=== PATIENT | male | born 1975 | race Caucasian/White ===

== ENCOUNTER 2016-10-19 07:57 | Inpatient (IN) | payer OTHER ==
[2016-10-18 17:44] VITALS: BMI 37.0
[2016-10-19] VITALS (26 sets, daily range): BP systolic 117–187; BP diastolic 56–96; PULSE 62–80; RESP 15–22; Ht 175.3 cm; Wt 113.6 kg
[~2016-10-19] VITALS: Ht 175.3 cm; Wt 113.6 kg
[~2016-10-19 07:57] MED LIST: ATOR80TA75 PO; BENA10TA48 PO; METO50TA16 PO; SUCCINYLCHOLINE CHLORIDE 100 MG/5 ML SYG IV ONE; WARF4TAB PO
[2016-10-19] MEDS ORDERED: AMPICILLIN/SULB 3 GM/NS (PMX) 100 ML IVPB ONE (09:30)
[2016-10-19] MEDS ORDERED: SOD CHLORIDE 0.9% 1,000 ML IV ONE (09:30)
[2016-10-19] MEDS ORDERED: metroNIDAZOLE 500 MG/NS (PMX) 100 ML IVPB ONE (09:30)
[2016-10-19] MEDS ORDERED: BUPIVACAINE 0.25% (MPF) 30 ML INJ ONE (09:41)
[2016-10-19] MEDS ORDERED: POLYMYXIN/BACITRACIN 1L IRRIG ONE (09:41)
[2016-10-19] MEDS ORDERED: MIDAZOLAM 1 MG/ML 2 ML INJ ONE (09:58)
[2016-10-19] MEDS ORDERED: FENTAnyl 50 MCG/ML VIAL ONE ×2 (09:58)
[2016-10-19] MEDS ORDERED: ROCURONIUM 50 MG INJ ONE (09:58)
[2016-10-19] MEDS ORDERED: PROPOFOL 20 ML ONE ×2 (09:58→10:48)
[2016-10-19] MEDS ORDERED: PHENYLephrine (100 MCG/ML) 5ML SYG ONE ×2 (10:12→10:22)
[2016-10-19] MEDS ORDERED: ONDANSETRON 4 MG INJ ONE (10:48)
[2016-10-19] MEDS ORDERED: METOCLOPRAMIDE 10 MG INJ ONE (10:48)
[2016-10-19] MEDS ORDERED: FAMOTIDINE 20 MG INJ ONE (10:48)
[2016-10-19] MEDS ORDERED: DEXAMETHASONE 4 MG/ML 1 ML INJ ONE (10:48)
[2016-10-19] MEDS ORDERED: KETOROLAC 30 MG INJ ONE (10:48)
[2016-10-19] MEDS ORDERED: NEOSTIGMINE 3 MG/3 ML SYRINGE ONE (10:51)
[2016-10-19] MEDS ORDERED: GLYCOPYRROLATE 1 MG INJ ONE (10:51)
[2016-10-19] MEDS ORDERED: ACETAMINOPHEN 1000MG/100ML IV 100 ML ONE (11:19)
[2016-10-19] MEDS ORDERED: HYDROmorphONE (0.2 MG/ML) 10ML SYG IV PRN ×2 (11:30)
[2016-10-19] MEDS ORDERED: ONDANSETRON 4 MG INJ IV PRN (11:30)
[2016-10-19] MEDS ORDERED: morphine 2 MG INJ IV PRN (11:30)
[2016-10-19] MEDS ORDERED: hydrALAzine 20 MG INJ IV PRN (11:30)
[2016-10-19] MEDS ORDERED: DIPHENHYDRAMINE 50 MG INJ IV PRN (11:30)
[2016-10-19] MEDS ORDERED: morphine (1 MG/ML) 10ML SYRINGE IV PRN ×3 (11:30)
[2016-10-19] MEDS ORDERED: EPHEDrine SULFATE 50 MG/5 ML SYG IV PRN (11:30)
[2016-10-19] MEDS ORDERED: LABETALOL HCL 20MG INJ IV PRN (11:30)
[2016-10-19] MEDS ORDERED: ALBUMIN HUMAN 5% 250 ML IV PRN (11:30)
[2016-10-19] MEDS ORDERED: MEPERIDINE 25 MG INJ IV PRN (11:30)
[2016-10-19] MEDS: HYDROmorphONE (0.2 MG/ML) 10ML SYG IV PRN ×3 (11:47→12:02)
[2016-10-19] MEDS: CEFAZOLIN 2 GM/50 ML (PMX) 50 ML IVPB SCH ×2 (12:00→20:05)
--- NOTE | 2016-10-19 13:50 | OPR ---
DATE OF OPERATION: 10/19/2016 INDICATION: This is a 41-year-old male with an incarcerated incisional hernia. He requests surgica l repair. Risks, alternatives, benefits, and personnel were discussed with patient. The patient ex presses understanding and consents to the operation. PREOPERATIVE DIAGNOSIS: Incarcerated incisional hernia. POSTOPERATIVE DIAGNOSIS: Incarcerated incisional hernia. OPERATIONS PERFORMED: 1. Laparoscopic converted to open incarcerated incisional hernia repair with 15 x [address] mesh. 2. Laparoscopic lysis of adhesions, approximately 1 hour. SURGEON: MD Lillie HOUSE WRECKER: Cristian Erwin MD SPECIMENS: None. COMPLICATIONS: None. ANESTHESIA: General. DESCRIPTION OF PROCEDURE: The patient was taken to the OR and prepped and draped in the usual steri le fashion. Surgical time out was performed. IV antibiotics were given. Right upper quadrant 5 mm transverse incision is made with a 15 blade. Using a 5 mm optical trocar, optical entry was perfor med. Pneumoperitoneum was established. Right flank 12 mm optical trocar, right lower quadrant 5 mm optical trocar were placed under direct visualization. Port positions were selected due to the dev iation of the hernia to the left side of the abdomen. Upon initial inspection, there were some adhe sions to the anterior abdominal wall, approximately 1 hour to an [id number]-a-half was used for laparo scopic lysis of adhesions. Upon identification of the hernia, it appeared incarcerated and large. This was not amenable to laparoscopic surgical management. A midline incision was made with a 10 bl linda. The decision was made for a conversion to open surgery. The incarcerated hernia was reduced. The fascial edges were identified with approximately 4 to 5 cm of underlay in all directions. Unde rlay mesh was secured in place with interrupted #1 Prolene. The midline incision was then closed wi th interrupted #1 Prolene and running #1 looped PDS from superior to inferior, inferior to superior , and tied in the midline. Surgical site was irrigated. There was good hemostasis. Skin was close d using skin river. Ports were closed using skin river. Local anesthesia was injected at all s ites. Dry dressings were applied. Dictated By: PANTERA FRANKS MD SB/NTS Conf#: [id number] DID#: [id number]
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
[2016-10-19 15:26] LABS: BASOPHILS % 0.2 % (0.0-2.0); EOSINOPHILS % 0.2 % (0.0-7.0); HEMATOCRIT 36.1 % (42.0-52.0); HEMOGLOBIN 12.1 g/dl (14.0-18.0); LYMPHOCYTES # 0.9 10^3/ul (0.8-2.9); LYMPHOCYTES % 8.3 % (15.0-51.0); MEAN CORPUSCULAR HEMOGLOBIN 28.7 pg (29.0-33.0); MEAN CORPUSCULAR HGB CONC 33.6 g/dl (32.0-37.0); MEAN CORPUSCULAR VOLUME 85.6 fl (82.0-101.0); MEAN PLATELET VOLUME 11.1 fl (7.4-10.4); MONOCYTE # 0.2 10^3/ul (0.3-0.9); MONOCYTES % 1.9 % (0.0-11.0); NEUTROPHIL # 9.7 10^3/ul (1.6-7.5); NEUTROPHILS % 89.4 % (39.0-77.0); PLATELET COUNT 184 10^3/UL (140-440); RED BLOOD COUNT 4.22 10^6/ul (4.70-6.10); UNCORRECTED WBC 10.9 10^3/ul (4.8-10.8); WHITE BLOOD COUNT 10.9 10^3/ul (4.8-10.8)
[2016-10-19 15:31] LABS: ALBUMIN 3.7 g/dl (3.3-4.9)
[2016-10-19 15:32] LABS: CONDITION 1; LH ANALYZER COMMENTS 1; POTASSIUM 4.6 mmol/L (3.5-5.1)
[2016-10-19 15:34] LABS: ALBUMIN/GLOBULIN RATIO 1.19; BILIRUBIN,INDIRECT 0.3 mg/dl (0-1.1); BILIRUBIN,TOTAL 0.3 mg/dl (0.2-1.3); CREATININE 1.04 mg/dl (0.61-1.24); TOTAL PROTEIN 6.8 g/dl (6.1-8.1)
[2016-10-19 15:35] LABS: CALCIUM 8.4 mg/dl (8.4-10.2)
[2016-10-19] MEDS: SOD CHLORIDE 0.9% 1,000 ML IV SCH ×2 (15:41→22:13)
[2016-10-19] MEDS: HYDROmorphONE 1 MG/ML SYG IV PRN ×2 (17:14→22:59)
[2016-10-19] MEDS: BENAZEPRIL 10 MG TAB PO SCH (22:09)
[2016-10-20 00:05] VITALS: BP 128/74; PULSE 70; RESP 17
[2016-10-20] MEDS: HYDROCODONE/APAP (5/325) TAB PO PRN ×3 (01:57→18:35)
[2016-10-20] MEDS: CEFAZOLIN 2 GM/50 ML (PMX) 50 ML IVPB SCH (03:46)
[2016-10-20 04:02] VITALS: BP 127/70; PULSE 70; RESP 18
[2016-10-20 05:25] LABS: ALBUMIN 3.3 g/dl (3.3-4.9)
[2016-10-20 05:26] LABS: POTASSIUM 4.8 mmol/L (3.5-5.1)
[2016-10-20 05:28] LABS: ALBUMIN/GLOBULIN RATIO 1.22; BILIRUBIN,INDIRECT 0.5 mg/dl (0-1.1); BILIRUBIN,TOTAL 0.5 mg/dl (0.2-1.3); CREATININE 1.08 mg/dl (0.61-1.24)
[2016-10-20 05:29] LABS: CALCIUM 8.5 mg/dl (8.4-10.2)
[2016-10-20 05:32] LABS: BASOPHILS % 0.3 % (0.0-2.0); HEMATOCRIT 33.4 % (42.0-52.0); HEMOGLOBIN 11.2 g/dl (14.0-18.0); LYMPHOCYTES # 1.1 10^3/ul (0.8-2.9); LYMPHOCYTES % 9.2 % (15.0-51.0); MEAN CORPUSCULAR HGB CONC 33.5 g/dl (32.0-37.0); MEAN CORPUSCULAR VOLUME 86.5 fl (82.0-101.0); MONOCYTE # 0.8 10^3/ul (0.3-0.9); MONOCYTES % 6.9 % (0.0-11.0); NEUTROPHIL # 9.7 10^3/ul (1.6-7.5); NEUTROPHILS % 83.6 % (39.0-77.0); PLATELET COUNT 181 10^3/UL (140-440); RED BLOOD COUNT 3.86 10^6/ul (4.70-6.10); RED CELL DISTRIBUTION WIDTH 14.6 % (11.5-14.5); UNCORRECTED WBC 11.6 10^3/ul (4.8-10.8); WHITE BLOOD COUNT 11.6 10^3/ul (4.8-10.8)
[2016-10-20 07:11] LABS: CONDITION 1; LH ANALYZER COMMENTS 1
[2016-10-20 07:12] LABS: MEAN PLATELET VOLUME 13.9 fl (7.4-10.4)
[2016-10-20 07:25] VITALS: BP 112/60; RESP 19
[2016-10-20] MEDS: SOD CHLORIDE 0.9% 1,000 ML IV SCH (08:54)
[2016-10-20] MEDS: METOPROLOL (XL) 50 MG TAB PO SCH (08:55)
[2016-10-20] MEDS: BENAZEPRIL 10 MG TAB PO SCH ×2 (08:55→20:47)
[2016-10-20 10:30] LABS: INR 1.14; PROTIME 14.6 Sec (12.2-14.2); PT RATIO 1.1
[2016-10-20] MEDS: HYDROmorphONE 1 MG/ML SYG IV PRN ×2 (14:59→20:53)
--- NOTE | 2016-10-20 16:40 | PN ---
DATE: 10/20/2016 Postoperative day #1: SUBJECTIVE: Patient does not have any specific complaints. The pain is under control with pain med ication. Patient has been out of bed. PHYSICAL EXAMINATION: GENERAL: Patient is sitting in the chair. VITAL SIGNS: 98.5/75/19, blood pressure 112/60, saturation 95% on 2 liters nasal cannula. LABORATORY DATA: WBC today is 11,600. Differential 83%. Hemoglobin and hematocrit stable compared to the pre-operation. The lower part of the dressing is slightly saturated with blood, so the dres sing completely was changed. There was clotted blood or lower part of the incision. The clot was r emoved. There was no evidence of acute bleeding, but the blood was there where he had clotted. So, the dressing was changed and new sterile dry dressing was applied. ASSESSMENT: Status post ventral incisional hernia repair with mesh on a patient who is 41 years ol d with status post dissecting aneurysm of the aorta and open heart surgery and patient has been on C oumadin, which has been stopped already. Patient is going to be started on Lovenox 115 mg q.12h., starting at 9:00 p.m. tonight and also 5 mg of Coumadin starting at 5:00 p.m. today as a breech. PLAN: The patient is resting in the hospital a few days until the bridging anticoagulation is compl eted and or other condition becomes more stable. Dictated By: MICHELLE THOMPSON MD PS/NTS Conf#: [id number] DID#: [id number]
--- NOTE | 2016-10-20 16:44 | PN ---
Date/Time of Note Date/Time of Note DATE: 10/20/16 TIME: 16:42 Assessment/Plan VTE Prophylaxis VTE Prophylaxis Intervention: LMWH, SCD's, other (Coumadin) Lines/Catheters IV Catheter Type (from Nrs): Peripheral IV Urinary Cath still in place: No Assessment/Plan Assessment/Plan 41 yo Male with 1. Incisional hernia status post laparoscopic incisional hernia repair. We will continue Zofran p.r.n. for nausea and morphine p.r.n. for pain. Continue cefazolin and incentive spirometer. Advance diet per surgery. 2. Prosthetic aortic valve replacement. Continue patient on Coumadin and Lovenox. Check Coags Daily. 3. Hypertension. Controlled. Continue to monitor blood pressure, hydralazine p.r.n. for systolic blood pressure above 170. 4. Hyperlipidemia. Continue Lipitor. 5. History of aortic dissection status post repair. No acute issues. Subjective 24 Hr Interval Summary Free Text/Dictation No new complaints Constitutional: No requiring O2 Exam/Review of Systems Vital Signs Vitals Vital Signs Date Time Temp Pulse Resp B/P Pulse Ox O2 Delivery O2 Flow Rate FiO2 10/20/16 07:25 98.5 75 19 112/60 95 10/20/16 04:02 Nasal Cannula 10/20/16 02:19 2.0 Intake and Output 10/19/16 10/19/16 10/20/16 15:00 23:00 07:00 Intake Total 700 ml 1050 ml 1180 ml Output Total 50 ml 1600 ml Balance 650 ml 1050 ml -420 ml Exam Constitutional: alert, oriented, No distress Head: atraumatic, normocephalic Eyes: EOMI Neck: No jvd Respiratory: clear to auscultation Cardiovascular: edema, regular rate and rhythm Gastrointestinal: soft, No rebound or guarding Neurological: No lethargic Skin: No diaphoresis Results Result Diagram: 10/20/16 0424 10/20/16425 Results 24 hrs Laboratory Tests Test 10/20/16 04:24 10/20/16 04:26 10/20/16 09:40 Basophils # 0.0 Basophils % 0.3 Blood Morphology Comment Eosinophils # 0.0 Eosinophils % 0.0 Hematocrit 33.4 L Hemoglobin 11.2 L Lymphocytes # 1.1 Lymphocytes % 9.2 L Mean Corpuscular Hemoglobin 29.0 Mean Corpuscular Hemoglobin Concent 33.5 Mean Corpuscular Volume 86.5 Mean Platelet Volume 13.9 #H Monocytes # 0.8 Monocytes % 6.9 Neutrophils # 9.7 H Neutrophils % 83.6 H Nucleated Red Blood Cells # 0.0 Nucleated Red Blood Cells % 0.0 Platelet Count 181 Red Blood Count 3.86 L Red Cell Distribution Width 14.6 H White Blood Count 11.6 H Alanine Aminotransferase (ALT/SGPT) 26 Albumin 3.3 Albumin/Globulin Ratio 1.22 Alkaline Phosphatase 37 L Anion Gap 14 Aspartate Amino Transf (AST/SGOT) 23 Blood Urea Nitrogen 24 H Calcium Level 8.5 Carbon Dioxide Level 25 Chloride Level 105 Creatinine 1.08 Direct Bilirubin 0.00 Globulin 2.70 Glucose Level 110 Indirect Bilirubin 0.5 Potassium Level 4.8 Sodium Level 139 Total Bilirubin 0.5 Total Protein 6.0 L INR International Normalized Ratio 1.14 Prothrombin Time 14.6 H Prothrombin Time Ratio 1.1 Medications Medications Current Medications Hydromorphone HCl (Dilaudid) 0.5 mg Q6H PRN IV PAIN LEVEL 6-10 Last administered on 10/20/16 14:59; Admin Dose 0.5 MG; Start 10/19/16 at 11:30 Morphine Sulfate (morphine) 2 mg Q2H PRN IV PAIN LEVEL 6-10; Start 10/19/16 at 11:30 Acetaminophen/ Hydrocodone Bitart ([place] (5/325)) 1 tab Q6H PRN PO PAIN LEVEL 6 -10 Last administered on 10/20/16 10:05; Admin Dose 1 TAB; Start 10/19/16 at 11 :30 Enoxaparin Sodium (Lovenox) 115 mg Q12 SC ; Start 10/20/16 at 21:00 Warfarin Sodium (Coumadin) 5 mg ONCE@17 ONCE PO ; Start 10/20/16 at 17:00; Stop 10/20/16 at 17:01 Atorvastatin Calcium (Lipitor) 80 mg HS PO ; Start 10/20/16 at 21:00 Benazepril HCl (Lotensin) 10 mg BID PO Last administered on 10/20/16 08:55; Admin Dose 10 MG; Start 10/19/16 at 22:30 Metoprolol Succinate (Toprol Xl) 50 mg DAILY PO Last administered on 10/20/16 08:55; Admin Dose 50 MG; Start 10/20/16 at 09:00 HANS VIRAMONTES MD Oct 20, 2016 16:44
[2016-10-20] MEDS ORDERED: WARFARIN 5 MG TAB PO ONE (17:00)
[2016-10-20 19:49] VITALS: BP 171/90; RESP 20
[2016-10-20] MEDS: ATORVASTATIN 80 MG TAB PO SCH (20:46)
[2016-10-20] MEDS ORDERED: ENOXAPARIN 100 MG/ML SYG SC SCH (21:00)
[2016-10-20 22:02] VITALS: BP 129/79; PULSE 76
[2016-10-21] MEDS: HYDROmorphONE 1 MG/ML SYG IV PRN ×3 (03:55→18:49)
[2016-10-21 05:17] LABS: BASOPHIL # 0.1 10^3/ul (0.0-0.1); BASOPHILS % 0.7 % (0.0-2.0); EOSINOPHILS % 0.5 % (0.0-7.0); HEMOGLOBIN 11.5 g/dl (14.0-18.0); LYMPHOCYTES # 1.9 10^3/ul (0.8-2.9); LYMPHOCYTES % 17.7 % (15.0-51.0); MEAN CORPUSCULAR HEMOGLOBIN 29.3 pg (29.0-33.0); MEAN CORPUSCULAR HGB CONC 33.8 g/dl (32.0-37.0); MEAN CORPUSCULAR VOLUME 86.5 fl (82.0-101.0); MEAN PLATELET VOLUME 12.1 fl (7.4-10.4); MONOCYTE # 0.8 10^3/ul (0.3-0.9); MONOCYTES % 7.6 % (0.0-11.0); NEUTROPHIL # 7.9 10^3/ul (1.6-7.5); NEUTROPHILS % 73.5 % (39.0-77.0); PLATELET COUNT 176 10^3/UL (140-440); RED BLOOD COUNT 3.93 10^6/ul (4.70-6.10); RED CELL DISTRIBUTION WIDTH 14.9 % (11.5-14.5); UNCORRECTED WBC 10.8 10^3/ul (4.8-10.8); WHITE BLOOD COUNT 10.8 10^3/ul (4.8-10.8)
[2016-10-21 05:27] LABS: CONDITION 1; LH ANALYZER COMMENTS 1
[2016-10-21 07:54] VITALS: BP 148/79; RESP 20
[2016-10-21] MEDS: BENAZEPRIL 10 MG TAB PO SCH ×3 (09:05→22:28)
[2016-10-21] MEDS: METOPROLOL (XL) 50 MG TAB PO SCH (09:06)
[2016-10-21 11:03] LABS: INR 1.12; PROTIME 14.4 Sec (12.2-14.2); PT RATIO 1.1
--- NOTE | 2016-10-21 13:20 | PN ---
Date/Time of Note Date/Time of Note DATE: 10/21/16 TIME: 13:18 Assessment/Plan VTE Prophylaxis VTE Prophylaxis Intervention: SCD's Lines/Catheters IV Catheter Type (from Nrsg): Peripheral IV Urinary Cath still in place: No Assessment/Plan Assessment/Plan 1. Incisional hernia status post laparoscopic incisional hernia repair. - per surgery - Zofran p.r.n. for nausea and morphine p.r.n. for pain. - cefazolin and incentive spirometer. - Advance diet per surgery. 2. Prosthetic aortic valve replacement. - Continue patient on Coumadin and Lovenox. Check Coags Daily. 3. Hypertension. Controlled. -Continue to monitor blood pressure, hydralazine p.r.n. for systolic blood pressure above 170. 4. Hyperlipidemia. Continue Lipitor. 5. History of aortic dissection status post repair. No acute issues. Further recommendations based on clinical course. Plan of care discussed with staff/patient/Dr. Baker covering for Dr Murphy. Total time spent - [address] Baker Subjective 24 Hr Interval Summary Eyes: no complaints ENT: no complaints Respiratory: no complaints Cardiovascular: no complaints Gastrointestinal: pain Genitourinary: no complaints Musculoskeletal: no complaints Skin: no complaints, other Neurologic: no complaints Endocrine: no complaints, polydypsia Lymphatic: no complaints Psychological: no complaints Immunologic: no complaints Exam/Review of Systems Vital Signs Vitals Vital Signs Date Time Temp Pulse Resp B/P Pulse Ox O2 Delivery O2 Flow Rate FiO2 10/21/16 07:54 98.0 78 20 148/79 92 10/20/16 04:02 Nasal Cannula 10/20/16 02:19 2.0 Intake and Output 10/20/16 10/20/16 10/21/16 15:00 23:00 07:00 Intake Total 350 ml 2100 ml 1400 ml Output Total 1600 ml Balance 350 ml 2100 ml -200 ml Exam Constitutional: alert, oriented Psych: nl mood/affect Head: atraumatic Eyes: EOMI, nl sclera ENMT: nl external ears & nose Neck: non-tender Respiratory: clear to auscultation Cardiovascular: nl pulses Gastrointestinal: other (sp hernai repair, dressing is wet- bloody drainage, staff notified Dr Erwin. ), soft Musculoskeletal: nl extremities to inspection Extremities: normal pulses Neurological: nl mental status, nl speech Skin: other Results Result Diagram: 10/21/16 0430 10/20/16 0426 Results 24 hrs Laboratory Tests Test 10/21/16 04:30 10/21/16 10:20 Basophils # 0.1 Basophils % 0.7 Blood Morphology Comment Eosinophils # 0.0 Eosinophils % 0.5 Hematocrit 34.0 L Hemoglobin 11.5 L Lymphocytes # 1.9 Lymphocytes % 17.7 Mean Corpuscular Hemoglobin 29.3 Mean Corpuscular Hemoglobin Concent 33.8 Mean Corpuscular Volume 86.5 Mean Platelet Volume 12.1 H Monocytes # 0.8 Monocytes % 7.6 Neutrophils # 7.9 H Neutrophils % 73.5 Nucleated Red Blood Cells # 0.0 Nucleated Red Blood Cells % 0.0 Platelet Count 176 Red Blood Count 3.93 L Red Cell Distribution Width 14.9 H White Blood Count 10.8 INR International Normalized Ratio 1.12 Prothrombin Time 14.4 H Prothrombin Time Ratio 1.1 Medications Medications Current Medications Hydromorphone HCl (Dilaudid) 0.5 mg Q6H PRN IV PAIN LEVEL 6-10 Last administered on 10/21/16 12:43; Admin Dose 0.5 MG; Start 10/19/16 at 11:30 Morphine Sulfate (morphine) 2 mg Q2H PRN IV PAIN LEVEL 6-10; Start 10/19/16 at 11:30 Acetaminophen/ Hydrocodone Bitart ([place] (5/325)) 1 tab Q6H PRN PO PAIN LEVEL 6 -10 Last administered on 10/20/16 18:35; Admin Dose 1 TAB; Start 10/19/16 at 11 :30 Atorvastatin Calcium (Lipitor) 80 mg HS PO Last administered on 10/20/16 20:46 ; Admin Dose 80 MG; Start 10/20/16 at 21:00 Benazepril HCl (Lotensin) 10 mg BID PO Last administered on 10/21/16 09:05; Admin Dose 10 MG; Start 10/19/16 at 22:30 Metoprolol Succinate (Toprol Xl) 50 mg DAILY PO Last administered on 10/21/16 09:06; Admin Dose 50 MG; Start 10/20/16 at 09:00 NIKO ANSARI Oct 21, 2016 13:19
[2016-10-21] MEDS ORDERED: MAGNESIUM HYDROXIDE 30ML CUP PO PRN (15:00)
[2016-10-21] MEDS ORDERED: MAGNESIUM HYDROXIDE 30ML CUP PO ONE (15:00)
[2016-10-21] MEDS: LORATADINE 10 MG TAB PO SCH (15:23)
[2016-10-21 15:30] VITALS: BP 162/84; PULSE 84; RESP 22
[2016-10-21 15:45] VITALS: BP 145/83; PULSE 86; RESP 22
[2016-10-21] MEDS ORDERED: BISACODYL 10 MG SUPP PR PRN (16:00)
[2016-10-21] MEDS ORDERED: NA PHOSPHATE/BIPHOS 133 ML ENEMA PR PRN (16:00)
[2016-10-21] MEDS ORDERED: BISACODYL 10 MG SUPP PR ONE (16:00)
[2016-10-21] MEDS: 1/2 NS + KCL 20 MEQ 1,000 ML IV SCH (16:10)
[2016-10-21 17:09] VITALS: BP 141/88; RESP 18
--- NOTE | 2016-10-21 17:33 | RADRPT ---
PROCEDURE: XR Abdomen 1 vw. CLINICAL INDICATION: Abdominal pain /post hernia repair TECHNIQUE: AP view of the abdomen . COMPARISON: None. FINDINGS: Right lower quadrant surgical clips. No organomegaly is identified. There is a moderate ileus bowel pattern.. There is no evidence of b owel obstruction. No free air is identified. There is abdominal wall soft tissue edema in the right lower quadrant. No calculi are identified. The axial skeleton is unremarkable. IMPRESSION: Moderate ileus bowel gas pattern Right lower quadrant abdominal wall soft tissue edema (query cellulitis) RPTAT: HGDB .Kang Hsu MD, Date Time Electronically viewed and signed by .Kang Hsu MD, on 10/21/2016 17:33 .B/
--- NOTE | 2016-10-21 18:30 | PN ---
DATE: 10/21/2016 SUBJECTIVE: The patient complains of a little bit increasing abdominal pain. GI, negative nausea, vomiting. Negative bowel movement. Plus/minus passing flatus. Also, the nurse reported that the dressing appears to be saturated with blood. OBJECTIVE: GENERAL: The patient is alert, awake, oriented x3, semisitting position. VITAL SIGNS: Temperature 98, heart rate 78 and regular, respirations 20, blood pressure 148/79, saturation 92% on 2 liters oxygen. DATA: WBC is 10,800; hemoglobin is 11.5, hematocrit 34, not much of difference since yesterday. INR is 1.12. ABDOMEN: Slightly distended, and, of course, is protruded with fat. Dressing appears saturated. This was changed. I think is about 50 to 60 mL of blood has oozed out from the incision line and has clotted already. Dressing was changed. No active bleeding from incision line at this time. ASSESSMENT: Appears to be stable. There is a little bit of oozing from the incision line. I am not sure if this is the effect of starting Lovenox earlier or some small bleeders from the edge of the skin. In any case, we changed the dressing and we will watch and observe. PLAN: 1. Continue current care. 2. Stop Coumadin. 3. Hold Lovenox. 4. Repeat CBC, PT, and PTT tomorrow morning. 5. Keep the patient n.p.o. after midnight in the case Dr. Moreira wants to inspect the wound in the operating room to make sure that there is no small capillary open. 6. I will discuss the matter with Dr. Moreira later on. Dictated By: MICHELLE THOMPSON MD PS/NTS Conf#: [id number] DID#: [id number] CC: ELIZABETH STANLEY MD;*EndCC* MTDD
[2016-10-21 20:00] VITALS: BP 127/92; PULSE 80; RESP 17
[2016-10-21] MEDS: ATORVASTATIN 80 MG TAB PO SCH ×2 (21:00→22:26)
[2016-10-21] MEDS: HYDROCODONE/APAP (5/325) TAB PO PRN (23:42)
[2016-10-22] MEDS: 1/2 NS + KCL 20 MEQ 1,000 ML IV SCH ×3 (01:27→22:17)
[2016-10-22 01:28] VITALS: BP 133/87; PULSE 95; RESP 17
[2016-10-22] MEDS: HYDROmorphONE 1 MG/ML SYG IV PRN ×3 (05:02→22:23)
[2016-10-22 06:36] LABS: POTASSIUM 4.3 mmol/L (3.5-5.1)
[2016-10-22 06:40] LABS: CALCIUM 8.7 mg/dl (8.4-10.2)
[2016-10-22 06:41] LABS: BASOPHIL # 0.1 10^3/ul (0.0-0.1); BASOPHILS % 0.5 % (0.0-2.0); EOSINOPHILS % 0.4 % (0.0-7.0); HEMATOCRIT 35.2 % (42.0-52.0); LYMPHOCYTES # 1.5 10^3/ul (0.8-2.9); LYMPHOCYTES % 13.2 % (15.0-51.0); MEAN CORPUSCULAR HEMOGLOBIN 29.4 pg (29.0-33.0); MEAN CORPUSCULAR HGB CONC 34.1 g/dl (32.0-37.0); MEAN CORPUSCULAR VOLUME 86.1 fl (82.0-101.0); MEAN PLATELET VOLUME 14.3 fl (7.4-10.4); MONOCYTE # 0.7 10^3/ul (0.3-0.9); MONOCYTES % 6.4 % (0.0-11.0); NEUTROPHIL # 9.2 10^3/ul (1.6-7.5); NEUTROPHILS % 79.5 % (39.0-77.0); PLATELET COUNT 190 10^3/UL (140-440); RED BLOOD COUNT 4.09 10^6/ul (4.70-6.10); RED CELL DISTRIBUTION WIDTH 15.1 % (11.5-14.5); UNCORRECTED WBC 11.5 10^3/ul (4.8-10.8); WHITE BLOOD COUNT 11.5 10^3/ul (4.8-10.8)
[2016-10-22 06:48] LABS: CONDITION 1; LH ANALYZER COMMENTS 1; SUSPECT 1
[2016-10-22 06:57] LABS: INR 1.17; PT RATIO 1.2
[2016-10-22 08:34] VITALS: BP 155/93; RESP 20
[2016-10-22] MEDS: LORATADINE 10 MG TAB PO SCH (08:52)
--- NOTE | 2016-10-22 08:52 | PN ---
Date/Time of Note Date/Time of Note DATE: 10/22/16 TIME: 08:51 Assessment/Plan VTE Prophylaxis VTE Prophylaxis Intervention: ambulation, heparin, SCD's Lines/Catheters IV [facility] (from [facility]): Peripheral IV Urinary Cath still in place: No Assessment/Plan Chief Complaint/Hosp Course incisional hernia with multiple medical problems and aortic valve requiring anticoagulation Problems: Assessment/Plan will resume lovenox bridging to coumadin Subjective 24 Hr Interval Summary Free Text/Dictation wound hematoma but stable hgb Exam/Review of Systems Vital Signs Vitals Vital Signs Date Time Temp Pulse Resp B/P Pulse Ox O2 Delivery O2 Flow Rate FiO2 10/22/16 08:34 97.8 81 20 155/93 93 10/22/16 01:28 Nasal Cannula 2.0 Intake and Output 10/21/16 10/21/16 10/22/16 15:00 23:00 07:00 Intake Total 890 ml 1360 ml Output Total 450 ml 200 ml Balance 440 ml 1160 ml Exam wound hematoma Results Result Diagram: 10/22/16 0434 10/22/16 0434 Results 24 hrs Laboratory Tests Test 10/21/16 10:20 10/22/16 04:34 10/22/16 04:35 INR International Normalized Ratio 1.12 1.17 Prothrombin Time 14.4 H 15.0 H Prothrombin Time Ratio 1.1 1.2 Anion Gap 17 H Basophils # 0.1 Basophils % 0.5 Blood Morphology Comment Blood Urea Nitrogen 25 H Calcium Level 8.7 Carbon Dioxide Level 29 Chloride Level 96 L Creatinine 1.00 Eosinophils # 0.0 Eosinophils % 0.4 Glucose Level 108 Hematocrit 35.2 L Hemoglobin 12.0 L Lymphocytes # 1.5 Lymphocytes % 13.2 L Mean Corpuscular Hemoglobin 29.4 Mean Corpuscular Hemoglobin Concent 34.1 Mean Corpuscular Volume 86.1 Mean Platelet Volume 14.3 H Monocytes # 0.7 Monocytes % 6.4 Neutrophils # 9.2 H Neutrophils % 79.5 H Nucleated Red Blood Cells # 0.0 Nucleated Red Blood Cells % 0.0 Platelet Count 190 Potassium Level 4.3 Red Blood Count 4.09 L Red Cell Distribution Width 15.1 H Sodium Level 138 White Blood Count 11.5 H Activated Partial Thromboplast Time 30.9 Medications Medications Current Medications Hydromorphone HCl (Dilaudid) 0.5 mg Q6H PRN IV PAIN LEVEL 6-10 Last administered on 10/22/16 05:02; Admin Dose 0.5 MG; Start 10/19/16 at 11:30 Morphine Sulfate (morphine) 2 mg Q2H PRN IV PAIN LEVEL 6-10; Start 10/19/16 at 11:30 Acetaminophen/ Hydrocodone Bitart ([place] (5/325)) 1 tab Q6H PRN PO PAIN LEVEL 6 -10 Last administered on 10/21/16 23:42; Admin Dose 1 TAB; Start 10/19/16 at 11 :30 Atorvastatin Calcium (Lipitor) 80 mg HS PO Last administered on 10/21/16 22:26 ; Admin Dose 80 MG; Start 10/20/16 at 21:00 Benazepril HCl (Lotensin) 10 mg BID PO Last administered on 10/21/16 22:28; Admin Dose 10 MG; Start 10/19/16 at 22:30 Metoprolol Succinate (Toprol Xl) 50 mg DAILY PO Last administered on 10/21/16 09:06; Admin Dose 50 MG; Start 10/20/16 at 09:00 Magnesium Hydroxide (Milk Of Mag) 30 ml DAILY PRN PO CONSTIPATION; Start at 15:00 Loratadine (Claritin) 10 mg DAILY PO Last administered on 10/21/16 15:23; Admin Dose 10 MG; Start 10/21/16 at 15:00 Bisacodyl (Dulcolax Supp) 10 mg DAILY PRN [place] CONSTIPATION; Start 10/21/16 at 16 :00 Sodium Biphosphate/ Sodium Phosphate 133 ml 133 ml DAILY PRN [place] CONSTIPATION; Start 10/21/16 at 16:00 Potassium Chloride/Sodium Chloride (1/2 NS + KCl 20 Meq) 1,000 ml @ 100 mls/hr Q10H IV Last administered on 10/22/16 01:27; Admin Dose 100 MLS/HR; Start at 16:00 Izzy FRNAKS Oct 22, 2016 08:52
[2016-10-22] MEDS: BENAZEPRIL 10 MG TAB PO SCH ×3 (08:53→22:16)
[2016-10-22] MEDS: METOPROLOL (XL) 50 MG TAB PO SCH (08:53)
[2016-10-22] MEDS: HYDROCODONE/APAP (5/325) TAB PO PRN ×2 (08:55→15:38)
--- NOTE | 2016-10-22 18:31 | PN ---
Date/Time of Note Date/Time of Note DATE: 10/22/16 TIME: 18:26 Assessment/Plan VTE Prophylaxis VTE Prophylaxis Intervention: SCD's Lines/Catheters IV C[facility] Type [facility]from [facility] Peripheral IV Urinary Cath still in place: No Assessment/Plan Chief Complaint/Hosp Course ASSESSMENT AND PLAN: 1. Incisional hernia status post laparoscopic incisional hernia repair. Advance diet per surgery. 2. Prosthetic aortic valve replacement. Continue patient on Coumadin and Lovenox. 3. Hypertension. Continue to monitor blood pressure, hydralazine p.r.n. for systolic blood pressure above 170. 4. Hyperlipidemia. Continue Lipitor. 5. History of aortic dissection status post repair. No acute issues. Further recommendations based on clinical course. Plan of care discussed with Dr. Murphy. Problems: Subjective 24 Hr Interval Summary Free Text/Dictation Patient started on a regular diet, denies nausea vomiting, bowel sounds are hypoactive, patient stated he had bowel movement today. Exam/Review of Systems Vital Signs Vitals Vital Signs Date Time Temp Pulse Resp B/P Pulse Ox O2 Delivery O2 Flow Rate FiO2 10/22/16 13:08 97.9 10/22/16 08:34 81 20 155/93 93 10/22/16 08:00 Nasal Cannula 2.0 Intake and Output 10/21/16 10/21/16 10/22/16 15:00 23:00 07:00 Intake Total 890 ml 1360 ml Output Total 450 ml 200 ml Balance 440 ml 1160 ml Exam GENERAL: Well-developed, obese gentleman who currently is awake, alert. HEENT: Head is atraumatic, normocephalic. Pupils equal, round, reactive to light and accommodation. Oral mucosa is pink and moist. NECK: Supple, no cervical lymphadenopathy, no thyromegaly. CHEST: Lungs clear bilaterally. There are no rhonchi, wheezes, or rales noted. CARDIOVASCULAR: Normal S1, S2. The patient has mechanical aortic valve click. No murmurs or gallops noted. ABDOMEN: Status post surgery. Ecchymotic area around the incision. EXTREMITIES: No edema, clubbing, cyanosis. SKIN: There is no rash or petechiae noted. The patient has a midline surgical healed scar. NEUROLOGIC: The patient is awake, alert, and oriented x3. Results Result Diagram: 10/22/16 0434 10/22/16 0434 Results 24 hrs Laboratory Tests Test 10/22/16 04:34 10/22/16 04:35 Anion Gap 17 H Basophils # 0.1 Basophils % 0.5 Blood Morphology Comment Blood Urea Nitrogen 25 H Calcium Level 8.7 Carbon Dioxide Level 29 Chloride Level 96 L Creatinine 1.00 Eosinophils # 0.0 Eosinophils % 0.4 Glucose Level 108 Hematocrit 35.2 L Hemoglobin 12.0 L Lymphocytes # 1.5 Lymphocytes % 13.2 L Mean Corpuscular Hemoglobin 29.4 Mean Corpuscular Hemoglobin Concent 34.1 Mean Corpuscular Volume 86.1 Mean Platelet Volume 14.3 H Monocytes # 0.7 Monocytes % 6.4 Neutrophils # 9.2 H Neutrophils % 79.5 H Nucleated Red Blood Cells # 0.0 Nucleated Red Blood Cells % 0.0 Platelet Count 190 Potassium Level 4.3 Red Blood Count 4.09 L Red Cell Distribution Width 15.1 H Sodium Level 138 White Blood Count 11.5 H Activated Partial Thromboplast Time 30.9 INR International Normalized Ratio 1.17 Prothrombin Time 15.0 H Prothrombin Time Ratio 1.2 Medications Medications Current Medications Hydromorphone HCl (Dilaudid) 0.5 mg Q6H PRN IV PAIN LEVEL 6-10 Last administered on 10/22/16 11:12; Admin Dose 0.5 MG; Start 10/19/16 at 11:30 Morphine Sulfate (morphine) 2 mg Q2H PRN IV PAIN LEVEL 6-10; Start 10/19/16 at 11:30 Acetaminophen/ Hydrocodone Bitart ([place] (5/325)) 1 tab Q6H PRN PO PAIN LEVEL 6 -10 Last administered on 10/22/16 15:38; Admin Dose 1 TAB; Start 10/19/16 at 11 :30 Atorvastatin Calcium (Lipitor) 80 mg HS PO Last administered on 10/21/16 22:26 ; Admin Dose 80 MG; Start 10/20/16 at 21:00 Benazepril HCl (Lotensin) 10 mg BID PO Last administered on 10/22/16 08:53; Admin Dose 10 MG; Start 10/19/16 at 22:30 Metoprolol Succinate (Toprol Xl) 50 mg DAILY PO Last administered on 10/22/16 08:53; Admin Dose 50 MG; Start 10/20/16 at 09:00 Magnesium Hydroxide (Milk Of Mag) 30 ml DAILY PRN PO CONSTIPATION; Start at 15:00 Loratadine (Claritin) 10 mg DAILY PO Last administered on 10/22/16 08:52; Admin Dose 10 MG; Start 10/21/16 at 15:00 Bisacodyl (Dulcolax Supp) 10 mg DAILY PRN [place] CONSTIPATION; Start 10/21/16 at 16 :00 Sodium Biphosphate/ Sodium Phosphate 133 ml 133 ml DAILY PRN [place] CONSTIPATION; Start 10/21/16 at 16:00 Potassium Chloride/Sodium Chloride (1/2 NS + KCl 20 Meq) 1,000 ml @ 100 mls/hr Q10H IV Last administered on 10/22/16 11:18; Admin Dose 100 MLS/HR; Start at 16:00 KIM DEJESUS Oct 22, 2016 18:31
[2016-10-22 19:38] VITALS: BP 135/74; RESP 18
[2016-10-22] MEDS: ENOXAPARIN 100 MG/ML SYG SC SCH ×2 (21:00→22:22)
[2016-10-22] MEDS: ATORVASTATIN 80 MG TAB PO SCH ×2 (21:00→22:16)
[2016-10-23] MEDS: HYDROCODONE/APAP (5/325) TAB PO PRN ×3 (04:15→20:49)
[2016-10-23 06:42] LABS: INR 1.14; PROTIME 14.6 Sec (12.2-14.2); PT RATIO 1.1
[2016-10-23 07:55] VITALS: BP 126/73; RESP 17
[2016-10-23] MEDS: LORATADINE 10 MG TAB PO SCH (08:45)
[2016-10-23] MEDS: 1/2 NS + KCL 20 MEQ 1,000 ML IV SCH (08:45)
[2016-10-23] MEDS: BENAZEPRIL 10 MG TAB PO SCH ×2 (08:46→20:50)
[2016-10-23] MEDS: METOPROLOL (XL) 50 MG TAB PO SCH (08:46)
[2016-10-23] MEDS: ENOXAPARIN 100 MG/ML SYG SC SCH ×2 (08:51→20:51)
--- NOTE | 2016-10-23 14:29 | PN ---
Date/Time of Note Date/Time of Note DATE: 10/23/16 TIME: 14:28 Assessment/Plan VTE Prophylaxis VTE Prophylaxis Intervention: LMWH Lines/Catheters IV Catheter Type (from [place]): Peripheral IV Urinary Cath still in place: No Assessment/Plan Chief Complaint/Hosp Course ASSESSMENT AND PLAN: 1. Incisional hernia status post laparoscopic incisional hernia repair. Advance diet per surgery. 2. Prosthetic aortic valve replacement. Continue patient on Coumadin and Lovenox. 3. Hypertension. Continue to monitor blood pressure, hydralazine p.r.n. for systolic blood pressure above 170. 4. Hyperlipidemia. Continue Lipitor. 5. History of aortic dissection status post repair. No acute issues. Further recommendations based on clinical course. Plan of care discussed with Dr. Murphy. Problems: Subjective 24 Hr Interval Summary Free Text/Dictation Patient tolerates diet well, complains of mild incisional pain, which is controlled with medication, patient restarted on Lovenox and Coumadin. Exam/Review of Systems Vital Signs Vitals Vital Signs Date Time Temp Pulse Resp B/P Pulse Ox O2 Delivery O2 Flow Rate FiO2 10/23/16 08:55 Nasal Cannula 2.0 10/23/16 07:55 98.6 75 17 126/73 95 Intake and Output 10/22/16 10/22/16 10/23/16 15:00 23:00 07:00 Intake Total 600 ml 1360 ml 1640 ml Output Total 500 ml 400 ml Balance 600 ml 860 ml 1240 ml Exam GENERAL: Well-developed, obese gentleman who currently is awake, alert. HEENT: Head is atraumatic, normocephalic. Pupils equal, round, reactive to light and accommodation. Oral mucosa is pink and moist. NECK: Supple, no cervical lymphadenopathy, no thyromegaly. CHEST: Lungs clear bilaterally. There are no rhonchi, wheezes, or rales noted. CARDIOVASCULAR: Normal S1, S2. The patient has mechanical aortic valve click. No murmurs or gallops noted. ABDOMEN: Status post surgery. Ecchymotic area around the incision. EXTREMITIES: No edema, clubbing, cyanosis. SKIN: There is no rash or petechiae noted. The patient has a midline surgical healed scar. NEUROLOGIC: The patient is awake, alert, and oriented x3. Results Result Diagram: 10/22/16 0434 10/22/16 043 Results 24 hrs Laboratory Tests Test 10/23/16 04:25 Activated Partial Thromboplast Time 33.1 INR International Normalized Ratio 1.14 Prothrombin Time 14.6 H Prothrombin Time Ratio 1.1 Medications Medications Current Medications Hydromorphone HCl (Dilaudid) 0.5 mg Q6H PRN IV PAIN LEVEL 6-10 Last administered on 10/22/16 22:23; Admin Dose 0.5 MG; Start 10/19/16 at 11:30 Morphine Sulfate (morphine) 2 mg Q2H PRN IV PAIN LEVEL 6-10; Start 10/19/16 at 11:30 Acetaminophen/ Hydrocodone Bitart ([place] (5/325)) 1 tab Q6H PRN PO PAIN LEVEL 6 -10 Last administered on 10/23/16 09:49; Admin Dose 1 TAB; Start 10/19/16 at 11 :30 Atorvastatin Calcium (Lipitor) 80 mg HS PO Last administered on 10/22/16 22:16 ; Admin Dose 80 MG; Start 10/20/16 at 21:00 Benazepril HCl (Lotensin) 10 mg BID PO Last administered on 10/23/16 08:46; Admin Dose 10 MG; Start 10/19/16 at 22:30 Metoprolol Succinate (Toprol Xl) 50 mg DAILY PO Last administered on 10/23/16 08:46; Admin Dose 50 MG; Start 10/20/16 at 09:00 Magnesium Hydroxide (Milk Of Mag) 30 ml DAILY PRN PO CONSTIPATION; Start at 15:00 Loratadine (Claritin) 10 mg DAILY PO Last administered on 10/23/16 08:45; Admin Dose 10 MG; Start 10/21/16 at 15:00 Bisacodyl (Dulcolax Supp) 10 mg DAILY PRN [place] CONSTIPATION; Start 10/21/16 at 16 :00 Sodium Biphosphate/ Sodium Phosphate 133 ml 133 ml DAILY PRN [place] CONSTIPATION; Start 10/21/16 at 16:00 Potassium Chloride/Sodium Chloride (1/2 NS + KCl 20 Meq) 1,000 ml @ 100 mls/hr Q10H IV Last administered on 10/23/16 08:45; Admin Dose 100 MLS/HR; Start at 16:00 Warfarin Sodium (Coumadin) 5 mg DAILY@17 NGT ; Start 10/23/16 at 17:00 Enoxaparin Sodium (Lovenox) 115 mg Q12 SC Last administered on 10/23/16t 08:51 ; Admin Dose 115 MG; Start 10/22/16 at 21:00 KIM DEJESUS Oct 23, 2016 14:29
[2016-10-23] MEDS ORDERED: WARFARIN 5 MG TAB NGT SCH (17:00)
--- NOTE | 2016-10-23 17:31 | PN ---
Date/Time of Note Date/Time of Note DATE: 10/23/16 TIME: 17:31 Assessment/Plan VTE Prophylaxis VTE Prophylaxis Intervention: ambulation, heparin, SCD's Lines/Catheters IV Catheter Type (from Nrsg): Peripheral IV Urinary Cath still in place: No Assessment/Plan Chief Complaint/Hosp Course incisional hernia with multiple medical problems and aortic valve requiring anticoagulation Problems: Assessment/Plan no further bleeding continue lovenox bridging per medical team. ok to dc per medical team Subjective 24 Hr Interval Summary Free Text/Dictation no issues, on coumadin Exam/Review of Systems Vital Signs Vitals Vital Signs Date Time Temp Pulse Resp B/P Pulse Ox O2 Delivery O2 Flow Rate FiO2 10/23/16 08:55 Nasal Cannula 2.0 10/23/16 07:55 98.6 75 17 126/73 95 Intake and Output 10/22/16 10/22/16 10/23/16 15:00 23:00 07:00 Intake Total 600 ml 1360 ml 1640 ml Output Total 500 ml 400 ml Balance 600 ml 860 ml 1240 ml Results Result Diagram: 10/22/16 0434 10/22/16 0434 Results 24 hrs Laboratory Tests Test 10/23/16 04:25 Activated Partial Thromboplast Time 33.1 INR International Normalized Ratio 1.14 Prothrombin Time 14.6 H Prothrombin Time Ratio 1.1 Medications Medications Current Medications Hydromorphone HCl (Dilaudid) 0.5 mg Q6H PRN IV PAIN LEVEL 6-10 Last administered on 10/22/16 22:23; Admin Dose 0.5 MG; Start 10/19/16 at 11:30 Morphine Sulfate (morphine) 2 mg Q2H PRN IV PAIN LEVEL 6-10; Start 10/19/16 at 11:30 Acetaminophen/ Hydrocodone Bitart ([place] (5/325)) 1 tab Q6H PRN PO PAIN LEVEL 6 -10 Last administered on 10/23/16 09:49; Admin Dose 1 TAB; Start 10/19/16 at 11 :30 Atorvastatin Calcium (Lipitor) 80 mg HS PO Last administered on 10/22/16 22:16 ; Admin Dose 80 MG; Start 10/20/16 at 21:00 Benazepril HCl (Lotensin) 10 mg BID PO Last administered on 10/23/16 08:46; Admin Dose 10 MG; Start 10/19/16 at 22:30 Metoprolol Succinate (Toprol Xl) 50 mg DAILY PO Last administered on 10/23/16 08:46; Admin Dose 50 MG; Start 10/20/16 at 09:00 Magnesium Hydroxide (Milk Of Mag) 30 ml DAILY PRN PO CONSTIPATION; Start at 15:00 Loratadine (Claritin) 10 mg DAILY PO Last administered on 10/23/16 08:45; Admin Dose 10 MG; Start 10/21/16 at 15:00 Bisacodyl (Dulcolax Supp) 10 mg DAILY PRN [place] CONSTIPATION; Start 10/21/16 at 16 :00 Sodium Biphosphate/ Sodium Phosphate 133 ml 133 ml DAILY PRN [place] CONSTIPATION; Start 10/21/16 at 16:00 Potassium Chloride/Sodium Chloride (1/2 NS + KCl 20 Meq) 1,000 ml @ 100 mls/hr Q10H IV Last administered on 10/23/16 08:45; Admin Dose 100 MLS/HR; Start at 16:00 Warfarin Sodium (Coumadin) 5 mg DAILY@17 NGT ; Start 10/23/16 at 17:00 Enoxaparin Sodium (Lovenox) 115 mg Q12 SC Last administered on 10/23/16 08:51 ; Admin Dose 115 MG; Start 10/22/16 at 21:00 Izzy FRANKS Oct 23, 2016 17:31
[2016-10-23] MEDS: ATORVASTATIN 80 MG TAB PO SCH (20:49)
[2016-10-24 05:23] LABS: PARTIAL THROMBOPLASTIN TIME 39.6 Sec (25.0-35.0)
[2016-10-24 05:27] LABS: BASOPHIL # 0.2 10^3/ul (0.0-0.1); BASOPHILS % 2.5 % (0.0-2.0); EOSINOPHILS # 0.4 10^3/ul (0.0-0.5); EOSINOPHILS % 4.2 % (0.0-7.0); HEMATOCRIT 31.5 % (42.0-52.0); HEMOGLOBIN 10.6 g/dl (14.0-18.0); LYMPHOCYTES # 2.4 10^3/ul (0.8-2.9); LYMPHOCYTES % 26.5 % (15.0-51.0); MEAN CORPUSCULAR HEMOGLOBIN 29.3 pg (29.0-33.0); MEAN CORPUSCULAR HGB CONC 33.6 g/dl (32.0-37.0); MEAN CORPUSCULAR VOLUME 87.1 fl (82.0-101.0); MEAN PLATELET VOLUME 12.3 fl (7.4-10.4); MONOCYTE # 0.7 10^3/ul (0.3-0.9); MONOCYTES % 7.2 % (0.0-11.0); NEUTROPHIL # 5.5 10^3/ul (1.6-7.5); NEUTROPHILS % 59.6 % (39.0-77.0); PLATELET COUNT 180 10^3/UL (140-440); RED BLOOD COUNT 3.62 10^6/ul (4.70-6.10); RED CELL DISTRIBUTION WIDTH 14.6 % (11.5-14.5); UNCORRECTED WBC 9.2 10^3/ul (4.8-10.8); WHITE BLOOD COUNT 9.2 10^3/ul (4.8-10.8)
[2016-10-24 05:55] LABS: POTASSIUM 4.6 mmol/L (3.5-5.1)
[2016-10-24 05:56] LABS: CONDITION 1; LH ANALYZER COMMENTS 1
[2016-10-24 05:58] LABS: CREATININE 1.01 mg/dl (0.61-1.24)
[2016-10-24 05:59] LABS: CALCIUM 8.1 mg/dl (8.4-10.2)
[2016-10-24 07:36] VITALS: BP 129/78; RESP 18
[2016-10-24] MEDS: LORATADINE 10 MG TAB PO SCH (08:53)
[2016-10-24] MEDS: BENAZEPRIL 10 MG TAB PO SCH ×2 (08:54→21:07)
[2016-10-24] MEDS: METOPROLOL (XL) 50 MG TAB PO SCH (08:54)
[2016-10-24] MEDS: ENOXAPARIN 100 MG/ML SYG SC SCH ×2 (08:55→21:09)
[2016-10-24 11:49] LABS: INR 1.05; PROTIME 13.7 Sec (12.2-14.2); PT RATIO 1.1
--- NOTE | 2016-10-24 15:21 | PN ---
Date/Time of Note Date/Time of Note DATE: 10/24/16 TIME: 15:15 Assessment/Plan VTE Prophylaxis VTE Prophylaxis Intervention: SCD's Lines/Catheters IV C[facility] Type (from [facility]): Saline Lock Urinary Cath still in place: No Assessment/Plan Chief Complaint/Hosp Course ASSESSMENT AND PLAN: 1. Incisional hernia status post laparoscopic incisional hernia repair. Advance diet per surgery. 2. 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 Continue patient on Coumadin and Lovenox. Lovenox and Coumadin was stopped over last weekend for possible post op bleeding, was resumed per surgical recommendations. 3. Hypertension. Continue to monitor blood pressure, hydralazine p.r.n. for systolic blood pressure above 170. 4. Hyperlipidemia. Continue Lipitor. 5. History of aortic dissection status post repair. No acute issues. 6. 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 Further recommendations based on clinical course. Plan of care discussed with Dr. Murphy. Problems: Subjective 24 Hr Interval Summary Free Text/Dictation Patient tolerates diet well, no N/B, BM*2, pt states that he used to take 8 mg of Coumadin at home, will increase dose to 8mg daily. Exam/Review of Systems Vital Signs Vitals Vital Signs Date Time Temp Pulse Resp B/P Pulse Ox O2 Delivery O2 Flow Rate FiO2 10/24/16 07:36 98.2 88 18 129/78 99 10/23/16 20:10 Nasal Cannula 2.0 Intake and Output 10/23/16 10/23/16 10/24/16 15:00 23:00 07:00 Intake Total 1980 ml 600 ml Output Total 1100 ml 1200 ml Balance 880 ml -600 ml Results Result Diagram: 10/24/16 0435 10/24/16 0415 Results 24 hrs Laboratory Tests Test 10/24/16 04:15 10/24/16 04:35 Anion Gap 14 Blood Urea Nitrogen 21 H Calcium Level 8.1 L Carbon Dioxide Level 28 Chloride Level 101 Creatinine 1.01 Glucose Level 82 Potassium Level 4.6 Sodium Level 138 Activated Partial Thromboplast Time 39.6 H Basophils # 0.2 H Basophils % 2.5 H Blood Morphology Comment Eosinophils # 0.4 Eosinophils % 4.2 Hematocrit 31.5 L Hemoglobin 10.6 L INR International Normalized Ratio 1.05 Lymphocytes # 2.4 Lymphocytes % 26.5 Mean Corpuscular Hemoglobin 29.3 Mean Corpuscular Hemoglobin Concent 33.6 Mean Corpuscular Volume 87.1 Mean Platelet Volume 12.3 H Monocytes # 0.7 Monocytes % 7.2 Neutrophils # 5.5 Neutrophils % 59.6 Nucleated Red Blood Cells # 0.0 Nucleated Red Blood Cells % 0.0 Platelet Count 180 Prothrombin Time 13.7 Prothrombin Time Ratio 1.1 Red Blood Count 3.62 L Red Cell Distribution Width 14.6 H White Blood Count 9.2 Medications Medications Current Medications Acetaminophen/ Hydrocodone Bitart ([place] (5/325)) 1 tab Q6H PRN PO PAIN LEVEL 6 -10 Last administered on 10/23/16 20:49; Admin Dose 1 TAB; Start 10/19/16 at 11 :30 Atorvastatin Calcium (Lipitor) 80 mg HS PO Last administered on 10/23/16 20:49 ; Admin Dose 80 MG; Start 10/20/16 at 21:00 Benazepril HCl (Lotensin) 10 mg BID PO Last administered on 10/24/16 08:54; Admin Dose 10 MG; Start 10/19/16 at 22:30 Metoprolol Succinate (Toprol Xl) 50 mg DAILY PO Last administered on 10/24/16 08:54; Admin Dose 50 MG; Start 10/20/16 at 09:00 Magnesium Hydroxide (Milk Of Mag) 30 ml DAILY PRN PO CONSTIPATION; Start at 15:00 Loratadine (Claritin) 10 mg DAILY PO Last administered on 10/24/16 08:53; Admin Dose 10 MG; Start 10/21/16 at 15:00 Bisacodyl (Dulcolax Supp) 10 mg DAILY PRN [place] CONSTIPATION; Start 10/21/16 at 16 :00 Sodium Biphosphate/ Sodium Phosphate (Fleet Enema) 133 ml DAILY PRN [place] CONSTIPATION; Start 10/21/16 at 16:00 Warfarin Sodium (Coumadin) 5 mg DAILY@17 NGT Last administered on 10/23/16 17: 42; Admin Dose 5 MG; Start 10/23/16 at 17:00 Enoxaparin Sodium (Lovenox) 115 mg Q12 SC Last administered on 10/24/16 08:55 ; Admin Dose 115 MG; Start 10/22/16 at 21:00 KIM DEJESUS Oct 24, 2016 15:21
[2016-10-24] MEDS ORDERED: WARFARIN 5 MG TAB NGT SCH (17:00)
[2016-10-24] MEDS: WARFARIN 2 MG TAB NGT SCH (18:18)
[2016-10-24 19:27] VITALS: BP 176/92; RESP 22
[2016-10-24] MEDS: HYDROCODONE/APAP (5/325) TAB PO PRN (21:07)
[2016-10-24] MEDS: ATORVASTATIN 80 MG TAB PO SCH (21:08)
[2016-10-24 22:13] VITALS: BP 165/80; PULSE 80; RESP 18
[2016-10-25 00:36] VITALS: BP 150/77; PULSE 66; RESP 16
[2016-10-25 05:23] LABS: BASOPHIL # 0.1 10^3/ul (0.0-0.1); BASOPHILS % 1.1 % (0.0-2.0); EOSINOPHILS # 0.3 10^3/ul (0.0-0.5); EOSINOPHILS % 3.7 % (0.0-7.0); HEMATOCRIT 29.8 % (42.0-52.0); HEMOGLOBIN 9.9 g/dl (14.0-18.0); LYMPHOCYTES # 2.4 10^3/ul (0.8-2.9); LYMPHOCYTES % 33.6 % (15.0-51.0); MEAN CORPUSCULAR HGB CONC 33.3 g/dl (32.0-37.0); MEAN PLATELET VOLUME 11.8 fl (7.4-10.4); MONOCYTE # 0.6 10^3/ul (0.3-0.9); MONOCYTES % 7.8 % (0.0-11.0); NEUTROPHIL # 3.9 10^3/ul (1.6-7.5); NEUTROPHILS % 53.8 % (39.0-77.0); PLATELET COUNT 185 10^3/UL (140-440); RED BLOOD COUNT 3.42 10^6/ul (4.70-6.10); RED CELL DISTRIBUTION WIDTH 14.7 % (11.5-14.5); UNCORRECTED WBC 7.3 10^3/ul (4.8-10.8); WHITE BLOOD COUNT 7.3 10^3/ul (4.8-10.8)
[2016-10-25 05:37] LABS: CONDITION 1; LH ANALYZER COMMENTS 1
[2016-10-25 05:44] LABS: INR 1.1; PROTIME 14.2 Sec (12.2-14.2); PT RATIO 1.1
[2016-10-25 05:46] LABS: POTASSIUM 3.9 mmol/L (3.5-5.1)
[2016-10-25 05:49] LABS: CREATININE 0.97 mg/dl (0.61-1.24)
[2016-10-25 05:50] LABS: CALCIUM 8.2 mg/dl (8.4-10.2)
[2016-10-25] MEDS: HYDROCODONE/APAP (5/325) TAB PO PRN ×2 (07:02→20:43)
[2016-10-25 08:47] VITALS: BP 161/95; RESP 20
[2016-10-25] MEDS: METOPROLOL (XL) 50 MG TAB PO SCH (09:04)
[2016-10-25] MEDS: BENAZEPRIL 10 MG TAB PO SCH ×2 (09:04→20:36)
[2016-10-25] MEDS: LORATADINE 10 MG TAB PO SCH (09:04)
[2016-10-25] MEDS: ENOXAPARIN 100 MG/ML SYG SC SCH ×2 (09:10→20:38)
--- NOTE | 2016-10-25 17:05 | PN ---
Date/Time of Note Date/Time of Note DATE: 10/25/16 TIME: 16:59 Assessment/Plan VTE Prophylaxis VTE Prophylaxis Intervention: LMWH Lines/Catheters IV [facility] Type ([facility] Saline Lock Urinary Cath still in place: No Assessment/Plan Assessment/Plan 1. Incisional hernia status post laparoscopic incisional hernia repair. - per surgery - Advance diet per surgery. 2. 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 Continue patient on Coumadin and Lovenox. - Lovenox and Coumadin was stopped over last weekend for possible post op bleeding, was resumed per surgical recommendations. 3. Hypertension. Continue to monitor blood pressure, hydralazine p.r.n. for systolic blood pressure above 170. 4. Hyperlipidemia. Continue Lipitor. 5. History of aortic dissection status post repair. No acute issues. 6. 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 Further recommendations based on clinical course. Plan of care discussed with Dr. Murphy. Subjective 24 Hr Interval Summary Free Text/Dictation NAD. Eyes: no complaints ENT: no complaints Respiratory: no complaints Cardiovascular: no complaints Gastrointestinal: no complaints Genitourinary: no complaints Musculoskeletal: no complaints Skin: other Neurologic: no complaints Endocrine: no complaints Lymphatic: no complaints Psychological: no complaints Exam/Review of Systems Vital Signs Vitals Vital Signs Date Time Temp Pulse Resp B/P Pulse Ox O2 Delivery O2 Flow Rate FiO2 10/25/16 08:47 98.2 78 20 161/95 97 10/25/16 00:36 Room Air 10/23/16 20:10 2.0 Intake and Output 10/24/16 10/24/16 10/25/16 15:00 23:00 07:00 Intake Total 1660 ml 1400 ml Output Total 1500 ml 1100 ml Balance 160 ml 300 ml Exam Constitutional: alert, well developed Psych: nl mood/affect Eyes: EOMI, PERRL, nl sclera ENMT: nl external ears & nose Neck: non-tender Respiratory: clear to auscultation Cardiovascular: nl pulses Gastrointestinal: non-tender, other (spp hernia surgery), soft, surgical scars Musculoskeletal: nl extremities to inspection Extremities: normal pulses Skin: other Lymph: nontender Results Result Diagram: 10/25/160 10/25/16 0440 Results 24 hrs Laboratory Tests Test 10/25/16 04:40 Activated Partial Thromboplast Time 46.6 H Anion Gap 13 Basophils # 0.1 Basophils % 1.1 Blood Morphology Comment Blood Urea Nitrogen 15 Calcium Level 8.2 L Carbon Dioxide Level 27 Chloride Level 102 Creatinine 0.97 Eosinophils # 0.3 Eosinophils % 3.7 Glucose Level 79 Hematocrit 29.8 L Hemoglobin 9.9 L INR International Normalized Ratio 1.10 Lymphocytes # 2.4 Lymphocytes % 33.6 Mean Corpuscular Hemoglobin 29.0 Mean Corpuscular Hemoglobin Concent 33.3 Mean Corpuscular Volume 87.0 Mean Platelet Volume 11.8 H Monocytes # 0.6 Monocytes % 7.8 Neutrophils # 3.9 Neutrophils % 53.8 Nucleated Red Blood Cells # 0.0 Nucleated Red Blood Cells % 0.0 Platelet Count 185 Potassium Level 3.9 Prothrombin Time 14.2 Prothrombin Time Ratio 1.1 Red Blood Count 3.42 L Red Cell Distribution Width 14.7 H Sodium Level 138 White Blood Count 7.3 # Medications Medications Current Medications Acetaminophen/ Hydrocodone Bitart ([place] (5/325)) 1 tab Q6H PRN PO PAIN LEVEL 6 -10 Last administered on 10/25/16 07:02; Admin Dose 1 TAB; Start 10/19/16 at 11 :30 Atorvastatin Calcium (Lipitor) 80 mg HS PO Last administered on 10/24/16 21:08 ; Admin Dose 80 MG; Start 10/20/16 at 21:00 Benazepril HCl (Lotensin) 10 mg BID PO Last administered on 10/25/16 09:04; Admin Dose 10 MG; Start 10/19/16 at 22:30 Metoprolol Succinate (Toprol Xl) 50 mg DAILY PO Last administered on 10/25/16 09:04; Admin Dose 50 MG; Start 10/20/16 at 09:00 Magnesium Hydroxide (Milk Of Mag) 30 ml DAILY PRN PO CONSTIPATION; Start at 15:00 Loratadine (Claritin) 10 mg DAILY PO Last administered on 10/25/16 09:04; Admin Dose 10 MG; Start 10/21/16 at 15:00 Bisacodyl (Dulcolax Supp) 10 mg DAILY PRN [place] CONSTIPATION; Start 10/21/16 at 16 :00 Sodium Biphosphate/ Sodium Phosphate (Fleet Enema) 133 ml DAILY PRN [place] CONSTIPATION; Start 10/21/16 at 16:00 Enoxaparin Sodium (Lovenox) 115 mg Q12 SC Last administered on 10/25/16 09:10 ; Admin Dose 115 MG; Start 10/22/16 at 21:00 Warfarin Sodium (Coumadin) 8 mg DAILY@17 NGT Last administered on 10/24/16 18: 18; Admin Dose 8 MG; Start 10/24/16 at 18:00 NIKO ANSARI Oct 25, 2016 17:05
--- NOTE | 2016-10-25 17:05 | PDOCDIS ---
Discharge Instructions CONDITION Patient Condition: Stable HOME CARE INSTRUCTIONS: Diet Instructions: RegularSpecial Diet: NPO EXCEPT MEDS ACTIVITY: Activity Restrictions: Slowly Increase Activity Rest between Activity Avoid heavy lifting Do not operate Machinery Do not operate Power Tool Avoid Heavy Housework Bathing Restrictions: Sponge Bath NIKO ANSARI Oct 25, 2016 17:05
[2016-10-25] MEDS: WARFARIN 2 MG TAB NGT SCH (17:34)
[2016-10-25 19:00] VITALS: BP 140/70; RESP 19
[2016-10-25] MEDS: ATORVASTATIN 80 MG TAB PO SCH (20:38)
[2016-10-26 05:41] LABS: POTASSIUM 4.4 mmol/L (3.5-5.1)
[2016-10-26 05:43] LABS: INR 1.15; PROTIME 14.7 Sec (12.2-14.2); PT RATIO 1.1
[2016-10-26 05:44] LABS: CALCIUM 8.5 mg/dl (8.4-10.2); CREATININE 0.97 mg/dl (0.61-1.24); PARTIAL THROMBOPLASTIN TIME 43.1 Sec (25.0-35.0)
[2016-10-26 05:50] LABS: BASOPHIL # 0.1 10^3/ul (0.0-0.1); BASOPHILS % 1.6 % (0.0-2.0); EOSINOPHILS # 0.3 10^3/ul (0.0-0.5); EOSINOPHILS % 3.5 % (0.0-7.0); HEMOGLOBIN 10.4 g/dl (14.0-18.0); LYMPHOCYTES # 2.7 10^3/ul (0.8-2.9); LYMPHOCYTES % 33.5 % (15.0-51.0); MEAN CORPUSCULAR HGB CONC 33.4 g/dl (32.0-37.0); MEAN CORPUSCULAR VOLUME 86.7 fl (82.0-101.0); MEAN PLATELET VOLUME 11.4 fl (7.4-10.4); MONOCYTE # 0.7 10^3/ul (0.3-0.9); MONOCYTES % 8.7 % (0.0-11.0); NEUTROPHIL # 4.3 10^3/ul (1.6-7.5); NEUTROPHILS % 52.7 % (39.0-77.0); PLATELET COUNT 195 10^3/UL (140-440); RED BLOOD COUNT 3.58 10^6/ul (4.70-6.10); RED CELL DISTRIBUTION WIDTH 14.5 % (11.5-14.5); UNCORRECTED WBC 8.1 10^3/ul (4.8-10.8); WHITE BLOOD COUNT 8.1 10^3/ul (4.8-10.8)
[2016-10-26 06:45] LABS: CONDITION 1
[2016-10-26 08:02] VITALS: BP 148/87; RESP 18
[2016-10-26] MEDS: LORATADINE 10 MG TAB PO SCH (09:09)
[2016-10-26] MEDS: METOPROLOL (XL) 50 MG TAB PO SCH (09:09)
[2016-10-26] MEDS: BENAZEPRIL 10 MG TAB PO SCH ×2 (09:09→20:09)
[2016-10-26] MEDS: ENOXAPARIN 100 MG/ML SYG SC SCH ×2 (09:29→20:10)
--- NOTE | 2016-10-26 15:08 | PN ---
Date/Time of Note Date/Time of Note DATE: 10/26/16 TIME: 15:07 Assessment/Plan VTE Prophylaxis VTE Prophylaxis Intervention: other Lines/Catheters IV Catheter Type (from [facility]): Saline Lock Urinary Cath still in place: No Assessment/Plan Chief Complaint/Hosp Course 1. Incisional hernia status post laparoscopic incisional hernia repair. Advance diet per surgery. 2. 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 Continue patient on Coumadin and Lovenox. Lovenox and Coumadin was stopped over last weekend for possible post op bleeding, was resumed per surgical recommendations. 3. Hypertension. Continue to monitor blood pressure, hydralazine p.r.n. for systolic blood pressure above 170. 4. Hyperlipidemia. Continue Lipitor. 5. History of aortic dissection status post repair. No acute issues. 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 Problems: Subjective 24 Hr Interval Summary Free Text/Dictation Patient has some pain but doing ok Exam/Review of Systems Vital Signs Vitals Vital Signs Date Time Temp Pulse Resp B/P Pulse Ox O2 Delivery O2 Flow Rate FiO2 10/26/16 08:02 97.9 78 18 148/87 94 10/25/16 00:36 Room Air 10/23/16 20:10 2.0 Intake and Output 10/25/16 10/25/16 10/26/16 15:00 23:00 07:00 Intake Total 1800 ml 900 ml Output Total 1250 ml 1000 ml Balance 550 ml -100 ml Exam Head: atraumatic, normocephalic Neck: supple Cardiovascular: regular rate and rhythm Gastrointestinal: non-tender, soft Extremities: normal pulses Results Result Diagram: 10/26/16 0450 10/26/16 0450 Results 24 hrs Laboratory Tests Test 10/26/16 04:50 Activated Partial Thromboplast Time 43.1 H Anion Gap 13 Basophils # 0.1 Basophils % 1.6 Blood Morphology Comment Blood Urea Nitrogen 15 Calcium Level 8.5 Carbon Dioxide Level 29 Chloride Level 100 Creatinine 0.97 Eosinophils # 0.3 Eosinophils % 3.5 Glucose Level 86 Hematocrit 31.0 L Hemoglobin 10.4 L INR International Normalized Ratio 1.15 Lymphocytes # 2.7 Lymphocytes % 33.5 Mean Corpuscular Hemoglobin 29.0 Mean Corpuscular Hemoglobin Concent 33.4 Mean Corpuscular Volume 86.7 Mean Platelet Volume 11.4 H Monocytes # 0.7 Monocytes % 8.7 Neutrophils # 4.3 Neutrophils % 52.7 Nucleated Red Blood Cells # 0.0 Nucleated Red Blood Cells % 0.0 Platelet Count 195 Potassium Level 4.4 Prothrombin Time 14.7 H Prothrombin Time Ratio 1.1 Red Blood Count 3.58 L Red Cell Distribution Width 14.5 Sodium Level 138 White Blood Count 8.1 Medications Medications Current Medications Acetaminophen/ Hydrocodone Bitart ([place] (5/325)) 1 tab Q6H PRN PO PAIN LEVEL 6 -10 Last administered on 10/25/16 20:43; Admin Dose 1 TAB; Start 10/19/16 at 11 :30 Atorvastatin Calcium (Lipitor) 80 mg HS PO Last administered on 10/25/16 20:38 ; Admin Dose 80 MG; Start 10/20/16 at 21:00 Benazepril HCl (Lotensin) 10 mg BID PO Last administered on 10/26/16 09:09; Admin Dose 10 MG; Start 10/19/16 at 22:30 Metoprolol Succinate (Toprol Xl) 50 mg DAILY PO Last administered on 10/26/16 09:09; Admin Dose 50 MG; Start 10/20/16 at 09:00 Magnesium Hydroxide (Milk Of Mag) 30 ml DAILY PRN PO CONSTIPATION; Start at 15:00 Loratadine (Claritin) 10 mg DAILY PO Last administered on 10/26/16 09:09; Admin Dose 10 MG; Start 10/21/16 at 15:00 Bisacodyl (Dulcolax Supp) 10 mg DAILY PRN [place] CONSTIPATION; Start 10/21/16 at 16 :00 Sodium Biphosphate/ Sodium Phosphate (Fleet Enema) 133 ml DAILY PRN [place] CONSTIPATION; Start 10/21/16 at 16:00 Enoxaparin Sodium (Lovenox) 115 mg Q12 SC Last administered on 10/26/16 09:29 ; Admin Dose 115 MG; Start 10/22/16 at 21:00 Warfarin Sodium (Coumadin) 8 mg DAILY@17 NGT Last administered on 10/25/16 17: 34; Admin Dose 8 MG; Start 10/24/16 at 18:00 JOSE DE JESUS LAZARO Oct 26, 2016 15:08
[2016-10-26] MEDS: HYDROCODONE/APAP (5/325) TAB PO PRN (16:03)
--- NOTE | 2016-10-26 16:17 | PN ---
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 Exam/Review of Systems Vital Signs Vitals Vital Signs Date Time Temp Pulse Resp B/P Pulse Ox O2 Delivery O2 Flow Rate FiO2 10/26/16 08:02 97.9 78 18 148/87 94 10/25/16 00:36 Room Air 10/23/16 20:10 2.0 Intake and Output 10/25/16 10/25/16 10/26/16 15:00 23:00 07:00 Intake Total 1800 ml 900 ml Output Total 1250 ml 1000 ml Balance 550 ml -100 ml Exam no issues Results Result Diagram: 10/26/16 0450 10/26/16 0450 Results 24 hrs Laboratory Tests Test 10/26/16 04:50 Activated Partial Thromboplast Time 43.1 H Anion Gap 13 Basophils # 0.1 Basophils % 1.6 Blood Morphology Comment Blood Urea Nitrogen 15 Calcium Level 8.5 Carbon Dioxide Level 29 Chloride Level 100 Creatinine 0.97 Eosinophils # 0.3 Eosinophils % 3.5 Glucose Level 86 Hematocrit 31.0 L Hemoglobin 10.4 L INR International Normalized Ratio 1.15 Lymphocytes # 2.7 Lymphocytes % 33.5 Mean Corpuscular Hemoglobin 29.0 Mean Corpuscular Hemoglobin Concent 33.4 Mean Corpuscular Volume 86.7 Mean Platelet Volume 11.4 H Monocytes # 0.7 Monocytes % 8.7 Neutrophils # 4.3 Neutrophils % 52.7 Nucleated Red Blood Cells # 0.0 Nucleated Red Blood Cells % 0.0 Platelet Count 195 Potassium Level 4.4 Prothrombin Time 14.7 H Prothrombin Time Ratio 1.1 Red Blood Count 3.58 L Red Cell Distribution Width 14.5 Sodium Level 138 White Blood Count 8.1 Medications Medications Current Medications Acetaminophen/ Hydrocodone Bitart ([place] (5/325)) 1 tab Q6H PRN PO PAIN LEVEL 6 -10 Last administered on 10/26/16t 16:03; Admin Dose 1 TAB; Start 10/19/16 at 11 :30 Atorvastatin Calcium (Lipitor) 80 mg HS PO Last administered on 10/25/16 20:38 ; Admin Dose 80 MG; Start 10/20/16 at 21:00 Benazepril HCl (Lotensin) 10 mg BID PO Last administered on 10/26/16 09:09; Admin Dose 10 MG; Start 10/19/16 at 22:30 Metoprolol Succinate (Toprol Xl) 50 mg DAILY PO Last administered on 10/26/16 09:09; Admin Dose 50 MG; Start 10/20/16 at 09:00 Magnesium Hydroxide (Milk Of Mag) 30 ml DAILY PRN [place] CONSTIPATION; Start at 15:00 Loratadine (Claritin) 10 mg DAILY PO Last administered on 10/26/16 09:09; Admin Dose 10 MG; Start 10/21/16 at 15:00 Bisacodyl (Dulcolax Supp) 10 mg DAILY PRN [place] CONSTIPATION; Start 10/21/16 at 16 :00 Sodium Biphosphate/ Sodium Phosphate (Fleet Enema) 133 ml DAILY PRN [place] CONSTIPATION; Start 10/21/16 at 16:00 Enoxaparin Sodium (Lovenox) 115 mg Q12 SC Last administered on 10/26/16 09:29 ; Admin Dose 115 MG; Start 10/22/16 at 21:00 Warfarin Sodium (Coumadin) 8 mg DAILY@17 NGT Last administered on 10/25/16 17: 34; Admin Dose 8 MG; Start 10/24/16 at 18:00 Izzy FRANKS Oct 26, 2016 16:17
[2016-10-26] MEDS: WARFARIN 2 MG TAB NGT SCH (17:15)
[2016-10-26 19:00] VITALS: BP 148/70; RESP 19
[2016-10-26] MEDS: ATORVASTATIN 80 MG TAB PO SCH (20:08)
[2016-10-26] MEDS ORDERED: HYDROCODONE/APAP (5/325) TAB PO ONE (20:30)
[2016-10-27] MEDS: HYDROCODONE/APAP (5/325) TAB PO PRN ×3 (04:52→21:31)
[2016-10-27 06:32] LABS: INR 1.2; PROTIME 15.3 Sec (12.2-14.2); PT RATIO 1.2
[2016-10-27 07:09] VITALS: BP 148/80; RESP 20
[2016-10-27] MEDS: BENAZEPRIL 10 MG TAB PO SCH ×2 (08:39→21:31)
[2016-10-27] MEDS: METOPROLOL (XL) 50 MG TAB PO SCH (08:39)
[2016-10-27] MEDS: LORATADINE 10 MG TAB PO SCH (08:39)
[2016-10-27] MEDS: ENOXAPARIN 100 MG/ML SYG SC SCH ×2 (08:48→21:37)
--- NOTE | 2016-10-27 11:22 | PN ---
Date/Time of Note Date/Time of Note DATE: 10/27/16 TIME: 11:21 Assessment/Plan VTE Prophylaxis VTE Prophylaxis Intervention: other Lines/Catheters IV [facility] Type [facility]from [facility] Saline Lock Urinary Cath still in place: No Assessment/Plan Chief Complaint/Hosp Course 1. Incisional hernia status post laparoscopic incisional hernia repair. Advance diet per surgery. 2. 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 Continue patient on Coumadin and Lovenox. Lovenox and Coumadin was stopped over last weekend for possible post op bleeding, was resumed per surgical recommendations. 3. Hypertension. Continue to monitor blood pressure, hydralazine p.r.n. for systolic blood pressure above 170. 4. Hyperlipidemia. Continue Lipitor. 5. History of aortic dissection status post repair. No acute issues. 6. 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 Problems: Subjective 24 Hr Interval Summary Free Text/Dictation Patient has no complaints Exam/Review of Systems Vital Signs Vitals Vital Signs Date Time Temp Pulse Resp B/P Pulse Ox O2 Delivery O2 Flow Rate FiO2 10/27/16 07:09 97.6 72 20 148/80 98 10/25/16 00:36 Room Air 10/23/16 20:10 2.0 Intake and Output 10/26/16 10/26/16 10/27/16 15:00 23:00 07:00 Intake Total 1100 ml 300 ml Output Total 1200 ml 1100 ml Balance -100 ml -800 ml Exam Constitutional: well developed Head: atraumatic, normocephalic Neck: supple Respiratory: clear to auscultation Cardiovascular: regular rate and rhythm Extremities: normal pulses Results Result Diagram: 10/26/16 0450 10/26/16 0450 Results 24 hrs Laboratory Tests Test 10/27/16 04:25 Activated Partial Thromboplast Time 44.6 H INR International Normalized Ratio 1.20 Prothrombin Time 15.3 H Prothrombin Time Ratio 1.2 Medications Medications Current Medications Atorvastatin Calcium (Lipitor) 80 mg HS PO Last administered on 10/26/16 20:08 ; Admin Dose 80 MG; Start 10/20/16 at 21:00 Benazepril HCl (Lotensin) 10 mg BID PO Last administered on 10/27/16 08:39; Admin Dose 10 MG; Start 10/19/16 at 22:30 Metoprolol Succinate (Toprol Xl) 50 mg DAILY PO Last administered on 10/27/16 08:39; Admin Dose 50 MG; Start 10/20/16 at 09:00 Magnesium Hydroxide (Milk Of Mag) 30 ml DAILY PRN PO CONSTIPATION; Start at 15:00 Loratadine (Claritin) 10 mg DAILY PO Last administered on 10/27/16 08:39; Admin Dose 10 MG; Start 10/21/16 at 15:00 Bisacodyl (Dulcolax Supp) 10 mg DAILY PRN [place] CONSTIPATION; Start 10/21/16 at 16 :00 Sodium Biphosphate/ Sodium Phosphate (Fleet Enema) 133 ml DAILY PRN [place] CONSTIPATION; Start 10/21/16 at 16:00 Enoxaparin Sodium (Lovenox) 115 mg Q12 SC Last administered on 10/27/16 08:48 ; Admin Dose 115 MG; Start 10/22/16 at 21:00 Warfarin Sodium (Coumadin) 8 mg DAILY@17 NGT Last administered on 10/26/16 17: 15; Admin Dose 8 MG; Start 10/24/16 at 18:00 Acetaminophen/ Hydrocodone Bitart ([place] (5/325)) 2 tab Q6H PRN PO PAIN LEVEL 6 -10 Last administered on 10/27/16 04:52; Admin Dose 2 TAB; Start 10/26/16 at 23 :30 JOSE DE JESUS LAZARO Oct 27, 2016 11:22
[2016-10-27] MEDS: WARFARIN 2 MG TAB NGT SCH (18:12)
--- NOTE | 2016-10-27 18:16 | PN ---
DATE: SUBJECTIVE: No special complaint. OBJECTIVE VITAL SIGNS: 97.6, 72, 20, 148/80, 98% on room air. ABDOMEN: Soft. No fresh bleeding anymore. Bowel sounds are present. He has had some bowel moveme nts. He is tolerating diet. LABORATORIES: WBC 8,100; hemoglobin 10.4; hematocrit is 31. ASSESSMENT: Patient is on Lovenox 115 mg subq b.i.d., and also Coumadin 8 mg, but still the PT is n ot that high. Actually, INR is 1.2. PLAN: The patient is awaiting placement because he does not have any place to go. Otherwise, can b e discharged if the anticoagulation is achieved. That is per PCP to make a decision when the patien t can be discharged, how to control the effective dose of the Coumadin and Lovenox and the goal of P T and INR. Dictated By: MICHELLE THOMPSON MD PS/MIKAELA Conf#: [id number] DID#: [id number]
[2016-10-27 20:27] VITALS: BP 125/64; RESP 18
[2016-10-27] MEDS: ATORVASTATIN 80 MG TAB PO SCH (21:31)
[2016-10-28 05:52] LABS: INR 1.44; PROTIME 17.6 Sec (12.2-14.2); PT RATIO 1.4
[2016-10-28 08:13] VITALS: BP 106/53; RESP 20
[2016-10-28] MEDS: BENAZEPRIL 10 MG TAB PO SCH ×2 (09:00→21:00)
[2016-10-28] MEDS: METOPROLOL (XL) 50 MG TAB PO SCH (09:00)
[2016-10-28] MEDS: LORATADINE 10 MG TAB PO SCH (09:06)
[2016-10-28] MEDS: ENOXAPARIN 100 MG/ML SYG SC SCH ×2 (09:15→22:45)
--- NOTE | 2016-10-28 12:10 | PN ---
Date/Time of Note Date/Time of Note DATE: 10/28/16 TIME: 12:09 Assessment/Plan VTE Prophylaxis VTE Prophylaxis Intervention: other Lines/Catheters IV [facility] Saline Lock Urinary Cath still in place: No Assessment/Plan Chief Complaint/Hosp Course 1. Incisional hernia status post laparoscopic incisional hernia repair. Advance diet per surgery. 2. 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 Continue patient on Coumadin and Lovenox. Lovenox and Coumadin was stopped over last weekend for possible post op bleeding, was resumed per surgical recommendations. 3. Hypertension. Continue to monitor blood pressure, hydralazine p.r.n. for systolic blood pressure above 170. 4. Hyperlipidemia. Continue Lipitor. 5. History of aortic dissection status post repair. No acute issues. 6. 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 Problems: Subjective 24 Hr Interval Summary Free Text/Dictation Patient still have abdominal pain and notes some blood drainage from wound Exam/Review of Systems Vital Signs Vitals Vital Signs Date Time Temp Pulse Resp B/P Pulse Ox O2 Delivery O2 Flow Rate FiO2 10/28/16 08:13 98.8 88 20 106/53 98 10/25/16 00:36 Room Air Intake and Output 10/27/16 10/27/16 10/28/16 15:00 23:00 07:00 Intake Total 1220 ml 1100 ml Output Total 2120 ml 200 ml Balance -900 ml 900 ml Exam Constitutional: well developed Head: atraumatic, normocephalic Neck: supple Respiratory: clear to auscultation Cardiovascular: regular rate and rhythm Gastrointestinal: non-tender, soft Extremities: normal pulses Results Result Diagram: 10/26/16 0450 10/26/16 0450 Results 24 hrs Laboratory Tests Test 10/28/16 04:43 Activated Partial Thromboplast Time 62.8 H INR International Normalized Ratio 1.44 Prothrombin Time 17.6 H Prothrombin Time Ratio 1.4 Medications Medications Current Medications Atorvastatin Calcium (Lipitor) 80 mg HS PO Last administered on 10/27/16 21:31 ; Admin Dose 80 MG; Start 10/20/16 at 21:00 Benazepril HCl (Lotensin) 10 mg BID PO Last administered on 10/27/16 21:31; Admin Dose 10 MG; Start 10/19/16 at 22:30 Metoprolol Succinate (Toprol Xl) 50 mg DAILY PO Last administered on 10/27/16 08:39; Admin Dose 50 MG; Start 10/20/16 at 09:00 Magnesium Hydroxide (Milk Of Mag) 30 ml DAILY PRN PO CONSTIPATION Last administered on 10/28/16 10:45; Admin Dose 30 ML; Start 10/21/16 at 15:00 Loratadine (Claritin) 10 mg DAILY PO Last administered on 10/28/16 09:06; Admin Dose 10 MG; Start 10/21/16 at 15:00 Bisacodyl (Dulcolax Supp) 10 mg DAILY PRN [place] CONSTIPATION; Start 10/21/16 at 16 :00 Sodium Biphosphate/ Sodium Phosphate (Fleet Enema) 133 ml DAILY PRN [place] CONSTIPATION; Start 10/21/16 at 16:00 Enoxaparin Sodium (Lovenox) 115 mg Q12 SC Last administered on 10/28/16 09:15 ; Admin Dose 115 MG; Start 10/22/16 at 21:00 Warfarin Sodium (Coumadin) 8 mg DAILY@17 NGT Last administered on 10/27/16 18: 12; Admin Dose 8 MG; Start 10/24/16 at 18:00 Acetaminophen/ Hydrocodone Bitart ([place] (5/325)) 2 tab Q6H PRN PO PAIN LEVEL 6 -10 Last administered on 10/27/16 21:31; Admin Dose 2 TAB; Start 10/26/16 at 23 :30 JOSE DE JESUS LAZARO Oct 28, 2016 12:10
[2016-10-28] MEDS: WARFARIN 2 MG TAB NGT SCH (16:56)
--- NOTE | 2016-10-28 19:38 | PN ---
DATE: SUBJECTIVE: No complaint, awaiting placement. OBJECTIVE: VITAL SIGNS: 98.8, 88, 20, 106/53, 98%. ABDOMEN: Soft. A few drops of bleeding from the incision line, not actively. Bowel sounds present . Has had bowel movement. Has been walking around, took a shower. The coagulation profile shows that PT today is 17.6, INR is 1.44. The patient on Lovenox and Coumad in. ASSESSMENT: Stable post ventral hernia repair, open. PLAN: The patient is awaiting placement because he does not have any place to go and hopefully by t omorrow the social workers can find a ____ place for him, and also awaiting finalization of the dosa ge of the Coumadin and adequate level of anticoagulation. Dictated By: MICHELLE THOMPSON MD PS/MIKAELA Conf#: [id number] DID#: [id number]
[2016-10-28 20:23] VITALS: BP 118/58; RESP 18
[2016-10-28 22:35] VITALS: BP 110/57; PULSE 96
[2016-10-28] MEDS: HYDROCODONE/APAP (5/325) TAB PO PRN (22:39)
[2016-10-28] MEDS: ATORVASTATIN 80 MG TAB PO SCH (22:40)
[2016-10-29] MEDS: morphine 2 MG INJ IV PRN ×6 (01:54→22:58)
[2016-10-29 05:34] LABS: INR 1.7; PROTIME 20.1 Sec (12.2-14.2); PT RATIO 1.6
[2016-10-29 08:18] VITALS: BP 115/57; RESP 18
--- NOTE | 2016-10-29 08:52 | PN ---
Date/Time of Note Date/Time of Note DATE: 10/29/16 TIME: 08:51 Assessment/Plan VTE Prophylaxis VTE Prophylaxis Intervention: heparin, SCD's Lines/Catheters IV C[facility]ter Type [facility]from [facility]): Saline Lock Urinary Cath still in place: No Assessment/Plan Chief Complaint/Hosp Course incisional hernia with multiple medical problems and aortic valve requiring anticoagulation Problems: Assessment/Plan some constipation, miralax given awaiting anticoagulation before discharge Subjective 24 Hr Interval Summary Free Text/Dictation no major issues, some constipation, awaiting full anticoagulation Exam/Review of Systems Vital Signs Vitals Vital Signs Date Time Temp Pulse Resp B/P Pulse Ox O2 Delivery O2 Flow Rate FiO2 10/29/16 08:18 98.4 87 18 115/57 96 Intake and Output 10/28/16 10/28/16 10/29/16 15:00 23:00 07:00 Intake Total 1000 ml 900 ml Output Total 1800 ml 1100 ml Balance -800 ml -200 ml Exam incisional ecchymosis Results Result Diagram: 10/26/16 0450 10/26/16 0450 Results 24 hrs Laboratory Tests Test 10/29/16 04:33 INR International Normalized Ratio 1.70 Prothrombin Time 20.1 H Prothrombin Time Ratio 1.6 Medications Medications Current Medications Atorvastatin Calcium (Lipitor) 80 mg HS PO Last administered on 10/28/16 22:40 ; Admin Dose 80 MG; Start 10/20/16 at 21:00 Benazepril HCl (Lotensin) 10 mg BID PO Last administered on 10/27/16 21:31; Admin Dose 10 MG; Start 10/19/16 at 22:30 Metoprolol Succinate (Toprol Xl) 50 mg DAILY PO Last administered on 10/27/16 08:39; Admin Dose 50 MG; Start 10/20/16 at 09:00 Magnesium Hydroxide (Milk Of Mag) 30 ml DAILY PRN PO CONSTIPATION Last administered on 10/28/16 10:45; Admin Dose 30 ML; Start 10/21/16 at 15:00 Loratadine (Claritin) 10 mg DAILY PO Last administered on 10/28/16 09:06; Admin Dose 10 MG; Start 10/21/16 at 15:00 Bisacodyl (Dulcolax Supp) 10 mg DAILY PRN [place] CONSTIPATION; Start 10/21/16 at 16 :00 Sodium Biphosphate/ Sodium Phosphate (Fleet Enema) 133 ml DAILY PRN [place] CONSTIPATION; Start 10/21/16 at 16:00 Enoxaparin Sodium (Lovenox) 115 mg Q12 SC Last administered on 10/28/16 22:45 ; Admin Dose 115 MG; Start 10/22/16 at 21:00 Warfarin Sodium (Coumadin) 8 mg DAILY@17 NGT Last administered on 10/28/16 16: 56; Admin Dose 8 MG; Start 10/24/16 at 18:00 Acetaminophen/ Hydrocodone Bitart ([place] (5/325)) 2 tab Q6H PRN PO PAIN LEVEL 6 -10 Last administered on 10/28/16 22:39; Admin Dose 1 TAB; Start 10/26/16 at 23 :30 Morphine Sulfate (morphine) 2 mg Q4H PRN IV PAIN Last administered on 06:19; Admin Dose 2 MG; Start 10/29/16 at 02:00 Izzy FRANKS Oct 29, 2016 08:52
[2016-10-29] MEDS ORDERED: POLYETHYLENE GLYCOL 17 GM PACKET PO ONE (09:00)
[2016-10-29] MEDS: METOPROLOL (XL) 50 MG TAB PO SCH (09:00)
[2016-10-29] MEDS: BENAZEPRIL 10 MG TAB PO SCH ×2 (09:00→21:39)
[2016-10-29] MEDS: LORATADINE 10 MG TAB PO SCH (09:09)
[2016-10-29] MEDS: ENOXAPARIN 100 MG/ML SYG SC SCH ×2 (09:16→21:43)
[2016-10-29] MEDS: WARFARIN 2 MG TAB NGT SCH (17:02)
--- NOTE | 2016-10-29 17:36 | PN ---
Date/Time of Note Date/Time of Note DATE: 10/29/16 TIME: 17:33 Assessment/Plan VTE Prophylaxis VTE Prophylaxis Intervention: LMWH Lines/Catheters IV Catheter Type (from [facility]): Saline Lock Urinary Cath still in place: No Assessment/Plan Chief Complaint/Hosp Course ASSESSMENT AND PLAN: 1. Incisional hernia status post laparoscopic incisional hernia repair. Advance diet per surgery. 2. 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 Continue patient on Coumadin and Lovenox. Lovenox and Coumadin was stopped over last weekend for possible post op bleeding, was resumed per surgical recommendations. INR is 1.7 today. Anticipate discharge was current dose of Coumadin if INR above today's value. 3. Hypertension. Continue to monitor blood pressure, hydralazine p.r.n. for systolic blood pressure above 170. 4. Hyperlipidemia. Continue Lipitor. 5. History of aortic dissection status post repair. No acute issues. Further recommendations based on clinical course. Plan of care discussed with Dr. Murphy. Problems: Subjective 24 Hr Interval Summary Free Text/Dictation Patient complaints of episodes of pain was getting out of bed, tolerates diet well, bowel movement today, INR is 1.7 Exam/Review of Systems Vital Signs Vitals Vital Signs Date Time Temp Pulse Resp B/P Pulse Ox O2 Delivery O2 Flow Rate FiO2 10/29/16 08:18 98.4 87 18 115/57 96 Intake and Output 10/28/16 10/28/16 10/29/16 15:00 23:00 07:00 Intake Total 1000 ml 900 ml Output Total 1800 ml 1100 ml Balance -800 ml -200 ml Exam GENERAL: Well-developed, obese gentleman who currently is awake, alert. HEENT: Head is atraumatic, normocephalic. Pupils equal, round, reactive to light and accommodation. Oral mucosa is pink and moist. NECK: Supple, no cervical lymphadenopathy, no thyromegaly. CHEST: Lungs clear bilaterally. There are no rhonchi, wheezes, or rales noted. CARDIOVASCULAR: Normal S1, S2. The patient has mechanical aortic valve click. No murmurs or gallops noted. ABDOMEN: Status post surgery. Ecchymotic area around the incision. EXTREMITIES: No edema, clubbing, cyanosis. SKIN: There is no rash or petechiae noted. The patient has a midline surgical healed scar. NEUROLOGIC: The patient is awake, alert, and oriented x3. Results Result Diagram: 10/26/16 0450 10/26/16 0450 Results 24 hrs Laboratory Tests Test 10/29/16 04:33 INR International Normalized Ratio 1.70 Prothrombin Time 20.1 H Prothrombin Time Ratio 1.6 Medications Medications Current Medications Atorvastatin Calcium (Lipitor) 80 mg HS PO Last administered on 10/28/16 22:40 ; Admin Dose 80 MG; Start 10/20/16 at 21:00 Benazepril HCl (Lotensin) 10 mg BID PO Last administered on 10/27/16 21:31; Admin Dose 10 MG; Start 10/19/16 at 22:30 Metoprolol Succinate (Toprol Xl) 50 mg DAILY PO Last administered on 10/27/16 08:39; Admin Dose 50 MG; Start 10/20/16 at 09:00 Magnesium Hydroxide (Milk Of Mag) 30 ml DAILY PRN PO CONSTIPATION Last administered on 10/28/16 10:45; Admin Dose 30 ML; Start 10/21/16 at 15:00 Loratadine (Claritin) 10 mg DAILY PO Last administered on 10/29/16 09:09; Admin Dose 10 MG; Start 10/21/16 at 15:00 Bisacodyl (Dulcolax Supp) 10 mg DAILY PRN [place] CONSTIPATION; Start 10/21/16 at 16 :00 Sodium Biphosphate/ Sodium Phosphate (Fleet Enema) 133 ml DAILY PRN [place] CONSTIPATION; Start 10/21/16 at 16:00 Enoxaparin Sodium (Lovenox) 115 mg Q12 SC Last administered on 10/29/16 09:16 ; Admin Dose 115 MG; Start 10/22/16 at 21:00 Warfarin Sodium (Coumadin) 8 mg DAILY@17 NGT Last administered on 10/29/16 17: 02; Admin Dose 8 MG; Start 10/24/16 at 18:00 Acetaminophen/ Hydrocodone Bitart ([place] (5/325)) 2 tab Q6H PRN PO PAIN LEVEL 6 -10 Last administered on 10/28/16 22:39; Admin Dose 1 TAB; Start 10/26/16 at 23 :30 Morphine Sulfate (morphine) 2 mg Q4H PRN IV PAIN Last administered on 17:03; Admin Dose 2 MG; Start 10/29/16 at 02:00 KIM DEJESUS Oct 29, 2016 17:35
[2016-10-29] MEDS ORDERED: POLYETHYLENE GLYCOL 17 GM PACKET PO PRN (19:30)
[2016-10-29 19:38] VITALS: BP 111/53; RESP 20
[2016-10-29] MEDS: ATORVASTATIN 80 MG TAB PO SCH (21:39)
[2016-10-29] MEDS: HYDROCODONE/APAP (5/325) TAB PO PRN (21:51)
[2016-10-30] VITALS (25 sets, daily range): BP systolic 86–124; BP diastolic 32–75; PULSE 74–101; RESP 14–30
[2016-10-30] MEDS: morphine 2 MG INJ IV PRN (02:59)
[2016-10-30] MEDS: HYDROCODONE/APAP (5/325) TAB PO PRN (04:45)
[2016-10-30 05:51] LABS: INR 2.18; PROTIME 24.5 Sec (12.2-14.2); PT RATIO 1.9
[2016-10-30 05:52] LABS: POTASSIUM 5.4 mmol/L (3.5-5.1)
[2016-10-30 05:54] LABS: CREATININE 1.38 mg/dl (0.61-1.24)
[2016-10-30 05:55] LABS: CALCIUM 7.9 mg/dl (8.4-10.2)
[2016-10-30] MEDS: LORATADINE 10 MG TAB PO SCH (08:40)
[2016-10-30] MEDS: BENAZEPRIL 10 MG TAB PO SCH (08:42)
[2016-10-30] MEDS: METOPROLOL (XL) 50 MG TAB PO SCH (08:42)
[2016-10-30] MEDS: ENOXAPARIN 100 MG/ML SYG SC SCH (08:49)
[2016-10-30 10:23] LABS: HEMATOCRIT 13.9 % (42.0-52.0); MEAN CORPUSCULAR HEMOGLOBIN 28.7 pg (29.0-33.0); MEAN CORPUSCULAR HGB CONC 33.7 g/dl (32.0-37.0); MEAN CORPUSCULAR VOLUME 85.1 fl (82.0-101.0); MEAN PLATELET VOLUME 10.9 fl (7.4-10.4); PLATELET COUNT 215 10^3/UL (140-440); RED BLOOD COUNT 1.64 10^6/ul (4.70-6.10); RED CELL DISTRIBUTION WIDTH 14.5 % (11.5-14.5); UNCORRECTED WBC 26.6 10^3/ul (4.8-10.8); WHITE BLOOD COUNT 26.6 10^3/ul (4.8-10.8)
[2016-10-30 10:37] LABS: CONDITION 1; LH ANALYZER COMMENTS 1; SUSPECT 1
[2016-10-30 10:39] LABS: HEMOGLOBIN 4.7 g/dl (14.0-18.0)
--- NOTE | 2016-10-30 10:39 | RADRPT ---
PROCEDURE: XR Chest. CLINICAL INDICATION: Dyspnea TECHNIQUE: Single frontal chest x-ray. COMPARISON: None. FINDINGS: There are low lung volumes with compressive changes and bibasilar atelectasis. The cardiomediastina l silhouette is enlarged. The patient is status post median sternotomy. The osseous structures are unremarkable. IMPRESSION: 1. Cardiomegaly. 2. Low lung volumes with compressive changes and bibasilar atelectasis. Superimposed mild pulmonar y congestion is difficult to exclude. RPTAT: BB .Carina Luke MD, MD Date Time Electronically viewed and signed by .Carina Luke MD, on 10/30/2016 10:38 .O/
[2016-10-30 10:49] LABS: CREATININE 1.38 mg/dl (0.61-1.24)
[2016-10-30 10:50] LABS: CALCIUM 7.7 mg/dl (8.4-10.2)
[2016-10-30 10:56] LABS: POTASSIUM 6.2 mmol/L (3.5-5.1)
[2016-10-30] MEDS ORDERED: NALOXONE (0.4 MG/ML) INJ IV ONE (11:00)
[2016-10-30] MEDS ORDERED: NALOXONE (0.4 MG/ML) INJ ONE (11:01)
[2016-10-30 12:13] LABS: EOSINOPHILS # 0.3 10^3/ul (0.0-0.5); LYMPHOCYTES # 1.1 10^3/ul (0.8-2.9); MONOCYTE # 1.9 10^3/ul (0.3-0.9); NEUTROPHIL # 22.9 10^3/ul (1.6-7.5)
[2016-10-30 12:42] LABS: CREATINE KINASE 61 IU/L (23-200)
[2016-10-30] MEDS: SOD CHLORIDE 0.9% 1,000 ML IV SCH ×3 (12:58→23:40)
[2016-10-30] MEDS ORDERED: PIPER-TAZO 3.375 GM IV (PMX) 100 ML IVPB SCH (13:00)
[2016-10-30] MEDS: PANTOPRAZOLE 40 MG INJ IV SCH ×2 (13:03→17:25)
[2016-10-30 13:07] LABS: CK-MB 2.83 ng/ml (0.0-2.4)
[2016-10-30 13:11] LABS: TROPONIN-I < 0.012 ng/ml (0.00-0.12)
--- NOTE | 2016-10-30 14:20 | PN ---
Date/Time of Note Date/Time of Note DATE: 10/30/16 TIME: 13:56 Assessment/Plan VTE Prophylaxis VTE Prophylaxis Intervention: SCD's Lines/Catheters IV [facility]ter [facility]from [facility] Saline Lock Urinary Cath still in place: No Assessment/Plan Chief Complaint/Hosp Course ASSESSMENT AND PLAN: - Hypovolemic versus cardiogenic shock - Acute anemia, hold Lovenox and Coumadin, stat blood transfusion, CT scan of abdomen, obtain stool for OB. - Acute respiratory distress, oxygen supplementation and bronchodilators, monitor in ICU. - Chest pain, obtain cardiac enzymes every 8 hours 3, 2D echo, Dr. Greenberg, cardiology. - Acute kidney injury. Dr. Baker is asked to see patient in nephrology consultation. - Hyperkalemia secondary to acute kidney injury. - Prosthetic aortic valve replacement, patient was on Coumadin and bridge Lovenox which is held for now. - Incisional hernia status post laparoscopic incisional hernia repair by Dr. Moreira on 10/19. - History of aortic dissection status post repair. - Hypertension. - Hyperlipidemia - Obesity Dr. Murphy talked to the patient's sister regarding patient's condition, contacted patient mother who is going to come to the hospital today. Further recommendations based on clinical course. Plan of care discussed with Dr. Murphy. Problems: Subjective 24 Hr Interval Summary Free Text/Dictation Patient develop shortness of breath and chest pain overnight, was transferred to ICU placed on BiPAP, currently is on supplemental oxygen, lethargic but easily arousable, awake alert and stated that he "feels tired", patient appeared very pale, CBC with hemoglobin of 4.7. Exam/Review of Systems Vital Signs Vitals Vital Signs Date Time Temp Pulse Resp B/P Pulse Ox O2 Delivery O2 Flow Rate FiO2 10/30/16 12:00 88 10/30/16 11:00 Nasal Cannula 3.0 10/30/16 09:30 22 124/58 99 10/30/16 08:14 98.0 Intake and Output 10/29/16 10/29/16 10/30/16 15:00 23:00 07:00 Intake Total 1080 ml 940 ml Output Total 800 ml 1100 ml Balance 280 ml -160 ml Exam GENERAL: Well-developed, obese gentleman who currently is awake, alert, very pale. HEENT: Head is atraumatic, normocephalic. Pupils equal, round, reactive to light and accommodation. Oral mucosa is pink and moist. NECK: Supple, no cervical lymphadenopathy, no thyromegaly. CHEST: Lungs clear bilaterally. There are no rhonchi, wheezes, or rales noted. CARDIOVASCULAR: Normal S1, S2. The patient has mechanical aortic valve click. No murmurs or gallops noted. ABDOMEN: Distended soft , bowel sounds hypoactive, status post surgery. Ecchymotic area around the incision. EXTREMITIES: No edema, clubbing, cyanosis. SKIN: There is no rash or petechiae noted. The patient has a midline surgical healed scar. NEUROLOGIC: The patient is awake, alert, and oriented x3. Results Result Diagram: 10/30/16 1047 10/30/16 0956 Results 24 hrs Laboratory Tests Test 10/30/16 04:40 10/30/16 09:41 10/30/16 09:56 10/30/16 10:47 Anion Gap 13 15 Blood Urea Nitrogen 30 H 31 H Calcium Level 7.9 L 7.7 L Carbon Dioxide Level 24 22 Chloride Level 89 L 89 L Creatinine 1.38 H 1.38 H Glucose Level 114 116 INR International Normalized Ratio 2.18 Potassium Level 5.4 H 6.2 *H Prothrombin Time 24.5 #H Prothrombin Time Ratio 1.9 Sodium Level 121 L 120 L Bedside Glucose 134 Creatine Kinase 61 Creatine Kinase Index 4.6 Creatinine Kinase MB (Mass) 2.83 H Magnesium Level 2.0 Troponin I < 0.012 Band Neutrophils % 2.0 Blood Morphology Comment Eosinophils # 0.3 Eosinophils % 1.0 Hematocrit 13.9 #L Hemoglobin 4.7 #*L Lymphocytes # 1.1 Lymphocytes % 4.0 L Mean Corpuscular Hemoglobin 28.7 L Mean Corpuscular Hemoglobin Concent 33.7 Mean Corpuscular Volume 85.1 Mean Platelet Volume 10.9 H Monocytes # 1.9 H Monocytes % 7.0 Neutrophils # 22.9 H Neutrophils % 86.0 H Platelet Count 215 Red Blood Count 1.64 #L Red Cell Distribution Width 14.5 White Blood Count 26.6 #H Medications Medications Current Medications Atorvastatin Calcium (Lipitor) 80 mg HS PO Last administered on 10/29/16t 21:39 ; Admin Dose 80 MG; Start 10/20/16 at 21:00 Benazepril HCl (Lotensin) 10 mg BID PO Last administered on 10/29/16 21:39; Admin Dose 10 MG; Start 10/19/16 at 22:30 Metoprolol Succinate (Toprol Xl) 50 mg DAILY PO Last administered on 10/30/16 08:42; Admin Dose 50 MG; Start 10/20/16 at 09:00 Magnesium Hydroxide (Milk Of Mag) 30 ml DAILY PRN PO CONSTIPATION Last administered on 10/28/16 10:45; Admin Dose 30 ML; Start 10/21/16 at 15:00 Loratadine (Claritin) 10 mg DAILY PO Last administered on 10/30/16 08:40; Admin Dose 10 MG; Start 10/21/16 at 15:00 Bisacodyl (Dulcolax Supp) 10 mg DAILY PRN [place] CONSTIPATION; Start 10/21/16 at 16 :00 Sodium Biphosphate/ Sodium Phosphate (Fleet Enema) 133 ml DAILY PRN [place] CONSTIPATION; Start 10/21/16 at 16:00 Enoxaparin Sodium (Lovenox) 115 mg Q12 SC Last administered on 10/30/16 08:49 ; Admin Dose 115 MG; Start 10/22/16 at 21:00; Status Future Hold Warfarin Sodium (Coumadin) 8 mg DAILY@17 NGT Last administered on 10/29/16 17: 02; Admin Dose 8 MG; Start 10/24/16 at 18:00; Status Future Hold Acetaminophen/ Hydrocodone Bitart ([place]use (5/325)) 2 tab Q6H PRN PO PAIN LEVEL 6 -10 Last administered on 10/30/16 04:45; Admin Dose 1 TAB; Start 10/26/16 at 23 :30 Morphine Sulfate (morphine) 2 mg Q4H PRN IV PAIN Last administered on 02:59; Admin Dose 2 MG; Start 10/29/16 at 02:00 Polyethylene Glycol (Miralax) 17 gm DAILY PRN PO CONSTIPATION Last administered on 10/29/16 19:41; Admin Dose 17 GM; Start 10/29/16 at 19:30 Pantoprazole 40 mg 40 mg BID@06,18 IV Last administered on 10/30/16 13:03; Admin Dose 40 MG; Start 10/30/16 at 13:00 Sodium Chloride 1,000 ml @ 100 mls/hr Q10H IV Last administered on 10/30/16 12:58; Admin Dose 100 MLS/HR; Start 10/30/16 at 13:00 Piperacillin Sod/ Tazobactam Sod (Zosyn 3.375gm/ 100 ml (Pmx)) 100 ml @ 200 mls /hr Q6 IVPB Last administered on 10/30/16 13:02; Admin Dose 200 MLS/HR; Start 10/30/16 at 13:00 KIM DEJESUS Oct 30, 2016 14:07
[2016-10-30 14:23] LABS: CREATININE 1.56 mg/dl (0.61-1.24)
[2016-10-30 14:24] LABS: CALCIUM 7.8 mg/dl (8.4-10.2)
[2016-10-30] MEDS ORDERED: CA CHLORIDE 10% 10 ML SYRINGE IV ONE (14:30)
[2016-10-30] MEDS ORDERED: INSULIN ASPART [NOVOLOG] 3 ML PEN SC ONE (14:30)
[2016-10-30] MEDS ORDERED: DEXTROSE 50% 50 ML SYRINGE IV ONE (14:30)
[2016-10-30] MEDS ORDERED: INSULIN REGULAR, HUMAN 100 UNIT/1 ML 3ML VIAL IV SCH (15:00)
[2016-10-30] MEDS ORDERED: SOD CHLORIDE 0.9% 1,000 ML IV ONE (15:30)
[2016-10-30] MEDS ORDERED: FUROSEMIDE 40 MG INJ IV STA (15:57)
[2016-10-30 16:00] LABS: ADD UMIC NO; URINE BILIRUBIN (Dip) NEGATIVE (NEGATIVE); URINE BLOOD (Dip) NEGATIVE (NEGATIVE); URINE COLOR YELLOW (YELLOW); URINE GLUCOSE (Dip) NEGATIVE (NEGATIVE); URINE KETONES (Dip) NEGATIVE (NEGATIVE); URINE LEUKOCYTE ESTERASE (Dip) NEGATIVE (NEGATIVE); URINE NITRITE (Dip) NEGATIVE (NEGATIVE); URINE TOTAL PROTEIN (Dip) NEGATIVE (NEGATIVE); URINE UROBILINOGEN (Dip) 0.2 E.U./dL (0.1-1.0)
--- NOTE | 2016-10-30 16:21 | CONS ---
DATE OF ADMISSION: 10/21/2016 DATE OF CONSULTATION: TYPE OF CONSULTATION: Gastroenterology. Dear Dr. Murphy: Thank you for asking me to see Mr. Valdez in GI consultation. HISTORY OF PRESENT ILLNESS: Frankie is a 41-year-old gentleman who at this time is in the int ensive care unit and he developed shortness of breath on the medical floor, hence he was transferred to the intensive care unit. His hemoglobin was 4.7. He has been on Lovenox and Coumadin. His INR is 2.1. He has a history of vomiting blood and passing blood from the rectum. He just vomited today , but no blood in the vomitus. He had brown tools, no blood in the stool. He has history of aortic valve replacement, because of that he is on Coumadin and Lovenox prior to t he admission, he underwent laparoscopic incarcerated hernia surgery on October 19. Please refer to the chart for more information. Again, upon talking to the patient he has no histor y of gastrointestinal problems in the past. PHYSICAL EXAMINATION: GENERAL: The patient is a 41-year-old male who at this time is alert, obese and is extreme ly pale. VITAL SIGNS: Pulse is 90, blood pressure is 128/88. CARDIOVASCULAR: Normal heart sounds. RESPIRATORY: Normal breath sounds. He does have history of aortic valve replacement. ABDOMEN: Showed evidence of a hematoma at the site of the incision, there is abdominal distention. LABORATORY WORKUP: Essentially as mentioned above, hemoglobin 4.7. INR 2.1. Repeat hemoglobin is 4.7. CLINICAL IMPRESSION: Patient presenting with a sudden drop in hemoglobin, it was 10 grams yesterday. It appears that probably he has got bleeding in the intraabdominal area. He probably has a hematoma at the site of the anastomosis or at the site of the incision in the abdo men. I doubt if we are dealing with active upper GI bleeding or lower GI bleeding at this moment. PLAN: Recommend transfuse the patient to stabilize the patient. Recommend Protonix drip. Recommen d transfusing adequately and then CAT scan of the abdomen must be done as soon as possible. I discussed this with Dr. Murphy. Dictated By: TRENA ALEMAN/MIKAELA Conf#: [id number] DID#: [id number]
[2016-10-30 16:50] LABS: AADO2 Arterial 129.6 mmHg (7.0-24.0); Allen Test ACCEPTAB; Arterial Base Excess -2.1 mmol/L (-3.0-3); Arterial COHb 0.4 % (0.0-3.0); Arterial Fraction of Oxyhgb 92.2 % (93.0-99.0); Arterial HCO3 21.8 mmol/L (22.0-26.0); Arterial MetHb 0.5 % (0.0-1.5); Arterial Total Hemglobin 6.1 g/dl (12.0-18.0); MODE NASAL CANNULA
--- NOTE | 2016-10-30 17:14 | PN ---
Date/Time of Note Date/Time of Note DATE: 10/30/16 TIME: 17:11 Assessment/Plan VTE Prophylaxis VTE Prophylaxis Intervention: heparin, SCD's Lines/Catheters IV Catheter Type (from Nrsg): Central Line Central line still needed: Yes Urinary Cath still in place: Yes Reason Cath still needed: other (indicate) (bleeding) Assessment/Plan Chief Complaint/Hosp Course incisional hernia with multiple medical problems and aortic valve requiring anticoagulation Problems: Assessment/Plan acute deterioration with decrease hgb. NGT placed with coffee grind emesis with bleeding. Due to the multiple medical problems and with anticoagulation for aortic heart valve, will get CT scan of chest abd and pelvis to evaluate for other areas of bleeding. continue ICU care agree with GI consult for endoscopy Subjective 24 Hr Interval Summary Free Text/Dictation patient with coffee grind emesis and in ngt with acute deterioration and transfer to ICU with low hgb. Suspected GI bleeding. Exam/Review of Systems Vital Signs Vitals Vital Signs Date Time Temp Pulse Resp B/P Pulse Ox O2 Delivery O2 Flow Rate FiO2 10/30/16 16:00 94 10/30/16 15:00 Nasal Cannula 4.0 10/30/16 09:30 22 124/58 99 10/30/16 08:14 98.0 Intake and Output 10/29/16 10/29/16 10/30/16 15:00 23:00 07:00 Intake Total 1080 ml 940 ml Output Total 800 ml 1100 ml Balance 280 ml -160 ml Exam abdomen soft Results Result Diagram: 10/30/16 1047 10/30/16 1330 Results 24 hrs Laboratory Tests Test 10/30/16 04:40 10/30/16 09:41 10/30/16 09:56 10/30/16 10:47 Anion Gap 13 15 Blood Urea Nitrogen 30 H 31 H Calcium Level 7.9 L 7.7 L Carbon Dioxide Level 24 22 Chloride Level 89 L 89 L Creatinine 1.38 H 1.38 H Glucose Level 114 116 INR International Normalized Ratio 2.18 Potassium Level 5.4 H 6.2 *H Prothrombin Time 24.5 #H Prothrombin Time Ratio 1.9 Sodium Level 121 L 120 L Bedside Glucose 134 Creatine Kinase 61 Creatine Kinase Index 4.6 Creatinine Kinase MB (Mass) 2.83 H Magnesium Level 2.0 Troponin I < 0.012 Band Neutrophils % 2.0 Blood Morphology Comment Eosinophils # 0.3 Eosinophils % 1.0 Hematocrit 13.9 #L Hemoglobin 4.7 #*L Lymphocytes # 1.1 Lymphocytes % 4.0 L Mean Corpuscular Hemoglobin 28.7 L Mean Corpuscular Hemoglobin Concent 33.7 Mean Corpuscular Volume 85.1 Mean Platelet Volume 10.9 H Monocytes # 1.9 H Monocytes % 7.0 Neutrophils # 22.9 H Neutrophils % 86.0 H Platelet Count 215 Red Blood Count 1.64 #L Red Cell Distribution Width 14.5 White Blood Count 26.6 #H Test 10/30/16 13:30 10/30/16 15:20 10/30/16 15:40 Anion Gap 16 Blood Urea Nitrogen 34 H Calcium Level 7.8 L Carbon Dioxide Level 23 Chloride Level 88 L Creatinine 1.56 H Glucose Level 108 Potassium Level 6.0 H Sodium Level 121 L Urine Bilirubin NEGATIVE Urine Clarity CLEAR Urine Color YELLOW Urine Glucose NEGATIVE Urine Hemoglobin NEGATIVE Urine Ketones NEGATIVE Urine Leukocyte Esterase NEGATIVE Urine Nitrite NEGATIVE Urine Osmolality 419 Urine Random Creatinine 286.90 Urine Random Sodium < 13 L Urine Specific Wilson >=1.030 H Urine Total Protein NEGATIVE Urine Urobilinogen 0.2 E.U./dL Urine pH 5.0 Arterial Blood HCO3 21.8 L Arterial Blood Base Excess -2.1 Arterial Blood Oxygen Saturation 93.0 L Philippe Test ACCEPTAB Arterial Blood Gas Puncture Site Right Radial Arterial Blood Carboxyhemoglobin 0.4 Arterial Blood Date Drawn 10/30/2016 4:35:33 PM Arterial Blood Methemoglobin 0.5 Arterial Blood pCO2 (Temp correct) 32.4 L Arterial Blood pH (Temp corrected) 7.445 Arterial Blood pO2 (Temp corrected) 67.9 L Blood Gas A-a O2 Differential 129.6 H Blood Gas Actual Respiration Rate 22 Blood Gas Critical Value Read Back Eduardo MARAVILLA RN Blood Gas Modality NASAL CANNULA Blood Gas Notified Time 10/30/2016 4:50:20 PM Blood Gas Notified Whom Juaquin SUAREZ Blood Gas Specimen Source Blood arterial Blood Gas Temperature 37.0 FiO2 33.0 Oxyhemoglobin Percent 92.2 L Total Hemoglobin 6.1 L Medications Medications Current Medications Atorvastatin Calcium (Lipitor) 80 mg HS PO Last administered on 10/29/16 21:39 ; Admin Dose 80 MG; Start 10/20/16 at 21:00 Magnesium Hydroxide (Milk Of Mag) 30 ml DAILY PRN PO CONSTIPATION Last administered on 10/28/16 10:45; Admin Dose 30 ML; Start 10/21/16 at 15:00 Loratadine (Claritin) 10 mg DAILY PO Last administered on 10/30/16 08:40; Admin Dose 10 MG; Start 10/21/16 at 15:00 Bisacodyl (Dulcolax Supp) 10 mg DAILY PRN [place] CONSTIPATION; Start 10/21/16 at 16 :00 Sodium Biphosphate/ Sodium Phosphate (Fleet Enema) 133 ml DAILY PRN [place] CONSTIPATION; Start 10/21/16 at 16:00 Enoxaparin Sodium (Lovenox) 115 mg Q12 SC Last administered on 10/30/16 08:49 ; Admin Dose 115 MG; Start 10/22/16 at 21:00; Status Future Hold Warfarin Sodium (Coumadin) 8 mg DAILY@17 NGT Last administered on 10/29/16 17: 02; Admin Dose 8 MG; Start 10/24/16 at 18:00; Status Future Hold Acetaminophen/ Hydrocodone Bitart ([place] (5/325)) 2 tab Q6H PRN PO PAIN LEVEL 6 -10 Last administered on 10/30/16 04:45; Admin Dose 1 TAB; Start 10/26/16 at 23 :30 Morphine Sulfate (morphine) 2 mg Q4H PRN IV PAIN Last administered on 02:59; Admin Dose 2 MG; Start 10/29/16 at 02:00 Polyethylene Glycol (Miralax) 17 gm DAILY PRN PO CONSTIPATION Last administered on 10/29/16 19:41; Admin Dose 17 GM; Start 10/29/16 at 19:30 Pantoprazole 40 mg 40 mg BID@06,18 IV Last administered on 10/30/16 13:03; Admin Dose 40 MG; Start 10/30/16 at 13:00 Sodium Chloride (NS) 1,000 ml @ 100 mls/hr Q10H IV Last administered on 12:58; Admin Dose 100 MLS/HR; Start 10/30/16 at 13:00 Insulin Human Regular 5 unit 5 unit ONCE IV Last administered on 10/30/16 15: 03; Admin Dose 5 UNIT; Start 10/30/16 at 15:00; Stop 10/30/16 at 18:00 Sodium Bicarbonate 50 meq/Dextrose 1,050 ml @ 50 mls/hr Q21H IV ; Start at 16:00 Piperacillin Sod/ Tazobactam Sod (Zosyn 3.375gm/ 100 ml (Pmx)) 100 ml @ 200 mls /hr Q12 IVPB ; Start 10/30/16 at 21:00 Izzy FRANKS Oct 30, 2016 17:14
[2016-10-30] MEDS: SODIUM BICARBONATE (IV ADD) 50 MEQ in DEXTROSE 5% 1,000 ML IV SCH (17:25)
[2016-10-30 17:26] LABS: EOSINOPHILS # 0.1 10^3/ul (0.0-0.5); EOSINOPHILS % 0.2 % (0.0-7.0); HEMATOCRIT 16.8 % (42.0-52.0); LYMPHOCYTES # 8.4 10^3/ul (0.8-2.9); MEAN CORPUSCULAR VOLUME 85.5 fl (82.0-101.0); MONOCYTE # 1.6 10^3/ul (0.3-0.9); MONOCYTES % 6.5 % (0.0-11.0); NEUTROPHIL # 14.6 10^3/ul (1.6-7.5); NEUTROPHILS % 59.3 % (39.0-77.0); PLATELET COUNT 196 10^3/UL (140-440); RED BLOOD COUNT 1.96 10^6/ul (4.70-6.10); RED CELL DISTRIBUTION WIDTH 15.6 % (11.5-14.5); UNCORRECTED WBC 24.7 10^3/ul (4.8-10.8); WHITE BLOOD COUNT 24.7 10^3/ul (4.8-10.8)
[2016-10-30 17:43] LABS: INR 2.72; PROTIME 29.2 Sec (12.2-14.2); PT RATIO 2.3
[2016-10-30 17:44] LABS: CONDITION 1; HEMOGLOBIN 5.7 g/dl (14.0-18.0); LH ANALYZER COMMENTS 1; THROMBIN TIME 15.4 SEC (13.8-19.1)
--- NOTE | 2016-10-30 18:04 | RADRPT ---
PROCEDURE: XR Chest. CLINICAL INDICATION: Shortness of breath. Status post triple-lumen catheter placement. TECHNIQUE: Single frontal view. COMPARISON: 10/30/2016. 1024 hours. FINDINGS: There is a left internal jugular vein triple-lumen catheter with the tip in the upper superior vena cava. There is a nasogastric tube with the tip in the stomach. Low lung volumes and bibasilar atel ectasis are unchanged. The lungs are otherwise clear. The heart is enlarged. There are sternal wires. There is no pleural effusion. There is no pneumothorax. IMPRESSION: 1. Left IJ catheter tip in the upper superior vena cava. 2. No pneumothorax. 3. No other change from the prior study done earlier the same day. RPTAT: QQ .Evangelist Barrientos MD, Date Time Electronically viewed and signed by .Evangelist Barrientos MD, MD on 10/30/2016 18:04 .R/
[2016-10-30 18:11] LABS: D-DIMER > 10000.00 ng/ml (<460)
[2016-10-30 18:12] LABS: PARTIAL THROMBOPLASTIN TIME 76.3 Sec (25.0-35.0)
[2016-10-30 18:22] LABS: HEMATOCRIT 17.7 % (42.0-52.0); MEAN CORPUSCULAR HEMOGLOBIN 29.3 pg (29.0-33.0); MEAN CORPUSCULAR HGB CONC 34.2 g/dl (32.0-37.0); MEAN CORPUSCULAR VOLUME 85.5 fl (82.0-101.0); MEAN PLATELET VOLUME 10.3 fl (7.4-10.4); PLATELET COUNT 188 10^3/UL (140-440); RED BLOOD COUNT 2.07 10^6/ul (4.70-6.10); RED CELL DISTRIBUTION WIDTH 15.2 % (11.5-14.5); UNCORRECTED WBC 23.5 10^3/ul (4.8-10.8); WHITE BLOOD COUNT 23.5 10^3/ul (4.8-10.8)
[2016-10-30 18:37] LABS: ALBUMIN 2.9 g/dl (3.3-4.9)
[2016-10-30 18:38] LABS: POTASSIUM 5.5 mmol/L (3.5-5.1)
[2016-10-30 18:40] LABS: BILIRUBIN,INDIRECT 1.3 mg/dl (0-1.1); BILIRUBIN,TOTAL 1.3 mg/dl (0.2-1.3); CREATININE 1.47 mg/dl (0.61-1.24)
[2016-10-30] MEDS: ALBUTEROL 0.5% (NEB) 2.5 MG/0.5 ML AMP HHN SCH ×2 (18:40→21:51)
[2016-10-30 18:42] LABS: SUSPECT 1
[2016-10-30 18:43] LABS: CONDITION 1; LH ANALYZER COMMENTS 1
--- NOTE | 2016-10-30 18:43 | OPR ---
DATE OF OPERATION: PREOPERATIVE DIAGNOSIS: Gastrointestinal bleeding. POSTOPERATIVE DIAGNOSIS: Gastrointestinal bleeding. OPERATION PERFORMED: 1. Left internal jugular vein central line placement. 2. Ultrasound guidance into the central vein. SURGEON: Brit Nelson MD ANESTHESIA: Local. DESCRIPTION OF PROCEDURE: Access was gained in the left internal jugular vein using ultrasound guid ance. Guidewire was advanced through without any difficulty. Subcutaneous tissues dilated. Centra l line advanced over guidewire, secured to skin using silk sutures. All ports of the catheter were aspirated and injected using saline solution. The patient tolerated procedure well. Dictated By: BRIT NELSON MD FM/NTS Conf#: [id number] DID#: [id number] CC: ELIZABETH STANLEY MD;*EndCC*
[2016-10-30 18:44] LABS: HEMOGLOBIN 6.1 g/dl (14.0-18.0)
[2016-10-30 18:47] LABS: CK-MB 5.3 ng/ml (0.0-2.4)
[2016-10-30 18:50] LABS: TROPONIN-I 0.013 ng/ml (0.00-0.12)
--- NOTE | 2016-10-30 18:57 | CONS ---
DATE OF ADMISSION: 10/21/2016 DATE OF CONSULTATION: 10/30/2016 REASON FOR CONSULTATION: Abnormal electrocardiogram, assess for acute coronary syndrome. Chest ilan n, assess for acute coronary syndrome. REQUESTING PHYSICIAN: Dr. Elizabeth Stanley. HISTORY OF PRESENT ILLNESS: Mr. Valdez is a 41-year-old male with a history of aortic dissection, s tatus post ascending aortic dissection repair and mechanical AVR, hypertension, dyslipidemia, who un derwent laparoscopic ventral hernia repair by Dr. Moreira on 10/19/2016. The patient was admitted to [facility] postoperatively. The patient today was noted to have the onset of hypotension with findings of severe anemia with hemoglobin from 10.4 to 4.7 in 4 days. Negative troponin. Additionally, the patient has been noted to have development of severe hyponatremia with sodium of 121 and acute edwardo l failure. Creatinine 1.56. The patient at this time has been transferred to the ICU where he is r eceiving blood and has significant abdominal pain and distention. PAST MEDICAL HISTORY: As above in HPI. MEDICATIONS CURRENTLY IN HOSPITAL: 1. Albuterol. 2. Bicarbonate fluid. 3. Lasix IV x1. 4. IV fluid hydration. 5. Protonix 40 mg IV daily. 6. Zosyn. 7. MiraLax p.r.n. 8. Morphine p.r.n. 9. [place]hertz p.r.n. 10. Lipitor 80 mg at bedtime. 11. Toprol-XL 50 mg daily. 12. Benazepril 10 mg p.o. b.i.d. ALLERGIES: HEPARIN. SOCIAL HISTORY: No tobacco, ETOH or illicit drug use. FAMILY HISTORY: Negative for sudden cardiac or early CAD. REVIEW OF SYSTEMS: As above in HPI. CONSTITUTIONAL: No fevers, chills. PULMONARY: No current signs of vascular compromise. GASTROINTESTINAL: No vomiting. GENITOURINARY: No hematuria. MUSCULOSKELETAL: Degenerative joint disease. PSYCHIATRIC: The patient denies depression. NEUROLOGIC: No documented history of CVA. ENDOCRINE: Diabetes mellitus. PHYSICAL EXAMINATION: VITAL SIGNS: Temperature 98, blood pressure most recently 124/58, pulse 94, saturating 99% on 2 lit ers, respiratory rate of 22. GENERAL: The patient is sleeping, but arousable. NECK: JVP of 8 CHEST: Decreased breath sounds at bases bilaterally. HEART: Regular rate and rhythm. Normal S1, S2, 1/6 systolic murmur, nondisplaced PMI. ABDOMEN: Distended areas of ecchymosis. [place] around the umbilical area with gauze, with some b lood. EXTREMITIES: No edema, 1+ pulses bilaterally, posterior tibial. LABORATORY DATA: As above in HPI, with most recent from today, sodium 121, potassium 6.0, creatinin e 1.56, BUN 34. White blood cell count 26.6, hemoglobin 4.7, platelet count of 215. INR of 2.18. IMAGING STUDIES: As above in HPI, with a chest x-ray from today revealing low lung volumes, c hanges, bilateral atelectasis, superimposed mild pulmonary congestion. ELECTROCARDIOGRAM: As above in HPI, with most recent from today revealing sinus rhythm, rate of 93, with a first degree AV block, prolonged, and left ventricular hypertrophy, voltage criteria, nonspe cific ST-T abnormalities diffusely. IMPRESSION: 1. Abnormal electrocardiogram, assess for acute coronary syndrome. 2. Chest pain, assess for acute coronary syndrome in the setting of severe anemia. 3. History of aortic valve replacement. 4. Coagulopathy secondary to Coumadin. 5. Severe anemia. 6. Incarcerated hernia, status post repair. 7. Abdominal distention. 8. Hyponatremia. 9. Hyperkalemia. 10. Renal failure. 11. Leukocytosis. RECOMMENDATIONS: 1. At this time, would maintain the patient on telemetry monitoring to follow rhythm and rate close ly in ICU. 2. Would continue to trend the patient's cardiac enzymes to complete a rule out and ensure the lb ent's chest pain is not due to any acute coronary syndrome provoked in the setting of severe anemia. 3. Agree with stat imaging of the patient's abdomen, assess for ongoing bleeding. 4. Follow the patient's blood pressure and continue blood pressure medications as tolerated only, w ith Toprol and benazepril. 5. Continue the patient's current statin therapy, check a fasting panel and adjust it accordingly. 6. Hold the patient's Lovenox and Coumadin at this time, and follow for ongoing bleeding. Follow t he patient's INR closely, with possible need for reversal. 7. We will check a 2D echo to further assess ejection fraction, wall motion, and rule any major ledy ve abnormalities that may be associated with the patient's current clinical state. Thank you for allowing me to take part in the care of this patient. I will continue to follow along very closely with you. Further recommendations will be made as the patient progresses through his inpatient hospital clinical course. Dictated By: ADAM SEARS/NTS Conf#: [id number] DID#: [id number] CC: ELIZABETH STANLEY MD;*EndCC*
--- NOTE | 2016-10-30 19:01 | CONS ---
DATE OF ADMISSION: 10/21/2016 DATE OF CONSULTATION: REASON FOR CONSULTATION: Surgical. HISTORY OF PRESENT ILLNESS: This is a 40-year-old male who was admitted because of incarcerated her elsie. Subsequently went through surgery, was found to have loss of hemoglobin and currently in the i ntensive care unit. Will be needing blood transfusions and multiple IV access for possible hydratio n, antibiotics administration, and bicarbonate administration. PAST MEDICAL HISTORY: Hypertension, history of aortic dissection. PAST SURGICAL HISTORY: Coronary artery bypass grafting and aortic dissection repair. ALLERGIES: NONE. MEDICATIONS: List reviewed. PHYSICAL EXAMINATION: GENERAL: The patient is sedated. VITAL SIGNS: Blood pressure is 124/58, pulse is 94, respirations 22, saturations are 99% on 2 liter s of oxygen. CARDIOVASCULAR: Normal S1, S2. LUNGS: Clear. ABDOMEN: Soft, distended, obese. EXTREMITIES: Warm. LABORATORY VALUES: Hemoglobin 4.7, white count 26, platelet count 215. INR 2.18, creatinine of 1.5 6, with a bicarbonate of 23 and a potassium of 6. IMPRESSION: Anemia. RECOMMENDATIONS: We will proceed with the placement of a central line. Discussed with the nursing staff. All questions answered. Dictated By: BRIT RAMIREZ/MIKAELA Conf#: [id number] DID#: [id number]
[2016-10-30 19:26] LABS: LYMPHOCYTES # 1.9 10^3/ul (0.8-2.9); MONOCYTE # 2.1 10^3/ul (0.3-0.9); NEUTROPHIL # 19.5 10^3/ul (1.6-7.5)
[2016-10-30 19:35] LABS: PLATELET COUNT 188 10^3/UL (140-440)
[2016-10-30 19:41] LABS: FIBRIN SPLIT PRODUCT >10 and <40 ug/ml (<10)
--- NOTE | 2016-10-30 20:28 | RADRPT ---
Echocardiogram Report Patient Name: PABLO ADAMS Gender: Male Date: 1975 Study Date: 30-Oct-2016 Community Service Technician: Ryder Arrieta RDCS Location: [address] [place] [address]. Physician: ELIZABETH STANLEY Quality: Technically Difficult Study Procedures: Transthoracic echocardiogram with complete 2D, M-Mode, and doppler examination. Indications: Chest Pain. 2D/M Mode Doppler Measurement Value Normal Ranges Measurement Value Normal Ranges LVIDd 2D 6.0 3.5 - 5.6 cm AV Mean Matt 1.5 m/sec LVIDs 2D 3.2 2.1 - 4.1 cm AV Mean PG 10.0 mmHg FS 2D 46.9 % AV Peak Matt 2.3 m/sec LVPWd 2D 1.0 0.6 - 1.1 cm AV Peak PG 20.0 mmHg IVSd 2D 0.9 0.6 - 1.1 cm AV VTI 36.2 cm IVS/LVPW 2D 0.9 LVOT Mean Matt 0.9 m/sec EDV 2D 215.0 cm3 LVOT Mean PG 4.0 mmHg ESV 2D 32.2 cm3 LVOT Peak Matt 1.4 m/sec LA Dimen 2D 5.8 2.3 - 4.0 cm LVOT Peak PG 8.0 mmHg LVOT VTI 27.5 cm MV E Peak Matt 0.7 m/sec MV A Peak Matt 0.9 m/sec MV E/A 0.7 MV Decel Time 218 msec MV E/A 0.7 TR Peak Matt 2.1 m/sec TR Peak PG 18.0 mmHg RVSP 21.0 mmHg Findings Left Ventricle: Normal left ventricular systolic function. Normal left ventricular cavity size. Normal left ventricular wall thickness. Ejection fraction is visually estimated at 55 %. Tissue Doppler/Mitral Doppler indices are consistent with impaired relaxation (Stage I diastolic dysfunction). Right Ventricle: Not well visualized. Left Atrium: There is severe enlargement of left atrium. Right Atrium: Not well visualized. Mitral Valve: Mitral valve leaflets appear mildly thickened. Mild mitral annular calcification. Trace mitral regurgitation. Aortic Valve: Aortic Valve Mechanical Prosthesis. Aortic valve Max velocity 2.25 m/sec. Max PG 20.00 mmHg. Mean PG 10.00 mmHg. No aortic regurgitation. Tricuspid Valve: Tricuspid valve not well visualized. Estimated peak PA systolic pressure 21 mmHg. There is trace tricuspid regurgitation. Pulmonic Valve: Pulmonic valve not well visualized. Pericardium: Normal pericardium with no significant pericardial effusion. Aorta: Normal aortic root. IVC: Normal size and normal respiratory collapse consistent with normal right atrial pressure. Conclusions 1.Normal left ventricular systolic function. Normal left ventricular cavity size. Normal left ventricular wall thickness. Ejection fraction is visually estimated at 55 %. Tissue Doppler/Mitral Doppler indices are consistent with impaired relaxation (Stage I diastolic dysfunction). 2.There is severe enlargement of left atrium. 3.Trace mitral regurgitation. 4.Aortic Valve Mechanical Prosthesis. Aortic valve Max velocity 2.25 m/sec. Max PG 20.00 mmHg. Mean PG 10.00 mmHg. No aortic regurgitation. 5.Tricuspid valve not well visualized. Estimated peak PA systolic pressure 21 mmHg. 6.There is trace tricuspid regurgitation. Electronically Signed By: Shorty Greenberg 30-Oct-2016 20:27:53 -0800 Patient Name: PABLO ADAMS Study Date: 30-Oct-2016 [id number]
[2016-10-30] MEDS ORDERED: NORepinephrine 8MG/250 ML (PMX 250 ML IV PRN (21:00)
[2016-10-30] MEDS: LEVOFLOXACIN 250MG/D5W (PMX) 50 ML IVPB SCH (21:35)
[2016-10-30] MEDS: PIPER-TAZO 3.375 GM IV (PMX) 100 ML IVPB SCH (21:35)
[2016-10-30] MEDS: metroNIDAZOLE 500 MG/NS (PMX) 100 ML IVPB SCH (21:36)
--- NOTE | 2016-10-30 21:54 | CONS ---
DATE OF ADMISSION: 10/21/2016 DATE OF CONSULTATION: HISTORY OF PRESENT ILLNESS: This is a 41-year-old male who is a poor historian at this time because he is critically ill. This unfortunate gentleman was admitted to the hospital via emergency room with chief complaint of abdominal pain. Please refer to the hospital notes for further details. He had apparently a previous history of aortic dissection post -repair and re-implantation of both coronary arteries with a post-mechanical AVR. He had a known history of hypertension, hyperlipidemia and has been on Coumadin, Lotensin, Coreg and Toprol. Patient was found to have a ventral hernia which has been since repaired. Postoperatively, the patient's condition has deteriorated. He is anuric and has hypotension, BUN, and creatinine, nephrology consultation is therefore kindly requested. Hospital record further reveals that the patient has been found to have a hemoglobin of 4 and has been therefore transferred to the ICU. The BUN and creatinine is elevated at 31 and 1.36, potassium 6.2, sodium is 120. Nephrology consultation therefore kindly requested. The patient has been anuric and a Anderson catheter was placed and 200 mL of urine was recorded. The enzymes are elevated with an ALT of 364, alkaline phosphatase is pending. Bilirubin is elevated at 1.3. DIC panel reveals a 10, 000 D-dimer and sodium has improved from 120 to 122, potassium has dropped 6.2 to 5.5, chloride 9, CO2 is 24. The patient is also getting bicarbonate drip. A urine sodium was less 13, osmolarity is 419. Urinalysis specific gravity at 1030. The chest x-ray is negative. Patient has a CT scan of the abdomen pending. The one done about 9 days ago at the time of admission showed ileus with right lower quadrant abdominal wall soft tissue edema, question of cellulitis was made. The patient has also been seen by Cardiology and GI and triple lumen catheter has been placed. The treatment has included Zosyn and IV fluids as mentioned. The patient has also received calcium chloride, hydrocodone for pain and warfarin has been put on hold. REVIEW OF SYSTEMS: Rest of the system is not elicited at this time. PHYSICAL EXAMINATION: GENERAL: The patient is a moderately obese man who is lethargic and very poorly communicative. VITAL SIGNS: Blood pressure is 124/80, heart rate is 94, temperature is 98, respiration is labored at 24. HEAD, EARS, NOSE AND THROAT: Unremarkable. Eyes: Pale conjunctivae. Sclerae are anicteric. Nose: Normal mucosa. Throat: Lips are dry and pharynx could not be evaluated. NECK: Supple. No JVD, lymph or thyroid present. CHEST: Symmetrical. HEART: There is a 4/6 holosystolic murmur. LUNGS: Rhonchi occasionally noted. ABDOMEN: Obese, surgical scar is healed. No hepatosplenomegaly can be appreciated. GENITALIA: Anderson catheter draining urine. EXTREMITIES: No cyanosis, clubbing, edema. SKIN: Pale. IMPRESSION: 1. History of aortic dissection with aortic valve replacement. 2. Acute anemia, etiology unclear. 3. Acute kidney injury, presently oliguric. 4. Status post repair of the abdominal wall hernia, incarcerated. 5. Hyponatremia, see discussion below. 6. Elevated Bilirubin, ? ch liver congestion due to underlying heart dis This unfortunate gentleman has had severe complications following the abdominal wall surgery and the exact nature of the robert of his presentation is unclear at this time. In regard to the renal issues, the patient is markedly anemic resulting in hypovolemic acute kidney injury and thus he is oliguric with rising BUN and creatinine. The presence of urine volume, which has increased with fluid challenge, is encouraging, however, and I will continue to monitor the intake and output, and chemistry closely. The etiology of blood loss is very elusive, may be due to a combination of factors such as DIC and internal bleeding. The nature and details of which I will leave in your hands as well that of the surgeons. Whether the replaced the aortic valve is causing hemolysis is a theoretical possibility, and for this reason, I requested plasma hemoglobin. Whether there are other causes of acute kidney injury such as hemolysis and hemoglobin deposition in the tubules causing the acute kidney injury is also theoretical but in face of ensuing urinary output, this will be less likely. I will continue the sodium bicarbonate infusion and monitor the patient's clinical course closely and hope that his clinical state will improve and we can work towards eliciting the robert of his underlying problems. The patient's electrolytes are markedly abnormal with severe hyponatremia and hyperkalemia. The former is probably due to dilution and with IV fluids and the latter is probably due to the vigorous cell destruction resulting in potassium overload. Fortunately, the potassium is beginning to trend down with fluids and other therapy that has been administered. I am certain that the serum sodium will also improve and the serum sodium will also follow and hopefully the picture should turn around. I would like to thank you for this interesting consultation again. Dictated By: WILL PALOMARES/MIKAELA Conf#: [id number] DID#: [id number] MTDD
[2016-10-30 22:05] LABS: TOTAL PROTEIN 5.8 g/dl (6.1-8.1)
[2016-10-30 23:13] LABS: THYROID STIMULATING HORMONE 1.77 MIU/L (0.465-4.680)
[2016-10-31] VITALS (41 sets, daily range): BP systolic 97–127; BP diastolic 26–93; PULSE 68–102; RESP 13–33
[2016-10-31] MEDS: ALBUTEROL 0.5% (NEB) 2.5 MG/0.5 ML AMP HHN SCH ×6 (01:01→20:12)
[2016-10-31 01:13] LABS: TROPONIN-I 0.023 ng/ml (0.00-0.12)
[2016-10-31 01:14] LABS: CK-MB 5.37 ng/ml (0.0-2.4)
--- NOTE | 2016-10-31 01:16 | RADRPT ---
AMENDMENT: 10/31/2016 5:05:21 PM Evangelist Barrientos MD In addition to the CT scan of the chest, and the patient had CT scan of the abdomen and pelvis witho ut contrast as indicated in the following addendum. PROCEDURE: CT Abdomen and Pelvis without contrast. CLINICAL INDICATION: Abdominal and pelvic pain. TECHNIQUE: CT scan of the abdomen and pelvis without contrast was performed. Coronal and sagittal reformatted images were obtained from the axial source images. Images were reviewed on a [employer] PACS workstation. Total exam DLP is 1922.17 mGy-cm. CTDIvol is 24.88 mGy. One or more of the following dose reduction techniques were used: Automated exposure control, adjustment of the mA and/ or kV according to patient size, use of iterative reconstruction technique. COMPARISON: Abdomen x-ray dated 10/21/2016. FINDINGS: The liver is normal in size and attenuation. There is no focal hepatic lesion. The gallbladder and bile ducts are normal. There is a nasogastric tube with the tip in the stomach. The spleen is normal in size. There is no focal splenic lesion. Both adrenals are normal with no enlargement or mass. The pancreas is unremarkable with no mass or evidence of pancreatitis. The right kidney is normal with no hydronephrosis, mass, or calculus. The right kidney is normal in size. The left kidney is markedly atrophic. There is no left renal mass, hydronephrosis, or calcu tyler. The abdominal aorta is not dilated. There is no retroperitoneal lymphadenopathy or mass. There is no pelvic lymphadenopathy or mass. There is a Anderson catheter in the urinary bladder. There has been recent surgery with multiple vertical midline skin river. A small amount of fluid, thickening, and gas is present in the anterior abdominal wall at the site of the prior surgery. Natarajan rgical river are also present in the right lower quadrant abdominal wall. There is a large fluid collection posterior to the inferior right hepatic lobe measuring 11.0 x 7.2 x 11.0 cm in AP, transverse, and cranial caudal dimensions. A multiloculated heterogeneous mass is present in the right lower quadrant measuring 11.0 x 10.4 x 11.8 cm in AP, transverse, and cranial c audal dimensions indicating a probable hematoma. There is free fluid in the pelvis anteriorly and and the left paracolic gutter. There is gaseous dis tension of the proximal small bowel with air-fluid levels which may indicate ileus or obstruction. There are bilateral pars defects at L4 with associated grade 2 anterolisthesis at L4-5. The osseous structures are otherwise unremarkable with no fracture or lytic lesion. IMPRESSION: 1. Nasogastric tube tip in the stomach. 2. Markedly atrophic left kidney. 3. Anderson catheter in the bladder. 4. Recent surgery. 5. Large fluid collection posterior to the inferior right hepatic lobe which may be due to hematoma , abscess, or seroma. 6. Probable hematoma in the right lower quadrant. 7. Free fluid in the pelvis anteriorly and in the left paracolic gutter. 8. Small bowel obstruction or ileus. 9. Bilateral pars defects at L4 with associated grade 2 anterolisthesis at L4-5. RPTAT: QQ PROCEDURE: CT Chest without contrast. CLINICAL INDICATION: Bleeding. TECHNIQUE: CT scan of the chest without contrast was performed on a multidetector high-resolution CT scanner. Coronal and sagittal reformatted images were obtained from the axial source images. The total exam CTDI equals 24.88 mGy and the total exam DLP equals 1922.17 mGy-cm. COMPARISON: Plain film chest dated today, earlier in the day. FINDINGS: Bilateral posterior dependent and lung base fibrotic banding versus atelectasis. Otherwise, no evid ent pulmonary nodule or mass. There is no evident pleural effusion or pneumothorax. Ectatic proxim al aortic arch measuring up to 46 mm. Ectatic descending thoracic aorta measuring up to 44 mm. Like ly surgical changes at the proximal ascending aorta. The mediastinum is unremarkable without evidence for mass or lymphadenopathy. The vascular structur es of the mediastinum are normal in course and caliber. The heart size is normal without evidence fo r pericardial thickening or effusion. The axillary regions, subpectoral regions, and supraclavicular regions are all unremarkable. The natarajan rrounding chest wall is unremarkable. Imaging obtained through the upper abdomen reveals intraperit aguilar fluid The surrounding osseous structures are remarkable for degenerative spondylosis of the s pine. No osteolytic or osteoblastic lesion is detected. IMPRESSION: 1. Atelectasis and fibrotic changes in the bilateral lungs. 2. Ectatic thoracic aorta. 3. Intraperitoneal fluid. RPTAT: UU .Evangelist Barrientos MD, MD Date Time Electronically viewed and signed by .Evangelist Barrientos MD, on 10/31/2016 17:05 .R/
[2016-10-31] MEDS: morphine 2 MG INJ IV PRN ×4 (03:15→20:02)
[2016-10-31 04:56] LABS: BASOPHIL # 0.1 10^3/ul (0.0-0.1); BASOPHILS % 0.3 % (0.0-2.0); EOSINOPHILS # 0.2 10^3/ul (0.0-0.5); EOSINOPHILS % 0.7 % (0.0-7.0); HEMATOCRIT 21.1 % (42.0-52.0); HEMOGLOBIN 7.2 g/dl (14.0-18.0); LYMPHOCYTES # 1.3 10^3/ul (0.8-2.9); LYMPHOCYTES % 5.6 % (15.0-51.0); MEAN CORPUSCULAR HEMOGLOBIN 29.5 pg (29.0-33.0); MEAN CORPUSCULAR VOLUME 86.7 fl (82.0-101.0); MEAN PLATELET VOLUME 10.2 fl (7.4-10.4); MONOCYTE # 1.4 10^3/ul (0.3-0.9); MONOCYTES % 6.2 % (0.0-11.0); NEUTROPHILS % 87.2 % (39.0-77.0); PLATELET COUNT 186 10^3/UL (140-440); RED BLOOD COUNT 2.43 10^6/ul (4.70-6.10); RED CELL DISTRIBUTION WIDTH 15.5 % (11.5-14.5); UNCORRECTED WBC 22.9 10^3/ul (4.8-10.8); WHITE BLOOD COUNT 22.9 10^3/ul (4.8-10.8)
[2016-10-31 05:01] LABS: CONDITION 1; LH ANALYZER COMMENTS 1; SUSPECT 1
[2016-10-31] MEDS ORDERED: ONDANSETRON 4 MG INJ ONE (05:01)
[2016-10-31 05:03] LABS: INR 2.75; PROTIME 29.5 Sec (12.2-14.2); PT RATIO 2.3
[2016-10-31] MEDS: metroNIDAZOLE 500 MG/NS (PMX) 100 ML IVPB SCH ×3 (05:03→22:12)
[2016-10-31] MEDS: PANTOPRAZOLE 40 MG INJ IV SCH (05:04)
[2016-10-31 05:08] LABS: CALCIUM 7.6 mg/dl (8.4-10.2)
[2016-10-31 05:17] LABS: TROPONIN-I 0.022 ng/ml (0.00-0.12)
[2016-10-31 05:21] LABS: CK-MB 4.83 ng/ml (0.0-2.4)
[2016-10-31 06:17] LABS: ALBUMIN 2.5 g/dl (3.3-4.9); POTASSIUM 5.2 mmol/L (3.5-5.1)
[2016-10-31 06:20] LABS: CREATININE 1.71 mg/dl (0.61-1.24)
[2016-10-31] MEDS: LORATADINE 10 MG TAB PO SCH (08:34)
[2016-10-31] MEDS: SOD CHLORIDE 0.9% 1,000 ML IV SCH ×2 (08:34→19:00)
[2016-10-31] MEDS: PIPER-TAZO 3.375 GM IV (PMX) 100 ML IVPB SCH ×2 (08:34→21:08)
[2016-10-31] MEDS ORDERED: LIDOCAINE 2% (SDV) 5 ML INJ ONE (10:07)
[2016-10-31] MEDS ORDERED: EPHEDrine SULFATE 50 MG/5 ML SYG ONE (10:07)
[2016-10-31] MEDS ORDERED: PROPOFOL 40 ML ONE (10:07)
[2016-10-31] MEDS ORDERED: ONDANSETRON 4 MG INJ IV PRN (12:00)
[2016-10-31] MEDS: PANTOPRAZOLE IV 80 MG in SOD CHLORIDE 0.9% 100 ML IV SCH ×2 (12:00→13:21)
--- NOTE | 2016-10-31 12:12 | GILP ---
DATE OF PROCEDURE: PROCEDURE: Esophagogastroduodenoscopy. PREOPERATIVE DIAGNOSIS: Patient presenting with history of vomiting coffee-ground material, 1000 mL , hemoglobin 4.7, rule out bleeding ulcer disease, esophagitis, arteriovenous malformation, etc. POSTOPERATIVE DIAGNOSES: 1. Severe erosive esophagitis. Brushings were done to rule out cytomegalovirus, Lottie and herpes . 2. Minimal duodenitis and minimal gastritis. SURGEON: Trena Harry MD DESCRIPTION OF PROCEDURE: After the informed written consent was obtained, the patient was asked to lie on the left lateral side. Intravenous anesthesia was given by anesthesiologist, Dr. Holm. W hen the patient became somnolent, the Olympus video upper endoscope was introduced into the orophary nx, then into the esophagus. Entire esophagus covered with yellowish, whitish grayish mucosal surfa ce with broken spaces in a few areas indicating severe erosive esophagitis, rule out Lottie of the esophagus, CMV or herpes. Scope at this time was advanced into the stomach. Minimal edema and mini mal erythema noted in the fundus. Duodenum showed minimal erythema in the bulb of the duodenum. Th e second and third part of the duodenum appeared normal. At this time after taking the brushings of the esophagus, procedure was terminated. PLAN: Recommend proton pump inhibitor therapy. Dictated By: TRENA ALEMAN/MIKAELA Conf#: [id number] DID#: [id number] CC: PANTERA FRANKS MD; ELIZABETH STANLEY MD;*EndCC*
--- NOTE | 2016-10-31 12:50 | CONS ---
Date/Time of Note Date/Time of Note DATE: 10/31/16 TIME: 12:41 Assessment/Plan Assessment/Plan Additional Assessment/Plan 1. Abnormal electrocardiogram, assess for acute coronary syndrome - NO CP now - tolerated anemia well - will follow 2. Chest pain, assess for acute coronary syndrome in the setting of severe anemia - s/p EGD - severe, GI follows 3. History of aortic valve replacement - stable by exam. 4. Coagulopathy secondary to Coumadin, resume when stable - still with active. 5. Severe anemia - blood Tx as needed. 6. Incarcerated hernia, status post repair - surgical team follows. 7. Abdominal distention. 8. Hyponatremia. 9. Hyperkalemia. 10. Renal failure - ARF - avoid nephrotoxic meds. . 11. Leukocytosis. Consultation Date/Type/Reason Admit Date/Time Oct 21, 2016 at 17:20 Initial Consult Date 24 HR Interval Summary Free Text/Dictation NO acute change, bl;ood pressure stable - COUMADIN on hold, will monitor closely. ROS: No fever, no chills, no nausea, no vomiting, no diarrhea/constipation No recent weight changes No chest pain, no PND, no orthopnea No dizziness, blurred vision No thirst, no heat or cold intolerance Exam/Review of Systems Vital Signs Vitals Vital Signs Date Time Temp Pulse Resp B/P Pulse Ox O2 Delivery O2 Flow Rate FiO2 10/31/16 12:00 80 10/31/16 12:00 17 97/26 100 Nasal Cannula 10/31/16 09:00 98.3 10/31/16 08:02 5.0 35 Intake and Output 10/30/16 10/30/16 10/31/16 15:00 23:00 07:00 Intake Total 750 ml 2466.875 ml 1283.750 ml Output Total 500 ml 2015 ml 715 ml Balance 250 ml 451.875 ml 568.750 ml Exam General: WN/WD/NAD, AOx 2-3 HEENT: Unicetric/atraumatic/EOMI (follow commands) NECK: JVD elevated, no thyromegaly Lymph: no lymphadenopathy HEART: regular with no S3, II/ systolic murmur at apex LUNGS: Coarse sounds ABD: soft, NT, ND, POST OP : Intact Neuro: non focal SKIN: chronic changes EXT: trace edema Results Result Diagram: 10/31/1639910/31/16 0400 Results 24 hrs Laboratory Tests Test 10/30/16 13:30 10/30/16 15:20 10/30/16 15:40 10/30/16 17:00 Anion Gap 16 Blood Urea Nitrogen 34 H Calcium Level 7.8 L Carbon Dioxide Level 23 Chloride Level 88 L Creatinine 1.56 H Glucose Level 108 Potassium Level 6.0 H Sodium Level 121 L Urine Bilirubin NEGATIVE Urine Clarity CLEAR Urine Color YELLOW Urine Glucose NEGATIVE Urine Hemoglobin NEGATIVE Urine Ketones NEGATIVE Urine Leukocyte Esterase NEGATIVE Urine Nitrite NEGATIVE Urine Osmolality 419 Urine Random Creatinine 286.90 Urine Random Sodium < 13 L Urine Specific [place] >=1.030 H Urine Total Protein NEGATIVE Urine Urobilinogen 0.2 E.U./dL Urine pH 5.0 Arterial Blood HCO3 21.8 L Arterial Blood Base Excess -2.1 Arterial Blood Oxygen Saturation 93.0 L Philippe Test ACCEPTAB Arterial Blood Gas Puncture Site Right Radial Arterial Blood Carboxyhemoglobin 0.4 Arterial Blood Date Drawn 10/30/2016 4:35:33 PM Arterial Blood Methemoglobin 0.5 Arterial Blood pCO2 (Temp correct) 32.4 L Arterial Blood pH (Temp corrected) 7.445 Arterial Blood pO2 (Temp corrected) 67.9 L Blood Gas A-a O2 Differential 129.6 H Blood Gas Actual Respiration Rate 22 Blood Gas Critical Value Read Back Eduardo MARAVILLA RN Blood Gas Modality NASAL CANNULA Blood Gas Notified Time 10/30/2016 4:50:20 PM Blood Gas Notified Whom Juaquin SUAREZ Blood Gas Specimen Source Blood arterial Blood Gas Temperature 37.0 FiO2 33.0 Oxyhemoglobin Percent 92.2 L Total Hemoglobin 6.1 L Activated Partial Thromboplast Time 76.3 *H Basophils # 0.0 Basophils % 0.0 Blood Morphology Comment D-Dimer > 62667.00 H Eosinophils # 0.1 Eosinophils % 0.2 Fibrinogen 527.0 H Hematocrit 16.8 #L Hemoglobin 5.7 #*L INR International Normalized Ratio 2.72 Lymphocytes # 8.4 H Lymphocytes % 34.0 Mean Corpuscular Hemoglobin 29.0 Mean Corpuscular Hemoglobin Concent 34.0 Mean Corpuscular Volume 85.5 Mean Platelet Volume 11.0 H Monocytes # 1.6 H Monocytes % 6.5 Neutrophils # 14.6 H Neutrophils % 59.3 Nucleated Red Blood Cells # 0.0 Nucleated Red Blood Cells % 0.0 Plasma Fibrin Degradation Products >10 and <40 H Platelet Count 188 Prothrombin Time 29.2 H Prothrombin Time Ratio 2.3 Random Cortisol 36.3 Red Blood Count 1.96 L Red Cell Distribution Width 15.6 H Thrombin Time 15.4 Thyroid Stimulating Hormone (TSH) 1.770 White Blood Count 24.7 H Test 10/30/16 18:10 10/30/16 20:00 10/31/16 00:25 10/31/16 04:00 Alanine Aminotransferase (ALT/SGPT) 364 H 783 H Albumin 2.9 L 2.5 L Albumin/Globulin Ratio 1.00 1.00 Alkaline Phosphatase 49 55 Anion Gap 15 15 Aspartate Amino Transf (AST/SGOT) 414 H 1068 H Basophils # 0.1 Basophils % 0.3 Blood Morphology Comment Blood Urea Nitrogen 36 H 39 H Calcium Level 8.0 L 7.6 L Carbon Dioxide Level 24 22 Chloride Level 89 L 91 L Creatine Kinase 110 169 180 Creatine Kinase Index 4.8 3.2 2.7 Creatinine 1.47 H 1.71 H Creatinine Kinase MB (Mass) 5.30 H 5.37 H 4.83 H Direct Bilirubin 0.00 0.00 Eosinophils # 0.2 Eosinophils % 0.7 Globulin 2.90 2.50 Glucose Level 104 97 Hematocrit 17.7 L 21.1 L Hemoglobin 6.1 *L 7.2 L Indirect Bilirubin 1.3 H 1.0 Lymphocytes # 1.9 1.3 Lymphocytes % 8.0 L 5.6 L Mean Corpuscular Hemoglobin 29.3 29.5 Mean Corpuscular Hemoglobin Concent 34.2 34.0 Mean Corpuscular Volume 85.5 86.7 Mean Platelet Volume 10.3 10.2 Monocytes # 2.1 H 1.4 H Monocytes % 9.0 6.2 Neutrophils # 19.5 H 20.0 H Neutrophils % 83.0 H 87.2 H Nucleated Red Blood Cells # 0.0 Nucleated Red Blood Cells % 0.0 Platelet Count 188 186 Potassium Level 5.5 H 5.2 H Red Blood Count 2.07 L 2.43 L Red Cell Distribution Width 15.2 H 15.5 H Sodium Level 122 L 123 L Total Bilirubin 1.3 1.0 Total Protein 5.8 L 5.0 L Troponin I 0.013 0.023 0.022 White Blood Count 23.5 H 22.9 H Lactic Acid Level 1.0 0.8 INR International Normalized Ratio 2.75 Prothrombin Time 29.5 H Prothrombin Time Ratio 2.3 Medications Medications Current Medications Magnesium Hydroxide (Milk Of Mag) 30 ml DAILY PRN PO CONSTIPATION Last administered on 10/28/16 10:45; Admin Dose 30 ML; Start 10/21/16 at 15:00 Loratadine (Claritin) 10 mg DAILY PO Last administered on 10/30/16 08:40; Admin Dose 10 MG; Start 10/21/16 at 15:00 Bisacodyl (Dulcolax Supp) 10 mg DAILY PRN ND CONSTIPATION; Start 10/21/16 at 16 :00 Sodium Biphosphate/ Sodium Phosphate (Fleet Enema) 133 ml DAILY PRN ND CONSTIPATION; Start 10/21/16 at 16:00 Enoxaparin Sodium (Lovenox) 115 mg Q12 SC Last administered on 10/30/16 08:49 ; Admin Dose 115 MG; Start 10/22/16 at 21:00; Status Future Hold Warfarin Sodium (Coumadin) 8 mg DAILY@17 NGT Last administered on 10/29/16 17: 02; Admin Dose 8 MG; Start 10/24/16 at 18:00; Status Future Hold Acetaminophen/ Hydrocodone Bitart ([place] (5/325)) 2 tab Q6H PRN PO PAIN LEVEL 6 -10 Last administered on 10/30/16 04:45; Admin Dose 1 TAB; Start 10/26/16 at 23 :30 Morphine Sulfate (morphine) 2 mg Q4H PRN IV PAIN Last administered on 10:52; Admin Dose 2 MG; Start 10/29/16 at 02:00 Polyethylene Glycol (Miralax) 17 gm DAILY PRN PO CONSTIPATION Last administered on 10/29/16 19:41; Admin Dose 17 GM; Start 10/29/16 at 19:30 Pantoprazole 40 mg 40 mg BID@06,18 IV Last administered on 10/31/16 05:04; Admin Dose 40 MG; Start 10/30/16 at 13:00; Status Future Hold Sodium Chloride 1,000 ml @ 100 mls/hr Q10H IV Last administered on 10/31/16 08:34; Admin Dose 100 MLS/HR; Start 10/30/16 at 13:00 Sodium Bicarbonate 50 meq/Dextrose 1,050 ml @ 50 mls/hr Q21H IV Last administered on 10/30/16 17:25; Admin Dose 50 MLS/HR; Start 10/30/16 at 16:00 Piperacillin Sod/ Tazobactam Sod 100 ml @ 200 mls/hr Q12 IVPB Last administered on 10/31/16 08:34; Admin Dose 200 MLS/HR; Start 10/30/16 at 21:00 Levofloxacin/ Dextrose 50 ml @ 50 mls/hr Q24H IVPB Last administered on 21:35; Admin Dose 50 MLS/HR; Start 10/30/16 at 20:00 Metronidazole 100 ml @ 100 mls/hr Q8 IVPB Last administered on 10/31/16 05:03 ; Admin Dose 100 MLS/HR; Start 10/30/16 at 22:00 Norepinephrine 250 ml @ 1.875 mls/ hr TITRATE PRN IV BLOOD PRESSURE SUPPORT Last administered on 10/31/16 06:38; Admin Dose 5.625 MLS/HR; Start 10/30/16 at 21:00 Pantoprazole/ Sodium Chloride (Protonix Iv/NS) 100 ml @ 10 mls/hr Q10H IV ; Start 10/31/16 at 12:00 Ondansetron HCl (Zofran Inj) 4 mg Q6H PRN IV NAUSEA AND/OR VOMITING Last administered on 10/31/16 11:54; Admin Dose 4 MG; Start 10/31/16 at 12:00 Simethicone (Mylicon) 80 mg Q4 PRN PO GAS PAIN Last administered on 10/31/16 11:54; Admin Dose 80 MG; Start 10/31/16 at 12:00 MOO CACERES MD Oct 31, 2016 12:50
--- NOTE | 2016-10-31 12:56 | PN ---
Date/Time of Note Date/Time of Note DATE: 10/31/16 TIME: 12:54 Assessment/Plan VTE Prophylaxis VTE Prophylaxis Intervention: SCD's Lines/Catheters IV Catheter Type (from Nrsg): Central Line Central line still needed: Yes Urinary Cath still in place: Yes Reason Cath still needed: other (indicate) (ICU care) Assessment/Plan Chief Complaint/Hosp Course incisional hernia with multiple medical problems and aortic valve requiring anticoagulation Problems: Assessment/Plan GI bleeding with EGD showing no active bleeding, hgb stable, will start clears Subjective 24 Hr Interval Summary Free Text/Dictation stable overnight, increase in hgb with blood, EGD shows gastritis and esophagitis Exam/Review of Systems Vital Signs Vitals Vital Signs Date Time Temp Pulse Resp B/P Pulse Ox O2 Delivery O2 Flow Rate FiO2 10/31/16 12:00 80 10/31/16 12:00 17 97/26 100 Nasal Cannula 10/31/16 09:00 98.3 10/31/16 08:02 5.0 35 Intake and Output 10/30/16 10/30/16 10/31/16 15:00 23:00 07:00 Intake Total 750 ml 2466.875 ml 1283.750 ml Output Total 500 ml 2015 ml 715 ml Balance 250 ml 451.875 ml 568.750 ml Exam mod abdominal tenderness Results Result Diagram: 10/31/16 0400 10/31/16 0400 Results 24 hrs Laboratory Tests Test 10/30/16 13:30 10/30/16 15:20 10/30/16 15:40 10/30/16 17:00 Anion Gap 16 Blood Urea Nitrogen 34 H Calcium Level 7.8 L Carbon Dioxide Level 23 Chloride Level 88 L Creatinine 1.56 H Glucose Level 108 Potassium Level 6.0 H Sodium Level 121 L Urine Bilirubin NEGATIVE Urine Clarity CLEAR Urine Color YELLOW Urine Glucose NEGATIVE Urine Hemoglobin NEGATIVE Urine Ketones NEGATIVE Urine Leukocyte Esterase NEGATIVE Urine Nitrite NEGATIVE Urine Osmolality 419 Urine Random Creatinine 286.90 Urine Random Sodium < 13 L Urine Specific [place] >=1.030 H Urine Total Protein NEGATIVE Urine Urobilinogen 0.2 E.U./dL Urine pH 5.0 Arterial Blood HCO3 21.8 L Arterial Blood Base Excess -2.1 Arterial Blood Oxygen Saturation 93.0 L Philippe Test ACCEPTAB Arterial Blood Gas Puncture Site Right Radial Arterial Blood Carboxyhemoglobin 0.4 Arterial Blood Date Drawn 10/30/2016 4:35:33 PM Arterial Blood Methemoglobin 0.5 Arterial Blood pCO2 (Temp correct) 32.4 L Arterial Blood pH (Temp corrected) 7.445 Arterial Blood pO2 (Temp corrected) 67.9 L Blood Gas A-a O2 Differential 129.6 H Blood Gas Actual Respiration Rate 22 Blood Gas Critical Value Read Back Eduardo MARAVILLA RN Blood Gas Modality NASAL CANNULA Blood Gas Notified Time 10/30/2016 4:50:20 PM Blood Gas Notified Whom Juaquin SUAREZ Blood Gas Specimen Source Blood arterial Blood Gas Temperature 37.0 FiO2 33.0 Oxyhemoglobin Percent 92.2 L Total Hemoglobin 6.1 L Activated Partial Thromboplast Time 76.3 *H Basophils # 0.0 Basophils % 0.0 Blood Morphology Comment D-Dimer > 04674.00 H Eosinophils # 0.1 Eosinophils % 0.2 Fibrinogen 527.0 H Hematocrit 16.8 #L Hemoglobin 5.7 #*L INR International Normalized Ratio 2.72 Lymphocytes # 8.4 H Lymphocytes % 34.0 Mean Corpuscular Hemoglobin 29.0 Mean Corpuscular Hemoglobin Concent 34.0 Mean Corpuscular Volume 85.5 Mean Platelet Volume 11.0 H Monocytes # 1.6 H Monocytes % 6.5 Neutrophils # 14.6 H Neutrophils % 59.3 Nucleated Red Blood Cells # 0.0 Nucleated Red Blood Cells % 0.0 Plasma Fibrin Degradation Products >10 and <40 H Platelet Count 188 Prothrombin Time 29.2 H Prothrombin Time Ratio 2.3 Random Cortisol 36.3 Red Blood Count 1.96 L Red Cell Distribution Width 15.6 H Thrombin Time 15.4 Thyroid Stimulating Hormone (TSH) 1.770 White Blood Count 24.7 H Test 10/30/16 18:10 10/30/16 20:00 10/31/16 00:25 10/31/16 04:00 Alanine Aminotransferase (ALT/SGPT) 364 H 783 H Albumin 2.9 L 2.5 L Albumin/Globulin Ratio 1.00 1.00 Alkaline Phosphatase 49 55 Anion Gap 15 15 Aspartate Amino Transf (AST/SGOT) 414 H 1068 H Basophils # 0.1 Basophils % 0.3 Blood Morphology Comment Blood Urea Nitrogen 36 H 39 H Calcium Level 8.0 L 7.6 L Carbon Dioxide Level 24 22 Chloride Level 89 L 91 L Creatine Kinase 110 169 180 Creatine Kinase Index 4.8 3.2 2.7 Creatinine 1.47 H 1.71 H Creatinine Kinase MB (Mass) 5.30 H 5.37 H 4.83 H Direct Bilirubin 0.00 0.00 Eosinophils # 0.2 Eosinophils % 0.7 Globulin 2.90 2.50 Glucose Level 104 97 Hematocrit 17.7 L 21.1 L Hemoglobin 6.1 *L 7.2 L Indirect Bilirubin 1.3 H 1.0 Lymphocytes # 1.9 1.3 Lymphocytes % 8.0 L 5.6 L Mean Corpuscular Hemoglobin 29.3 29.5 Mean Corpuscular Hemoglobin Concent 34.2 34.0 Mean Corpuscular Volume 85.5 86.7 Mean Platelet Volume 10.3 10.2 Monocytes # 2.1 H 1.4 H Monocytes % 9.0 6.2 Neutrophils # 19.5 H 20.0 H Neutrophils % 83.0 H 87.2 H Nucleated Red Blood Cells # 0.0 Nucleated Red Blood Cells % 0.0 Platelet Count 188 186 Potassium Level 5.5 H 5.2 H Red Blood Count 2.07 L 2.43 L Red Cell Distribution Width 15.2 H 15.5 H Sodium Level 122 L 123 L Total Bilirubin 1.3 1.0 Total Protein 5.8 L 5.0 L Troponin I 0.013 0.023 0.022 White Blood Count 23.5 H 22.9 H Lactic Acid Level 1.0 0.8 INR International Normalized Ratio 2.75 Prothrombin Time 29.5 H Prothrombin Time Ratio 2.3 Medications Medications Current Medications Magnesium Hydroxide (Milk Of Mag) 30 ml DAILY PRN PO CONSTIPATION Last administered on 10/28/16 10:45; Admin Dose 30 ML; Start 10/21/16 at 15:00 Loratadine (Claritin) 10 mg DAILY PO Last administered on 10/30/16 08:40; Admin Dose 10 MG; Start 10/21/16 at 15:00 Bisacodyl (Dulcolax Supp) 10 mg DAILY PRN [place] CONSTIPATION; Start 10/21/16 at 16 :00 Sodium Biphosphate/ Sodium Phosphate (Fleet Enema) 133 ml DAILY PRN [place] CONSTIPATION; Start 10/21/16 at 16:00 Enoxaparin Sodium (Lovenox) 115 mg Q12 SC Last administered on 10/30/16 08:49 ; Admin Dose 115 MG; Start 10/22/16 at 21:00; Status Future Hold Warfarin Sodium (Coumadin) 8 mg DAILY@17 NGT Last administered on 10/29/16 17: 02; Admin Dose 8 MG; Start 10/24/16 at 18:00; Status Future Hold Acetaminophen/ Hydrocodone Bitart ([place] (5/325)) 2 tab Q6H PRN PO PAIN LEVEL 6 -10 Last administered on 10/30/16 04:45; Admin Dose 1 TAB; Start 10/26/16 at 23 :30 Morphine Sulfate (morphine) 2 mg Q4H PRN IV PAIN Last administered on 10:52; Admin Dose 2 MG; Start 10/29/16 at 02:00 Polyethylene Glycol (Miralax) 17 gm DAILY PRN PO CONSTIPATION Last administered on 10/29/16 19:41; Admin Dose 17 GM; Start 10/29/16 at 19:30 Pantoprazole 40 mg 40 mg BID@06,18 IV Last administered on 10/31/16 05:04; Admin Dose 40 MG; Start 10/30/16 at 13:00; Status Future Hold Sodium Chloride 1,000 ml @ 100 mls/hr Q10H IV Last administered on 10/31/16 08:34; Admin Dose 100 MLS/HR; Start 10/30/16 at 13:00 Sodium Bicarbonate 50 meq/Dextrose 1,050 ml @ 50 mls/hr Q21H IV Last administered on 10/30/16 17:25; Admin Dose 50 MLS/HR; Start 10/30/16 at 16:00 Piperacillin Sod/ Tazobactam Sod 100 ml @ 200 mls/hr Q12 IVPB Last administered on 10/31/16 08:34; Admin Dose 200 MLS/HR; Start 10/30/16 at 21:00 Levofloxacin/ Dextrose 50 ml @ 50 mls/hr Q24H IVPB Last administered on 21:35; Admin Dose 50 MLS/HR; Start 10/30/16 at 20:00 Metronidazole 100 ml @ 100 mls/hr Q8 IVPB Last administered on 10/31/16 05:03 ; Admin Dose 100 MLS/HR; Start 10/30/16 at 22:00 Norepinephrine 250 ml @ 1.875 mls/ hr TITRATE PRN IV BLOOD PRESSURE SUPPORT Last administered on 10/31/16 06:38; Admin Dose 5.625 MLS/HR; Start 10/30/16 at 21:00 Pantoprazole/ Sodium Chloride (Protonix Iv/NS) 100 ml @ 10 mls/hr Q10H IV ; Start 10/31/16 at 12:00 Ondansetron HCl (Zofran Inj) 4 mg Q6H PRN IV NAUSEA AND/OR VOMITING Last administered on 10/31/16 11:54; Admin Dose 4 MG; Start 10/31/16 at 12:00 Simethicone (Mylicon) 80 mg Q4 PRN PO GAS PAIN Last administered on 10/31/16 11:54; Admin Dose 80 MG; Start 10/31/16 at 12:00 Izzy FRANKS Oct 31, 2016 12:55
[2016-10-31] MEDS: SODIUM BICARBONATE (IV ADD) 50 MEQ in DEXTROSE 5% 1,000 ML IV SCH ×2 (13:00→13:21)
--- NOTE | 2016-10-31 14:49 | RADRPT ---
Vent Rate: 93 bpm RR Interval: 0 msec CO Interval: 210 msec QRS Duration: 110 msec QT Interval: 370 msec QTC Interval: 460 msec P-R-T [place]: 85 - 7 - 144 degrees Sinus rhythm with 1st degree AV block Left ventricular hypertrophy with repolarization abnormality Nonspecific ST abnormality Abnormal ECG Electronically Signed By: Gallito Mayo [id number]
--- NOTE | 2016-10-31 14:49 | RADRPT ---
Vent Rate: 77 bpm RR Interval: 0 msec DE Interval: 180 msec QRS Duration: 106 msec QT Interval: 438 msec QTC Interval: 495 msec P-R-T [place]: 38 - 2 - 148 degrees Normal sinus rhythm ST amp; T wave abnormality, consider lateral ischemia Prolonged QT Abnormal ECG Electronically Signed By: Gallito Mayo [id number]
--- NOTE | 2016-10-31 14:52 | PN ---
Date/Time of Note Date/Time of Note DATE: 10/31/16 TIME: 14:46 Assessment/Plan VTE Prophylaxis VTE Prophylaxis Intervention: SCD's Lines/Catheters IV [facility]from [facility] Central Line Central line still needed: Yes Urinary Cath still in place: Yes Reason Cath still needed: urinary retention Assessment/Plan Chief Complaint/Hosp Course ASSESSMENT AND PLAN: - Hypovolemic versus cardiogenic shock - Acute anemia, hold Lovenox and Coumadin, stat blood transfusion, CT scan of abdomen noted, s/p EGD. - Acute respiratory distress, oxygen supplementation and bronchodilators, monitor in ICU. - Chest pain, obtain cardiac enzymes every 8 hours 3, 2D echo, Dr. Greenberg, cardiology. - Acute kidney injury. Dr. Baker is asked to see patient in nephrology consultation. - Hyperkalemia secondary to acute kidney injury. - Prosthetic aortic valve replacement, patient was on Coumadin and bridge Lovenox which is held for now. - Incisional hernia status post laparoscopic incisional hernia repair by Dr. Moreira on 10/19. - History of aortic dissection status post repair. - Hypertension. - Hyperlipidemia - Obesity Further recommendations based on clinical course. Plan of care discussed with Dr. Murphy. Problems: Subjective 24 Hr Interval Summary Free Text/Dictation Patient complains of abdominal distention, started on clear liquid diet, denies chest pain denies shortness of breath, generalized weakness, still looks pale. Exam/Review of Systems Vital Signs Vitals Vital Signs Date Time Temp Pulse Resp B/P Pulse Ox O2 Delivery O2 Flow Rate FiO2 10/31/16 14:00 77 15 105/55 95 Nasal Cannula 10/31/16 13:17 5.0 10/31/16 13:00 97.4 10/31/16 08:02 35 Intake and Output 10/30/16 10/30/16 10/31/16 15:00 23:00 07:00 Intake Total 750 ml 2466.875 ml 1283.750 ml Output Total 500 ml 2015 ml 715 ml Balance 250 ml 451.875 ml 568.750 ml Exam GENERAL: Well-developed, obese gentleman who currently is awake, alert, very pale. HEENT: Head is atraumatic, normocephalic. Pupils equal, round, reactive to light and accommodation. Oral mucosa is pink and moist. NECK: Supple, no cervical lymphadenopathy, no thyromegaly. CHEST: Lungs clear bilaterally. There are no rhonchi, wheezes, or rales noted. CARDIOVASCULAR: Normal S1, S2. The patient has mechanical aortic valve click. No murmurs or gallops noted. ABDOMEN: Distended soft , bowel sounds hypoactive, status post surgery. Ecchymotic area around the incision. EXTREMITIES: No edema, clubbing, cyanosis. SKIN: There is no rash or petechiae noted. The patient has a midline surgical healed scar. NEUROLOGIC: The patient is awake, alert, and oriented x3. Results Result Diagram: 10/31/16 0400 10/31/16 0400 Results 24 hrs Laboratory Tests Test 10/30/16 15:20 10/30/16 15:40 10/30/16 17:00 10/30/16 18:10 Urine Bilirubin NEGATIVE Urine Clarity CLEAR Urine Color YELLOW Urine Glucose NEGATIVE Urine Hemoglobin NEGATIVE Urine Ketones NEGATIVE Urine Leukocyte Esterase NEGATIVE Urine Nitrite NEGATIVE Urine Osmolality 419 Urine Random Creatinine 286.90 Urine Random Sodium < 13 L Urine Specific [place] >=1.030 H Urine Total Protein NEGATIVE Urine Urobilinogen 0.2 E.U./dL Urine pH 5.0 Arterial Blood HCO3 21.8 L Arterial Blood Base Excess -2.1 Arterial Blood Oxygen Saturation 93.0 L Philippe Test ACCEPTAB Arterial Blood Gas Puncture Site Right Radial Arterial Blood Carboxyhemoglobin 0.4 Arterial Blood Date Drawn 10/30/2016 4:35:33 PM Arterial Blood Methemoglobin 0.5 Arterial Blood pCO2 (Temp correct) 32.4 L Arterial Blood pH (Temp corrected) 7.445 Arterial Blood pO2 (Temp corrected) 67.9 L Blood Gas A-a O2 Differential 129.6 H Blood Gas Actual Respiration Rate 22 Blood Gas Critical Value Read Back Eduardo MARAVILLA RN Blood Gas Modality NASAL CANNULA Blood Gas Notified Time 10/30/2016 4:50:20 PM Blood Gas Notified Jean Pierre SUAREZ Blood Gas Specimen Source Blood arterial Blood Gas Temperature 37.0 FiO2 33.0 Oxyhemoglobin Percent 92.2 L Total Hemoglobin 6.1 L Activated Partial Thromboplast Time 76.3 *H Basophils # 0.0 Basophils % 0.0 Blood Morphology Comment D-Dimer > 17982.00 H Eosinophils # 0.1 Eosinophils % 0.2 Fibrinogen 527.0 H Hematocrit 16.8 #L 17.7 L Hemoglobin 5.7 #*L 6.1 *L INR International Normalized Ratio 2.72 Lymphocytes # 8.4 H 1.9 Lymphocytes % 34.0 8.0 L Mean Corpuscular Hemoglobin 29.0 29.3 Mean Corpuscular Hemoglobin Concent 34.0 34.2 Mean Corpuscular Volume 85.5 85.5 Mean Platelet Volume 11.0 H 10.3 Monocytes # 1.6 H 2.1 H Monocytes % 6.5 9.0 Neutrophils # 14.6 H 19.5 H Neutrophils % 59.3 83.0 H Nucleated Red Blood Cells # 0.0 Nucleated Red Blood Cells % 0.0 Plasma Fibrin Degradation Products >10 and <40 H Platelet Count 188 188 Prothrombin Time 29.2 H Prothrombin Time Ratio 2.3 Random Cortisol 36.3 Red Blood Count 1.96 L 2.07 L Red Cell Distribution Width 15.6 H 15.2 H Thrombin Time 15.4 Thyroid Stimulating Hormone (TSH) 1.770 White Blood Count 24.7 H 23.5 H Alanine Aminotransferase (ALT/SGPT) 364 H Albumin 2.9 L Albumin/Globulin Ratio 1.00 Alkaline Phosphatase 49 Anion Gap 15 Aspartate Amino Transf (AST/SGOT) 414 H Blood Urea Nitrogen 36 H Calcium Level 8.0 L Carbon Dioxide Level 24 Chloride Level 89 L Creatine Kinase 110 Creatine Kinase Index 4.8 Creatinine 1.47 H Creatinine Kinase MB (Mass) 5.30 H Direct Bilirubin 0.00 Globulin 2.90 Glucose Level 104 Indirect Bilirubin 1.3 H Potassium Level 5.5 H Sodium Level 122 L Total Bilirubin 1.3 Total Protein 5.8 L Troponin I 0.013 Test 10/30/16 20:00 10/31/16 00:25 10/31/16 04:00 Lactic Acid Level 1.0 0.8 Creatine Kinase 169 180 Creatine Kinase Index 3.2 2.7 Creatinine Kinase MB (Mass) 5.37 H 4.83 H Troponin I 0.023 0.022 Alanine Aminotransferase (ALT/SGPT) 783 H Albumin 2.5 L Albumin/Globulin Ratio 1.00 Alkaline Phosphatase 55 Anion Gap 15 Aspartate Amino Transf (AST/SGOT) 1068 H Basophils # 0.1 Basophils % 0.3 Blood Morphology Comment Blood Urea Nitrogen 39 H Calcium Level 7.6 L Carbon Dioxide Level 22 Chloride Level 91 L Creatinine 1.71 H Direct Bilirubin 0.00 Eosinophils # 0.2 Eosinophils % 0.7 Globulin 2.50 Glucose Level 97 Hematocrit 21.1 L Hemoglobin 7.2 L INR International Normalized Ratio 2.75 Indirect Bilirubin 1.0 Lymphocytes # 1.3 Lymphocytes % 5.6 L Mean Corpuscular Hemoglobin 29.5 Mean Corpuscular Hemoglobin Concent 34.0 Mean Corpuscular Volume 86.7 Mean Platelet Volume 10.2 Monocytes # 1.4 H Monocytes % 6.2 Neutrophils # 20.0 H Neutrophils % 87.2 H Nucleated Red Blood Cells # 0.0 Nucleated Red Blood Cells % 0.0 Platelet Count 186 Potassium Level 5.2 H Prothrombin Time 29.5 H Prothrombin Time Ratio 2.3 Red Blood Count 2.43 L Red Cell Distribution Width 15.5 H Sodium Level 123 L Total Bilirubin 1.0 Total Protein 5.0 L White Blood Count 22.9 H Medications Medications Current Medications Magnesium Hydroxide (Milk Of Mag) 30 ml DAILY PRN PO CONSTIPATION Last administered on 10/28/16 10:45; Admin Dose 30 ML; Start 10/21/16 at 15:00 Loratadine (Claritin) 10 mg DAILY PO Last administered on 10/30/16 08:40; Admin Dose 10 MG; Start 10/21/16 at 15:00 Bisacodyl (Dulcolax Supp) 10 mg DAILY PRN [place] CONSTIPATION; Start 10/21/16 at 16 :00 Sodium Biphosphate/ Sodium Phosphate (Fleet Enema) 133 ml DAILY PRN [place] CONSTIPATION; Start 10/21/16 at 16:00 Enoxaparin Sodium (Lovenox) 115 mg Q12 SC Last administered on 10/30/16 08:49 ; Admin Dose 115 MG; Start 10/22/16 at 21:00; Status Future Hold Warfarin Sodium (Coumadin) 8 mg DAILY@17 NGT Last administered on 10/29/16 17: 02; Admin Dose 8 MG; Start 10/24/16 at 18:00; Status Future Hold Acetaminophen/ Hydrocodone Bitart ([place] (5/325)) 2 tab Q6H PRN PO PAIN LEVEL 6 -10 Last administered on 10/30/16 04:45; Admin Dose 1 TAB; Start 10/26/16 at 23 :30 Morphine Sulfate (morphine) 2 mg Q4H PRN IV PAIN Last administered on 10:52; Admin Dose 2 MG; Start 10/29/16 at 02:00 Polyethylene Glycol (Miralax) 17 gm DAILY PRN PO CONSTIPATION Last administered on 10/29/16 19:41; Admin Dose 17 GM; Start 10/29/16 at 19:30 Pantoprazole 40 mg 40 mg BID@06,18 IV Last administered on 10/31/16 05:04; Admin Dose 40 MG; Start 10/30/16 at 13:00; Status Future Hold Sodium Chloride 1,000 ml @ 100 mls/hr Q10H IV Last administered on 10/31/16 08:34; Admin Dose 100 MLS/HR; Start 10/30/16 at 13:00 Sodium Bicarbonate 50 meq/Dextrose 1,050 ml @ 50 mls/hr Q21H IV Last administered on 10/31/16 13:21; Admin Dose 50 MLS/HR; Start 10/30/16 at 16:00 Piperacillin Sod/ Tazobactam Sod 100 ml @ 200 mls/hr Q12 IVPB Last administered on 10/31/16 08:34; Admin Dose 200 MLS/HR; Start 10/30/16 at 21:00 Levofloxacin/ Dextrose 50 ml @ 50 mls/hr Q24H IVPB Last administered on 21:35; Admin Dose 50 MLS/HR; Start 10/30/16 at 20:00 Metronidazole 100 ml @ 100 mls/hr Q8 IVPB Last administered on 10/31/16 13:36 ; Admin Dose 100 MLS/HR; Start 10/30/16 at 22:00 Norepinephrine 250 ml @ 1.875 mls/ hr TITRATE PRN IV BLOOD PRESSURE SUPPORT Last administered on 10/31/16 06:38; Admin Dose 5.625 MLS/HR; Start 10/30/16 at 21:00 Pantoprazole/ Sodium Chloride (Protonix Iv/NS) 100 ml @ 10 mls/hr Q10H IV Last administered on 10/31/16 13:21; Admin Dose 10 MLS/HR; Start 10/31/16 at 12 :00 Ondansetron HCl (Zofran Inj) 4 mg Q6H PRN IV NAUSEA AND/OR VOMITING Last administered on 10/31/16 11:54; Admin Dose 4 MG; Start 10/31/16 at 12:00 Simethicone (Mylicon) 80 mg Q4 PRN PO GAS PAIN Last administered on 10/31/16t 11:54; Admin Dose 80 MG; Start 10/31/16 at 12:00 KIM DEJESUS Oct 31, 2016 14:52
--- NOTE | 2016-10-31 17:03 | CONS ---
Date/Time of Note Date/Time of Note DATE: 10/31/16 TIME: 17:00 Assessment/Plan Assessment/Plan Additional Assessment/Plan 1. History of aortic dissection with aortic valve replacement. 2. Acute anemia, with Hemodynamic Shock, Resolved 3. Acute kidney injury Non Oliguric 2nd to above. 4. Status post repair of the abdominal wall hernia, incarcerated. 5. Hyponatremia 6. Hyperkalemia Repeat BMP pending, F/u Labs Cont supportive care. Pt with improved UO Renal function stable Electrolyte abnormality improving Will cont to follow closely. Consultation Date/Type/Reason Admit Date/Time Oct 21, 2016 at 17:20 Initial Consult Date Type of Consultation: Nephrology Reason for Consultation NITHIN 24 HR Interval Summary Free Text/Dictation Improved UO, S/p PRBC, Off PRessors Subjective hx not possible: pt critical status Constitutional: requiring O2 Exam/Review of Systems Vital Signs Vitals Vital Signs Date Time Temp Pulse Resp B/P Pulse Ox O2 Delivery O2 Flow Rate FiO2 10/31/16 16:26 76 24 100 Nasal Cannula 3.0 10/31/16 16:00 109/63 10/31/16 13:00 97.4 10/31/16 08:02 35 Intake and Output 10/30/16 10/30/16 10/31/16 15:00 23:00 07:00 Intake Total 750 ml 2466.875 ml 1283.750 ml Output Total 500 ml 2015 ml 715 ml Balance 250 ml 451.875 ml 568.750 ml Exam Constitutional: No distress ENMT: mucosa pink and moist Neck: No jvd Respiratory: clear to auscultation, No diminished breath sounds, No labored breathing Cardiovascular: edema, regular rate and rhythm Gastrointestinal: distended, soft, tender, No rebound or guarding Genitourinary - Male: other (Anderson) Neurological: 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 II-XII intact, nl mental status, No lethargic Skin: No diaphoresis Results Result Diagram: 10/31/16 0400 10/31/16 0400 Results 24 hrs Laboratory Tests Test 10/30/16 18:10 10/30/16 20:00 10/31/16 00:25 10/31/16 04:00 Alanine Aminotransferase (ALT/SGPT) 364 H 783 H Albumin 2.9 L 2.5 L Albumin/Globulin Ratio 1.00 1.00 Alkaline Phosphatase 49 55 Anion Gap 15 15 Aspartate Amino Transf (AST/SGOT) 414 H 1068 H Basophils # 0.1 Basophils % 0.3 Blood Morphology Comment Blood Urea Nitrogen 36 H 39 H Calcium Level 8.0 L 7.6 L Carbon Dioxide Level 24 22 Chloride Level 89 L 91 L Creatine Kinase 110 169 180 Creatine Kinase Index 4.8 3.2 2.7 Creatinine 1.47 H 1.71 H Creatinine Kinase MB (Mass) 5.30 H 5.37 H 4.83 H Direct Bilirubin 0.00 0.00 Eosinophils # 0.2 Eosinophils % 0.7 Globulin 2.90 2.50 Glucose Level 104 97 Hematocrit 17.7 L 21.1 L Hemoglobin 6.1 *L 7.2 L Indirect Bilirubin 1.3 H 1.0 Lymphocytes # 1.9 1.3 Lymphocytes % 8.0 L 5.6 L Mean Corpuscular Hemoglobin 29.3 29.5 Mean Corpuscular Hemoglobin Concent 34.2 34.0 Mean Corpuscular Volume 85.5 86.7 Mean Platelet Volume 10.3 10.2 Monocytes # 2.1 H 1.4 H Monocytes % 9.0 6.2 Neutrophils # 19.5 H 20.0 H Neutrophils % 83.0 H 87.2 H Nucleated Red Blood Cells # 0.0 Nucleated Red Blood Cells % 0.0 Platelet Count 188 186 Potassium Level 5.5 H 5.2 H Red Blood Count 2.07 L 2.43 L Red Cell Distribution Width 15.2 H 15.5 H Sodium Level 122 L 123 L Total Bilirubin 1.3 1.0 Total Protein 5.8 L 5.0 L Troponin I 0.013 0.023 0.022 White Blood Count 23.5 H 22.9 H Lactic Acid Level 1.0 0.8 INR International Normalized Ratio 2.75 Prothrombin Time 29.5 H Prothrombin Time Ratio 2.3 Medications Medications Current Medications Magnesium Hydroxide (Milk Of Mag) 30 ml DAILY PRN PO CONSTIPATION Last administered on 10/28/16 10:45; Admin Dose 30 ML; Start 10/21/16 at 15:00 Loratadine (Claritin) 10 mg DAILY PO Last administered on 10/30/16 08:40; Admin Dose 10 MG; Start 10/21/16 at 15:00 Bisacodyl (Dulcolax Supp) 10 mg DAILY PRN [place] CONSTIPATION; Start 10/21/16 at 16 :00 Sodium Biphosphate/ Sodium Phosphate (Fleet Enema) 133 ml DAILY PRN [place] CONSTIPATION; Start 10/21/16 at 16:00 Enoxaparin Sodium (Lovenox) 115 mg Q12 SC Last administered on 10/30/16 08:49 ; Admin Dose 115 MG; Start 10/22/16 at 21:00; Status Future Hold Warfarin Sodium (Coumadin) 8 mg DAILY@17 NGT Last administered on 10/29/16 17: 02; Admin Dose 8 MG; Start 10/24/16 at 18:00; Status Future Hold Acetaminophen/ Hydrocodone Bitart ([place] (5/325)) 2 tab Q6H PRN PO PAIN LEVEL 6 -10 Last administered on 10/30/16 04:45; Admin Dose 1 TAB; Start 10/26/16 at 23 :30 Morphine Sulfate (morphine) 2 mg Q4H PRN IV PAIN Last administered on 15:37; Admin Dose 2 MG; Start 10/29/16 at 02:00 Polyethylene Glycol (Miralax) 17 gm DAILY PRN PO CONSTIPATION Last administered on 10/29/16 19:41; Admin Dose 17 GM; Start 10/29/16 at 19:30 Pantoprazole 40 mg 40 mg BID@06,18 IV Last administered on 10/31/16 05:04; Admin Dose 40 MG; Start 10/30/16 at 13:00; Status Future Hold Sodium Chloride 1,000 ml @ 100 mls/hr Q10H IV Last administered on 10/31/16 08:34; Admin Dose 100 MLS/HR; Start 10/30/16 at 13:00 Sodium Bicarbonate 50 meq/Dextrose 1,050 ml @ 50 mls/hr Q21H IV Last administered on 10/31/16 13:21; Admin Dose 50 MLS/HR; Start 10/30/16 at 16:00 Piperacillin Sod/ Tazobactam Sod 100 ml @ 200 mls/hr Q12 IVPB Last administered on 10/31/16 08:34; Admin Dose 200 MLS/HR; Start 10/30/16 at 21:00 Levofloxacin/ Dextrose 50 ml @ 50 mls/hr Q24H IVPB Last administered on 21:35; Admin Dose 50 MLS/HR; Start 10/30/16 at 20:00 Metronidazole 100 ml @ 100 mls/hr Q8 IVPB Last administered on 10/31/16 13:36 ; Admin Dose 100 MLS/HR; Start 10/30/16 at 22:00 Norepinephrine 250 ml @ 1.875 mls/ hr TITRATE PRN IV BLOOD PRESSURE SUPPORT Last administered on 10/31/16 06:38; Admin Dose 5.625 MLS/HR; Start 10/30/16 at 21:00 Pantoprazole/ Sodium Chloride (Protonix Iv/NS) 100 ml @ 10 mls/hr Q10H IV Last administered on 10/31/16 13:21; Admin Dose 10 MLS/HR; Start 10/31/16 at 12 :00 Ondansetron HCl (Zofran Inj) 4 mg Q6H PRN IV NAUSEA AND/OR VOMITING Last administered on 10/31/16 11:54; Admin Dose 4 MG; Start 10/31/16 at 12:00 Simethicone (Mylicon) 80 mg Q4 PRN PO GAS PAIN Last administered on 10/31/16 11:54; Admin Dose 80 MG; Start 10/31/16 at 12:00 Procedures Procedures PROCEDURE: XR Chest. CLINICAL INDICATION: Shortness of breath. Status post triple-lumen catheter placement. TECHNIQUE: Single frontal view. COMPARISON: 10/30/2016. 1024 hours. FINDINGS: There is a left internal jugular vein triple-lumen catheter with the tip in the upper superior vena cava. There is a nasogastric tube with the tip in the stomach. Low lung volumes and bibasilar atelectasis are unchanged. The lungs are otherwise clear. The heart is enlarged. There are sternal wires. There is no pleural effusion. There is no pneumothorax. IMPRESSION: 1. Left IJ catheter tip in the upper superior vena cava. 2. No pneumothorax. 3. No other change from the prior study done earlier the same day. RPTAT: QQ .Evangelist Barrientos MD, Date Time Electronically viewed and signed by .Evangelist Barrientos MD, on 10/30/2016 18:04 HANS VIRAMONTES MD Oct 31, 2016 17:03
[2016-10-31 17:17] LABS: BASOPHILS % 0.1 % (0.0-2.0); EOSINOPHILS # 0.1 10^3/ul (0.0-0.5); EOSINOPHILS % 0.7 % (0.0-7.0); HEMATOCRIT 22.9 % (42.0-52.0); LYMPHOCYTES # 0.9 10^3/ul (0.8-2.9); LYMPHOCYTES % 5.7 % (15.0-51.0); MEAN CORPUSCULAR HEMOGLOBIN 29.4 pg (29.0-33.0); MEAN CORPUSCULAR HGB CONC 33.9 g/dl (32.0-37.0); MEAN CORPUSCULAR VOLUME 86.9 fl (82.0-101.0); MEAN PLATELET VOLUME 8.5 fl (7.4-10.4); MONOCYTE # 0.9 10^3/ul (0.3-0.9); MONOCYTES % 5.6 % (0.0-11.0); NEUTROPHIL # 14.2 10^3/ul (1.6-7.5); NEUTROPHILS % 87.9 % (39.0-77.0); PLATELET COUNT 165 10^3/UL (140-440); RED BLOOD COUNT 2.63 10^6/ul (4.70-6.10); UNCORRECTED WBC 16.2 10^3/ul (4.8-10.8); WHITE BLOOD COUNT 16.2 10^3/ul (4.8-10.8)
[2016-10-31 17:20] LABS: CONDITION 1; HEMOGLOBIN 7.8 g/dl (14.0-18.0); LH ANALYZER COMMENTS 1
[2016-10-31 17:26] LABS: POTASSIUM 4.5 mmol/L (3.5-5.1)
[2016-10-31 17:29] LABS: CREATININE 1.48 mg/dl (0.61-1.24)
[2016-10-31 17:30] LABS: CALCIUM 7.1 mg/dl (8.4-10.2)
[2016-10-31] MEDS: LEVOFLOXACIN 250MG/D5W (PMX) 50 ML IVPB SCH (20:02)
[2016-11-01] VITALS (25 sets, daily range): BP systolic 103–128; BP diastolic 53–75; PULSE 84–102; RESP 17–28
[2016-11-01] MEDS: morphine 2 MG INJ IV PRN ×6 (00:05→22:05)
[2016-11-01] MEDS: SOD CHLORIDE 0.9% 1,000 ML IV SCH ×2 (00:08→12:52)
[2016-11-01] MEDS: ALBUTEROL 0.5% (NEB) 2.5 MG/0.5 ML AMP HHN SCH ×6 (00:56→20:18)
[2016-11-01] MEDS: PANTOPRAZOLE IV 80 MG in SOD CHLORIDE 0.9% 100 ML IV SCH ×4 (01:36→22:10)
[2016-11-01 05:07] LABS: BASOPHIL # 0.1 10^3/ul (0.0-0.1); BASOPHILS % 0.5 % (0.0-2.0); EOSINOPHILS # 0.1 10^3/ul (0.0-0.5); EOSINOPHILS % 0.9 % (0.0-7.0); HEMATOCRIT 24.4 % (42.0-52.0); HEMOGLOBIN 8.3 g/dl (14.0-18.0); LYMPHOCYTES # 0.9 10^3/ul (0.8-2.9); MEAN CORPUSCULAR HEMOGLOBIN 30.2 pg (29.0-33.0); MEAN CORPUSCULAR HGB CONC 34.1 g/dl (32.0-37.0); MEAN CORPUSCULAR VOLUME 88.6 fl (82.0-101.0); MEAN PLATELET VOLUME 10.2 fl (7.4-10.4); MONOCYTE # 0.9 10^3/ul (0.3-0.9); MONOCYTES % 6.5 % (0.0-11.0); NEUTROPHIL # 12.5 10^3/ul (1.6-7.5); NEUTROPHILS % 86.1 % (39.0-77.0); PLATELET COUNT 156 10^3/UL (140-440); RED BLOOD COUNT 2.75 10^6/ul (4.70-6.10); RED CELL DISTRIBUTION WIDTH 15.7 % (11.5-14.5); UNCORRECTED WBC 14.5 10^3/ul (4.8-10.8); WHITE BLOOD COUNT 14.5 10^3/ul (4.8-10.8)
[2016-11-01 05:28] LABS: ALBUMIN 2.6 g/dl (3.3-4.9); POTASSIUM 4.5 mmol/L (3.5-5.1)
[2016-11-01 05:31] LABS: ALBUMIN/GLOBULIN RATIO 0.86; CALCIUM 7.3 mg/dl (8.4-10.2); CREATININE 1.32 mg/dl (0.61-1.24); TOTAL PROTEIN 5.6 g/dl (6.1-8.1)
[2016-11-01 06:02] LABS: CONDITION 1; LH ANALYZER COMMENTS 1
[2016-11-01] MEDS: metroNIDAZOLE 500 MG/NS (PMX) 100 ML IVPB SCH ×2 (06:06→14:08)
--- NOTE | 2016-11-01 08:17 | CONS ---
Date/Time of Note Date/Time of Note DATE: 11/01/16 TIME: 08:13 Assessment/Plan Assessment/Plan Additional Assessment/Plan 41 yo Male with 1. History of aortic dissection with aortic valve replacement. 2. Acute anemia, with Hemodynamic Shock, Resolved 3. Acute kidney injury Non Oliguric 2nd to above. 4. Status post repair of the abdominal wall hernia, incarcerated. 5. Hyponatremia -Improving 6. Hyperkalemia - Resolved DC IV Bicarb Drip Renal function stable Electrolyte abnormality improving Hyperkalemia Resolved, Bicarb Normal Ok to DC Anderson catheter and monitor for UO Will cont to follow closely. Consultation Date/Type/Reason Admit Date/Time Oct 21, 2016 at 17:20 Type of Consultation: Nephrology Reason for Consultation NITHIN 24 HR Interval Summary Free Text/Dictation Pt would like have Anderson removed. Subjective hx not possible: pt critical status Constitutional: requiring O2 Exam/Review of Systems Vital Signs Vitals Vital Signs Date Time Temp Pulse Resp B/P Pulse Ox O2 Delivery O2 Flow Rate FiO2 11/01/16 07:00 98.4 89 22 119/67 98 Nasal Cannula 11/01/16 04:15 3.0 11/01/16 03:20 30 Intake and Output 10/31/16 10/31/16 11/01/16 15:00 23:00 07:00 Intake Total 1790 ml 1330 ml 1625 ml Output Total 380 ml 490 ml 420 ml Balance 1410 ml 840 ml 1205 ml Exam Constitutional: alert, No distress ENMT: mucosa pink and moist Respiratory: crackles/rales, diminished breath sounds, No labored breathing Cardiovascular: edema (trace), regular rate and rhythm Gastrointestinal: distended, soft, No rebound or guarding, No tender Neurological: PUBLIC RELATIONS REPRESENTATIVE II-XII intact, No lethargic Skin: No diaphoresis Results Result Diagram: 11/01/16 0400 11/01/16 0400 Results 24 hrs Laboratory Tests Test 10/31/16 17:00 11/01/16 04:00 Anion Gap 12 13 Basophils # 0.0 0.1 Basophils % 0.1 0.5 Blood Morphology Comment Blood Urea Nitrogen 35 H 30 H Calcium Level 7.1 L 7.3 L Carbon Dioxide Level 24 25 Chloride Level 94 L 94 L Creatinine 1.48 H 1.32 H Eosinophils # 0.1 0.1 Eosinophils % 0.7 0.9 Glucose Level 96 86 Hematocrit 22.9 L 24.4 L Hemoglobin 7.8 L 8.3 L Lymphocytes # 0.9 0.9 Lymphocytes % 5.7 L 6.0 L Mean Corpuscular Hemoglobin 29.4 30.2 Mean Corpuscular Hemoglobin Concent 33.9 34.1 Mean Corpuscular Volume 86.9 88.6 Mean Platelet Volume 8.5 10.2 Monocytes # 0.9 0.9 Monocytes % 5.6 6.5 Neutrophils # 14.2 H 12.5 H Neutrophils % 87.9 H 86.1 H Nucleated Red Blood Cells # 0.0 0.0 Nucleated Red Blood Cells % 0.0 0.0 Platelet Count 165 156 Potassium Level 4.5 4.5 Red Blood Count 2.63 L 2.75 L Red Cell Distribution Width 15.0 H 15.7 H Sodium Level 125 L 127 L White Blood Count 16.2 #H 14.5 H Alanine Aminotransferase (ALT/SGPT) 601 H Albumin 2.6 L Albumin/Globulin Ratio 0.86 Alkaline Phosphatase 75 Aspartate Amino Transf (AST/SGOT) 445 #H Direct Bilirubin 0.00 Globulin 3.00 Indirect Bilirubin 1.0 Total Bilirubin 1.0 Total Protein 5.6 L Medications Medications Current Medications Magnesium Hydroxide (Milk Of Mag) 30 ml DAILY PRN PO CONSTIPATION Last administered on 10/28/16 10:45; Admin Dose 30 ML; Start 10/21/16 at 15:00 Loratadine (Claritin) 10 mg DAILY PO Last administered on 10/30/16 08:40; Admin Dose 10 MG; Start 10/21/16 at 15:00 Bisacodyl (Dulcolax Supp) 10 mg DAILY PRN [place] CONSTIPATION; Start 10/21/16 at 16 :00 Sodium Biphosphate/ Sodium Phosphate (Fleet Enema) 133 ml DAILY PRN [place] CONSTIPATION; Start 10/21/16 at 16:00 Enoxaparin Sodium (Lovenox) 115 mg Q12 SC Last administered on 10/30/16 08:49 ; Admin Dose 115 MG; Start 10/22/16 at 21:00; Status Future Hold Warfarin Sodium (Coumadin) 8 mg DAILY@17 NGT Last administered on 10/29/16 17: 02; Admin Dose 8 MG; Start 10/24/16 at 18:00; Status Future Hold Acetaminophen/ Hydrocodone Bitart ([place] (5/325)) 2 tab Q6H PRN PO PAIN LEVEL 6 -10 Last administered on 10/30/16 04:45; Admin Dose 1 TAB; Start 10/26/16 at 23 :30 Morphine Sulfate (morphine) 2 mg Q4H PRN IV PAIN Last administered on 06:05; Admin Dose 2 MG; Start 10/29/16 at 02:00 Polyethylene Glycol (Miralax) 17 gm DAILY PRN PO CONSTIPATION Last administered on 10/29/16 19:41; Admin Dose 17 GM; Start 10/29/16 at 19:30 Pantoprazole 40 mg 40 mg BID@06,18 IV Last administered on 10/31/16 05:04; Admin Dose 40 MG; Start 10/30/16 at 13:00; Status Future Hold Sodium Chloride 1,000 ml @ 100 mls/hr Q10H IV Last administered on 11/01/16 00:08; Admin Dose 100 MLS/HR; Start 10/30/16 at 13:00 Sodium Bicarbonate 50 meq/Dextrose 1,050 ml @ 50 mls/hr Q21H IV Last administered on 10/31/16 13:21; Admin Dose 50 MLS/HR; Start 10/30/16 at 16:00 Piperacillin Sod/ Tazobactam Sod 100 ml @ 200 mls/hr Q12 IVPB Last administered on 10/31/16 21:08; Admin Dose 200 MLS/HR; Start 10/30/16 at 21:00 Levofloxacin/ Dextrose 50 ml @ 50 mls/hr Q24H IVPB Last administered on 20:02; Admin Dose 50 MLS/HR; Start 10/30/16 at 20:00 Metronidazole 100 ml @ 100 mls/hr Q8 IVPB Last administered on 11/01/16 06:06 ; Admin Dose 100 MLS/HR; Start 10/30/16 at 22:00 Norepinephrine 250 ml @ 1.875 mls/ hr TITRATE PRN IV BLOOD PRESSURE SUPPORT Last administered on 10/31/16 06:38; Admin Dose 5.625 MLS/HR; Start 10/30/16 at 21:00 Pantoprazole/ Sodium Chloride (Protonix Iv/NS) 100 ml @ 10 mls/hr Q10H IV Last administered on 11/01/16 01:36; Admin Dose 10 MLS/HR; Start 10/31/16 at 12 :00 Ondansetron HCl (Zofran Inj) 4 mg Q6H PRN IV NAUSEA AND/OR VOMITING Last administered on 10/31/16 11:54; Admin Dose 4 MG; Start 10/31/16 at 12:00 Simethicone (Mylicon) 80 mg Q4 PRN PO GAS PAIN Last administered on 11/01/16 04:57; Admin Dose 80 MG; Start 10/31/16 at 12:00 Procedures Procedures PROCEDURE: XR Chest. CLINICAL INDICATION: Shortness of breath. Status post triple-lumen catheter placement. TECHNIQUE: Single frontal view. COMPARISON: 10/30/2016. 1024 hours. FINDINGS: There is a left internal jugular vein triple-lumen catheter with the tip in the upper superior vena cava. There is a nasogastric tube with the tip in the stomach. Low lung volumes and bibasilar atelectasis are unchanged. The lungs are otherwise clear. The heart is enlarged. There are sternal wires. There is no pleural effusion. There is no pneumothorax. IMPRESSION: 1. Left IJ catheter tip in the upper superior vena cava. 2. No pneumothorax. 3. No other change from the prior study done earlier the same day. RPTAT: QQ .Evangelist Barrientos MD, MD Date Time Electronically viewed and signed by .Evangelist Barrientos MD, MD on 10/30/2016 18:04 HANS VIRAMONTES MD Nov 01, 2016 08:17
[2016-11-01] MEDS: LORATADINE 10 MG TAB PO SCH (08:59)
[2016-11-01] MEDS: PIPER-TAZO 3.375 GM IV (PMX) 100 ML IVPB SCH ×3 (09:00→22:09)
--- NOTE | 2016-11-01 09:23 | RADRPT ---
PROCEDURE: XR Chest. CLINICAL INDICATION: Shortness of breath TECHNIQUE: Chest AP portable. COMPARISON: 10/30/2016 FINDINGS: Sternotomy and CABG. Left internal jugular central line. The mediastinal structures are unremarkable. There is calcification of the thoracic aorta (consiste nt with atherosclerosis). There is moderate cardiomegaly. The pulmonary vascularity is normal. There are low lung volumes. There is bibasilar subsegmental atelectasis / patchy consolidations. The pl eural spaces are unremarkable. The osseous structures are unremarkable. IMPRESSION: Moderate cardiomegaly Low lung volumes. Bibasilar subsegmental atelectasis / patchy consolidations RPTAT: HGDB .Kang Hsu MD, MD Date Time Electronically viewed and signed by .Kang Hsu MD, on 11/01/2016 09:23 .B/
--- NOTE | 2016-11-01 10:00 | CONS ---
Date/Time of Note Date/Time of Note DATE: 11/01/16 TIME: 09:58 Assessment/Plan Assessment/Plan Additional Assessment/Plan 1. Abnormal electrocardiogram, assess for acute coronary syndrome - NO CP now - tolerated anemia well - will follow - pain controlled. 2. Chest pain, assess for acute coronary syndrome in the setting of severe anemia - s/p EGD - severe, GI follows 3. History of aortic valve replacement - stable by exam - no signs of decompensation now. 4. Coagulopathy secondary to Coumadin, resume when stable - still with active. 5. Severe anemia - blood Tx as needed. 6. Incarcerated hernia, status post repair - surgical team follows. 7. Abdominal distention. 8. Hyponatremia. 9. Hyperkalemia. 10. Renal failure - ARF - avoid nephrotoxic meds. . 11. Leukocytosis. Consultation Date/Type/Reason Admit Date/Time Oct 21, 2016 at 17:20 Type of Consultation: Nephrology 24 HR Interval Summary Free Text/Dictation NO acute change - overall stable - con't med rx. ROS: No fever, no chills, no nausea, no vomiting, no diarrhea/constipation No recent weight changes No chest pain, no PND, no orthopnea No dizziness, blurred vision No thirst, no heat or cold intolerance Exam/Review of Systems Vital Signs Vitals Vital Signs Date Time Temp Pulse Resp B/P Pulse Ox O2 Delivery O2 Flow Rate FiO2 11/01/16 09:08 87 2 97 Nasal Cannula 3.0 11/01/16 09:00 106/72 11/01/16 07:00 98.4 11/01/16 03:20 30 Intake and Output 10/31/16 10/31/16 11/01/16 15:00 23:00 07:00 Intake Total 1790 ml 1330 ml 1625 ml Output Total 380 ml 490 ml 420 ml Balance 1410 ml 840 ml 1205 ml Exam General: WN/WD/NAD, AOx 3 HEENT: Unicetric/atraumatic/EOMI (follow commands) NECK: JVD elevated, no thyromegaly Lymph: no lymphadenopathy HEART: regular with no S3, II/ systolic murmur at apex LUNGS: Coarse sounds ABD: soft, NT, ND, +BS : Intact Neuro: non focal SKIN: chronic changes EXT: trace edema Results Result Diagram: 11/01/16 0400 11/01/16 0400 Results 24 hrs Laboratory Tests Test 10/31/16 17:00 11/01/16 04:00 Anion Gap 12 13 Basophils # 0.0 0.1 Basophils % 0.1 0.5 Blood Morphology Comment Blood Urea Nitrogen 35 H 30 H Calcium Level 7.1 L 7.3 L Carbon Dioxide Level 24 25 Chloride Level 94 L 94 L Creatinine 1.48 H 1.32 H Eosinophils # 0.1 0.1 Eosinophils % 0.7 0.9 Glucose Level 96 86 Hematocrit 22.9 L 24.4 L Hemoglobin 7.8 L 8.3 L Lymphocytes # 0.9 0.9 Lymphocytes % 5.7 L 6.0 L Mean Corpuscular Hemoglobin 29.4 30.2 Mean Corpuscular Hemoglobin Concent 33.9 34.1 Mean Corpuscular Volume 86.9 88.6 Mean Platelet Volume 8.5 10.2 Monocytes # 0.9 0.9 Monocytes % 5.6 6.5 Neutrophils # 14.2 H 12.5 H Neutrophils % 87.9 H 86.1 H Nucleated Red Blood Cells # 0.0 0.0 Nucleated Red Blood Cells % 0.0 0.0 Platelet Count 165 156 Potassium Level 4.5 4.5 Red Blood Count 2.63 L 2.75 L Red Cell Distribution Width 15.0 H 15.7 H Sodium Level 125 L 127 L White Blood Count 16.2 #H 14.5 H Alanine Aminotransferase (ALT/SGPT) 601 H Albumin 2.6 L Albumin/Globulin Ratio 0.86 Alkaline Phosphatase 75 Aspartate Amino Transf (AST/SGOT) 445 #H Direct Bilirubin 0.00 Globulin 3.00 Indirect Bilirubin 1.0 Total Bilirubin 1.0 Total Protein 5.6 L Medications Medications Current Medications Magnesium Hydroxide (Milk Of Mag) 30 ml DAILY PRN PO CONSTIPATION Last administered on 10/28/16 10:45; Admin Dose 30 ML; Start 10/21/16 at 15:00 Loratadine (Claritin) 10 mg DAILY PO Last administered on 11/01/16 08:59; Admin Dose 10 MG; Start 10/21/16 at 15:00 Bisacodyl (Dulcolax Supp) 10 mg DAILY PRN [place] CONSTIPATION; Start 10/21/16 at 16 :00 Sodium Biphosphate/ Sodium Phosphate (Fleet Enema) 133 ml DAILY PRN [place] CONSTIPATION; Start 10/21/16 at 16:00 Enoxaparin Sodium (Lovenox) 115 mg Q12 SC Last administered on 10/30/16 08:49 ; Admin Dose 115 MG; Start 10/22/16 at 21:00; Status Future Hold Warfarin Sodium (Coumadin) 8 mg DAILY@17 NGT Last administered on 10/29/16 17: 02; Admin Dose 8 MG; Start 10/24/16 at 18:00; Status Future Hold Acetaminophen/ Hydrocodone Bitart ([place] (5/325)) 2 tab Q6H PRN PO PAIN LEVEL 6 -10 Last administered on 10/30/16 04:45; Admin Dose 1 TAB; Start 10/26/16 at 23 :30 Morphine Sulfate (morphine) 2 mg Q4H PRN IV PAIN Last administered on 06:05; Admin Dose 2 MG; Start 10/29/16 at 02:00 Polyethylene Glycol (Miralax) 17 gm DAILY PRN PO CONSTIPATION Last administered on 10/29/16 19:41; Admin Dose 17 GM; Start 10/29/16 at 19:30 Pantoprazole 40 mg 40 mg BID@06,18 IV Last administered on 10/31/16 05:04; Admin Dose 40 MG; Start 10/30/16 at 13:00; Status Future Hold Sodium Chloride 1,000 ml @ 100 mls/hr Q10H IV Last administered on 11/01/16 00:08; Admin Dose 100 MLS/HR; Start 10/30/16 at 13:00 Piperacillin Sod/ Tazobactam Sod 100 ml @ 200 mls/hr Q12 IVPB Last administered on 11/01/16 09:00; Admin Dose 200 MLS/HR; Start 10/30/16 at 21:00 Levofloxacin/ Dextrose 50 ml @ 50 mls/hr Q24H IVPB Last administered on 20:02; Admin Dose 50 MLS/HR; Start 10/30/16 at 20:00 Metronidazole 100 ml @ 100 mls/hr Q8 IVPB Last administered on 11/01/16 06:06 ; Admin Dose 100 MLS/HR; Start 10/30/16 at 22:00 Pantoprazole/ Sodium Chloride (Protonix Iv/NS) 100 ml @ 10 mls/hr Q10H IV Last administered on 11/01/16 01:36; Admin Dose 10 MLS/HR; Start 10/31/16 at 12 :00 Ondansetron HCl (Zofran Inj) 4 mg Q6H PRN IV NAUSEA AND/OR VOMITING Last administered on 10/31/16 11:54; Admin Dose 4 MG; Start 10/31/16 at 12:00 Simethicone 80 mg 80 mg Q4 PRN PO GAS PAIN Last administered on 11/01/16 08:59 ; Admin Dose 80 MG; Start 10/31/16 at 12:00 Norepinephrine/ Dextrose (Levophed/D5W) 500 ml @ 0 mls/hr TITRATE IV ; Start at 08:30 MOO CACERES MD Nov 01, 2016 10:00
--- NOTE | 2016-11-01 12:12 | PN ---
Date/Time of Note Date/Time of Note DATE: 11/01/16 TIME: 12:10 Assessment/Plan VTE Prophylaxis VTE Prophylaxis Intervention: ambulation, heparin, SCD's Lines/Catheters IV Catheter Type (from Nrsg): Central Line Central line still needed: Yes Urinary Cath still in place: Yes Reason Cath still needed: other (indicate) (icu care) Assessment/Plan Chief Complaint/Hosp Course incisional hernia with multiple medical problems and aortic valve requiring anticoagulation Problems: Assessment/Plan s/p intraabdominal bleeding and AKD with stabilization and recovering ok to transfer to [facility] from surgical standpoint Subjective 24 Hr Interval Summary Free Text/Dictation ct scan shows large hematoma in abdomen, otherwise stable with slow recovery of kidneys Exam/Review of Systems Vital Signs Vitals Vital Signs Date Time Temp Pulse Resp B/P Pulse Ox O2 Delivery O2 Flow Rate FiO2 11/01/16 11:00 88 18 118/66 96 Nasal Cannula 11/01/16 09:08 3.0 11/01/16 07:00 98.4 11/01/16 03:20 30 Intake and Output 10/31/16 10/31/16 11/01/16 15:00 23:00 07:00 Intake Total 1790 ml 1330 ml 1625 ml Output Total 380 ml 490 ml 420 ml Balance 1410 ml 840 ml 1205 ml Exam distended Results Result Diagram: 11/01/16 0400 11/01/16 0400 Results 24 hrs Laboratory Tests Test 10/31/16 17:00 11/01/16 04:00 Anion Gap 12 13 Basophils # 0.0 0.1 Basophils % 0.1 0.5 Blood Morphology Comment Blood Urea Nitrogen 35 H 30 H Calcium Level 7.1 L 7.3 L Carbon Dioxide Level 24 25 Chloride Level 94 L 94 L Creatinine 1.48 H 1.32 H Eosinophils # 0.1 0.1 Eosinophils % 0.7 0.9 Glucose Level 96 86 Hematocrit 22.9 L 24.4 L Hemoglobin 7.8 L 8.3 L Lymphocytes # 0.9 0.9 Lymphocytes % 5.7 L 6.0 L Mean Corpuscular Hemoglobin 29.4 30.2 Mean Corpuscular Hemoglobin Concent 33.9 34.1 Mean Corpuscular Volume 86.9 88.6 Mean Platelet Volume 8.5 10.2 Monocytes # 0.9 0.9 Monocytes % 5.6 6.5 Neutrophils # 14.2 H 12.5 H Neutrophils % 87.9 H 86.1 H Nucleated Red Blood Cells # 0.0 0.0 Nucleated Red Blood Cells % 0.0 0.0 Platelet Count 165 156 Potassium Level 4.5 4.5 Red Blood Count 2.63 L 2.75 L Red Cell Distribution Width 15.0 H 15.7 H Sodium Level 125 L 127 L White Blood Count 16.2 #H 14.5 H Alanine Aminotransferase (ALT/SGPT) 601 H Albumin 2.6 L Albumin/Globulin Ratio 0.86 Alkaline Phosphatase 75 Aspartate Amino Transf (AST/SGOT) 445 #H Direct Bilirubin 0.00 Globulin 3.00 Indirect Bilirubin 1.0 Total Bilirubin 1.0 Total Protein 5.6 L Medications Medications Current Medications Magnesium Hydroxide (Milk Of Mag) 30 ml DAILY PRN PO CONSTIPATION Last administered on 10/28/16 10:45; Admin Dose 30 ML; Start 10/21/16 at 15:00 Loratadine (Claritin) 10 mg DAILY PO Last administered on 11/01/16 08:59; Admin Dose 10 MG; Start 10/21/16 at 15:00 Bisacodyl (Dulcolax Supp) 10 mg DAILY PRN [place] CONSTIPATION; Start 10/21/16 at 16 :00 Sodium Biphosphate/ Sodium Phosphate (Fleet Enema) 133 ml DAILY PRN [place] CONSTIPATION; Start 10/21/16 at 16:00 Enoxaparin Sodium (Lovenox) 115 mg Q12 SC Last administered on 10/30/16 08:49 ; Admin Dose 115 MG; Start 10/22/16 at 21:00; Status Future Hold Warfarin Sodium (Coumadin) 8 mg DAILY@17 NGT Last administered on 10/29/16 17: 02; Admin Dose 8 MG; Start 10/24/16 at 18:00; Status Future Hold Acetaminophen/ Hydrocodone Bitart ([place] (5/325)) 2 tab Q6H PRN PO PAIN LEVEL 6 -10 Last administered on 10/30/16 04:45; Admin Dose 1 TAB; Start 10/26/16 at 23 :30 Morphine Sulfate (morphine) 2 mg Q4H PRN IV PAIN Last administered on 09:54; Admin Dose 2 MG; Start 10/29/16 at 02:00 Polyethylene Glycol (Miralax) 17 gm DAILY PRN PO CONSTIPATION Last administered on 10/29/16 19:41; Admin Dose 17 GM; Start 10/29/16 at 19:30 Pantoprazole 40 mg 40 mg BID@06,18 IV Last administered on 10/31/16 05:04; Admin Dose 40 MG; Start 10/30/16 at 13:00; Status Future Hold Sodium Chloride 1,000 ml @ 100 mls/hr Q10H IV Last administered on 11/01/16 00:08; Admin Dose 100 MLS/HR; Start 10/30/16 at 13:00 Piperacillin Sod/ Tazobactam Sod 100 ml @ 200 mls/hr Q12 IVPB Last administered on 11/01/16 09:00; Admin Dose 200 MLS/HR; Start 10/30/16 at 21:00 Levofloxacin/ Dextrose 50 ml @ 50 mls/hr Q24H IVPB Last administered on 20:02; Admin Dose 50 MLS/HR; Start 10/30/16 at 20:00 Metronidazole 100 ml @ 100 mls/hr Q8 IVPB Last administered on 11/01/16 06:06 ; Admin Dose 100 MLS/HR; Start 10/30/16 at 22:00 Pantoprazole/ Sodium Chloride (Protonix Iv/NS) 100 ml @ 10 mls/hr Q10H IV Last administered on 11/01/16 01:36; Admin Dose 10 MLS/HR; Start 10/31/16 at 12 :00 Ondansetron HCl (Zofran Inj) 4 mg Q6H PRN IV NAUSEA AND/OR VOMITING Last administered on 10/31/16 11:54; Admin Dose 4 MG; Start 10/31/16 at 12:00 Simethicone 80 mg 80 mg Q4 PRN PO GAS PAIN Last administered on 11/01/16 08:59 ; Admin Dose 80 MG; Start 10/31/16 at 12:00 Norepinephrine/ Dextrose (Levophed/D5W) 500 ml @ 0 mls/hr TITRATE IV ; Start at 08:30 Izzy FRANKS Nov 01, 2016 12:12
--- NOTE | 2016-11-01 20:59 | PN ---
Date/Time of Note Date/Time of Note DATE: 11/01/16 TIME: 20:55 Assessment/Plan VTE Prophylaxis VTE Prophylaxis Intervention: SCD's Lines/Catheters IV Catheter Type (from Nrs): Central Line Central line still needed: Yes Urinary Cath still in place: Yes Reason Cath still needed: urinary retention Assessment/Plan Assessment/Plan - Hypovolemic versus cardiogenic shock - Acute anemia, hold Lovenox and Coumadin, stat blood transfusion, CT scan of abdomen noted, s/p EGD. - Acute respiratory distress, oxygen supplementation and bronchodilators, monitor in ICU. - Chest pain, obtain cardiac enzymes every 8 hours 3, 2D echo, Dr. Greenberg, cardiology. - Acute kidney injury. Dr. Baker is asked to see patient in nephrology consultation. - Hyperkalemia secondary to acute kidney injury. - Prosthetic aortic valve replacement, patient was on Coumadin and bridge Lovenox which is held for now. - Incisional hernia status post laparoscopic incisional hernia repair by Dr. Moreira on 10/19. - History of aortic dissection status post repair. - Hypertension. - Hyperlipidemia - Obesity Further recommendations based on clinical course. Total critical care time spent -35 mins Plan of care discussed with Dr. Murphy. Subjective 24 Hr Interval Summary Eyes: no complaints ENT: no complaints Respiratory: no complaints Cardiovascular: no complaints Gastrointestinal: pain Genitourinary: no complaints Musculoskeletal: no complaints Skin: other Neurologic: no complaints Exam/Review of Systems Vital Signs Vitals Vital Signs Date Time Temp Pulse Resp B/P Pulse Ox O2 Delivery O2 Flow Rate FiO2 11/01/16 20:25 87 11/01/16 20:18 18 93 Nasal Cannula 3.0 11/01/16 19:00 111/58 11/01/16 18:00 98.0 11/01/16 03:20 30 Intake and Output 10/31/16 10/31/16 11/01/16 15:00 23:00 07:00 Intake Total 1790 ml 1330 ml 1625 ml Output Total 380 ml 490 ml 420 ml Balance 1410 ml 840 ml 1205 ml Exam Constitutional: alert, obese, well developed Psych: nl mood/affect Head: atraumatic Eyes: EOMI, PERRL, nl sclera ENMT: nl external ears & nose Neck: non-tender Respiratory: diminished breath sounds Cardiovascular: nl pulses Gastrointestinal: other (sp hernia repair- abd dressing noted- DDI), soft, surgical scars Musculoskeletal: nl extremities to inspection Extremities: normal pulses Neurological: nl mental status, nl speech Skin: other Lymph: nontender Results Result Diagram: 11/01/160 11/01/16 0400 Results 24 hrs Laboratory Tests Test 11/01/16 04:00 Alanine Aminotransferase (ALT/SGPT) 601 H Albumin 2.6 L Albumin/Globulin Ratio 0.86 Alkaline Phosphatase 75 Anion Gap 13 Aspartate Amino Transf (AST/SGOT) 445 #H Basophils # 0.1 Basophils % 0.5 Blood Morphology Comment Blood Urea Nitrogen 30 H Calcium Level 7.3 L Carbon Dioxide Level 25 Chloride Level 94 L Creatinine 1.32 H Direct Bilirubin 0.00 Eosinophils # 0.1 Eosinophils % 0.9 Globulin 3.00 Glucose Level 86 Hematocrit 24.4 L Hemoglobin 8.3 L Indirect Bilirubin 1.0 Lymphocytes # 0.9 Lymphocytes % 6.0 L Mean Corpuscular Hemoglobin 30.2 Mean Corpuscular Hemoglobin Concent 34.1 Mean Corpuscular Volume 88.6 Mean Platelet Volume 10.2 Monocytes # 0.9 Monocytes % 6.5 Neutrophils # 12.5 H Neutrophils % 86.1 H Nucleated Red Blood Cells # 0.0 Nucleated Red Blood Cells % 0.0 Platelet Count 156 Potassium Level 4.5 Red Blood Count 2.75 L Red Cell Distribution Width 15.7 H Sodium Level 127 L Total Bilirubin 1.0 Total Protein 5.6 L White Blood Count 14.5 H Medications Medications Current Medications Magnesium Hydroxide (Milk Of Mag) 30 ml DAILY PRN PO CONSTIPATION Last administered on 10/28/16 10:45; Admin Dose 30 ML; Start 10/21/16 at 15:00 Loratadine (Claritin) 10 mg DAILY PO Last administered on 11/01/16 08:59; Admin Dose 10 MG; Start 10/21/16 at 15:00 Bisacodyl (Dulcolax Supp) 10 mg DAILY PRN [place] CONSTIPATION; Start 10/21/16 at 16 :00 Sodium Biphosphate/ Sodium Phosphate (Fleet Enema) 133 ml DAILY PRN [place] CONSTIPATION; Start 10/21/16 at 16:00 Enoxaparin Sodium (Lovenox) 115 mg Q12 SC Last administered on 10/30/16 08:49 ; Admin Dose 115 MG; Start 10/22/16 at 21:00; Status Future Hold Warfarin Sodium (Coumadin) 8 mg DAILY@17 NGT Last administered on 10/29/16 17: 02; Admin Dose 8 MG; Start 10/24/16 at 18:00; Status Future Hold Acetaminophen/ Hydrocodone Bitart ([place] (5/325)) 2 tab Q6H PRN PO PAIN LEVEL 6 -10 Last administered on 10/30/16 04:45; Admin Dose 1 TAB; Start 10/26/16 at 23 :30 Morphine Sulfate (morphine) 2 mg Q4H PRN IV PAIN Last administered on 17:55; Admin Dose 2 MG; Start 10/29/16 at 02:00 Polyethylene Glycol (Miralax) 17 gm DAILY PRN PO CONSTIPATION Last administered on 10/29/16 19:41; Admin Dose 17 GM; Start 10/29/16 at 19:30 Pantoprazole 40 mg 40 mg BID@06,18 IV Last administered on 10/31/16 05:04; Admin Dose 40 MG; Start 10/30/16 at 13:00; Status Future Hold Sodium Chloride 1,000 ml @ 100 mls/hr Q10H IV Last administered on 11/01/16 12:52; Admin Dose 100 MLS/HR; Start 10/30/16 at 13:00 Pantoprazole/ Sodium Chloride (Protonix Iv/NS) 100 ml @ 10 mls/hr Q10H IV Last administered on 11/01/16 12:49; Admin Dose 10 MLS/HR; Start 10/31/16 at 12 :00 Ondansetron HCl (Zofran Inj) 4 mg Q6H PRN IV NAUSEA AND/OR VOMITING Last administered on 10/31/16 11:54; Admin Dose 4 MG; Start 10/31/16 at 12:00 Simethicone 80 mg 80 mg Q4 PRN PO GAS PAIN Last administered on 11/01/16 16:57 ; Admin Dose 80 MG; Start 10/31/16 at 12:00 Piperacillin Sod/ Tazobactam Sod (Zosyn 3.375gm/ 100 ml (Pmx)) 100 ml @ 200 mls /hr Q8 IVPB Last administered on 11/01/16 16:58; Admin Dose 200 MLS/HR; Start 11/01/16 at 16:30 NIKO ANSARI Nov 01, 2016 20:59
[2016-11-02] VITALS (11 sets, daily range): BP systolic 119–136; BP diastolic 54–84; PULSE 82–95; RESP 18–20
[2016-11-02] MEDS: ALBUTEROL 0.5% (NEB) 2.5 MG/0.5 ML AMP HHN SCH ×6 (00:37→22:01)
[2016-11-02] MEDS: SOD CHLORIDE 0.9% 1,000 ML IV SCH ×3 (01:01→11:55)
[2016-11-02] MEDS: morphine 2 MG INJ IV PRN ×2 (02:38→10:28)
[2016-11-02] MEDS: PANTOPRAZOLE IV 80 MG in SOD CHLORIDE 0.9% 100 ML IV SCH ×2 (04:00→14:18)
[2016-11-02] MEDS: PIPER-TAZO 3.375 GM IV (PMX) 100 ML IVPB SCH ×3 (05:45→22:13)
[2016-11-02 07:00] LABS: POTASSIUM 4.5 mmol/L (3.5-5.1)
[2016-11-02 07:01] LABS: BASOPHIL # 0.1 10^3/ul (0.0-0.1); BASOPHILS % 0.4 % (0.0-2.0); EOSINOPHILS # 0.2 10^3/ul (0.0-0.5); EOSINOPHILS % 1.4 % (0.0-7.0); HEMOGLOBIN 8.7 g/dl (14.0-18.0); LYMPHOCYTES % 8.2 % (15.0-51.0); MEAN CORPUSCULAR HEMOGLOBIN 30.7 pg (29.0-33.0); MEAN CORPUSCULAR HGB CONC 34.8 g/dl (32.0-37.0); MEAN CORPUSCULAR VOLUME 88.1 fl (82.0-101.0); MEAN PLATELET VOLUME 9.3 fl (7.4-10.4); MONOCYTE # 0.8 10^3/ul (0.3-0.9); MONOCYTES % 6.5 % (0.0-11.0); NEUTROPHIL # 10.1 10^3/ul (1.6-7.5); NEUTROPHILS % 83.5 % (39.0-77.0); PLATELET COUNT 177 10^3/UL (140-440); RED BLOOD COUNT 2.84 10^6/ul (4.70-6.10); RED CELL DISTRIBUTION WIDTH 15.8 % (11.5-14.5); UNCORRECTED WBC 12.1 10^3/ul (4.8-10.8); WHITE BLOOD COUNT 12.1 10^3/ul (4.8-10.8)
[2016-11-02 07:02] LABS: CREATININE 1.08 mg/dl (0.61-1.24)
[2016-11-02 07:04] LABS: CALCIUM 7.5 mg/dl (8.4-10.2)
[2016-11-02 07:20] LABS: CONDITION 1; LH ANALYZER COMMENTS 1
[2016-11-02] MEDS: LORATADINE 10 MG TAB PO SCH (09:00)
--- NOTE | 2016-11-02 09:19 | CONS ---
Date/Time of Note Date/Time of Note DATE: 11/02/16 TIME: 09:17 Assessment/Plan Assessment/Plan Additional Assessment/Plan 1. Abnormal electrocardiogram, assess for acute coronary syndrome - NO CP now - tolerated anemia well - will follow - pain controlled. 2. Chest pain, assess for acute coronary syndrome in the setting of severe anemia - s/p EGD - severe, GI follows - no ischemia noted 3. History of aortic valve replacement - stable by exam - no signs of decompensation now. 4. Coagulopathy secondary to Coumadin, resume when stable - still with active bleed recent. 5. Severe anemia - blood Tx as needed. 6. Incarcerated hernia, status post repair - surgical team follows. 7. Abdominal distention- better today - decreased bloating. 8. Hyponatremia. 9. Hyperkalemia. 10. Renal failure - ARF - avoid nephrotoxic meds. . 11. Leukocytosis. Consultation Date/Type/Reason Admit Date/Time Oct 21, 2016 at 17:20 Type of Consultation: Nephrology 24 HR Interval Summary Free Text/Dictation NO acute change from ICU to tele now - much better GI sx with decreased bloating. ROS: No fever, no chills, no nausea, no vomiting, no diarrhea/constipation No recent weight changes No chest pain, no PND, no orthopnea No dizziness, blurred vision No thirst, no heat or cold intolerance Exam/Review of Systems Vital Signs Vitals Vital Signs Date Time Temp Pulse Resp B/P Pulse Ox O2 Delivery O2 Flow Rate FiO2 11/02/16 08:40 94 3.0 32 11/02/16 08:40 80 20 Nasal Cannula 11/02/16 08:06 98.0 133/78 Intake and Output 11/01/16 11/01/16 11/02/16 14:59 22:59 06:59 Intake Total 1010 ml 1140 ml 1456 ml Output Total 240 ml 280 ml 400 ml Balance 770 ml 860 ml 1056 ml Exam General: WN/WD/NAD, AOx 3 HEENT: Unicetric/atraumatic/EOMI ( follow commands) NECK: JVD elevated, no thyromegaly Lymph: no lymphadenopathy HEART: regular with no S3, II/ systolic murmur at apex LUNGS: Coarse sounds ABD: soft, NT, ND, +BS : Intact Neuro: non focal SKIN: chronic changes EXT: trace edema Results Result Diagram: 11/02/16 0530 11/02/16 0530 Results 24 hrs Laboratory Tests Test 11/02/16 05:30 Anion Gap 13 Basophils # 0.1 Basophils % 0.4 Blood Morphology Comment Blood Urea Nitrogen 23 H Calcium Level 7.5 L Carbon Dioxide Level 24 Chloride Level 97 Creatinine 1.08 Eosinophils # 0.2 Eosinophils % 1.4 Glucose Level 83 Hematocrit 25.0 L Hemoglobin 8.7 L Lymphocytes # 1.0 Lymphocytes % 8.2 L Mean Corpuscular Hemoglobin 30.7 Mean Corpuscular Hemoglobin Concent 34.8 Mean Corpuscular Volume 88.1 Mean Platelet Volume 9.3 Monocytes # 0.8 Monocytes % 6.5 Neutrophils # 10.1 H Neutrophils % 83.5 H Nucleated Red Blood Cells # 0.0 Nucleated Red Blood Cells % 0.0 Platelet Count 177 Potassium Level 4.5 Red Blood Count 2.84 L Red Cell Distribution Width 15.8 H Sodium Level 129 L White Blood Count 12.1 H Medications Medications Current Medications Magnesium Hydroxide (Milk Of Mag) 30 ml DAILY PRN PO CONSTIPATION Last administered on 10/28/16 10:45; Admin Dose 30 ML; Start 10/21/16 at 15:00 Loratadine (Claritin) 10 mg DAILY PO Last administered on 11/01/16 08:59; Admin Dose 10 MG; Start 10/21/16 at 15:00 Bisacodyl (Dulcolax Supp) 10 mg DAILY PRN [place] CONSTIPATION; Start 10/21/16 at 16 :00 Sodium Biphosphate/ Sodium Phosphate (Fleet Enema) 133 ml DAILY PRN [place] CONSTIPATION; Start 10/21/16 at 16:00 Enoxaparin Sodium (Lovenox) 115 mg Q12 SC Last administered on 10/30/16 08:49 ; Admin Dose 115 MG; Start 10/22/16 at 21:00; Status Future Hold Warfarin Sodium (Coumadin) 8 mg DAILY@17 NGT Last administered on 10/29/16 17: 02; Admin Dose 8 MG; Start 10/24/16 at 18:00; Status Future Hold Acetaminophen/ Hydrocodone Bitart ([place] (5/325)) 2 tab Q6H PRN PO PAIN LEVEL 6 -10 Last administered on 10/30/16 04:45; Admin Dose 1 TAB; Start 10/26/16 at 23 :30 Morphine Sulfate (morphine) 2 mg Q4H PRN IV PAIN Last administered on 02:38; Admin Dose 2 MG; Start 10/29/16 at 02:00 Polyethylene Glycol (Miralax) 17 gm DAILY PRN PO CONSTIPATION Last administered on 10/29/16 19:41; Admin Dose 17 GM; Start 10/29/16 at 19:30 Pantoprazole 40 mg 40 mg BID@06,18 IV Last administered on 10/31/16 05:04; Admin Dose 40 MG; Start 10/30/16 at 13:00; Status Future Hold Sodium Chloride 1,000 ml @ 100 mls/hr Q10H IV Last administered on 11/02/16 01:01; Admin Dose 100 MLS/HR; Start 10/30/16 at 13:00 Pantoprazole/ Sodium Chloride (Protonix Iv/NS) 100 ml @ 10 mls/hr Q10H IV Last administered on 11/01/16 22:10; Admin Dose 10 MLS/HR; Start 10/31/16 at 12 :00 Ondansetron HCl (Zofran Inj) 4 mg Q6H PRN IV NAUSEA AND/OR VOMITING Last administered on 10/31/16 11:54; Admin Dose 4 MG; Start 10/31/16 at 12:00 Simethicone 80 mg 80 mg Q4 PRN PO GAS PAIN Last administered on 11/02/16 04:00 ; Admin Dose 80 MG; Start 10/31/16 at 12:00 Piperacillin Sod/ Tazobactam Sod (Zosyn 3.375gm/ 100 ml (Pmx)) 100 ml @ 200 mls /hr Q8 IVPB Last administered on 11/02/16 05:45; Admin Dose 200 MLS/HR; Start 11/01/16 at 16:30 MOO CACERES MD Nov 02, 2016 09:19
--- NOTE | 2016-11-02 13:20 | PN ---
Date/Time of Note Date/Time of Note DATE: 11/02/16 TIME: 13:14 Assessment/Plan VTE Prophylaxis VTE Prophylaxis Intervention: SCD's Lines/Catheters IV [facility] Type (from [facility]): Peripheral IV Urinary Cath still in place: No Assessment/Plan Chief Complaint/Hosp Course ASSESSMENT AND PLAN: - Hypovolemic shock 2 to s/p intraabdominal bleeding, resolved. - Acute anemia,resolved, hold Lovenox and Coumadin, s/p EGD. - Acute respiratory distress 2 to shoch, resolved. - Chest pain, obtain cardiac enzymes every 8 hours 3, 2D echo, Dr. Greenberg, cardiology. - Acute kidney injury 2 to shock, resolved. Dr. Baker is following in nephrology consultation. - Prosthetic aortic valve replacement, patient was on Coumadin and bridge Lovenox which is held for now. - Incisional hernia status post laparoscopic incisional hernia repair by Dr. Moreira on 10/19. - History of aortic dissection status post repair. - Hypertension. - Hyperlipidemia - Obesity - Hyponatremia, continue IVF, PO. - Esophagitis per EGD, cont Protonix Further recommendations based on clinical course. Plan of care discussed with Dr. Murphy. Problems: Subjective 24 Hr Interval Summary Free Text/Dictation patient tolerated diet well, denies N/V, SR with BBB on tele. Exam/Review of Systems Vital Signs Vitals Vital Signs Date Time Temp Pulse Resp B/P Pulse Ox O2 Delivery O2 Flow Rate FiO2 11/02/16 12:41 97.6 87 18 136/80 98 11/02/16 12:38 Nasal Cannula 3.0 32 Intake and Output 11/01/16 11/01/16 11/02/16 15:00 23:00 07:00 Intake Total 1150 ml 840 ml 1456 ml Output Total 290 ml 230 ml 400 ml Balance 860 ml 610 ml 1056 ml Exam GENERAL: Well-developed, obese gentleman who currently is awake. HEENT: Head is atraumatic, normocephalic. Pupils equal, round, reactive to light and accommodation. Oral mucosa is pink and moist. NECK: Supple, no cervical lymphadenopathy, no thyromegaly. CHEST: Lungs clear bilaterally. There are no rhonchi, wheezes, or rales noted. CARDIOVASCULAR: Normal S1, S2. The patient has mechanical aortic valve click. No murmurs or gallops noted. ABDOMEN: Distended soft , bowel sounds hypoactive, status post surgery. Ecchymotic area around the incision. EXTREMITIES: No edema, clubbing, cyanosis. SKIN: There is no rash or petechiae noted. The patient has a midline surgical healed scar. NEUROLOGIC: The patient is awake, alert, and oriented x3. Results Result Diagram: 11/02/16 0530 11/02/16 0530 Results 24 hrs Laboratory Tests Test 11/02/16 05:30 Anion Gap 13 Basophils # 0.1 Basophils % 0.4 Blood Morphology Comment Blood Urea Nitrogen 23 H Calcium Level 7.5 L Carbon Dioxide Level 24 Chloride Level 97 Creatinine 1.08 Eosinophils # 0.2 Eosinophils % 1.4 Glucose Level 83 Hematocrit 25.0 L Hemoglobin 8.7 L Lymphocytes # 1.0 Lymphocytes % 8.2 L Mean Corpuscular Hemoglobin 30.7 Mean Corpuscular Hemoglobin Concent 34.8 Mean Corpuscular Volume 88.1 Mean Platelet Volume 9.3 Monocytes # 0.8 Monocytes % 6.5 Neutrophils # 10.1 H Neutrophils % 83.5 H Nucleated Red Blood Cells # 0.0 Nucleated Red Blood Cells % 0.0 Platelet Count 177 Potassium Level 4.5 Red Blood Count 2.84 L Red Cell Distribution Width 15.8 H Sodium Level 129 L White Blood Count 12.1 H Medications Medications Current Medications Magnesium Hydroxide (Milk Of Mag) 30 ml DAILY PRN PO CONSTIPATION Last administered on 10/28/16 10:45; Admin Dose 30 ML; Start 10/21/16 at 15:00 Loratadine (Claritin) 10 mg DAILY PO Last administered on 11/01/16 08:59; Admin Dose 10 MG; Start 10/21/16 at 15:00 Bisacodyl (Dulcolax Supp) 10 mg DAILY PRN [place] CONSTIPATION; Start 10/21/16 at 16 :00 Sodium Biphosphate/ Sodium Phosphate (Fleet Enema) 133 ml DAILY PRN [place] CONSTIPATION; Start 10/21/16 at 16:00 Enoxaparin Sodium (Lovenox) 115 mg Q12 SC Last administered on 10/30/16 08:49 ; Admin Dose 115 MG; Start 10/22/16 at 21:00; Status Future Hold Warfarin Sodium (Coumadin) 8 mg DAILY@17 NGT Last administered on 10/29/16 17: 02; Admin Dose 8 MG; Start 10/24/16 at 18:00; Status Future Hold Acetaminophen/ Hydrocodone Bitart ([place] (5/325)) 2 tab Q6H PRN PO PAIN LEVEL 6 -10 Last administered on 10/30/16 04:45; Admin Dose 1 TAB; Start 10/26/16 at 23 :30 Morphine Sulfate (morphine) 2 mg Q4H PRN IV PAIN Last administered on 10:28; Admin Dose 2 MG; Start 10/29/16 at 02:00 Polyethylene Glycol (Miralax) 17 gm DAILY PRN PO CONSTIPATION Last administered on 10/29/16 19:41; Admin Dose 17 GM; Start 10/29/16 at 19:30 Pantoprazole 40 mg 40 mg BID@06,18 IV Last administered on 10/31/16 05:04; Admin Dose 40 MG; Start 10/30/16 at 13:00; Status Future Hold Sodium Chloride 1,000 ml @ 100 mls/hr Q10H IV Last administered on 11/02/16 11:55; Admin Dose 100 MLS/HR; Start 10/30/16 at 13:00 Pantoprazole/ Sodium Chloride (Protonix Iv/NS) 100 ml @ 10 mls/hr Q10H IV Last administered on 11/01/16 22:10; Admin Dose 10 MLS/HR; Start 10/31/16 at 12 :00 Ondansetron HCl (Zofran Inj) 4 mg Q6H PRN IV NAUSEA AND/OR VOMITING Last administered on 10/31/16 11:54; Admin Dose 4 MG; Start 10/31/16 at 12:00 Simethicone 80 mg 80 mg Q4 PRN PO GAS PAIN Last administered on 11/02/16 04:00 ; Admin Dose 80 MG; Start 10/31/16 at 12:00 Piperacillin Sod/ Tazobactam Sod (Zosyn 3.375gm/ 100 ml (Pmx)) 100 ml @ 200 mls /hr Q8 IVPB Last administered on 11/02/16 05:45; Admin Dose 200 MLS/HR; Start 11/01/16 at 16:30 KIM DEJESUS Nov 02, 2016 13:20
[2016-11-02 13:42] LABS: INR 3.54; PT RATIO 2.8
--- NOTE | 2016-11-02 13:53 | CONS ---
Date/Time of Note Date/Time of Note DATE: 11/02/16 TIME: 13:53 Assessment/Plan Assessment/Plan Additional Assessment/Plan 41 yo Male with 1. History of aortic dissection with aortic valve replacement. 2. Acute anemia, with Hemodynamic Shock, Resolved 3. Acute kidney injury Non Oliguric 2nd to above. 4. Status post repair of the abdominal wall hernia, incarcerated. 5. Hyponatremia -Improving 6. Hyperkalemia - Resolved Renal function stable and improving daily, Non Oliguric Electrolyte abnormality improving Hyperkalemia Resolved, Bicarb Normal Anderson Dcd and patient has voided Cont to monitor UO, Electrolytes, renal function daily. Consultation Date/Type/Reason Admit Date/Time Oct 21, 2016 at 17:20 Type of Consultation: Nephrology 24 HR Interval Summary Free Text/Dictation No new complaints, Transferred out of ICU, Good UO reported Exam/Review of Systems Vital Signs Vitals Vital Signs Date Time Temp Pulse Resp B/P Pulse Ox O2 Delivery O2 Flow Rate FiO2 11/02/16 12:41 97.6 87 18 136/80 98 11/02/16 12:38 Nasal Cannula 3.0 32 Intake and Output 11/01/16 11/01/16 11/02/16 15:00 23:00 07:00 Intake Total 1150 ml 840 ml 1456 ml Output Total 290 ml 230 ml 400 ml Balance 860 ml 610 ml 1056 ml Exam Constitutional: No distress ENMT: mucosa pink and moist Respiratory: No labored breathing Cardiovascular: edema, regular rate and rhythm Extremities: edema Neurological: nl mental status, No lethargic Skin: No diaphoresis Results Result Diagram: 11/02/16 0530 11/02/16 0530 Results 24 hrs Laboratory Tests Test 11/02/16 05:30 11/02/16 13:11 Anion Gap 13 Basophils # 0.1 Basophils % 0.4 Blood Morphology Comment Blood Urea Nitrogen 23 H Calcium Level 7.5 L Carbon Dioxide Level 24 Chloride Level 97 Creatinine 1.08 Eosinophils # 0.2 Eosinophils % 1.4 Glucose Level 83 Hematocrit 25.0 L Hemoglobin 8.7 L Lymphocytes # 1.0 Lymphocytes % 8.2 L Mean Corpuscular Hemoglobin 30.7 Mean Corpuscular Hemoglobin Concent 34.8 Mean Corpuscular Volume 88.1 Mean Platelet Volume 9.3 Monocytes # 0.8 Monocytes % 6.5 Neutrophils # 10.1 H Neutrophils % 83.5 H Nucleated Red Blood Cells # 0.0 Nucleated Red Blood Cells % 0.0 Platelet Count 177 Potassium Level 4.5 Red Blood Count 2.84 L Red Cell Distribution Width 15.8 H Sodium Level 129 L White Blood Count 12.1 H INR International Normalized Ratio 3.54 Prothrombin Time Pending Prothrombin Time Ratio 2.8 Medications Medications Current Medications Magnesium Hydroxide (Milk Of Mag) 30 ml DAILY PRN PO CONSTIPATION Last administered on 10/28/16 10:45; Admin Dose 30 ML; Start 10/21/16 at 15:00 Loratadine (Claritin) 10 mg DAILY PO Last administered on 11/01/16 08:59; Admin Dose 10 MG; Start 10/21/16 at 15:00 Bisacodyl (Dulcolax Supp) 10 mg DAILY PRN [place] CONSTIPATION; Start 10/21/16 at 16 :00 Sodium Biphosphate/ Sodium Phosphate (Fleet Enema) 133 ml DAILY PRN [place] CONSTIPATION; Start 10/21/16 at 16:00 Enoxaparin Sodium (Lovenox) 115 mg Q12 SC Last administered on 10/30/16 08:49 ; Admin Dose 115 MG; Start 10/22/16 at 21:00; Status Future Hold Warfarin Sodium (Coumadin) 8 mg DAILY@17 NGT Last administered on 10/29/16 17: 02; Admin Dose 8 MG; Start 10/24/16 at 18:00; Status Future Hold Acetaminophen/ Hydrocodone Bitart ([place] (5/325)) 2 tab Q6H PRN PO PAIN LEVEL 6 -10 Last administered on 10/30/16 04:45; Admin Dose 1 TAB; Start 10/26/16 at 23 :30 Morphine Sulfate (morphine) 2 mg Q4H PRN IV PAIN Last administered on 10:28; Admin Dose 2 MG; Start 10/29/16 at 02:00 Polyethylene Glycol (Miralax) 17 gm DAILY PRN PO CONSTIPATION Last administered on 10/29/16 19:41; Admin Dose 17 GM; Start 10/29/16 at 19:30 Pantoprazole 40 mg 40 mg BID@06,18 IV Last administered on 10/31/16 05:04; Admin Dose 40 MG; Start 10/30/16 at 13:00; Status Future Hold Sodium Chloride 1,000 ml @ 100 mls/hr Q10H IV Last administered on 11/02/16 11:55; Admin Dose 100 MLS/HR; Start 10/30/16 at 13:00 Pantoprazole/ Sodium Chloride (Protonix Iv/NS) 100 ml @ 10 mls/hr Q10H IV Last administered on 11/01/16 22:10; Admin Dose 10 MLS/HR; Start 10/31/16 at 12 :00 Ondansetron HCl (Zofran Inj) 4 mg Q6H PRN IV NAUSEA AND/OR VOMITING Last administered on 10/31/16 11:54; Admin Dose 4 MG; Start 10/31/16 at 12:00 Simethicone 80 mg 80 mg Q4 PRN PO GAS PAIN Last administered on 11/02/16 04:00 ; Admin Dose 80 MG; Start 10/31/16 at 12:00 Piperacillin Sod/ Tazobactam Sod (Zosyn 3.375gm/ 100 ml (Pmx)) 100 ml @ 200 mls /hr Q8 IVPB Last administered on 11/02/16 05:45; Admin Dose 200 MLS/HR; Start 11/01/16 at 16:30 HANS VIRAMONTES MD Nov 02, 2016 13:53
[2016-11-02 15:13] LABS: TSH RECEPTOR ANTIBODY 3 (< OR = 16)
--- NOTE | 2016-11-02 17:50 | PN ---
Date/Time of Note Date/Time of Note DATE: 11/02/16 TIME: 17:48 Assessment/Plan VTE Prophylaxis VTE Prophylaxis Intervention: heparin, SCD's Lines/Catheters IV Catheter Type (from [facility]): Peripheral IV Urinary Cath still in place: No Assessment/Plan Chief Complaint/Hosp Course incisional hernia with multiple medical problems and aortic valve requiring anticoagulation Problems: Assessment/Plan continue care Subjective 24 Hr Interval Summary Free Text/Dictation patient stabilizing, tolerating diet Exam/Review of Systems Vital Signs Vitals Vital Signs Date Time Temp Pulse Resp B/P Pulse Ox O2 Delivery O2 Flow Rate FiO2 11/02/16 16:42 98.0 90 18 136/84 98 11/02/16 12:38 Nasal Cannula 3.0 32 Intake and Output 11/01/16 11/01/16 11/02/16 15:00 23:00 07:00 Intake Total 1150 ml 840 ml 1456 ml Output Total 290 ml 230 ml 400 ml Balance 860 ml 610 ml 1056 ml Exam abdomen stable Results Result Diagram: 11/02/16 0530 11/02/16 0530 Results 24 hrs Laboratory Tests Test 11/02/16 05:30 11/02/16 13:11 Anion Gap 13 Basophils # 0.1 Basophils % 0.4 Blood Morphology Comment Blood Urea Nitrogen 23 H Calcium Level 7.5 L Carbon Dioxide Level 24 Chloride Level 97 Creatinine 1.08 Eosinophils # 0.2 Eosinophils % 1.4 Glucose Level 83 Hematocrit 25.0 L Hemoglobin 8.7 L Lymphocytes # 1.0 Lymphocytes % 8.2 L Mean Corpuscular Hemoglobin 30.7 Mean Corpuscular Hemoglobin Concent 34.8 Mean Corpuscular Volume 88.1 Mean Platelet Volume 9.3 Monocytes # 0.8 Monocytes % 6.5 Neutrophils # 10.1 H Neutrophils % 83.5 H Nucleated Red Blood Cells # 0.0 Nucleated Red Blood Cells % 0.0 Platelet Count 177 Potassium Level 4.5 Red Blood Count 2.84 L Red Cell Distribution Width 15.8 H Sodium Level 129 L White Blood Count 12.1 H INR International Normalized Ratio 3.54 Prothrombin Time 36.0 #H Prothrombin Time Ratio 2.8 Medications Medications Current Medications Magnesium Hydroxide (Milk Of Mag) 30 ml DAILY PRN PO CONSTIPATION Last administered on 10/28/16t 10:45; Admin Dose 30 ML; Start 10/21/16 at 15:00 Loratadine (Claritin) 10 mg DAILY PO Last administered on 11/01/16 08:59; Admin Dose 10 MG; Start 10/21/16 at 15:00 Bisacodyl (Dulcolax Supp) 10 mg DAILY PRN [place] CONSTIPATION; Start 10/21/16 at 16 :00 Sodium Biphosphate/ Sodium Phosphate (Fleet Enema) 133 ml DAILY PRN [place] CONSTIPATION; Start 10/21/16 at 16:00 Warfarin Sodium (Coumadin) 8 mg DAILY@17 NGT Last administered on 10/29/16 17: 02; Admin Dose 8 MG; Start 10/24/16 at 18:00; Status Future Hold Acetaminophen/ Hydrocodone Bitart ([place] (5/325)) 2 tab Q6H PRN PO PAIN LEVEL 6 -10 Last administered on 10/30/16 04:45; Admin Dose 1 TAB; Start 10/26/16 at 23 :30 Morphine Sulfate (morphine) 2 mg Q4H PRN IV PAIN Last administered on 10:28; Admin Dose 2 MG; Start 10/29/16 at 02:00 Polyethylene Glycol (Miralax) 17 gm DAILY PRN PO CONSTIPATION Last administered on 10/29/16 19:41; Admin Dose 17 GM; Start 10/29/16 at 19:30 Pantoprazole 40 mg 40 mg BID@06,18 IV Last administered on 10/31/16 05:04; Admin Dose 40 MG; Start 10/30/16 at 13:00; Status Future Hold Sodium Chloride 1,000 ml @ 100 mls/hr Q10H IV Last administered on 11/02/16 11:55; Admin Dose 100 MLS/HR; Start 10/30/16 at 13:00 Pantoprazole/ Sodium Chloride (Protonix Iv/NS) 100 ml @ 10 mls/hr Q10H IV Last administered on 11/02/16 14:18; Admin Dose 10 MLS/HR; Start 10/31/16 at 12 :00 Ondansetron HCl (Zofran Inj) 4 mg Q6H PRN IV NAUSEA AND/OR VOMITING Last administered on 10/31/16 11:54; Admin Dose 4 MG; Start 10/31/16 at 12:00 Simethicone 80 mg 80 mg Q4 PRN PO GAS PAIN Last administered on 11/02/16 04:00 ; Admin Dose 80 MG; Start 10/31/16 at 12:00 Piperacillin Sod/ Tazobactam Sod (Zosyn 3.375gm/ 100 ml (Pmx)) 100 ml @ 200 mls /hr Q8 IVPB Last administered on 11/02/16 14:18; Admin Dose 200 MLS/HR; Start 11/01/16 at 16:30 Izzy FRANKS Nov 02, 2016 17:50
--- NOTE | 2016-11-02 20:29 | CONS ---
DATE OF ADMISSION: 10/21/2016 DATE OF CONSULTATION: CHIEF COMPLAINT: No significant complaints at this time. HISTORY OF PRESENT ILLNESS: The patient is known to have abdominal hernia repair done and he develo ped hypotension and anemia, he was transferred to the intensive care unit. He had hematemesis. EGD showed evidence of 1000 mL of coffee-ground material due to gastritis, esophagitis. The CAT scan of the abdomen showed evidence of intraabdominal hematoma in a few places. Please read the CAT scan of the abdomen report. LABORATORY WORKUP: Hemoglobin 8.7, WBC is The BUN is 23, creatinine is 1.08, AST 445, ALT 601. CLINICAL IMPRESSION: 1. Anemia is secondary to intra-abdominal hematoma status post hernia repair. 2. Upper gastrointestinal bleeding also was noted due to gastritis, esophagitis. PLAN: Recommend continue Protonix IV drip. Recommend KUB. Dictated By: TRENA ALEMAN/MIKAELA Conf#: [id number] DID#: [id number]
[2016-11-03] VITALS (10 sets, daily range): BP systolic 133–143; BP diastolic 65–86; PULSE 92–100; RESP 19–20
[2016-11-03] MEDS: ALBUTEROL 0.5% (NEB) 2.5 MG/0.5 ML AMP HHN SCH ×6 (01:30→20:43)
[2016-11-03] MEDS: PANTOPRAZOLE IV 80 MG in SOD CHLORIDE 0.9% 100 ML IV SCH ×3 (01:50→22:28)
[2016-11-03] MEDS: morphine 2 MG INJ IV PRN ×3 (02:09→23:23)
[2016-11-03] MEDS: PIPER-TAZO 3.375 GM IV (PMX) 100 ML IVPB SCH ×3 (06:20→22:28)
[2016-11-03] MEDS: SOD CHLORIDE 0.9% 1,000 ML IV SCH ×2 (07:00→17:36)
[2016-11-03 07:09] LABS: POTASSIUM 4.6 mmol/L (3.5-5.1)
[2016-11-03 07:12] LABS: CREATININE 0.95 mg/dl (0.61-1.24)
[2016-11-03 07:13] LABS: CALCIUM 7.5 mg/dl (8.4-10.2)
[2016-11-03 07:30] LABS: BASOPHIL # 0.2 10^3/ul (0.0-0.1); BASOPHILS % 1.8 % (0.0-2.0); EOSINOPHILS # 0.3 10^3/ul (0.0-0.5); EOSINOPHILS % 2.5 % (0.0-7.0); HEMATOCRIT 26.3 % (42.0-52.0); LYMPHOCYTES # 1.1 10^3/ul (0.8-2.9); LYMPHOCYTES % 8.9 % (15.0-51.0); MEAN CORPUSCULAR HEMOGLOBIN 29.9 pg (29.0-33.0); MEAN CORPUSCULAR HGB CONC 34.2 g/dl (32.0-37.0); MEAN CORPUSCULAR VOLUME 87.5 fl (82.0-101.0); MONOCYTE # 0.9 10^3/ul (0.3-0.9); MONOCYTES % 7.8 % (0.0-11.0); NEUTROPHIL # 9.4 10^3/ul (1.6-7.5); PLATELET COUNT 219 10^3/UL (140-440); RED CELL DISTRIBUTION WIDTH 16.1 % (11.5-14.5); UNCORRECTED WBC 11.9 10^3/ul (4.8-10.8); WHITE BLOOD COUNT 11.9 10^3/ul (4.8-10.8)
[2016-11-03 07:39] LABS: CONDITION 1; LH ANALYZER COMMENTS 1
[2016-11-03] MEDS: LORATADINE 10 MG TAB PO SCH (09:00)
--- NOTE | 2016-11-03 10:48 | PN ---
Date/Time of Note Date/Time of Note DATE: 11/03/16 TIME: 10:45 Assessment/Plan VTE Prophylaxis VTE Prophylaxis Intervention: SCD's Assessment/Plan Assessment/Plan 1. History of aortic dissection with aortic valve replacement. 2. Acute anemia, with Hemodynamic Shock, Resolved 3. Acute kidney injury Non Oliguric 2nd to above. 4. Status post repair of the abdominal wall hernia, incarcerated. 5. Hyponatremia -Improving 6. Hyperkalemia - Resolved [id number] non oliguric increased creat/follow up hyponatremia/gradual/on ns chk labs in am Exam/Review of Systems Vital Signs Vitals Vital Signs Date Time Temp Pulse Resp B/P Pulse Ox O2 Delivery O2 Flow Rate FiO2 11/03/16 08:36 99 11/03/16 07:45 Nasal Cannula 3.0 11/03/16 07:27 98.2 20 140/86 96 11/03/16 06:26 32 Intake and Output 11/02/16 11/02/16 11/03/16 15:00 23:00 07:00 Intake Total 800 ml 200 ml Output Total 1200 ml 3 ml Balance -400 ml 197 ml Exam Constitutional: well developed Eyes: nl sclera Neck: supple Respiratory: normal air movement Cardiovascular: regular rate and rhythm Gastrointestinal: soft Musculoskeletal: nl extremities to inspection Results Result Diagram: 11/03/16 0555 11/03/16 0555 Results 24 hrs Laboratory Tests Test 11/02/16 13:11 11/03/16 05:55 INR International Normalized Ratio 3.54 Prothrombin Time 36.0 #H Prothrombin Time Ratio 2.8 Anion Gap 10 Basophils # 0.2 H Basophils % 1.8 Blood Morphology Comment Blood Urea Nitrogen 15 Calcium Level 7.5 L Carbon Dioxide Level 26 Chloride Level 102 Creatinine 0.95 Eosinophils # 0.3 Eosinophils % 2.5 Glucose Level 77 Hematocrit 26.3 L Hemoglobin 9.0 L Lymphocytes # 1.1 Lymphocytes % 8.9 L Mean Corpuscular Hemoglobin 29.9 Mean Corpuscular Hemoglobin Concent 34.2 Mean Corpuscular Volume 87.5 Mean Platelet Volume 10.0 Monocytes # 0.9 Monocytes % 7.8 Neutrophils # 9.4 H Neutrophils % 79.0 H Nucleated Red Blood Cells # 0.0 Nucleated Red Blood Cells % 0.0 Platelet Count 219 # Potassium Level 4.6 Red Blood Count 3.00 L Red Cell Distribution Width 16.1 H Sodium Level 133 L White Blood Count 11.9 H Medications Medications Current Medications Magnesium Hydroxide (Milk Of Mag) 30 ml DAILY PRN PO CONSTIPATION Last administered on 10/28/16 10:45; Admin Dose 30 ML; Start 10/21/16 at 15:00 Loratadine (Claritin) 10 mg DAILY PO Last administered on 11/01/16 08:59; Admin Dose 10 MG; Start 10/21/16 at 15:00 Bisacodyl (Dulcolax Supp) 10 mg DAILY PRN [place] CONSTIPATION; Start 10/21/16 at 16 :00 Sodium Biphosphate/ Sodium Phosphate (Fleet Enema) 133 ml DAILY PRN [place] CONSTIPATION; Start 10/21/16 at 16:00 Warfarin Sodium (Coumadin) 8 mg DAILY@17 NGT Last administered on 10/29/16 17: 02; Admin Dose 8 MG; Start 10/24/16 at 18:00; Status Future Hold Acetaminophen/ Hydrocodone Bitart ([place] (5/325)) 2 tab Q6H PRN PO PAIN LEVEL 6 -10 Last administered on 10/30/16 04:45; Admin Dose 1 TAB; Start 10/26/16 at 23 :30 Morphine Sulfate (morphine) 2 mg Q4H PRN IV PAIN Last administered on 02:09; Admin Dose 2 MG; Start 10/29/16 at 02:00 Polyethylene Glycol (Miralax) 17 gm DAILY PRN PO CONSTIPATION Last administered on 10/29/16 19:41; Admin Dose 17 GM; Start 10/29/16 at 19:30 Pantoprazole 40 mg 40 mg BID@06,18 IV Last administered on 10/31/16 05:04; Admin Dose 40 MG; Start 10/30/16 at 13:00; Status Future Hold Sodium Chloride 1,000 ml @ 100 mls/hr Q10H IV Last administered on 11/02/16 11:55; Admin Dose 100 MLS/HR; Start 10/30/16 at 13:00 Pantoprazole/ Sodium Chloride (Protonix Iv/NS) 100 ml @ 10 mls/hr Q10H IV Last administered on 11/03/16 01:50; Admin Dose 10 MLS/HR; Start 10/31/16 at 12 :00 Ondansetron HCl (Zofran Inj) 4 mg Q6H PRN IV NAUSEA AND/OR VOMITING Last administered on 10/31/16 11:54; Admin Dose 4 MG; Start 10/31/16 at 12:00 Simethicone 80 mg 80 mg Q4 PRN PO GAS PAIN Last administered on 11/02/16 04:00 ; Admin Dose 80 MG; Start 10/31/16 at 12:00 Piperacillin Sod/ Tazobactam Sod (Zosyn 3.375gm/ 100 ml (Pmx)) 100 ml @ 200 mls /hr Q8 IVPB Last administered on 11/03/16 06:20; Admin Dose 200 MLS/HR; Start 11/01/16 at 16:30 NORAH PEÑA MD Nov 03, 2016 10:48
--- NOTE | 2016-11-03 11:29 | CONS ---
Date/Time of Note Date/Time of Note DATE: 11/03/16 TIME: : Assessment/Plan Assessment/Plan Additional Assessment/Plan 1. Abnormal electrocardiogram, assess for acute coronary syndrome - NO CP now - tolerated anemia well - will follow - pain controlled. 2. Chest pain, assess for acute coronary syndrome in the setting of severe anemia - s/p EGD - severe, GI follows - no ischemia noted 3. History of aortic valve replacement - stable by exam - no signs of decompensation now - PER surgical advise, hold anti-coag now - re-access daily - re-initiate with heparin gtt likely the best option SOON OK by surgery/ GI team 4. Coagulopathy secondary to Coumadin, resume when stable - still with active bleed recent. 5. Severe anemia - blood Tx as needed. 6. Incarcerated hernia, status post repair - surgical team follows. 7. Abdominal distention- better today - decreased bloating. 8. Hyponatremia. 9. Hyperkalemia. 10. Renal failure - ARF - avoid nephrotoxic meds. . 11. Leukocytosis. Consultation Date/Type/Reason Admit Date/Time Oct 21, 2016 at 17:20 Type of Consultation: Nephrology 24 HR Interval Summary Free Text/Dictation Pt better overall. PER surgical advise, hold anti-coag now - re-access daily - re-initiate with heparin gtt likely the best option SOON OK by surgery/GI team ROS: No fever, no chills, no nausea, no vomiting, no diarrhea/constipation No recent weight changes No chest pain, no PND, no orthopnea No dizziness, blurred vision No thirst, no heat or cold intolerance MUCH BETTER Exam/Review of Systems Vital Signs Vitals Vital Signs Date Time Temp Pulse Resp B/P Pulse Ox O2 Delivery O2 Flow Rate FiO2 11/03/16 08:36 99 11/03/16 07:45 Nasal Cannula 3.0 11/03/16 07:27 98.2 20 140/86 96 11/03/16 06:26 32 Intake and Output 11/02/16 11/02/16 11/03/16 15:00 23:00 07:00 Intake Total 800 ml 200 ml Output Total 1200 ml 3 ml Balance -400 ml 197 ml Exam General: WN/WD/NAD, AOx 3 HEENT: Unicetric/atraumatic/EOMI (follow commands) NECK: JVD elevated, no thyromegaly Lymph: no lymphadenopathy HEART: regular with no S3, II/ systolic murmur at apex, mech AVR LUNGS: Coarse sounds ABD: soft, NT, ND, post op : Intact Neuro: non focal SKIN: chronic changes EXT: trace edema Results Result Diagram: 11/03/16 0555 11/03/16 0555 Results 24 hrs Laboratory Tests Test 11/02/16 13:11 11/03/16 05:55 INR International Normalized Ratio 3.54 Prothrombin Time 36.0 #H Prothrombin Time Ratio 2.8 Anion Gap 10 Basophils # 0.2 H Basophils % 1.8 Blood Morphology Comment Blood Urea Nitrogen 15 Calcium Level 7.5 L Carbon Dioxide Level 26 Chloride Level 102 Creatinine 0.95 Eosinophils # 0.3 Eosinophils % 2.5 Glucose Level 77 Hematocrit 26.3 L Hemoglobin 9.0 L Lymphocytes # 1.1 Lymphocytes % 8.9 L Mean Corpuscular Hemoglobin 29.9 Mean Corpuscular Hemoglobin Concent 34.2 Mean Corpuscular Volume 87.5 Mean Platelet Volume 10.0 Monocytes # 0.9 Monocytes % 7.8 Neutrophils # 9.4 H Neutrophils % 79.0 H Nucleated Red Blood Cells # 0.0 Nucleated Red Blood Cells % 0.0 Platelet Count 219 # Potassium Level 4.6 Red Blood Count 3.00 L Red Cell Distribution Width 16.1 H Sodium Level 133 L White Blood Count 11.9 H Medications Medications Current Medications Magnesium Hydroxide (Milk Of Mag) 30 ml DAILY PRN PO CONSTIPATION Last administered on 10/28/16 10:45; Admin Dose 30 ML; Start 10/21/16 at 15:00 Loratadine (Claritin) 10 mg DAILY PO Last administered on 11/01/16 08:59; Admin Dose 10 MG; Start 10/21/16 at 15:00 Bisacodyl (Dulcolax Supp) 10 mg DAILY PRN [place] CONSTIPATION; Start 10/21/16 at 16 :00 Sodium Biphosphate/ Sodium Phosphate (Fleet Enema) 133 ml DAILY PRN [place] CONSTIPATION; Start 10/21/16 at 16:00 Warfarin Sodium (Coumadin) 8 mg DAILY@17 NGT Last administered on 10/29/16 17: 02; Admin Dose 8 MG; Start 10/24/16 at 18:00; Status Future Hold Acetaminophen/ Hydrocodone Bitart ([place] (5/325)) 2 tab Q6H PRN PO PAIN LEVEL 6 -10 Last administered on 10/30/16 04:45; Admin Dose 1 TAB; Start 10/26/16 at 23 :30 Morphine Sulfate (morphine) 2 mg Q4H PRN IV PAIN Last administered on 02:09; Admin Dose 2 MG; Start 10/29/16 at 02:00 Polyethylene Glycol (Miralax) 17 gm DAILY PRN PO CONSTIPATION Last administered on 10/29/16 19:41; Admin Dose 17 GM; Start 10/29/16 at 19:30 Pantoprazole 40 mg 40 mg BID@06,18 IV Last administered on 10/31/16 05:04; Admin Dose 40 MG; Start 10/30/16 at 13:00; Status Future Hold Sodium Chloride 1,000 ml @ 100 mls/hr Q10H IV Last administered on 11/02/16 11:55; Admin Dose 100 MLS/HR; Start 10/30/16 at 13:00 Pantoprazole/ Sodium Chloride (Protonix Iv/NS) 100 ml @ 10 mls/hr Q10H IV Last administered on 11/03/16 01:50; Admin Dose 10 MLS/HR; Start 10/31/16 at 12 :00 Ondansetron HCl (Zofran Inj) 4 mg Q6H PRN IV NAUSEA AND/OR VOMITING Last administered on 10/31/16 11:54; Admin Dose 4 MG; Start 10/31/16 at 12:00 Simethicone 80 mg 80 mg Q4 PRN PO GAS PAIN Last administered on 11/02/16 04:00 ; Admin Dose 80 MG; Start 10/31/16 at 12:00 Piperacillin Sod/ Tazobactam Sod (Zosyn 3.375gm/ 100 ml (Pmx)) 100 ml @ 200 mls /hr Q8 IVPB Last administered on 11/03/16 06:20; Admin Dose 200 MLS/HR; Start 11/01/16 at 16:30 MOO CACERES MD Nov 03, 2016 11:29
--- NOTE | 2016-11-03 13:24 | PN ---
Date/Time of Note Date/Time of Note DATE: 11/03/16 TIME: 13:15 Assessment/Plan VTE Prophylaxis VTE Prophylaxis Intervention: SCD's Assessment/Plan Assessment/Plan - Hypovolemic shock 2 to s/p intraabdominal bleeding, resolved. - per surgery - icu monitoring - Acute anemia,resolved, hold Lovenox and Coumadin, s/p EGD. - Acute respiratory distress 2 to shoch, resolved. - per pulmonary - Chest pain, obtain cardiac enzymes every 8 hours 3, 2D echo, - per Dr. Greenberg, cardiology. - Acute kidney injury 2 to shock, resolved. - per Dr. Baker is following in nephrology consultation. - Prosthetic aortic valve replacement, patient was on Coumadin and bridge Lovenox which is held for now. - Incisional hernia status post laparoscopic incisional hernia repair by Dr. Moreira on 10/19. - History of aortic dissection status post repair. - Hypertension. - Hyperlipidemia - Obesity - Hyponatremia, continue IVF, PO. - Allergic to Lovenox, Heparin - Esophagitis per EGD, cont Protonix Further recommendations based on clinical course. Total critical time spent 35 mins.Plan of care discussed with Dr. Murphy. Subjective 24 Hr Interval Summary Free Text/Dictation NAD, resting, seems comfortable.No new issues reported. dw staff. Constitutional: requiring IVF, requiring O2 ENT: no complaints Respiratory: no complaints Cardiovascular: no complaints Gastrointestinal: pain Genitourinary: no complaints Musculoskeletal: no complaints Skin: no complaints Neurologic: no complaints Lymphatic: no complaints Psychological: no complaints Immunologic: no complaints Exam/Review of Systems Vital Signs Vitals Vital Signs Date Time Temp Pulse Resp B/P Pulse Ox O2 Delivery O2 Flow Rate FiO2 11/03/16 12:29 92 11/03/16 11:53 99.0 20 143/80 96 11/03/16 07:45 Nasal Cannula 3.0 11/03/16 06:26 32 Intake and Output 11/02/16 11/02/16 11/03/16 15:00 23:00 07:00 Intake Total 800 ml 200 ml Output Total 1200 ml 3 ml Balance -400 ml 197 ml Exam Constitutional: alert, obese, oriented Psych: nl mood/affect Head: normocephalic Eyes: EOMI, PERRL, nl sclera ENMT: nl external ears & nose Neck: non-tender Respiratory: clear to auscultation Cardiovascular: nl pulses Gastrointestinal: non-tender, other (sp Hernia repair, DDI), soft Musculoskeletal: nl extremities to inspection Extremities: normal pulses Neurological: nl mental status, nl speech Skin: nl turgor Lymph: nontender Results Result Diagram: 11/03/16 0555 11/03/16 0555 Results 24 hrs Laboratory Tests Test 11/03/16 05:55 Anion Gap 10 Basophils # 0.2 H Basophils % 1.8 Blood Morphology Comment Blood Urea Nitrogen 15 Calcium Level 7.5 L Carbon Dioxide Level 26 Chloride Level 102 Creatinine 0.95 Eosinophils # 0.3 Eosinophils % 2.5 Glucose Level 77 Hematocrit 26.3 L Hemoglobin 9.0 L Lymphocytes # 1.1 Lymphocytes % 8.9 L Mean Corpuscular Hemoglobin 29.9 Mean Corpuscular Hemoglobin Concent 34.2 Mean Corpuscular Volume 87.5 Mean Platelet Volume 10.0 Monocytes # 0.9 Monocytes % 7.8 Neutrophils # 9.4 H Neutrophils % 79.0 H Nucleated Red Blood Cells # 0.0 Nucleated Red Blood Cells % 0.0 Platelet Count 219 # Potassium Level 4.6 Red Blood Count 3.00 L Red Cell Distribution Width 16.1 H Sodium Level 133 L White Blood Count 11.9 H Medications Medications Current Medications Magnesium Hydroxide (Milk Of Mag) 30 ml DAILY PRN PO CONSTIPATION Last administered on 10/28/16 10:45; Admin Dose 30 ML; Start 10/21/16 at 15:00 Loratadine (Claritin) 10 mg DAILY PO Last administered on 11/01/16 08:59; Admin Dose 10 MG; Start 10/21/16 at 15:00 Bisacodyl (Dulcolax Supp) 10 mg DAILY PRN [place] CONSTIPATION; Start 10/21/16 at 16 :00 Sodium Biphosphate/ Sodium Phosphate (Fleet Enema) 133 ml DAILY PRN [place] CONSTIPATION; Start 10/21/16 at 16:00 Warfarin Sodium (Coumadin) 8 mg DAILY@17 NGT Last administered on 10/29/16 17: 02; Admin Dose 8 MG; Start 10/24/16 at 18:00; Status Future Hold Acetaminophen/ Hydrocodone Bitart ([place] (5/325)) 2 tab Q6H PRN PO PAIN LEVEL 6 -10 Last administered on 10/30/16 04:45; Admin Dose 1 TAB; Start 10/26/16 at 23 :30 Morphine Sulfate (morphine) 2 mg Q4H PRN IV PAIN Last administered on 12:10; Admin Dose 2 MG; Start 10/29/16 at 02:00 Polyethylene Glycol (Miralax) 17 gm DAILY PRN PO CONSTIPATION Last administered on 10/29/16 19:41; Admin Dose 17 GM; Start 10/29/16 at 19:30 Pantoprazole 40 mg 40 mg BID@06,18 IV Last administered on 10/31/16 05:04; Admin Dose 40 MG; Start 10/30/16 at 13:00; Status Future Hold Sodium Chloride 1,000 ml @ 100 mls/hr Q10H IV Last administered on 11/02/16 11:55; Admin Dose 100 MLS/HR; Start 10/30/16 at 13:00 Pantoprazole/ Sodium Chloride (Protonix Iv/NS) 100 ml @ 10 mls/hr Q10H IV Last administered on 11/03/16 11:33; Admin Dose 10 MLS/HR; Start 10/31/16 at 12 :00 Ondansetron HCl (Zofran Inj) 4 mg Q6H PRN IV NAUSEA AND/OR VOMITING Last administered on 10/31/16 11:54; Admin Dose 4 MG; Start 10/31/16 at 12:00 Simethicone 80 mg 80 mg Q4 PRN PO GAS PAIN Last administered on 11/02/16 04:00 ; Admin Dose 80 MG; Start 10/31/16 at 12:00 Piperacillin Sod/ Tazobactam Sod (Zosyn 3.375gm/ 100 ml (Pmx)) 100 ml @ 200 mls /hr Q8 IVPB Last administered on 11/03/16 06:20; Admin Dose 200 MLS/HR; Start 11/01/16 at 16:30 NIKO ANSARI Nov 03, 2016 13:24
[2016-11-04] VITALS (12 sets, daily range): BP systolic 130–164; BP diastolic 74–86; PULSE 80–106; RESP 15–20
[2016-11-04] MEDS: ALBUTEROL 0.5% (NEB) 2.5 MG/0.5 ML AMP HHN SCH ×6 (02:00→21:09)
[2016-11-04] MEDS: SOD CHLORIDE 0.9% 1,000 ML IV SCH ×3 (03:00→23:00)
[2016-11-04] MEDS: PANTOPRAZOLE IV 80 MG in SOD CHLORIDE 0.9% 100 ML IV SCH ×2 (06:02→16:41)
[2016-11-04] MEDS: PIPER-TAZO 3.375 GM IV (PMX) 100 ML IVPB SCH ×3 (06:03→22:05)
[2016-11-04 08:01] LABS: POTASSIUM 3.9 mmol/L (3.5-5.1)
[2016-11-04 08:04] LABS: CREATININE 0.84 mg/dl (0.61-1.24)
[2016-11-04 08:05] LABS: CALCIUM 7.4 mg/dl (8.4-10.2)
[2016-11-04 08:23] LABS: BASOPHIL # 0.1 10^3/ul (0.0-0.1); BASOPHILS % 1.2 % (0.0-2.0); EOSINOPHILS # 0.3 10^3/ul (0.0-0.5); EOSINOPHILS % 3.1 % (0.0-7.0); HEMOGLOBIN 8.7 g/dl (14.0-18.0); LYMPHOCYTES # 1.2 10^3/ul (0.8-2.9); MEAN CORPUSCULAR HEMOGLOBIN 30.2 pg (29.0-33.0); MEAN CORPUSCULAR HGB CONC 34.8 g/dl (32.0-37.0); MEAN CORPUSCULAR VOLUME 86.6 fl (82.0-101.0); MEAN PLATELET VOLUME 9.9 fl (7.4-10.4); MONOCYTE # 0.7 10^3/ul (0.3-0.9); MONOCYTES % 6.5 % (0.0-11.0); NEUTROPHIL # 8.9 10^3/ul (1.6-7.5); NEUTROPHILS % 78.2 % (39.0-77.0); PLATELET COUNT 254 10^3/UL (140-440); RED BLOOD COUNT 2.89 10^6/ul (4.70-6.10); RED CELL DISTRIBUTION WIDTH 15.6 % (11.5-14.5); UNCORRECTED WBC 11.4 10^3/ul (4.8-10.8); WHITE BLOOD COUNT 11.4 10^3/ul (4.8-10.8)
[2016-11-04 08:28] LABS: CONDITION 1; LH ANALYZER COMMENTS 1
[2016-11-04] MEDS: LORATADINE 10 MG TAB PO SCH (10:00)
[2016-11-04] MEDS: HYDROCODONE/APAP (5/325) TAB PO PRN ×2 (10:48→17:31)
--- NOTE | 2016-11-04 11:20 | PN ---
Date/Time of Note Date/Time of Note DATE: 11/04/16 TIME: 11:18 Assessment/Plan VTE Prophylaxis VTE Prophylaxis Intervention: other Assessment/Plan Chief Complaint/Hosp Course 1. History of aortic dissection with aortic valve replacement. 2. Acute anemia, with Hemodynamic Shock, Resolved 3. Acute kidney injury Non Oliguric 2nd to above. 4. Status post repair of the abdominal wall hernia, incarcerated. 5. Hyponatremia -Improving 6. Hyperkalemia - Resolved [id number] non oliguric increased creat/follow up hyponatremia/gradual/on ns chk labs in am [id number] reolving renal failure/non oliguric cont plan Problems: Exam/Review of Systems Vital Signs Vitals Vital Signs Date Time Temp Pulse Resp B/P Pulse Ox O2 Delivery O2 Flow Rate FiO2 11/04/16 09:49 96 20 28 11/04/16 09:49 2.0 11/04/16 07:40 98.5 164/86 94 11/03/16 22:00 Nasal Cannula Intake and Output 11/03/16 11/03/16 11/04/16 15:00 23:00 07:00 Intake Total 200 ml Output Total 1000 ml Balance -800 ml Exam Constitutional: alert, oriented Psych: no complaints ENMT: nl external ears & nose Neck: supple Respiratory: clear to auscultation Cardiovascular: regular rate and rhythm Gastrointestinal: soft Musculoskeletal: nl extremities to inspection Results Result Diagram: 11/04/16 0630 11/04/16 0630 Results 24 hrs Laboratory Tests Test 11/04/16 06:30 Anion Gap 9 Basophils # 0.1 Basophils % 1.2 Blood Morphology Comment Blood Urea Nitrogen 11 Calcium Level 7.4 L Carbon Dioxide Level 26 Chloride Level 102 Creatinine 0.84 Eosinophils # 0.3 Eosinophils % 3.1 Glucose Level 83 Hematocrit 25.0 L Hemoglobin 8.7 L Lymphocytes # 1.2 Lymphocytes % 11.0 L Mean Corpuscular Hemoglobin 30.2 Mean Corpuscular Hemoglobin Concent 34.8 Mean Corpuscular Volume 86.6 Mean Platelet Volume 9.9 Monocytes # 0.7 Monocytes % 6.5 Neutrophils # 8.9 H Neutrophils % 78.2 H Nucleated Red Blood Cells # 0.0 Nucleated Red Blood Cells % 0.0 Platelet Count 254 Potassium Level 3.9 Red Blood Count 2.89 L Red Cell Distribution Width 15.6 H Sodium Level 133 L White Blood Count 11.4 H Medications Medications Current Medications Magnesium Hydroxide (Milk Of Mag) 30 ml DAILY PRN PO CONSTIPATION Last administered on 10/28/16 10:45; Admin Dose 30 ML; Start 10/21/16 at 15:00 Loratadine (Claritin) 10 mg DAILY PO Last administered on 11/04/16 10:00; Admin Dose 10 MG; Start 10/21/16 at 15:00 Bisacodyl (Dulcolax Supp) 10 mg DAILY PRN [place] CONSTIPATION; Start 10/21/16 at 16 :00 Sodium Biphosphate/ Sodium Phosphate (Fleet Enema) 133 ml DAILY PRN [place] CONSTIPATION; Start 10/21/16 at 16:00 Warfarin Sodium (Coumadin) 8 mg DAILY@17 NGT Last administered on 10/29/16 17: 02; Admin Dose 8 MG; Start 10/24/16 at 18:00; Status Future Hold Acetaminophen/ Hydrocodone Bitart ([place] (5/325)) 2 tab Q6H PRN PO PAIN LEVEL 6 -10 Last administered on 11/04/16 10:48; Admin Dose 2 TAB; Start 10/26/16 at 23 :30 Morphine Sulfate (morphine) 2 mg Q4H PRN IV PAIN Last administered on 23:23; Admin Dose 2 MG; Start 10/29/16 at 02:00 Polyethylene Glycol (Miralax) 17 gm DAILY PRN PO CONSTIPATION Last administered on 10/29/16 19:41; Admin Dose 17 GM; Start 10/29/16 at 19:30 Pantoprazole 40 mg 40 mg BID@06,18 IV Last administered on 10/31/16 05:04; Admin Dose 40 MG; Start 10/30/16 at 13:00; Status Future Hold Sodium Chloride 1,000 ml @ 100 mls/hr Q10H IV Last administered on 11/04/16 03:00; Admin Dose 100 MLS/HR; Start 10/30/16 at 13:00 Pantoprazole/ Sodium Chloride (Protonix Iv/NS) 100 ml @ 10 mls/hr Q10H IV Last administered on 11/04/16 06:02; Admin Dose 10 MLS/HR; Start 10/31/16 at 12 :00 Ondansetron HCl (Zofran Inj) 4 mg Q6H PRN IV NAUSEA AND/OR VOMITING Last administered on 10/31/16 11:54; Admin Dose 4 MG; Start 10/31/16 at 12:00 Simethicone 80 mg 80 mg Q4 PRN PO GAS PAIN Last administered on 11/02/16 04:00 ; Admin Dose 80 MG; Start 10/31/16 at 12:00 Piperacillin Sod/ Tazobactam Sod (Zosyn 3.375gm/ 100 ml (Pmx)) 100 ml @ 200 mls /hr Q8 IVPB Last administered on 11/04/16 06:03; Admin Dose 200 MLS/HR; Start 11/01/16 at 16:30 NORAH PEÑA MD Nov 04, 2016 11:20
--- NOTE | 2016-11-04 11:30 | PN ---
Date/Time of Note Date/Time of Note DATE: 11/04/16 TIME: 11:29 Assessment/Plan VTE Prophylaxis VTE Prophylaxis Intervention: other Assessment/Plan Assessment/Plan - Hypovolemic shock 2 to s/p intraabdominal bleeding, resolved. - Acute anemia,resolved, hold Lovenox and Coumadin, s/p EGD. - Acute respiratory distress 2 to shoch, resolved. - Chest pain, obtain cardiac enzymes every 8 hours 3, 2D echo, Dr. Greenberg, cardiology. - Acute kidney injury 2 to shock, resolved. Dr. Baker is following in nephrology consultation. - Prosthetic aortic valve replacement, patient was on Coumadin and bridge Lovenox which is held for now. - Incisional hernia status post laparoscopic incisional hernia repair by Dr. Moreira on 10/19. - History of aortic dissection status post repair. - Hypertension. - Hyperlipidemia - Obesity - Hyponatremia, continue IVF, PO. - Esophagitis per EGD, cont Protonix Further recommendations based on clinical course. Tota time send is 30 mins.Plan of care discussed with Dr. Murphy. Subjective 24 Hr Interval Summary Constitutional: improved, requiring O2 Exam/Review of Systems Vital Signs Vitals Vital Signs Date Time Temp Pulse Resp B/P Pulse Ox O2 Delivery O2 Flow Rate FiO2 11/04/16 09:49 96 20 28 11/04/16 09:49 2.0 11/04/16 07:40 98.5 164/86 94 11/03/16 22:00 Nasal Cannula Intake and Output 11/03/16 11/03/16 11/04/16 15:00 23:00 07:00 Intake Total 200 ml Output Total 1000 ml Balance -800 ml Exam Constitutional: alert, obese, oriented Psych: nl mood/affect Head: atraumatic Eyes: EOMI, PERRL, nl sclera ENMT: nl external ears & nose Neck: non-tender Respiratory: clear to auscultation Cardiovascular: nl pulses Gastrointestinal: other, soft, surgical scars Musculoskeletal: nl extremities to inspection Extremities: normal pulses Neurological: nl speech Skin: other Lymph: nontender Results Result Diagram: 11/04/16 0630 11/04/16 0630 Results 24 hrs Laboratory Tests Test 11/04/16 06:30 Anion Gap 9 Basophils # 0.1 Basophils % 1.2 Blood Morphology Comment Blood Urea Nitrogen 11 Calcium Level 7.4 L Carbon Dioxide Level 26 Chloride Level 102 Creatinine 0.84 Eosinophils # 0.3 Eosinophils % 3.1 Glucose Level 83 Hematocrit 25.0 L Hemoglobin 8.7 L Lymphocytes # 1.2 Lymphocytes % 11.0 L Mean Corpuscular Hemoglobin 30.2 Mean Corpuscular Hemoglobin Concent 34.8 Mean Corpuscular Volume 86.6 Mean Platelet Volume 9.9 Monocytes # 0.7 Monocytes % 6.5 Neutrophils # 8.9 H Neutrophils % 78.2 H Nucleated Red Blood Cells # 0.0 Nucleated Red Blood Cells % 0.0 Platelet Count 254 Potassium Level 3.9 Red Blood Count 2.89 L Red Cell Distribution Width 15.6 H Sodium Level 133 L White Blood Count 11.4 H Medications Medications Current Medications Magnesium Hydroxide (Milk Of Mag) 30 ml DAILY PRN PO CONSTIPATION Last administered on 10/28/16 10:45; Admin Dose 30 ML; Start 10/21/16 at 15:00 Loratadine (Claritin) 10 mg DAILY PO Last administered on 11/04/16 10:00; Admin Dose 10 MG; Start 10/21/16 at 15:00 Bisacodyl (Dulcolax Supp) 10 mg DAILY PRN [place] CONSTIPATION; Start 10/21/16 at 16 :00 Sodium Biphosphate/ Sodium Phosphate (Fleet Enema) 133 ml DAILY PRN [place] CONSTIPATION; Start 10/21/16 at 16:00 Warfarin Sodium (Coumadin) 8 mg DAILY@17 NGT Last administered on 10/29/16 17: 02; Admin Dose 8 MG; Start 10/24/16 at 18:00; Status Future Hold Acetaminophen/ Hydrocodone Bitart ([place] (5/325)) 2 tab Q6H PRN PO PAIN LEVEL 6 -10 Last administered on 11/04/16 10:48; Admin Dose 2 TAB; Start 10/26/16 at 23 :30 Morphine Sulfate (morphine) 2 mg Q4H PRN IV PAIN Last administered on 23:23; Admin Dose 2 MG; Start 10/29/16 at 02:00 Polyethylene Glycol (Miralax) 17 gm DAILY PRN PO CONSTIPATION Last administered on 10/29/16 19:41; Admin Dose 17 GM; Start 10/29/16 at 19:30 Pantoprazole 40 mg 40 mg BID@,18 IV Last administered on 10/31/16 05:04; Admin Dose 40 MG; Start 10/30/16 at 13:00; Status Future Hold Sodium Chloride 1,000 ml @ 100 mls/hr Q10H IV Last administered on 11/04/16 03:00; Admin Dose 100 MLS/HR; Start 10/30/16 at 13:00 Pantoprazole/ Sodium Chloride (Protonix Iv/NS) 100 ml @ 10 mls/hr Q10H IV Last administered on 11/04/16 06:02; Admin Dose 10 MLS/HR; Start 10/31/16 at 12 :00 Ondansetron HCl (Zofran Inj) 4 mg Q6H PRN IV NAUSEA AND/OR VOMITING Last administered on 10/31/16 11:54; Admin Dose 4 MG; Start 10/31/16 at 12:00 Simethicone 80 mg 80 mg Q4 PRN PO GAS PAIN Last administered on 11/02/16 04:00 ; Admin Dose 80 MG; Start 10/31/16 at 12:00 Piperacillin Sod/ Tazobactam Sod (Zosyn 3.375gm/ 100 ml (Pmx)) 100 ml @ 200 mls /hr Q8 IVPB Last administered on 11/04/16 06:03; Admin Dose 200 MLS/HR; Start 11/01/16 at 16:30 NIKO ANSARI Nov 04, 2016 11:30
--- NOTE | 2016-11-04 12:38 | CONS ---
Date/Time of Note Date/Time of Note DATE: 11/04/16 TIME: 12:35 Assessment/Plan Assessment/Plan Additional Assessment/Plan 1. Abnormal electrocardiogram, assess for acute coronary syndrome - NO CP now - tolerated anemia well - will follow - pain controlled now - MUCH BETTER now. . 2. Chest pain, assess for acute coronary syndrome in the setting of severe anemia - s/p EGD - severe, GI follows - no ischemia noted 3. History of aortic valve replacement - stable by exam - no signs of decompensation now - PER surgical advise, hold anti-coag now - re-access daily - re-initiate with heparin gtt likely the best option SOON OK by surgery/ GI team - awaiting surgical input. 4. Coagulopathy secondary to Coumadin, resume when stable - still with active bleed recent. 5. Severe anemia - blood Tx as needed. 6. Incarcerated hernia, status post repair - surgical team follows. Much better from surgical standpoint. 7. Abdominal distention- better today - decreased bloating. 8. Hyponatremia. 9. Hyperkalemia. 10. Renal failure - ARF - avoid nephrotoxic meds. . 11. Leukocytosis. Consultation Date/Type/Reason Admit Date/Time Oct 21, 2016 at 17:20 Type of Consultation: Nephrology 24 HR Interval Summary Free Text/Dictation No acute change - pt stable - doubt ischemia. ROS: No fever, no chills, no nausea, no vomiting, no diarrhea/constipation No recent weight changes No chest pain, no PND, no orthopnea No dizziness, blurred vision No thirst, no heat or cold intolerance Exam/Review of Systems Vital Signs Vitals Vital Signs Date Time Temp Pulse Resp B/P Pulse Ox O2 Delivery O2 Flow Rate FiO2 11/04/16 12:29 93 11/04/16 11:44 99.1 19 138/86 95 11/04/16 09:49 28 11/04/16 09:49 2.0 11/03/16 22:00 Nasal Cannula Intake and Output 11/03/16 11/03/16 11/04/16 15:00 23:00 07:00 Intake Total 200 ml Output Total 1000 ml Balance -800 ml Exam General: WN/WD/NAD, AOx 3 HEENT: Unicetric/atraumatic/EOMI (follow commands) NECK: JVD elevated, no thyromegaly Lymph: no lymphadenopathy HEART: regular with no S3, II/ systolic murmur at apex LUNGS: Coarse sounds ABD: soft, NT, ND, +BS, POST OP : Intact Neuro: non focal SKIN: chronic changes EXT: trace edema Results Result Diagram: 11/04/16 0630 11/04/16 0630 Results 24 hrs Laboratory Tests Test 11/04/16 06:30 Anion Gap 9 Basophils # 0.1 Basophils % 1.2 Blood Morphology Comment Blood Urea Nitrogen 11 Calcium Level 7.4 L Carbon Dioxide Level 26 Chloride Level 102 Creatinine 0.84 Eosinophils # 0.3 Eosinophils % 3.1 Glucose Level 83 Hematocrit 25.0 L Hemoglobin 8.7 L Lymphocytes # 1.2 Lymphocytes % 11.0 L Mean Corpuscular Hemoglobin 30.2 Mean Corpuscular Hemoglobin Concent 34.8 Mean Corpuscular Volume 86.6 Mean Platelet Volume 9.9 Monocytes # 0.7 Monocytes % 6.5 Neutrophils # 8.9 H Neutrophils % 78.2 H Nucleated Red Blood Cells # 0.0 Nucleated Red Blood Cells % 0.0 Platelet Count 254 Potassium Level 3.9 Red Blood Count 2.89 L Red Cell Distribution Width 15.6 H Sodium Level 133 L White Blood Count 11.4 H Medications Medications Current Medications Magnesium Hydroxide (Milk Of Mag) 30 ml DAILY PRN PO CONSTIPATION Last administered on 10/28/16 10:45; Admin Dose 30 ML; Start 10/21/16 at 15:00 Loratadine (Claritin) 10 mg DAILY PO Last administered on 11/04/16 10:00; Admin Dose 10 MG; Start 10/21/16 at 15:00 Bisacodyl (Dulcolax Supp) 10 mg DAILY PRN [place] CONSTIPATION; Start 10/21/16 at 16 :00 Sodium Biphosphate/ Sodium Phosphate (Fleet Enema) 133 ml DAILY PRN [place] CONSTIPATION; Start 10/21/16 at 16:00 Warfarin Sodium (Coumadin) 8 mg DAILY@17 NGT Last administered on 10/29/16 17: 02; Admin Dose 8 MG; Start 10/24/16 at 18:00; Status Future Hold Acetaminophen/ Hydrocodone Bitart ([place] (5/325)) 2 tab Q6H PRN PO PAIN LEVEL 6 -10 Last administered on 11/04/16 10:48; Admin Dose 2 TAB; Start 10/26/16 at 23 :30 Morphine Sulfate (morphine) 2 mg Q4H PRN IV PAIN Last administered on 23:23; Admin Dose 2 MG; Start 10/29/16 at 02:00 Polyethylene Glycol (Miralax) 17 gm DAILY PRN PO CONSTIPATION Last administered on 10/29/16 19:41; Admin Dose 17 GM; Start 10/29/16 at 19:30 Pantoprazole 40 mg 40 mg BID@06,18 IV Last administered on 10/31/16 05:04; Admin Dose 40 MG; Start 10/30/16 at 13:00; Status Future Hold Sodium Chloride 1,000 ml @ 100 mls/hr Q10H IV Last administered on 11/04/16 03:00; Admin Dose 100 MLS/HR; Start 10/30/16 at 13:00 Pantoprazole/ Sodium Chloride (Protonix Iv/NS) 100 ml @ 10 mls/hr Q10H IV Last administered on 11/04/16 06:02; Admin Dose 10 MLS/HR; Start 10/31/16 at 12 :00 Ondansetron HCl (Zofran Inj) 4 mg Q6H PRN IV NAUSEA AND/OR VOMITING Last administered on 10/31/16 11:54; Admin Dose 4 MG; Start 10/31/16 at 12:00 Simethicone 80 mg 80 mg Q4 PRN PO GAS PAIN Last administered on 11/02/16 04:00 ; Admin Dose 80 MG; Start 10/31/16 at 12:00 Piperacillin Sod/ Tazobactam Sod (Zosyn 3.375gm/ 100 ml (Pmx)) 100 ml @ 200 mls /hr Q8 IVPB Last administered on 11/04/16 06:03; Admin Dose 200 MLS/HR; Start 11/01/16 at 16:30 MOO CACERES MD Nov 04, 2016 12:38
[2016-11-05] VITALS (12 sets, daily range): BP systolic 108–183; BP diastolic 63–90; PULSE 85–92; RESP 16–20
[2016-11-05] MEDS: HYDROCODONE/APAP (5/325) TAB PO PRN ×4 (00:44→23:56)
[2016-11-05] MEDS: ALBUTEROL 0.5% (NEB) 2.5 MG/0.5 ML AMP HHN SCH ×6 (01:22→20:22)
[2016-11-05] MEDS: PANTOPRAZOLE IV 80 MG in SOD CHLORIDE 0.9% 100 ML IV SCH ×3 (02:03→20:43)
[2016-11-05] MEDS: SOD CHLORIDE 0.9% 1,000 ML IV SCH ×3 (03:22→23:56)
[2016-11-05] MEDS: PIPER-TAZO 3.375 GM IV (PMX) 100 ML IVPB SCH ×3 (05:29→21:22)
[2016-11-05 07:01] LABS: CREATININE 0.73 mg/dl (0.61-1.24)
[2016-11-05 07:02] LABS: CALCIUM 7.5 mg/dl (8.4-10.2)
[2016-11-05 07:17] LABS: INR 1.66; PROTIME 19.7 Sec (12.2-14.2); PT RATIO 1.5
[2016-11-05 07:31] LABS: BASOPHILS % 0.3 % (0.0-2.0); EOSINOPHILS # 0.5 10^3/ul (0.0-0.5); EOSINOPHILS % 4.5 % (0.0-7.0); HEMOGLOBIN 9.3 g/dl (14.0-18.0); LYMPHOCYTES # 1.1 10^3/ul (0.8-2.9); LYMPHOCYTES % 9.8 % (15.0-51.0); MEAN CORPUSCULAR HEMOGLOBIN 29.8 pg (29.0-33.0); MEAN CORPUSCULAR HGB CONC 34.3 g/dl (32.0-37.0); MEAN CORPUSCULAR VOLUME 86.9 fl (82.0-101.0); MONOCYTE # 0.8 10^3/ul (0.3-0.9); MONOCYTES % 7.4 % (0.0-11.0); NEUTROPHIL # 8.5 10^3/ul (1.6-7.5); PLATELET COUNT 244 10^3/UL (140-440); RED BLOOD COUNT 3.11 10^6/ul (4.70-6.10); RED CELL DISTRIBUTION WIDTH 15.9 % (11.5-14.5); UNCORRECTED WBC 10.9 10^3/ul (4.8-10.8); WHITE BLOOD COUNT 10.9 10^3/ul (4.8-10.8)
[2016-11-05 07:35] LABS: CONDITION 1; LH ANALYZER COMMENTS 1
[2016-11-05] MEDS: LORATADINE 10 MG TAB PO SCH (08:05)
--- NOTE | 2016-11-05 09:04 | PN ---
Date/Time of Note Date/Time of Note DATE: 11/05/16 TIME: 09:02 Assessment/Plan VTE Prophylaxis VTE Prophylaxis Intervention: heparin, SCD's Lines/Catheters IV Catheter Type (from Nrs): Central Line Central line still needed: No Assessment/Plan Chief Complaint/Hosp Course incisional hernia with multiple medical problems and aortic valve requiring anticoagulation Problems: Assessment/Plan hgb stable for many days, no further evidence of bleeding, and tolerating diet, considering recent bleeding risk, would recommend again lovenox bridging and slow resuming of anticoagulation with coumadin as outpatient d/c today if ok with pcp Subjective 24 Hr Interval Summary Free Text/Dictation no other issues, hgb stable for many days. Exam/Review of Systems Vital Signs Vitals Vital Signs Date Time Temp Pulse Resp B/P Pulse Ox O2 Delivery O2 Flow Rate FiO2 11/05/16 08:18 94 18 97 Nasal Cannula 2.0 11/05/16 07:14 97.8 158/84 11/04/16 21:18 28 Intake and Output 11/04/16 11/04/16 11/05/16 15:00 23:00 07:00 Intake Total 1800 ml 1640 ml Output Total 1320 ml 600 ml Balance 480 ml 1040 ml Exam incision intact, wound hematoma Results Result Diagram: 11/05/16 0537 11/05/16 0531 Results 24 hrs Laboratory Tests Test 11/05/16 05:31 11/05/16 05:37 Anion Gap 11 Blood Urea Nitrogen 8 Calcium Level 7.5 L Carbon Dioxide Level 26 Chloride Level 102 Creatinine 0.73 Glucose Level 82 INR International Normalized Ratio 1.66 Potassium Level 4.0 Prothrombin Time 19.7 #H Prothrombin Time Ratio 1.5 Sodium Level 135 Basophils # 0.0 Basophils % 0.3 Blood Morphology Comment Eosinophils # 0.5 Eosinophils % 4.5 Hematocrit 27.0 L Hemoglobin 9.3 L Lymphocytes # 1.1 Lymphocytes % 9.8 L Mean Corpuscular Hemoglobin 29.8 Mean Corpuscular Hemoglobin Concent 34.3 Mean Corpuscular Volume 86.9 Mean Platelet Volume 9.0 Monocytes # 0.8 Monocytes % 7.4 Neutrophils # 8.5 H Neutrophils % 78.0 H Nucleated Red Blood Cells # 0.0 Nucleated Red Blood Cells % 0.0 Platelet Count 244 Red Blood Count 3.11 L Red Cell Distribution Width 15.9 H White Blood Count 10.9 H Medications Medications Current Medications Magnesium Hydroxide (Milk Of Mag) 30 ml DAILY PRN PO CONSTIPATION Last administered on 10/28/16 10:45; Admin Dose 30 ML; Start 10/21/16 at 15:00 Loratadine (Claritin) 10 mg DAILY PO Last administered on 11/05/16 08:05; Admin Dose 10 MG; Start 10/21/16 at 15:00 Bisacodyl (Dulcolax Supp) 10 mg DAILY PRN [place] CONSTIPATION; Start 10/21/16 at 16 :00 Sodium Biphosphate/ Sodium Phosphate (Fleet Enema) 133 ml DAILY PRN [place] CONSTIPATION; Start 10/21/16 at 16:00 Warfarin Sodium (Coumadin) 8 mg DAILY@17 NGT Last administered on 10/29/16 17: 02; Admin Dose 8 MG; Start 10/24/16 at 18:00; Status Future Hold Acetaminophen/ Hydrocodone Bitart ([place] (5/325)) 2 tab Q6H PRN PO PAIN LEVEL 6 -10 Last administered on 11/05/16 00:44; Admin Dose 2 TAB; Start 10/26/16 at 23 :30 Morphine Sulfate (morphine) 2 mg Q4H PRN IV PAIN Last administered on 23:23; Admin Dose 2 MG; Start 10/29/16 at 02:00 Polyethylene Glycol (Miralax) 17 gm DAILY PRN PO CONSTIPATION Last administered on 10/29/16 19:41; Admin Dose 17 GM; Start 10/29/16 at 19:30 Pantoprazole 40 mg 40 mg BID@06,18 IV Last administered on 10/31/16 05:04; Admin Dose 40 MG; Start 10/30/16 at 13:00; Status Future Hold Sodium Chloride 1,000 ml @ 100 mls/hr Q10H IV Last administered on 11/05/16 03:22; Admin Dose 100 MLS/HR; Start 10/30/16 at 13:00 Pantoprazole/ Sodium Chloride (Protonix Iv/NS) 100 ml @ 10 mls/hr Q10H IV Last administered on 11/05/16 02:03; Admin Dose 10 MLS/HR; Start 10/31/16 at 12 :00 Ondansetron HCl (Zofran Inj) 4 mg Q6H PRN IV NAUSEA AND/OR VOMITING Last administered on 10/31/16 11:54; Admin Dose 4 MG; Start 10/31/16 at 12:00 Simethicone 80 mg 80 mg Q4 PRN PO GAS PAIN Last administered on 11/02/16 04:00 ; Admin Dose 80 MG; Start 10/31/16 at 12:00 Piperacillin Sod/ Tazobactam Sod (Zosyn 3.375gm/ 100 ml (Pmx)) 100 ml @ 200 mls /hr Q8 IVPB Last administered on 11/05/16 05:29; Admin Dose 200 MLS/HR; Start 11/01/16 at 16:30 Izzy FRANKS Nov 05, 2016 09:04
--- NOTE | 2016-11-05 16:37 | CONS ---
Date/Time of Note Date/Time of Note DATE: 11/05/16 TIME: 16:35 Assessment/Plan Assessment/Plan Additional Assessment/Plan 41 yo Male with 1. History of aortic dissection with aortic valve replacement. 2. Acute anemia, with Hemodynamic Shock, Resolved 3. Acute kidney injury Non Oliguric 2nd to above. 4. Status post repair of the abdominal wall hernia, incarcerated. 5. Hyponatremia -Resolved 6. Hyperkalemia - Resolved Cont current Rx and plan Renal function stable and electrolytes wnl Consultation Date/Type/Reason Admit Date/Time Oct 21, 2016 at 17:20 Type of Consultation: Nephrology Reason for Consultation NITHIN 24 HR Interval Summary Free Text/Dictation No new complaints Constitutional: No requiring O2 Exam/Review of Systems Vital Signs Vitals Vital Signs Date Time Temp Pulse Resp B/P Pulse Ox O2 Delivery O2 Flow Rate FiO2 11/05/16 16:04 82 24 99 Nasal Cannula 2.0 11/05/16 15:02 97.9 156/83 11/04/16 21:18 28 Intake and Output 11/04/16 11/04/16 11/05/16 15:00 23:00 07:00 Intake Total 1800 ml 1640 ml Output Total 1320 ml 600 ml Balance 480 ml 1040 ml Exam Constitutional: alert ENMT: mucosa pink and moist Respiratory: No labored breathing Neurological: SUPERINTENDENT REFUSE DISPOSAL II-XII intact Results Result Diagram: 11/05/16 0537 11/05/16 0531 Results 24 hrs Laboratory Tests Test 11/05/16 05:31 11/05/16 05:37 Anion Gap 11 Blood Urea Nitrogen 8 Calcium Level 7.5 L Carbon Dioxide Level 26 Chloride Level 102 Creatinine 0.73 Glucose Level 82 INR International Normalized Ratio 1.66 Potassium Level 4.0 Prothrombin Time 19.7 #H Prothrombin Time Ratio 1.5 Sodium Level 135 Basophils # 0.0 Basophils % 0.3 Blood Morphology Comment Eosinophils # 0.5 Eosinophils % 4.5 Hematocrit 27.0 L Hemoglobin 9.3 L Lymphocytes # 1.1 Lymphocytes % 9.8 L Mean Corpuscular Hemoglobin 29.8 Mean Corpuscular Hemoglobin Concent 34.3 Mean Corpuscular Volume 86.9 Mean Platelet Volume 9.0 Monocytes # 0.8 Monocytes % 7.4 Neutrophils # 8.5 H Neutrophils % 78.0 H Nucleated Red Blood Cells # 0.0 Nucleated Red Blood Cells % 0.0 Platelet Count 244 Red Blood Count 3.11 L Red Cell Distribution Width 15.9 H White Blood Count 10.9 H Medications Medications Current Medications Magnesium Hydroxide (Milk Of Mag) 30 ml DAILY PRN PO CONSTIPATION Last administered on 10/28/16 10:45; Admin Dose 30 ML; Start 10/21/16 at 15:00 Loratadine (Claritin) 10 mg DAILY PO Last administered on 11/05/16 08:05; Admin Dose 10 MG; Start 10/21/16 at 15:00 Bisacodyl (Dulcolax Supp) 10 mg DAILY PRN [place] CONSTIPATION; Start 10/21/16 at 16 :00 Sodium Biphosphate/ Sodium Phosphate (Fleet Enema) 133 ml DAILY PRN [place] CONSTIPATION; Start 10/21/16 at 16:00 Warfarin Sodium (Coumadin) 8 mg DAILY@17 NGT Last administered on 10/29/16 17: 02; Admin Dose 8 MG; Start 10/24/16 at 18:00; Status Future Hold Acetaminophen/ Hydrocodone Bitart ([place] (5/325)) 2 tab Q6H PRN PO PAIN LEVEL 6 -10 Last administered on 11/05/16 10:40; Admin Dose 2 TAB; Start 10/26/16 at 23 :30 Morphine Sulfate (morphine) 2 mg Q4H PRN IV PAIN Last administered on 23:23; Admin Dose 2 MG; Start 10/29/16 at 02:00 Polyethylene Glycol (Miralax) 17 gm DAILY PRN PO CONSTIPATION Last administered on 10/29/16 19:41; Admin Dose 17 GM; Start 10/29/16 at 19:30 Pantoprazole 40 mg 40 mg BID@06,18 IV Last administered on 10/31/16 05:04; Admin Dose 40 MG; Start 10/30/16 at 13:00; Status Future Hold Sodium Chloride 1,000 ml @ 100 mls/hr Q10H IV Last administered on 11/05/16 14:09; Admin Dose 100 MLS/HR; Start 10/30/16 at 13:00 Pantoprazole/ Sodium Chloride (Protonix Iv/NS) 100 ml @ 10 mls/hr Q10H IV Last administered on 11/05/16 12:01; Admin Dose 10 MLS/HR; Start 10/31/16 at 12 :00 Ondansetron HCl (Zofran Inj) 4 mg Q6H PRN IV NAUSEA AND/OR VOMITING Last administered on 10/31/16 11:54; Admin Dose 4 MG; Start 10/31/16 at 12:00 Simethicone 80 mg 80 mg Q4 PRN PO GAS PAIN Last administered on 11/02/16 04:00 ; Admin Dose 80 MG; Start 10/31/16 at 12:00 Piperacillin Sod/ Tazobactam Sod (Zosyn 3.375gm/ 100 ml (Pmx)) 100 ml @ 200 mls /hr Q8 IVPB Last administered on 11/05/16 14:06; Admin Dose 200 MLS/HR; Start 11/01/16 at 16:30 HANS VIRAMONTES MD Nov 05, 2016 16:37
--- NOTE | 2016-11-05 16:52 | PN ---
Date/Time of Note Date/Time of Note DATE: 11/05/16 TIME: 16:48 Assessment/Plan VTE Prophylaxis VTE Prophylaxis Intervention: SCD's Lines/Catheters IV [facility]ter Type (from [facility]): Central Line Central line still needed: Yes Urinary Cath still in place: No Assessment/Plan Chief Complaint/Hosp Course ASSESSMENT AND PLAN: - s/p hypovolemic shock 2 to s/p intraabdominal bleeding, resolved. - Acute anemia 2 intraabdominal bleeding ,resolved, hold Lovenox and Coumadin. - Acute kidney injury 2 to shock, resolved. Dr. Baker is following in nephrology consultation. - Prosthetic aortic valve replacement, patient was on Coumadin and bridge Lovenox which is held for now. Unable to start Coumadin due to bleeding from the incision site, continue to monitor PT/INR and CBC. - Incisional hernia status post laparoscopic incisional hernia repair by Dr. Moreira on 10/19. - History of aortic dissection status post repair. - Hypertension. - Hyperlipidemia - Obesity - Esophagitis per EGD, cont Protonix Further recommendations based on clinical course. Plan of care discussed with Dr. Murphy. Problems: Subjective 24 Hr Interval Summary Free Text/Dictation Patient tolerates regular diet well, denies nausea vomiting, continues to have serous oozing from the incision site, surgical incision midline surgical incision is intact with river, sinus rhythm on telemetry. patient complains of scrotal edema. Exam/Review of Systems Vital Signs Vitals Vital Signs Date Time Temp Pulse Resp B/P Pulse Ox O2 Delivery O2 Flow Rate FiO2 11/05/16 16:04 82 24 99 Nasal Cannula 2.0 11/05/16 15:02 97.9 156/83 11/04/16 21:18 28 Intake and Output 11/04/16 11/04/16 11/05/16 15:00 23:00 07:00 Intake Total 1800 ml 1640 ml Output Total 1320 ml 600 ml Balance 480 ml 1040 ml Exam GENERAL: Well-developed, obese gentleman who currently is awake. HEENT: Head is atraumatic, normocephalic. Pupils equal, round, reactive to light and accommodation. Oral mucosa is pink and moist. NECK: Supple, no cervical lymphadenopathy, no thyromegaly. CHEST: Lungs clear bilaterally. There are no rhonchi, wheezes, or rales noted. CARDIOVASCULAR: Normal S1, S2. The patient has mechanical aortic valve click. No murmurs or gallops noted. ABDOMEN: Distended soft , bowel sounds hypoactive, status post surgery. Ecchymotic area around the incision. EXTREMITIES: No edema, clubbing, cyanosis. SKIN: There is no rash or petechiae noted. The patient has a midline surgical healed scar. NEUROLOGIC: The patient is awake, alert, and oriented x3. Results Result Diagram: 11/05/16 0537 11/05/16 0531 Results 24 hrs Laboratory Tests Test 11/05/16 05:31 11/05/16 05:37 Anion Gap 11 Blood Urea Nitrogen 8 Calcium Level 7.5 L Carbon Dioxide Level 26 Chloride Level 102 Creatinine 0.73 Glucose Level 82 INR International Normalized Ratio 1.66 Potassium Level 4.0 Prothrombin Time 19.7 #H Prothrombin Time Ratio 1.5 Sodium Level 135 Basophils # 0.0 Basophils % 0.3 Blood Morphology Comment Eosinophils # 0.5 Eosinophils % 4.5 Hematocrit 27.0 L Hemoglobin 9.3 L Lymphocytes # 1.1 Lymphocytes % 9.8 L Mean Corpuscular Hemoglobin 29.8 Mean Corpuscular Hemoglobin Concent 34.3 Mean Corpuscular Volume 86.9 Mean Platelet Volume 9.0 Monocytes # 0.8 Monocytes % 7.4 Neutrophils # 8.5 H Neutrophils % 78.0 H Nucleated Red Blood Cells # 0.0 Nucleated Red Blood Cells % 0.0 Platelet Count 244 Red Blood Count 3.11 L Red Cell Distribution Width 15.9 H White Blood Count 10.9 H Medications Medications Current Medications Magnesium Hydroxide (Milk Of Mag) 30 ml DAILY PRN PO CONSTIPATION Last administered on 10/28/16 10:45; Admin Dose 30 ML; Start 10/21/16 at 15:00 Loratadine (Claritin) 10 mg DAILY PO Last administered on 11/05/16 08:05; Admin Dose 10 MG; Start 10/21/16 at 15:00 Bisacodyl (Dulcolax Supp) 10 mg DAILY PRN [place] CONSTIPATION; Start 10/21/16 at 16 :00 Sodium Biphosphate/ Sodium Phosphate (Fleet Enema) 133 ml DAILY PRN [place] CONSTIPATION; Start 10/21/16 at 16:00 Warfarin Sodium (Coumadin) 8 mg DAILY@17 NGT Last administered on 10/29/16 17: 02; Admin Dose 8 MG; Start 10/24/16 at 18:00; Status Future Hold Acetaminophen/ Hydrocodone Bitart ([place] (5/325)) 2 tab Q6H PRN PO PAIN LEVEL 6 -10 Last administered on 11/05/16 10:40; Admin Dose 2 TAB; Start 10/26/16 at 23 :30 Morphine Sulfate (morphine) 2 mg Q4H PRN IV PAIN Last administered on 23:23; Admin Dose 2 MG; Start 10/29/16 at 02:00 Polyethylene Glycol (Miralax) 17 gm DAILY PRN PO CONSTIPATION Last administered on 10/29/16 19:41; Admin Dose 17 GM; Start 10/29/16 at 19:30 Pantoprazole 40 mg 40 mg BID@06,18 IV Last administered on 10/31/16 05:04; Admin Dose 40 MG; Start 10/30/16 at 13:00; Status Future Hold Sodium Chloride 1,000 ml @ 100 mls/hr Q10H IV Last administered on 11/05/16 14:09; Admin Dose 100 MLS/HR; Start 10/30/16 at 13:00 Pantoprazole/ Sodium Chloride (Protonix Iv/NS) 100 ml @ 10 mls/hr Q10H IV Last administered on 11/05/16 12:01; Admin Dose 10 MLS/HR; Start 10/31/16 at 12 :00 Ondansetron HCl (Zofran Inj) 4 mg Q6H PRN IV NAUSEA AND/OR VOMITING Last administered on 10/31/16 11:54; Admin Dose 4 MG; Start 10/31/16 at 12:00 Simethicone 80 mg 80 mg Q4 PRN PO GAS PAIN Last administered on 11/02/16 04:00 ; Admin Dose 80 MG; Start 10/31/16 at 12:00 Piperacillin Sod/ Tazobactam Sod (Zosyn 3.375gm/ 100 ml (Pmx)) 100 ml @ 200 mls /hr Q8 IVPB Last administered on 11/05/16 14:06; Admin Dose 200 MLS/HR; Start 11/01/16 at 16:30 KIM DEJESUS Nov 05, 2016 16:52
[2016-11-05] MEDS ORDERED: FUROSEMIDE 20 MG INJ IV ONE (17:00)
--- NOTE | 2016-11-05 18:51 | CONS ---
Date/Time of Note Date/Time of Note DATE: 11/05/16 TIME: 18:43 Assessment/Plan Assessment/Plan Chief Complaint/Hosp Course IMPRESSION: 1. Abnormal electrocardiogram, assess for acute coronary syndrome. 2. Chest pain, assess for acute coronary syndrome in the setting of severe anemia.-negative troponin x 3/NL EF by echo this admission 3. History of aortic valve replacement-mechanical 4. Coagulopathy secondary to Coumadin. 5. Severe anemia. 6. Incarcerated hernia, status post repair. 7. Abdominal distention-improved 8. Hyponatremia-resolved 9. Renal failure-improved Recc: -Tele -start anti-hypertensives to improve BP control -Follow hgb closely -resume coumadin and follow INR closely Problems: Consultation Date/Type/Reason Admit Date/Time Oct 21, 2016 at 17:20 Initial Consult Date 11/05/16 Type of Consultation: Cardiology Reason for Consultation abnormal ecg Referring Provider: ELIZABETH STANLEY MD Exam/Review of Systems Vital Signs Vitals Vital Signs Date Time Temp Pulse Resp B/P Pulse Ox O2 Delivery O2 Flow Rate FiO2 11/05/16 17:00 2.0 11/05/16 16:50 88 11/05/16 16:04 24 99 Nasal Cannula 11/05/16 15:02 97.9 156/83 11/04/16 21:18 28 Intake and Output 11/04/16 11/04/16 11/05/16 15:00 23:00 07:00 Intake Total 1800 ml 1640 ml Output Total 1320 ml 600 ml Balance 480 ml 1040 ml Exam Review of Systems: CONSTITUTIONAL: No fevers, chills. PULMONARY: No sob CARDIOVASCULAR: No chest pain/palpitations GASTROINTESTINAL: Positive abd pain GENITOURINARY: No hematuria/dysuria. MUSCULOSKELETAL: No myagias/arthalgias. PSYCHIATRIC: The patient denies depression. NEUROLOGIC: No weakness Constitutional: alert, oriented Psych: no complaints Head: normocephalic ENMT: mucosa pink and moist Neck: jvd (9 cm water), supple Respiratory: diminished breath sounds (at bases/B) Cardiovascular: regular rate and rhythm Gastrointestinal: other (midline river), soft, surgical scars Musculoskeletal: muscle tone (normal) Extremities: edema (trace/B) Neurological: other (No focal deficits) Results Result Diagram: 11/05/16 0537 11/05/16 0531 Results 24 hrs Laboratory Tests Test 11/05/16 05:31 11/05/16 05:37 Anion Gap 11 Blood Urea Nitrogen 8 Calcium Level 7.5 L Carbon Dioxide Level 26 Chloride Level 102 Creatinine 0.73 Glucose Level 82 INR International Normalized Ratio 1.66 Potassium Level 4.0 Prothrombin Time 19.7 #H Prothrombin Time Ratio 1.5 Sodium Level 135 Basophils # 0.0 Basophils % 0.3 Blood Morphology Comment Eosinophils # 0.5 Eosinophils % 4.5 Hematocrit 27.0 L Hemoglobin 9.3 L Lymphocytes # 1.1 Lymphocytes % 9.8 L Mean Corpuscular Hemoglobin 29.8 Mean Corpuscular Hemoglobin Concent 34.3 Mean Corpuscular Volume 86.9 Mean Platelet Volume 9.0 Monocytes # 0.8 Monocytes % 7.4 Neutrophils # 8.5 H Neutrophils % 78.0 H Nucleated Red Blood Cells # 0.0 Nucleated Red Blood Cells % 0.0 Platelet Count 244 Red Blood Count 3.11 L Red Cell Distribution Width 15.9 H White Blood Count 10.9 H Medications Medications Current Medications Magnesium Hydroxide (Milk Of Mag) 30 ml DAILY PRN PO CONSTIPATION Last administered on 10/28/16 10:45; Admin Dose 30 ML; Start 10/21/16 at 15:00 Loratadine (Claritin) 10 mg DAILY PO Last administered on 11/05/16 08:05; Admin Dose 10 MG; Start 10/21/16 at 15:00 Bisacodyl (Dulcolax Supp) 10 mg DAILY PRN [place] CONSTIPATION; Start 10/21/16 at 16 :00 Sodium Biphosphate/ Sodium Phosphate (Fleet Enema) 133 ml DAILY PRN [place] CONSTIPATION; Start 10/21/16 at 16:00 Warfarin Sodium (Coumadin) 8 mg DAILY@17 NGT Last administered on 10/29/16 17: 02; Admin Dose 8 MG; Start 10/24/16 at 18:00; Status Future Hold Acetaminophen/ Hydrocodone Bitart ([place] (5/325)) 2 tab Q6H PRN PO PAIN LEVEL 6 -10 Last administered on 11/05/16 17:13; Admin Dose 2 TAB; Start 10/26/16 at 23 :30 Morphine Sulfate (morphine) 2 mg Q4H PRN IV PAIN Last administered on 23:23; Admin Dose 2 MG; Start 10/29/16 at 02:00 Polyethylene Glycol (Miralax) 17 gm DAILY PRN PO CONSTIPATION Last administered on 10/29/16 19:41; Admin Dose 17 GM; Start 10/29/16 at 19:30 Pantoprazole 40 mg 40 mg BID@06,18 IV Last administered on 10/31/16 05:04; Admin Dose 40 MG; Start 10/30/16 at 13:00; Status Future Hold Sodium Chloride 1,000 ml @ 100 mls/hr Q10H IV Last administered on 11/05/16 14:09; Admin Dose 100 MLS/HR; Start 10/30/16 at 13:00 Pantoprazole/ Sodium Chloride (Protonix Iv/NS) 100 ml @ 10 mls/hr Q10H IV Last administered on 11/05/16 12:01; Admin Dose 10 MLS/HR; Start 10/31/16 at 12 :00 Ondansetron HCl (Zofran Inj) 4 mg Q6H PRN IV NAUSEA AND/OR VOMITING Last administered on 10/31/16 11:54; Admin Dose 4 MG; Start 10/31/16 at 12:00 Simethicone 80 mg 80 mg Q4 PRN PO GAS PAIN Last administered on 11/02/16 04:00 ; Admin Dose 80 MG; Start 10/31/16 at 12:00 Piperacillin Sod/ Tazobactam Sod (Zosyn 3.375gm/ 100 ml (Pmx)) 100 ml @ 200 mls /hr Q8 IVPB Last administered on 11/05/16 14:06; Admin Dose 200 MLS/HR; Start 11/01/16 at 16:30 Eye Lubricant (Artificial Tears Oph) 2 drop QID BOTH EYES ; Start 11/05/16 at 21 :00 ADAM GILMORE Nov 05, 2016 18:51
[2016-11-05] MEDS: ARTIFICIAL TEARS 15 ML OPH BOTH EYES SCH (20:43)
[2016-11-06] VITALS (13 sets, daily range): BP systolic 134–162; BP diastolic 77–96; PULSE 88–101; RESP 18–24
[2016-11-06] MEDS: ALBUTEROL 0.5% (NEB) 2.5 MG/0.5 ML AMP HHN SCH ×5 (04:23→20:26)
[2016-11-06] MEDS: PIPER-TAZO 3.375 GM IV (PMX) 100 ML IVPB SCH ×2 (05:40→14:15)
[2016-11-06 06:52] LABS: INR 1.41; PROTIME 17.3 Sec (12.2-14.2); PT RATIO 1.4
[2016-11-06 06:54] LABS: BASOPHIL # 0.1 10^3/ul (0.0-0.1); BASOPHILS % 1.1 % (0.0-2.0); EOSINOPHILS # 0.4 10^3/ul (0.0-0.5); EOSINOPHILS % 4.2 % (0.0-7.0); HEMATOCRIT 25.4 % (42.0-52.0); HEMOGLOBIN 8.6 g/dl (14.0-18.0); LYMPHOCYTES # 1.2 10^3/ul (0.8-2.9); LYMPHOCYTES % 12.8 % (15.0-51.0); MEAN CORPUSCULAR HGB CONC 33.8 g/dl (32.0-37.0); MEAN CORPUSCULAR VOLUME 88.7 fl (82.0-101.0); MEAN PLATELET VOLUME 8.6 fl (7.4-10.4); MONOCYTE # 0.7 10^3/ul (0.3-0.9); MONOCYTES % 6.9 % (0.0-11.0); NEUTROPHIL # 7.1 10^3/ul (1.6-7.5); PLATELET COUNT 250 10^3/UL (140-440); RED BLOOD COUNT 2.86 10^6/ul (4.70-6.10); RED CELL DISTRIBUTION WIDTH 16.1 % (11.5-14.5); UNCORRECTED WBC 9.5 10^3/ul (4.8-10.8); WHITE BLOOD COUNT 9.5 10^3/ul (4.8-10.8)
[2016-11-06] MEDS: HYDROCODONE/APAP (5/325) TAB PO PRN ×4 (06:56→22:08)
[2016-11-06 07:08] LABS: CONDITION 1; LH ANALYZER COMMENTS 1
[2016-11-06] MEDS: PANTOPRAZOLE IV 80 MG in SOD CHLORIDE 0.9% 100 ML IV SCH (08:10)
[2016-11-06] MEDS: LORATADINE 10 MG TAB PO SCH (08:11)
[2016-11-06] MEDS: ARTIFICIAL TEARS 15 ML OPH BOTH EYES SCH ×4 (08:11→22:02)
[2016-11-06] MEDS ORDERED: ALBUMIN HUMAN 25% 100 ML IV ONE (10:00)
--- NOTE | 2016-11-06 11:47 | CONS ---
Date/Time of Note Date/Time of Note DATE: 11/06/16 TIME: 11:46 Assessment/Plan Assessment/Plan Additional Assessment/Plan 41 yo Male with 1. History of aortic dissection with aortic valve replacement. 2. Acute anemia, with Hemodynamic Shock, Resolved 3. Acute kidney injury Non Oliguric 2nd to above.- Resolved 4. Status post repair of the abdominal wall hernia, incarcerated. 5. Hyponatremia -Resolved 6. Hyperkalemia - Resolved NITHIN Resolved, Electrolyte abnormality now resolved Very Good UO reported Nephrology will sign off at this time, Please re-consult as needed. Consultation Date/Type/Reason Admit Date/Time Oct 21, 2016 at 17:20 Type of Consultation: Nephrology Referring Provider: ELIZABETH STANLEY MD 24 HR Interval Summary Free Text/Dictation No new complaints, Good UO. Exam/Review of Systems Vital Signs Vitals Vital Signs Date Time Temp Pulse Resp B/P Pulse Ox O2 Delivery O2 Flow Rate FiO2 11/06/16 10:53 97.9 98 18 157/81 97 11/06/16 08:44 2.0 11/06/16 08:44 Nasal Cannula 11/05/16 23:20 30 Intake and Output 11/05/16 11/05/16 11/06/16 15:00 23:00 07:00 Intake Total 900 ml 1560 ml 250 ml Output Total 1100 ml 1700 ml Balance 900 ml 460 ml -1450 ml Exam Constitutional: No distress ENMT: mucosa pink and moist Respiratory: clear to auscultation Cardiovascular: regular rate and rhythm Gastrointestinal: soft Neurological: No lethargic Skin: No diaphoresis Results Result Diagram: 11/06/16 0541 11/05/16 0531 Results 24 hrs Laboratory Tests Test 11/06/16 05:41 11/06/16 06:49 Basophils # 0.1 Basophils % 1.1 Blood Morphology Comment Eosinophils # 0.4 Eosinophils % 4.2 Hematocrit 25.4 L Hemoglobin 8.6 L INR International Normalized Ratio 1.41 Lymphocytes # 1.2 Lymphocytes % 12.8 L Mean Corpuscular Hemoglobin 30.0 Mean Corpuscular Hemoglobin Concent 33.8 Mean Corpuscular Volume 88.7 Mean Platelet Volume 8.6 Monocytes # 0.7 Monocytes % 6.9 Neutrophils # 7.1 Neutrophils % 75.0 Nucleated Red Blood Cells # 0.0 Nucleated Red Blood Cells % 0.0 Platelet Count 250 Prothrombin Time 17.3 H Prothrombin Time Ratio 1.4 Red Blood Count 2.86 L Red Cell Distribution Width 16.1 H White Blood Count 9.5 Lab Scanned Report REFERENCE LAB Medications Medications Current Medications Magnesium Hydroxide (Milk Of Mag) 30 ml DAILY PRN PO CONSTIPATION Last administered on 10/28/16 10:45; Admin Dose 30 ML; Start 10/21/16 at 15:00 Loratadine (Claritin) 10 mg DAILY PO Last administered on 11/06/16 08:11; Admin Dose 10 MG; Start 10/21/16 at 15:00 Bisacodyl (Dulcolax Supp) 10 mg DAILY PRN [place] CONSTIPATION; Start 10/21/16 at 16 :00 Sodium Biphosphate/ Sodium Phosphate (Fleet Enema) 133 ml DAILY PRN [place] CONSTIPATION; Start 10/21/16 at 16:00 Acetaminophen/ Hydrocodone Bitart ([place] (5/325)) 2 tab Q6H PRN PO PAIN LEVEL 6 -10 Last administered on 11/06/16 10:45; Admin Dose 2 TAB; Start 10/26/16 at 23 :30 Morphine Sulfate (morphine) 2 mg Q4H PRN IV PAIN Last administered on 23:23; Admin Dose 2 MG; Start 10/29/16 at 02:00 Polyethylene Glycol (Miralax) 17 gm DAILY PRN PO CONSTIPATION Last administered on 10/29/16 19:41; Admin Dose 17 GM; Start 10/29/16 at 19:30 Pantoprazole 40 mg 40 mg BID@06,18 IV Last administered on 10/31/16 05:04; Admin Dose 40 MG; Start 10/30/16 at 13:00; Status Future Hold Sodium Chloride 1,000 ml @ 100 mls/hr Q10H IV Last administered on 11/05/16 23:56; Admin Dose 100 MLS/HR; Start 10/30/16 at 13:00 Pantoprazole/ Sodium Chloride (Protonix Iv/NS) 100 ml @ 10 mls/hr Q10H IV Last administered on 11/06/16 08:10; Admin Dose 10 MLS/HR; Start 10/31/16 at 12 :00 Ondansetron HCl (Zofran Inj) 4 mg Q6H PRN IV NAUSEA AND/OR VOMITING Last administered on 10/31/16 11:54; Admin Dose 4 MG; Start 10/31/16 at 12:00 Simethicone 80 mg 80 mg Q4 PRN PO GAS PAIN Last administered on 11/02/16 04:00 ; Admin Dose 80 MG; Start 10/31/16 at 12:00 Piperacillin Sod/ Tazobactam Sod (Zosyn 3.375gm/ 100 ml (Pmx)) 100 ml @ 200 mls /hr Q8 IVPB Last administered on 11/06/16 05:40; Admin Dose 200 MLS/HR; Start 11/01/16 at 16:30 Eye Lubricant (Artificial Tears Oph) 2 drop QID BOTH EYES Last administered on 11/06/16 08:11; Admin Dose 2 DROP; Start 11/05/16 at 21:00 Warfarin Sodium (Coumadin) 5 mg DAILY@17 PO ; Start 11/06/16 at 17:00 HANS VIRAMONTES MD Nov 06, 2016 11:47
[2016-11-06] MEDS: SOD CHLORIDE 0.9% 1,000 ML IV SCH (11:50)
--- NOTE | 2016-11-06 16:21 | CONS ---
Date/Time of Note Date/Time of Note DATE: 11/06/16 TIME: 16:19 Assessment/Plan Assessment/Plan Chief Complaint/Hosp Course IMPRESSION: 1. Abnormal electrocardiogram, assess for acute coronary syndrome. 2. Chest pain, assess for acute coronary syndrome in the setting of severe anemia.-negative troponin x 3/NL EF by echo this admission 3. History of aortic valve replacement-mechanical 4. Coagulopathy secondary to Coumadin. 5. Severe anemia. 6. Incarcerated hernia, status post repair. 7. Abdominal distention-improved 8. Hyponatremia-resolved 9. Renal failure-improved Recc: -Tele -start anti-hypertensives to improve BP control -Follow hgb closely -resume coumadin and follow INR closely for mech AVR-discussed with surgery Problems: Consultation Date/Type/Reason Admit Date/Time Oct 21, 2016 at 17:20 Initial Consult Date 11/05/16 Type of Consultation: Cardiology Reason for Consultation AVR Referring Provider: ELIZABETH STANLEY MD Exam/Review of Systems Vital Signs Vitals Vital Signs Date Time Temp Pulse Resp B/P Pulse Ox O2 Delivery O2 Flow Rate FiO2 11/06/16 15:24 98.8 90 18 134/79 99 11/06/16 08:44 2.0 11/06/16 08:44 Nasal Cannula 11/05/16 23:20 30 Intake and Output 11/05/16 11/05/16 11/06/16 15:00 23:00 07:00 Intake Total 900 ml 1560 ml 250 ml Output Total 1100 ml 1700 ml Balance 900 ml 460 ml -1450 ml Exam Review of Systems: CONSTITUTIONAL: No fevers, chills. PULMONARY: No sob CARDIOVASCULAR: No chest pain/palpitations GASTROINTESTINAL: Mild abd pain GENITOURINARY: No hematuria/dysuria. MUSCULOSKELETAL: No myagias/arthalgias. PSYCHIATRIC: The patient denies depression. NEUROLOGIC: No weakness Constitutional: alert Psych: no complaints Head: normocephalic ENMT: mucosa pink and moist Neck: jvd (9 cm water), supple Respiratory: diminished breath sounds (at bases/B) Cardiovascular: regular rate and rhythm Gastrointestinal: non-tender, other (river midline), soft Musculoskeletal: muscle tone (normal) Extremities: edema (trace) Neurological: other (No focal deficits) Results Result Diagram: 11/06/16 0541 11/05/16 0531 Results 24 hrs Laboratory Tests Test 11/06/16 05:41 11/06/16 06:49 Basophils # 0.1 Basophils % 1.1 Blood Morphology Comment Eosinophils # 0.4 Eosinophils % 4.2 Hematocrit 25.4 L Hemoglobin 8.6 L INR International Normalized Ratio 1.41 Lymphocytes # 1.2 Lymphocytes % 12.8 L Mean Corpuscular Hemoglobin 30.0 Mean Corpuscular Hemoglobin Concent 33.8 Mean Corpuscular Volume 88.7 Mean Platelet Volume 8.6 Monocytes # 0.7 Monocytes % 6.9 Neutrophils # 7.1 Neutrophils % 75.0 Nucleated Red Blood Cells # 0.0 Nucleated Red Blood Cells % 0.0 Platelet Count 250 Prothrombin Time 17.3 H Prothrombin Time Ratio 1.4 Red Blood Count 2.86 L Red Cell Distribution Width 16.1 H White Blood Count 9.5 Lab Scanned Report REFERENCE LAB Medications Medications Current Medications Magnesium Hydroxide (Milk Of Mag) 30 ml DAILY PRN PO CONSTIPATION Last administered on 10/28/16 10:45; Admin Dose 30 ML; Start 10/21/16 at 15:00 Loratadine (Claritin) 10 mg DAILY PO Last administered on 11/06/16 08:11; Admin Dose 10 MG; Start 10/21/16 at 15:00 Bisacodyl (Dulcolax Supp) 10 mg DAILY PRN [place] CONSTIPATION; Start 10/21/16 at 16 :00 Sodium Biphosphate/ Sodium Phosphate (Fleet Enema) 133 ml DAILY PRN [place] CONSTIPATION; Start 10/21/16 at 16:00 Acetaminophen/ Hydrocodone Bitart ([place] (5/325)) 2 tab Q6H PRN PO PAIN LEVEL 6 -10 Last administered on 11/06/16 10:45; Admin Dose 2 TAB; Start 10/26/16 at 23 :30 Morphine Sulfate (morphine) 2 mg Q4H PRN IV PAIN Last administered on 23:23; Admin Dose 2 MG; Start 10/29/16 at 02:00 Polyethylene Glycol (Miralax) 17 gm DAILY PRN PO CONSTIPATION Last administered on 10/29/16 19:41; Admin Dose 17 GM; Start 10/29/16 at 19:30 Pantoprazole 40 mg 40 mg BID@06,18 IV Last administered on 10/31/16 05:04; Admin Dose 40 MG; Start 10/30/16 at 13:00; Status Future Hold Sodium Chloride 1,000 ml @ 100 mls/hr Q10H IV Last administered on 11/06/16 11:50; Admin Dose 100 MLS/HR; Start 10/30/16 at 13:00 Pantoprazole/ Sodium Chloride (Protonix Iv/NS) 100 ml @ 10 mls/hr Q10H IV Last administered on 11/06/16 08:10; Admin Dose 10 MLS/HR; Start 10/31/16 at 12 :00 Ondansetron HCl (Zofran Inj) 4 mg Q6H PRN IV NAUSEA AND/OR VOMITING Last administered on 10/31/16 11:54; Admin Dose 4 MG; Start 10/31/16 at 12:00 Simethicone (Mylicon) 80 mg Q4 PRN PO GAS PAIN Last administered on 11/02/16 04:00; Admin Dose 80 MG; Start 10/31/16 at 12:00 Eye Lubricant (Artificial Tears Oph) 2 drop QID BOTH EYES Last administered on 11/06/16 12:07; Admin Dose 2 DROP; Start 11/05/16 at 21:00 Warfarin Sodium (Coumadin) 5 mg DAILY@17 PO ; Start 11/06/16 at 17:00 ADAM GILMORE Nov 06, 2016 16:21
--- NOTE | 2016-11-06 16:38 | PN ---
Date/Time of Note Date/Time of Note DATE: 11/06/16 TIME: 16:36 Assessment/Plan VTE Prophylaxis VTE Prophylaxis Intervention: SCD's Lines/Catheters [facility] Central Line Central line still needed: Yes Urinary Cath still in place: No Assessment/Plan Chief Complaint/Hosp Course ASSESSMENT AND PLAN: - s/p hypovolemic shock 2 to s/p intraabdominal bleeding, resolved. - Acute anemia 2 intraabdominal bleeding ,resolved, hold Lovenox and Coumadin. - Acute kidney injury 2 to shock, resolved. Dr. Baker is following in nephrology consultation. 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 - Incisional hernia status post laparoscopic incisional hernia repair by Dr. Moreira on 10/19. - History of aortic dissection status post repair. - Hypertension. - Hyperlipidemia - Obesity - Esophagitis per EGD, cont Protonix Further recommendations based on clinical course. Plan of care discussed with Dr. Murphy. Problems: Subjective 24 Hr Interval Summary Free Text/Dictation Patient continues to have a small amount of oozing from incision site, denies nausea vomiting, was able to work with physical therapy. Exam/Review of Systems Vital Signs Vitals Vital Signs Date Time Temp Pulse Resp B/P Pulse Ox O2 Delivery O2 Flow Rate FiO2 11/06/16 15:24 98.8 90 18 134/79 99 11/06/16 08:44 2.0 11/06/16 08:44 Nasal Cannula 11/05/16 23:20 30 Intake and Output 11/05/16 11/05/16 11/06/16 15:00 23:00 07:00 Intake Total 900 ml 1560 ml 250 ml Output Total 1100 ml 1700 ml Balance 900 ml 460 ml -1450 ml Exam GENERAL: Well-developed, obese gentleman who currently is awake. HEENT: Head is atraumatic, normocephalic. Pupils equal, round, reactive to light and accommodation. Oral mucosa is pink and moist. NECK: Supple, no cervical lymphadenopathy, no thyromegaly. CHEST: Lungs clear bilaterally. There are no rhonchi, wheezes, or rales noted. CARDIOVASCULAR: Normal S1, S2. The patient has mechanical aortic valve click. No murmurs or gallops noted. ABDOMEN: Distended soft , bowel sounds hypoactive, status post surgery. Ecchymotic area around the incision. EXTREMITIES: No edema, clubbing, cyanosis. SKIN: There is no rash or petechiae noted. The patient has a midline surgical healed scar. NEUROLOGIC: The patient is awake, alert, and oriented x3. Results Result Diagram: 11/06/16 0541 11/05/16 0531 Results 24 hrs Laboratory Tests Test 11/06/16 05:41 11/06/16 06:49 Basophils # 0.1 Basophils % 1.1 Blood Morphology Comment Eosinophils # 0.4 Eosinophils % 4.2 Hematocrit 25.4 L Hemoglobin 8.6 L INR International Normalized Ratio 1.41 Lymphocytes # 1.2 Lymphocytes % 12.8 L Mean Corpuscular Hemoglobin 30.0 Mean Corpuscular Hemoglobin Concent 33.8 Mean Corpuscular Volume 88.7 Mean Platelet Volume 8.6 Monocytes # 0.7 Monocytes % 6.9 Neutrophils # 7.1 Neutrophils % 75.0 Nucleated Red Blood Cells # 0.0 Nucleated Red Blood Cells % 0.0 Platelet Count 250 Prothrombin Time 17.3 H Prothrombin Time Ratio 1.4 Red Blood Count 2.86 L Red Cell Distribution Width 16.1 H White Blood Count 9.5 Lab Scanned Report REFERENCE LAB Medications Medications Current Medications Magnesium Hydroxide (Milk Of Mag) 30 ml DAILY PRN PO CONSTIPATION Last administered on 10/28/16 10:45; Admin Dose 30 ML; Start 10/21/16 at 15:00 Loratadine (Claritin) 10 mg DAILY PO Last administered on 11/06/16 08:11; Admin Dose 10 MG; Start 10/21/16 at 15:00 Bisacodyl (Dulcolax Supp) 10 mg DAILY PRN [place] CONSTIPATION; Start 10/21/16 at 16 :00 Sodium Biphosphate/ Sodium Phosphate (Fleet Enema) 133 ml DAILY PRN [place] CONSTIPATION; Start 10/21/16 at 16:00 Acetaminophen/ Hydrocodone Bitart ([place] (5/325)) 2 tab Q6H PRN PO PAIN LEVEL 6 -10 Last administered on 11/06/16 10:45; Admin Dose 2 TAB; Start 10/26/16 at 23 :30 Morphine Sulfate (morphine) 2 mg Q4H PRN IV PAIN Last administered on 23:23; Admin Dose 2 MG; Start 10/29/16 at 02:00 Polyethylene Glycol (Miralax) 17 gm DAILY PRN PO CONSTIPATION Last administered on 10/29/16 19:41; Admin Dose 17 GM; Start 10/29/16 at 19:30 Pantoprazole 40 mg 40 mg BID@06,18 IV Last administered on 10/31/16 05:04; Admin Dose 40 MG; Start 10/30/16 at 13:00; Status Future Hold Sodium Chloride 1,000 ml @ 100 mls/hr Q10H IV Last administered on 11/06/16 11:50; Admin Dose 100 MLS/HR; Start 10/30/16 at 13:00 Pantoprazole/ Sodium Chloride (Protonix Iv/NS) 100 ml @ 10 mls/hr Q10H IV Last administered on 11/06/16 08:10; Admin Dose 10 MLS/HR; Start 10/31/16 at 12 :00 Ondansetron HCl (Zofran Inj) 4 mg Q6H PRN IV NAUSEA AND/OR VOMITING Last administered on 10/31/16 11:54; Admin Dose 4 MG; Start 10/31/16 at 12:00 Simethicone (Mylicon) 80 mg Q4 PRN PO GAS PAIN Last administered on 11/02/16 04:00; Admin Dose 80 MG; Start 10/31/16 at 12:00 Eye Lubricant (Artificial Tears Oph) 2 drop QID BOTH EYES Last administered on 11/06/16 12:07; Admin Dose 2 DROP; Start 11/05/16 at 21:00 Warfarin Sodium (Coumadin) 5 mg DAILY@17 PO ; Start 11/06/16 at 17:00 Benazepril HCl (Lotensin) 5 mg DAILY PO ; Start 11/07/16 at 09:00 KIM DEJESUS Nov 06, 2016 16:37 KIM DEJESUS Nov 06, 2016 16:37
[2016-11-06] MEDS ORDERED: WARFARIN 5 MG TAB PO SCH (17:00)
[2016-11-06] MEDS ORDERED: WARFARIN 5 MG TAB NGT SCH (17:00)
[2016-11-07] VITALS (12 sets, daily range): BP systolic 137–171; BP diastolic 72–87; PULSE 91–99; RESP 18–24
[2016-11-07] MEDS: ALBUTEROL 0.5% (NEB) 2.5 MG/0.5 ML AMP HHN SCH ×6 (00:10→20:48)
[2016-11-07] MEDS: SOD CHLORIDE 0.9% 1,000 ML IV SCH ×4 (01:00→21:00)
[2016-11-07] MEDS: HYDROCODONE/APAP (5/325) TAB PO PRN ×3 (05:44→22:19)
[2016-11-07 06:10] LABS: BASOPHIL # 0.1 10^3/ul (0.0-0.1); BASOPHILS % 0.6 % (0.0-2.0); EOSINOPHILS # 0.4 10^3/ul (0.0-0.5); EOSINOPHILS % 4.4 % (0.0-7.0); HEMATOCRIT 26.6 % (42.0-52.0); HEMOGLOBIN 8.9 g/dl (14.0-18.0); LYMPHOCYTES # 1.3 10^3/ul (0.8-2.9); LYMPHOCYTES % 14.5 % (15.0-51.0); MEAN CORPUSCULAR HEMOGLOBIN 29.6 pg (29.0-33.0); MEAN CORPUSCULAR HGB CONC 33.2 g/dl (32.0-37.0); MEAN PLATELET VOLUME 8.3 fl (7.4-10.4); MONOCYTE # 0.7 10^3/ul (0.3-0.9); MONOCYTES % 7.6 % (0.0-11.0); NEUTROPHIL # 6.7 10^3/ul (1.6-7.5); NEUTROPHILS % 72.9 % (39.0-77.0); PLATELET COUNT 276 10^3/UL (140-440); RED BLOOD COUNT 2.99 10^6/ul (4.70-6.10); UNCORRECTED WBC 9.1 10^3/ul (4.8-10.8); WHITE BLOOD COUNT 9.1 10^3/ul (4.8-10.8)
[2016-11-07 06:20] LABS: INR 1.24; PROTIME 15.7 Sec (12.2-14.2); PT RATIO 1.2
[2016-11-07 06:26] LABS: CONDITION 1; LH ANALYZER COMMENTS 1
[2016-11-07 06:46] LABS: ALBUMIN 2.7 g/dl (3.3-4.9)
[2016-11-07 06:49] LABS: ALBUMIN/GLOBULIN RATIO 0.93; BILIRUBIN,INDIRECT 0.4 mg/dl (0-1.1); BILIRUBIN,TOTAL 0.4 mg/dl (0.2-1.3); CREATININE 0.71 mg/dl (0.61-1.24); TOTAL PROTEIN 5.6 g/dl (6.1-8.1)
[2016-11-07 06:50] LABS: CALCIUM 7.9 mg/dl (8.4-10.2)
[2016-11-07] MEDS: ARTIFICIAL TEARS 15 ML OPH BOTH EYES SCH ×4 (08:36→22:10)
[2016-11-07] MEDS: LORATADINE 10 MG TAB PO SCH (08:37)
[2016-11-07] MEDS ORDERED: BENAZEPRIL 5 MG TAB PO SCH (09:00)
--- NOTE | 2016-11-07 10:43 | CONS ---
Date/Time of Note Date/Time of Note DATE: 11/07/16 TIME: 10:38 Assessment/Plan Assessment/Plan Chief Complaint/Hosp Course IMPRESSION: 1. Abnormal electrocardiogram, assess for acute coronary syndrome. 2. Chest pain, assess for acute coronary syndrome in the setting of severe anemia.-negative troponin x 3/NL EF by echo this admission 3. History of aortic valve replacement-mechanical 4. Coagulopathy secondary to Coumadin. 5. Severe anemia. 6. Incarcerated hernia, status post repair. 7. Abdominal distention-improved 8. Hyponatremia-resolved 9. Renal failure-improved Recc: -Tele -Continue ACEI with uptitration to improve SBP -Follow hgb closely -Coumadin resumed but INR very low now will need to cover with lovenox to prevent complications with AVR and follow INR closely. Problems: Consultation Date/Type/Reason Admit Date/Time Oct 21, 2016 at 17:20 Initial Consult Date 11/05/16 Type of Consultation: Cardiology Reason for Consultation AVR Referring Provider: ELIZABETH STANLEY MD Exam/Review of Systems Vital Signs Vitals Vital Signs Date Time Temp Pulse Resp B/P Pulse Ox O2 Delivery O2 Flow Rate FiO2 11/07/16 10:19 Nasal Cannula 2.0 11/07/16 08:13 96 11/07/16 07:18 99.1 22 144/81 96 11/05/16 23:20 30 Intake and Output 11/06/16 11/06/16 11/07/16 15:00 23:00 07:00 Intake Total 10 ml 1580 ml 250 ml Output Total 1200 ml 1450 ml Balance 10 ml 380 ml -1200 ml Exam Review of Systems: CONSTITUTIONAL: No fevers, chills. PULMONARY: No sob CARDIOVASCULAR: No chest pain/palpitations GASTROINTESTINAL: No nausea/vomiting. GENITOURINARY: No hematuria/dysuria. MUSCULOSKELETAL: No myagias/arthalgias. PSYCHIATRIC: The patient denies depression. NEUROLOGIC: No weakness Constitutional: alert, oriented ENMT: mucosa pink and moist Respiratory: diminished breath sounds (at bases/B) Cardiovascular: regular rate and rhythm Gastrointestinal: non-tender, soft Musculoskeletal: muscle tone (normal) Extremities: pitting pedal edema (trace bilateral) Neurological: other (No focal deficits) Results Result Diagram: 11/07/1628 11/07/1628 Results 24 hrs Laboratory Tests Test 2/1/17 05:28 Alanine Aminotransferase (ALT/SGPT) 100 H Albumin 2.7 L Albumin/Globulin Ratio 0.93 Alkaline Phosphatase 67 Anion Gap 10 Aspartate Amino Transf (AST/SGOT) 42 Basophils # 0.1 Basophils % 0.6 Blood Morphology Comment Blood Urea Nitrogen 9 Calcium Level 7.9 L Carbon Dioxide Level 29 Chloride Level 102 Creatinine 0.71 Direct Bilirubin 0.00 Eosinophils # 0.4 Eosinophils % 4.4 Globulin 2.90 Glucose Level 84 Hematocrit 26.6 L Hemoglobin 8.9 L INR International Normalized Ratio 1.24 Indirect Bilirubin 0.4 Lymphocytes # 1.3 Lymphocytes % 14.5 L Mean Corpuscular Hemoglobin 29.6 Mean Corpuscular Hemoglobin Concent 33.2 Mean Corpuscular Volume 89.0 Mean Platelet Volume 8.3 Monocytes # 0.7 Monocytes % 7.6 Neutrophils # 6.7 Neutrophils % 72.9 Nucleated Red Blood Cells # 0.0 Nucleated Red Blood Cells % 0.0 Platelet Count 276 Potassium Level 4.0 Prothrombin Time 15.7 H Prothrombin Time Ratio 1.2 Red Blood Count 2.99 L Red Cell Distribution Width 16.0 H Sodium Level 137 Total Bilirubin 0.4 Total Protein 5.6 L White Blood Count 9.1 Medications Medications Current Medications Magnesium Hydroxide (Milk Of Mag) 30 ml DAILY PRN PO CONSTIPATION Last administered on 10/28/16 10:45; Admin Dose 30 ML; Start 10/21/16 at 15:00 Loratadine (Claritin) 10 mg DAILY PO Last administered on 11/07/16 08:37; Admin Dose 10 MG; Start 10/21/16 at 15:00 Bisacodyl (Dulcolax Supp) 10 mg DAILY PRN [place] CONSTIPATION; Start 10/21/16 at 16 :00 Sodium Biphosphate/ Sodium Phosphate (Fleet Enema) 133 ml DAILY PRN [place] CONSTIPATION; Start 10/21/16 at 16:00 Acetaminophen/ Hydrocodone Bitart ([place] (5/325)) 2 tab Q6H PRN PO PAIN LEVEL 6 -10 Last administered on 11/07/16 05:44; Admin Dose 2 TAB; Start 10/26/16 at 23: 30 Morphine Sulfate (morphine) 2 mg Q4H PRN IV PAIN Last administered on 23:23; Admin Dose 2 MG; Start 10/29/16 at 02:00 Polyethylene Glycol (Miralax) 17 gm DAILY PRN PO CONSTIPATION Last administered on 10/29/16 19:41; Admin Dose 17 GM; Start 10/29/16 at 19:30 Pantoprazole 40 mg 40 mg BID@06,18 IV Last administered on 10/31/16 05:04; Admin Dose 40 MG; Start 10/30/16 at 13:00; Status Future Hold Sodium Chloride (NS) 1,000 ml @ 100 mls/hr Q10H IV Last administered on 05:41; Admin Dose 100 MLS/HR; Start 10/30/16 at 13:00 Ondansetron HCl (Zofran Inj) 4 mg Q6H PRN IV NAUSEA AND/OR VOMITING Last administered on 10/31/16 11:54; Admin Dose 4 MG; Start 10/31/16 at 12:00 Simethicone (Mylicon) 80 mg Q4 PRN PO GAS PAIN Last administered on 11/02/16 04:00; Admin Dose 80 MG; Start 10/31/16 at 12:00 Eye Lubricant (Artificial Tears Oph) 2 drop QID BOTH EYES Last administered on 11/07/16 08:36; Admin Dose 2 DROP; Start 11/05/16 at 21:00 Benazepril HCl (Lotensin) 5 mg DAILY PO Last administered on 11/07/16 08:37; Admin Dose 5 MG; Start 11/07/16 at 09:00 ADAM GILMORE Nov 07, 2016 10:43
[2016-11-07] MEDS ORDERED: PANTOPRAZOLE 40 MG INJ IV SCH (11:30)
--- NOTE | 2016-11-07 12:26 | PN ---
Date/Time of Note Date/Time of Note DATE: 11/07/16 TIME: 12:16 Assessment/Plan VTE Prophylaxis VTE Prophylaxis Intervention: SCD's Lines/Catheters [facility] Central Line Central line still needed: Yes Urinary Cath still in place: No Assessment/Plan Chief Complaint/Hosp Course ASSESSMENT AND PLAN: - s/p hypovolemic shock 2 to s/p intraabdominal bleeding, resolved. - Acute anemia 2 intraabdominal bleeding ,resolved, hold Lovenox and Coumadin. - Acute kidney injury 2 to shock, resolved. Dr. Baker is following in nephrology consultation. 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 Discussed with Dr. Greenberg. Continue to monitor PT/INR and CBC. - Incisional hernia status post laparoscopic incisional hernia repair by Dr. Moreira on 10/19. - History of aortic dissection status post repair. - Hypertension. - Hyperlipidemia - Obesity - Esophagitis per EGD, cont Protonix Further recommendations based on clinical course. Plan of care discussed with Dr. Murphy. Problems: Subjective 24 Hr Interval Summary Free Text/Dictation Patient is able to ambulate in the zarate way, denies any nausea vomiting, tolerates diet well. Exam/Review of Systems Vital Signs Vitals Vital Signs Date Time Temp Pulse Resp B/P Pulse Ox O2 Delivery O2 Flow Rate FiO2 11/07/16 12:11 93 11/07/16 11:33 98.1 18 137/72 96 11/07/16 10:19 Nasal Cannula 2.0 11/05/16 23:20 30 Intake and Output 11/06/16 11/06/16 11/07/16 15:00 23:00 07:00 Intake Total 10 ml 1580 ml 250 ml Output Total 1200 ml 1450 ml Balance 10 ml 380 ml -1200 ml Exam GENERAL: Well-developed, obese gentleman who currently is awake. HEENT: Head is atraumatic, normocephalic. Pupils equal, round, reactive to light and accommodation. Oral mucosa is pink and moist. NECK: Supple, no cervical lymphadenopathy, no thyromegaly. CHEST: Lungs clear bilaterally. There are no rhonchi, wheezes, or rales noted. CARDIOVASCULAR: Normal S1, S2. The patient has mechanical aortic valve click. No murmurs or gallops noted. ABDOMEN: Distended soft , bowel sounds hypoactive, status post surgery. Ecchymotic area around the incision. EXTREMITIES: No edema, clubbing, cyanosis. SKIN: There is no rash or petechiae noted. The patient has a midline surgical healed scar. NEUROLOGIC: The patient is awake, alert, and oriented x3. Results Result Diagram: 11/07/16 0528 11/07/16 0528 Results 24 hrs Laboratory Tests Test 11/07/16 05:28 Alanine Aminotransferase (ALT/SGPT) 100 H Albumin 2.7 L Albumin/Globulin Ratio 0.93 Alkaline Phosphatase 67 Anion Gap 10 Aspartate Amino Transf (AST/SGOT) 42 Basophils # 0.1 Basophils % 0.6 Blood Morphology Comment Blood Urea Nitrogen 9 Calcium Level 7.9 L Carbon Dioxide Level 29 Chloride Level 102 Creatinine 0.71 Direct Bilirubin 0.00 Eosinophils # 0.4 Eosinophils % 4.4 Globulin 2.90 Glucose Level 84 Hematocrit 26.6 L Hemoglobin 8.9 L INR International Normalized Ratio 1.24 Indirect Bilirubin 0.4 Lymphocytes # 1.3 Lymphocytes % 14.5 L Mean Corpuscular Hemoglobin 29.6 Mean Corpuscular Hemoglobin Concent 33.2 Mean Corpuscular Volume 89.0 Mean Platelet Volume 8.3 Monocytes # 0.7 Monocytes % 7.6 Neutrophils # 6.7 Neutrophils % 72.9 Nucleated Red Blood Cells # 0.0 Nucleated Red Blood Cells % 0.0 Platelet Count 276 Potassium Level 4.0 Prothrombin Time 15.7 H Prothrombin Time Ratio 1.2 Red Blood Count 2.99 L Red Cell Distribution Width 16.0 H Sodium Level 137 Total Bilirubin 0.4 Total Protein 5.6 L White Blood Count 9.1 Medications Medications Current Medications Magnesium Hydroxide (Milk Of Mag) 30 ml DAILY PRN PO CONSTIPATION Last administered on 10/28/16 10:45; Admin Dose 30 ML; Start 10/21/16 at 15:00 Loratadine (Claritin) 10 mg DAILY PO Last administered on 11/07/16 08:37; Admin Dose 10 MG; Start 10/21/16 at 15:00 Bisacodyl (Dulcolax Supp) 10 mg DAILY PRN [place]STIPATION; Start 10/21/16 at 16 :00 Sodium Biphosphate/ Sodium Phosphate (Fleet Enema) 133 ml DAILY PRN [place] CONSTIPATION; Start 10/21/16 at 16:00 Acetaminophen/ Hydrocodone Bitart ([place] (5/325)) 2 tab Q6H PRN PO PAIN LEVEL 6 -10 Last administered on 11/07/16 05:44; Admin Dose 2 TAB; Start 10/26/16 at 23: 30 Morphine Sulfate (morphine) 2 mg Q4H PRN IV PAIN Last administered on 23:23; Admin Dose 2 MG; Start 10/29/16 at 02:00 Polyethylene Glycol (Miralax) 17 gm DAILY PRN PO CONSTIPATION Last administered on 10/29/16 19:41; Admin Dose 17 GM; Start 10/29/16 at 19:30 Pantoprazole 40 mg 40 mg BID@06,18 IV Last administered on 10/31/16 05:04; Admin Dose 40 MG; Start 10/30/16 at 13:00; Status Future hold Sodium Chloride (NS) 1,000 ml @ 100 mls/hr Q10H IV Last administered on 05:41; Admin Dose 100 MLS/HR; Start 10/30/16 at 13:00 Ondansetron HCl (Zofran Inj) 4 mg Q6H PRN IV NAUSEA AND/OR VOMITING Last administered on 10/31/16 11:54; Admin Dose 4 MG; Start 10/31/16 at 12:00 Simethicone (Mylicon) 80 mg Q4 PRN PO GAS PAIN Last administered on 11/02/16 04:00; Admin Dose 80 MG; Start 10/31/16 at 12:00 Eye Lubricant (Artificial Tears Oph) 2 drop QID BOTH EYES Last administered on 11/07/16 12:03; Admin Dose 2 DROP; Start 11/05/16 at 21:00 Benazepril HCl (Lotensin) 10 mg DAILY PO ; Start 11/08/16 at 09:00 Warfarin Sodium (Coumadin) 5 mg DAILY@17 PO ; Start 11/07/16 at 17:00 Fondaparinux (Arixtra) 10 mg DAILY [place] ; Start 11/07/16 at 12:00 Pantoprazole (Protonix Iv) 40 mg NOW IV Last administered on 11/07/16 12:03; Admin Dose 40 MG; Start 11/07/16 at 11:30; Stop 11/07/16 at 16:00 KIM DEJESUS 1, 2017 12:26
[2016-11-07] MEDS: FONDAPARINUX 2.5 MG SYG SC SCH (13:58)
[2016-11-07] MEDS: WARFARIN 5 MG TAB PO SCH (17:29)
[2016-11-07] MEDS: PANTOPRAZOLE 40 MG INJ IV SCH (17:29)
[2016-11-08] VITALS (12 sets, daily range): BP systolic 131–190; BP diastolic 71–97; PULSE 82–96; RESP 18–20
[2016-11-08] MEDS: ALBUTEROL 0.5% (NEB) 2.5 MG/0.5 ML AMP HHN SCH ×6 (02:30→20:49)
[2016-11-08] MEDS: SOD CHLORIDE 0.9% 1,000 ML IV SCH ×3 (02:45→09:26)
[2016-11-08] MEDS: PANTOPRAZOLE 40 MG INJ IV SCH ×2 (06:19→17:19)
[2016-11-08 07:00] LABS: INR 1.16; PROTIME 14.8 Sec (12.2-14.2); PT RATIO 1.2
[2016-11-08 07:14] LABS: BASOPHIL # 0.1 10^3/ul (0.0-0.1); EOSINOPHILS # 0.3 10^3/ul (0.0-0.5); EOSINOPHILS % 3.7 % (0.0-7.0); HEMOGLOBIN 9.3 g/dl (14.0-18.0); LYMPHOCYTES # 1.8 10^3/ul (0.8-2.9); MEAN CORPUSCULAR HEMOGLOBIN 29.3 pg (29.0-33.0); MEAN CORPUSCULAR HGB CONC 33.2 g/dl (32.0-37.0); MEAN CORPUSCULAR VOLUME 88.3 fl (82.0-101.0); MEAN PLATELET VOLUME 8.8 fl (7.4-10.4); MONOCYTE # 0.6 10^3/ul (0.3-0.9); NEUTROPHIL # 6.5 10^3/ul (1.6-7.5); NEUTROPHILS % 70.3 % (39.0-77.0); PLATELET COUNT 305 10^3/UL (140-440); RED BLOOD COUNT 3.18 10^6/ul (4.70-6.10); RED CELL DISTRIBUTION WIDTH 15.9 % (11.5-14.5); UNCORRECTED WBC 9.3 10^3/ul (4.8-10.8); WHITE BLOOD COUNT 9.3 10^3/ul (4.8-10.8)
[2016-11-08 07:25] LABS: CONDITION 1; LH ANALYZER COMMENTS 1
[2016-11-08] MEDS ORDERED: BENAZEPRIL 5 MG TAB PO SCH (09:00)
[2016-11-08] MEDS: ARTIFICIAL TEARS 15 ML OPH BOTH EYES SCH ×4 (09:25→21:20)
[2016-11-08] MEDS: LORATADINE 10 MG TAB PO SCH (09:25)
[2016-11-08] MEDS: FONDAPARINUX 2.5 MG SYG SC SCH (09:34)
--- NOTE | 2016-11-08 10:04 | PN ---
Date/Time of Note Date/Time of Note DATE: 11/08/16 TIME: 10:00 Assessment/Plan VTE Prophylaxis VTE Prophylaxis Intervention: SCD's Lines/Catheters IV Catheter Type (from [facility]rs): Central Line Central line still needed: Yes Urinary Cath still in place: No Assessment/Plan Assessment/Plan - s/p hypovolemic shock 2 to s/p intraabdominal bleeding, resolved. - Acute anemia 2 intraabdominal bleeding ,resolved, hold Lovenox and Coumadin. - Acute kidney injury 2 to shock, resolved. Dr. Baker is following in nephrology consultation. 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 Discussed with Dr. Greenberg. Continue to monitor PT/INR and CBC. - Incisional hernia status post laparoscopic incisional hernia repair by Dr. Moreira on 10/19. - History of aortic dissection status post repair. - Hypertension. - Hyperlipidemia - Obesity - Esophagitis per EGD, cont Protonix Further recommendations based on clinical course. Plan of care discussed with Dr. Murphy. Subjective 24 Hr Interval Summary Constitutional: improved Eyes: no complaints ENT: no complaints Respiratory: no complaints Cardiovascular: no complaints Gastrointestinal: other (Inscional pain at times. none at present) Genitourinary: no complaints Musculoskeletal: no complaints Skin: no complaints Neurologic: no complaints Endocrine: no complaints Lymphatic: no complaints Psychological: no complaints Immunologic: no complaints Exam/Review of Systems Vital Signs Vitals Vital Signs Date Time Temp Pulse Resp B/P Pulse Ox O2 Delivery O2 Flow Rate FiO2 11/08/16 09:49 95 21 11/08/16 09:48 92 20 11/08/16 07:58 98.2 178/96 11/08/16 05:17 2.0 11/08/16 05:17 Nasal Cannula Intake and Output 11/07/16 11/07/16 11/08/16 15:00 23:00 07:00 Intake Total 880 ml 820 ml Output Total 1300 ml 2250 ml Balance -420 ml -1430 ml Exam Constitutional: alert, obese, oriented, well developed Psych: nl mood/affect Head: atraumatic Eyes: EOMI, nl sclera ENMT: nl external ears & nose Neck: non-tender Respiratory: clear to auscultation Cardiovascular: nl pulses Gastrointestinal: non-tender, other (Incisional hernia status post laparoscopic incisional hernia repair by Dr. Moreira on 10/19. DDI.), soft Musculoskeletal: nl extremities to inspection Extremities: normal pulses Neurological: nl mental status, nl speech Skin: other Lymph: nontender Results Result Diagram: 11/08/16 0620 11/07/16 0528 Results 24 hrs Laboratory Tests Test 11/08/16 06:20 Basophils # 0.1 Basophils % 1.0 Blood Morphology Comment Eosinophils # 0.3 Eosinophils % 3.7 Hematocrit 28.0 L Hemoglobin 9.3 L INR International Normalized Ratio 1.16 Lymphocytes # 1.8 Lymphocytes % 19.0 Mean Corpuscular Hemoglobin 29.3 Mean Corpuscular Hemoglobin Concent 33.2 Mean Corpuscular Volume 88.3 Mean Platelet Volume 8.8 Monocytes # 0.6 Monocytes % 6.0 Neutrophils # 6.5 Neutrophils % 70.3 Nucleated Red Blood Cells # 0.0 Nucleated Red Blood Cells % 0.0 Platelet Count 305 Prothrombin Time 14.8 H Prothrombin Time Ratio 1.2 Red Blood Count 3.18 L Red Cell Distribution Width 15.9 H White Blood Count 9.3 Medications Medications Current Medications Magnesium Hydroxide (Milk Of Mag) 30 ml DAILY PRN PO CONSTIPATION Last administered on 10/28/16 10:45; Admin Dose 30 ML; Start 10/21/16 at 15:00 Loratadine (Claritin) 10 mg DAILY PO Last administered on 11/08/16 09:25; Admin Dose 10 MG; Start 10/21/16 at 15:00 Bisacodyl (Dulcolax Supp) 10 mg DAILY PRN [place] CONSTIPATION; Start 10/21/16 at 16 :00 Sodium Biphosphate/ Sodium Phosphate (Fleet Enema) 133 ml DAILY PRN [place] CONSTIPATION; Start 10/21/16 at 16:00 Acetaminophen/ Hydrocodone Bitart ([place] (5/325)) 2 tab Q6H PRN PO PAIN LEVEL 6 -10 Last administered on 11/07/16 22:19; Admin Dose 2 TAB; Start 10/26/16 at 23: 30 Morphine Sulfate (morphine) 2 mg Q4H PRN IV PAIN Last administered on 23:23; Admin Dose 2 MG; Start 10/29/16 at 02:00 Polyethylene Glycol (Miralax) 17 gm DAILY PRN PO CONSTIPATION Last administered on 10/29/16 19:41; Admin Dose 17 GM; Start 10/29/16 at 19:30 Pantoprazole 40 mg 40 mg BID@06,18 IV Last administered on 11/08/16 06:19; Admin Dose 40 MG; Start 10/30/16 at 13:00; Status Future hold Sodium Chloride (NS) 1,000 ml @ 100 mls/hr Q10H IV Last administered on 09:26; Admin Dose 100 MLS/HR; Start 10/30/16 at 13:00 Ondansetron HCl (Zofran Inj) 4 mg Q6H PRN IV NAUSEA AND/OR VOMITING Last administered on 10/31/16 11:54; Admin Dose 4 MG; Start 10/31/16 at 12:00 Simethicone (Mylicon) 80 mg Q4 PRN PO GAS PAIN Last administered on 11/07/16 22 :19; Admin Dose 80 MG; Start 10/31/16 at 12:00 Eye Lubricant (Artificial Tears Oph) 2 drop QID BOTH EYES Last administered on 11/08/16 09:25; Admin Dose 2 DROP; Start 11/05/16 at 21:00 Benazepril HCl (Lotensin) 10 mg DAILY PO Last administered on 11/08/16 09:26; Admin Dose 10 MG; Start 11/08/16 at 09:00 Warfarin Sodium (Coumadin) 5 mg DAILY@17 PO Last administered on 11/07/16 17:29 ; Admin Dose 5 MG; Start 11/07/16 at 17:00 Fondaparinux (Arixtra) 10 mg DAILY SC Last administered on 11/08/16 09:34; Admin Dose 10 MG; Start 11/07/16 at 12:00 NIKO ANSARI Nov 08, 2016 10:04
[2016-11-08] MEDS: HYDROCODONE/APAP (5/325) TAB PO PRN ×2 (12:20→21:20)
--- NOTE | 2016-11-08 12:25 | CONS ---
Date/Time of Note Date/Time of Note DATE: 11/08/16 TIME: 12:23 Assessment/Plan Assessment/Plan Chief Complaint/Hosp Course IMPRESSION: 1. Abnormal electrocardiogram, assess for acute coronary syndrome. 2. Chest pain, assess for acute coronary syndrome in the setting of severe anemia.-negative troponin x 3/NL EF by echo this admission 3. History of aortic valve replacement-mechanical 4. Coagulopathy secondary to Coumadin. 5. Severe anemia. 6. Incarcerated hernia, status post repair. 7. Abdominal distention-improved 8. Hyponatremia-resolved 9. Renal failure-improved Recc: -Tele -Continue ACEI with uptitration to improve SBP -Follow hgb closely -Coumadin resumed but INR very low and thus will continue arixtra(given heparin allergy) until able to take INR within range Problems: Consultation Date/Type/Reason Admit Date/Time Oct 21, 2016 at 17:20 Initial Consult Date 11/05/16 Type of Consultation: Cardiology Reason for Consultation [facility] Referring Provider: ELIZABETH STANLEY MD Exam/Review of Systems Vital Signs Vitals Vital Signs Date Time Temp Pulse Resp B/P Pulse Ox O2 Delivery O2 Flow Rate FiO2 11/08/16 09:49 95 21 11/08/16 09:48 92 20 11/08/16 07:58 98.2 178/96 11/08/16 05:17 2.0 11/08/16 05:17 Nasal Cannula Intake and Output 11/07/16 11/07/16 11/08/16 15:00 23:00 07:00 Intake Total 880 ml 820 ml Output Total 1300 ml 2250 ml Balance -420 ml -1430 ml Exam Review of Systems: CONSTITUTIONAL: No fevers, chills. PULMONARY: No sob CARDIOVASCULAR: No chest pain/palpitations GASTROINTESTINAL: Mild abd pain GENITOURINARY: No hematuria/dysuria. MUSCULOSKELETAL: No myagias/arthalgias. PSYCHIATRIC: The patient denies depression. NEUROLOGIC: No weakness Constitutional: alert, oriented Psych: no complaints Head: normocephalic ENMT: mucosa pink and moist Neck: jvd (9 cm water), supple Respiratory: diminished breath sounds (at bases/B) Cardiovascular: regular rate and rhythm Gastrointestinal: non-tender, soft Musculoskeletal: muscle tone (normal) Extremities: edema (trace) Neurological: other (No focal deficits) Results Result Diagram: 11/08/16 0620 11/07/16 0528 Results 24 hrs Laboratory Tests Test 11/08/16 06:20 Basophils # 0.1 Basophils % 1.0 Blood Morphology Comment Eosinophils # 0.3 Eosinophils % 3.7 Hematocrit 28.0 L Hemoglobin 9.3 L INR International Normalized Ratio 1.16 Lymphocytes # 1.8 Lymphocytes % 19.0 Mean Corpuscular Hemoglobin 29.3 Mean Corpuscular Hemoglobin Concent 33.2 Mean Corpuscular Volume 88.3 Mean Platelet Volume 8.8 Monocytes # 0.6 Monocytes % 6.0 Neutrophils # 6.5 Neutrophils % 70.3 Nucleated Red Blood Cells # 0.0 Nucleated Red Blood Cells % 0.0 Platelet Count 305 Prothrombin Time 14.8 H Prothrombin Time Ratio 1.2 Red Blood Count 3.18 L Red Cell Distribution Width 15.9 H White Blood Count 9.3 Medications Medications Current Medications Magnesium Hydroxide (Milk Of Mag) 30 ml DAILY PRN PO CONSTIPATION Last administered on 10/28/16 10:45; Admin Dose 30 ML; Start 10/21/16 at 15:00 Loratadine (Claritin) 10 mg DAILY PO Last administered on 11/08/16 09:25; Admin Dose 10 MG; Start 10/21/16 at 15:00 Bisacodyl (Dulcolax Supp) 10 mg DAILY PRN [place] CONSTIPATION; Start 10/21/16 at 16 :00 Sodium Biphosphate/ Sodium Phosphate (Fleet Enema) 133 ml DAILY PRN [place] CONSTIPATION; Start 10/21/16 at 16:00 Acetaminophen/ Hydrocodone Bitart ([place] (5/325)) 2 tab Q6H PRN PO PAIN LEVEL 6 -10 Last administered on 11/08/16 12:20; Admin Dose 2 TAB; Start 10/26/16 at 23: 30 Morphine Sulfate (morphine) 2 mg Q4H PRN IV PAIN Last administered on 23:23; Admin Dose 2 MG; Start 10/29/16 at 02:00 Polyethylene Glycol (Miralax) 17 gm DAILY PRN PO CONSTIPATION Last administered on 10/29/16 19:41; Admin Dose 17 GM; Start 10/29/16 at 19:30 Pantoprazole 40 mg 40 mg BID@,18 IV Last administered on 11/08/16 06:19; Admin Dose 40 MG; Start 10/30/16 at 13:00; Status Future hold Sodium Chloride (NS) 1,000 ml @ 100 mls/hr Q10H IV Last administered on 09:26; Admin Dose 100 MLS/HR; Start 10/30/16 at 13:00 Ondansetron HCl (Zofran Inj) 4 mg Q6H PRN IV NAUSEA AND/OR VOMITING Last administered on 10/31/16 11:54; Admin Dose 4 MG; Start 10/31/16 at 12:00 Simethicone (Mylicon) 80 mg Q4 PRN PO GAS PAIN Last administered on 11/07/16 22 :19; Admin Dose 80 MG; Start 10/31/16 at 12:00 Eye Lubricant (Artificial Tears Oph) 2 drop QID BOTH EYES Last administered on 11/08/16 12:20; Admin Dose 2 DROP; Start 11/05/16 at 21:00 Benazepril HCl (Lotensin) 10 mg DAILY PO Last administered on 11/08/16 09:26; Admin Dose 10 MG; Start 11/08/16 at 09:00 Warfarin Sodium (Coumadin) 5 mg DAILY@17 PO Last administered on 11/07/16 17:29 ; Admin Dose 5 MG; Start 11/07/16 at 17:00 Fondaparinux (Arixtra) 10 mg DAILY SC Last administered on 11/08/16 09:34; Admin Dose 10 MG; Start 11/07/16 at 12:00 ADAM GILMORE Nov 08, 2016 12:25
[2016-11-08] MEDS: WARFARIN 5 MG TAB PO SCH (17:19)
[2016-11-09] VITALS (12 sets, daily range): BP systolic 147–177; BP diastolic 80–108; PULSE 83–95; RESP 18–20
[2016-11-09] MEDS: ALBUTEROL 0.5% (NEB) 2.5 MG/0.5 ML AMP HHN SCH ×6 (01:14→19:53)
[2016-11-09] MEDS: SOD CHLORIDE 0.9% 1,000 ML IV SCH ×3 (04:31→23:00)
[2016-11-09] MEDS: PANTOPRAZOLE 40 MG INJ IV SCH ×2 (06:05→17:24)
[2016-11-09] MEDS: HYDROCODONE/APAP (5/325) TAB PO PRN ×4 (06:06→20:25)
[2016-11-09 06:58] LABS: BASOPHIL # 0.2 10^3/ul (0.0-0.1); BASOPHILS % 2.4 % (0.0-2.0); EOSINOPHILS # 0.4 10^3/ul (0.0-0.5); EOSINOPHILS % 4.5 % (0.0-7.0); HEMATOCRIT 26.9 % (42.0-52.0); LYMPHOCYTES # 1.5 10^3/ul (0.8-2.9); LYMPHOCYTES % 16.8 % (15.0-51.0); MEAN CORPUSCULAR HEMOGLOBIN 29.5 pg (29.0-33.0); MEAN CORPUSCULAR HGB CONC 33.4 g/dl (32.0-37.0); MEAN CORPUSCULAR VOLUME 88.1 fl (82.0-101.0); MEAN PLATELET VOLUME 8.7 fl (7.4-10.4); MONOCYTE # 0.6 10^3/ul (0.3-0.9); MONOCYTES % 6.4 % (0.0-11.0); NEUTROPHIL # 6.4 10^3/ul (1.6-7.5); NEUTROPHILS % 69.9 % (39.0-77.0); PLATELET COUNT 328 10^3/UL (140-440); RED BLOOD COUNT 3.05 10^6/ul (4.70-6.10); RED CELL DISTRIBUTION WIDTH 15.9 % (11.5-14.5); UNCORRECTED WBC 9.2 10^3/ul (4.8-10.8); WHITE BLOOD COUNT 9.2 10^3/ul (4.8-10.8)
[2016-11-09 07:02] LABS: INR 1.23; PROTIME 15.6 Sec (12.2-14.2); PT RATIO 1.2
[2016-11-09 07:07] LABS: POTASSIUM 3.9 mmol/L (3.5-5.1)
[2016-11-09 07:09] LABS: CREATININE 0.78 mg/dl (0.61-1.24)
[2016-11-09 07:10] LABS: CALCIUM 8.2 mg/dl (8.4-10.2)
[2016-11-09 08:17] LABS: CONDITION 1; LH ANALYZER COMMENTS 1
[2016-11-09] MEDS ORDERED: BENAZEPRIL 20 MG TAB PO SCH (09:00)
[2016-11-09] MEDS: LORATADINE 10 MG TAB PO SCH (10:02)
[2016-11-09] MEDS: ARTIFICIAL TEARS 15 ML OPH BOTH EYES SCH ×4 (10:03→20:26)
--- NOTE | 2016-11-09 12:18 | CONS ---
Date/Time of Note Date/Time of Note DATE: 11/09/16 TIME: 12:14 Assessment/Plan Assessment/Plan Chief Complaint/Hosp Course IMPRESSION: 1. Abnormal electrocardiogram, assess for acute coronary syndrome. 2. Chest pain, assess for acute coronary syndrome in the setting of severe anemia.-negative troponin x 3/NL EF by echo this admission 3. History of aortic valve replacement-mechanical 4. Coagulopathy secondary to Coumadin. 5. Severe anemia. 6. Incarcerated hernia, status post repair. 7. Abdominal distention-improved 8. Hyponatremia-resolved 9. Renal failure-improved Recc: -Tele -Continue ACEI with uptitration to improve SBP -Follow hgb closely -Increase coumadin and follow INR -Continue arixtra until INR therapeutic -Dose lasix and follow volume status closely - Problems: Consultation Date/Type/Reason Admit Date/Time Oct 21, 2016 at 17:20 Initial Consult Date 11/05/16 Type of Consultation: Cardiology Reason for Consultation AVR Referring Provider: ELIZABETH STANLEY MD Exam/Review of Systems Vital Signs Vitals Vital Signs Date Time Temp Pulse Resp B/P Pulse Ox O2 Delivery O2 Flow Rate FiO2 11/09/16 11:23 98.4 96 18 147/80 96 11/09/16 09:33 21 11/08/16 05:17 2.0 11/08/16 05:17 Nasal Cannula Intake and Output 11/08/16 11/08/16 11/09/16 15:00 23:00 07:00 Intake Total 2000 ml 600 ml Output Total 1600 ml 2100 ml Balance 400 ml -1500 ml Exam Review of Systems: CONSTITUTIONAL: No fevers, chills. PULMONARY: No sob CARDIOVASCULAR: No chest pain/palpitations GASTROINTESTINAL: mild abd pain GENITOURINARY: No hematuria/dysuria. MUSCULOSKELETAL: No myagias/arthalgias. PSYCHIATRIC: The patient denies depression. NEUROLOGIC: No weakness Constitutional: alert Psych: no complaints Head: normocephalic ENMT: mucosa pink and moist Neck: jvd (9 cm water), supple Respiratory: diminished breath sounds (at bases/B) Cardiovascular: regular rate and rhythm Gastrointestinal: non-tender, soft Musculoskeletal: muscle tone (normal) Extremities: edema (trace bilateral) Neurological: other (No focal deficits) Results Result Diagram: 11/09/16 0615 11/09/16 0615 Results 24 hrs Laboratory Tests Test 11/09/16 06:15 Anion Gap 10 Basophils # 0.2 H Basophils % 2.4 H Blood Morphology Comment Blood Urea Nitrogen 9 Calcium Level 8.2 L Carbon Dioxide Level 29 Chloride Level 103 Creatinine 0.78 Eosinophils # 0.4 Eosinophils % 4.5 Glucose Level 85 Hematocrit 26.9 L Hemoglobin 9.0 L INR International Normalized Ratio 1.23 Lymphocytes # 1.5 Lymphocytes % 16.8 Mean Corpuscular Hemoglobin 29.5 Mean Corpuscular Hemoglobin Concent 33.4 Mean Corpuscular Volume 88.1 Mean Platelet Volume 8.7 Monocytes # 0.6 Monocytes % 6.4 Neutrophils # 6.4 Neutrophils % 69.9 Nucleated Red Blood Cells # 0.0 Nucleated Red Blood Cells % 0.0 Platelet Count 328 Potassium Level 3.9 Prothrombin Time 15.6 H Prothrombin Time Ratio 1.2 Red Blood Count 3.05 L Red Cell Distribution Width 15.9 H Sodium Level 138 White Blood Count 9.2 Medications Medications Current Medications Magnesium Hydroxide (Milk Of Mag) 30 ml DAILY PRN PO CONSTIPATION Last administered on 10/28/16 10:45; Admin Dose 30 ML; Start 10/21/16 at 15:00 Loratadine (Claritin) 10 mg DAILY PO Last administered on 11/09/16 10:02; Admin Dose 10 MG; Start 10/21/16 at 15:00 Bisacodyl (Dulcolax Supp) 10 mg DAILY PRN [place] CONSTIPATION; Start 10/21/16 at 16 :00 Sodium Biphosphate/ Sodium Phosphate (Fleet Enema) 133 ml DAILY PRN [place] CONSTIPATION; Start 10/21/16 at 16:00 Acetaminophen/ Hydrocodone Bitart ([place] (5/325)) 2 tab Q6H PRN PO PAIN LEVEL 6 -10 Last administered on 11/09/16 10:01; Admin Dose 2 TAB; Start 10/26/16 at 23: 30 Morphine Sulfate (morphine) 2 mg Q4H PRN IV PAIN Last administered on 23:23; Admin Dose 2 MG; Start 10/29/16 at 02:00 Polyethylene Glycol (Miralax) 17 gm DAILY PRN PO CONSTIPATION Last administered on 10/29/16 19:41; Admin Dose 17 GM; Start 10/29/16 at 19:30 Pantoprazole 40 mg 40 mg BID@06,18 IV Last administered on 11/09/16 06:05; Admin Dose 40 MG; Start 10/30/16 at 13:00; Status Future hold Sodium Chloride (NS) 1,000 ml @ 100 mls/hr Q10H IV Last administered on 10:02; Admin Dose 100 MLS/HR; Start 10/30/16 at 13:00 Ondansetron HCl (Zofran Inj) 4 mg Q6H PRN IV NAUSEA AND/OR VOMITING Last administered on 10/31/16 11:54; Admin Dose 4 MG; Start 10/31/16 at 12:00 Simethicone (Mylicon) 80 mg Q4 PRN PO GAS PAIN Last administered on 11/07/16 22 :19; Admin Dose 80 MG; Start 10/31/16 at 12:00 Eye Lubricant (Artificial Tears Oph) 2 drop QID BOTH EYES Last administered on 11/09/16 10:03; Admin Dose 2 DROP; Start 11/05/16 at 21:00 Warfarin Sodium (Coumadin) 5 mg DAILY@17 PO Last administered on 11/08/16 17:19 ; Admin Dose 5 MG; Start 11/07/16 at 17:00 Fondaparinux (Arixtra) 10 mg DAILY SC Last administered on 11/08/16 09:34; Admin Dose 10 MG; Start 11/07/16 at 12:00 Benazepril HCl (Lotensin) 20 mg DAILY PO Last administered on 11/09/16 10:02; Admin Dose 20 MG; Start 11/09/16 at 09:00 ADAM GILMORE Nov 09, 2016 12:18
--- NOTE | 2016-11-09 17:05 | PN ---
Date/Time of Note Date/Time of Note DATE: 11/09/16 TIME: 17:04 Assessment/Plan VTE Prophylaxis VTE Prophylaxis Intervention: SCD's Lines/Catheters [facility] Central Line Central line still needed: Yes Urinary Cath still in place: No Assessment/Plan Chief Complaint/Hosp Course ASSESSMENT AND PLAN: - s/p hypovolemic shock 2 to s/p intraabdominal bleeding, resolved. - Acute anemia 2 intraabdominal bleeding ,resolved. - Acute kidney injury 2 to shock, resolved. Dr. Baker is following in nephrology consultation. 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 Discussed with Dr. Greenberg. Continue to monitor PT/INR and CBC. - Incisional hernia status post laparoscopic incisional hernia repair by Dr. Moreira on 10/19. - History of aortic dissection status post repair. - Hypertension. - Hyperlipidemia - Obesity - Esophagitis per EGD, cont Protonix Further recommendations based on clinical course. Plan of care discussed with Dr. Murphy. Problems: Subjective 24 Hr Interval Summary Free Text/Dictation No acute events ,no incisional bleeding, SR on tele. Exam/Review of Systems Vital Signs Vitals Vital Signs Date Time Temp Pulse Resp B/P Pulse Ox O2 Delivery O2 Flow Rate FiO2 11/09/16 16:45 87 11/09/16 15:01 98.2 20 165/84 98 11/09/16 13:59 21 11/08/16 05:17 2.0 11/08/16 05:17 Nasal Cannula Intake and Output 11/08/16 11/08/16 11/09/16 14:59 22:59 06:59 Intake Total 2000 ml 600 ml Output Total 1600 ml 2100 ml Balance 400 ml -1500 ml Exam GENERAL: Well-developed, obese gentleman who currently is awake. HEENT: Head is atraumatic, normocephalic. Pupils equal, round, reactive to light and accommodation. Oral mucosa is pink and moist. NECK: Supple, no cervical lymphadenopathy, no thyromegaly. CHEST: Lungs clear bilaterally. There are no rhonchi, wheezes, or rales noted. CARDIOVASCULAR: Normal S1, S2. The patient has mechanical aortic valve click. No murmurs or gallops noted. ABDOMEN: Distended soft , bowel sounds hypoactive, status post surgery. Ecchymotic area around the incision. EXTREMITIES: No edema, clubbing, cyanosis. SKIN: There is no rash or petechiae noted. The patient has a midline surgical healed scar. NEUROLOGIC: The patient is awake, alert, and oriented x3. Results Result Diagram: 11/09/16 0615 11/09/16 0615 Results 24 hrs Laboratory Tests Test 11/09/16 06:15 Anion Gap 10 Basophils # 0.2 H Basophils % 2.4 H Blood Morphology Comment Blood Urea Nitrogen 9 Calcium Level 8.2 L Carbon Dioxide Level 29 Chloride Level 103 Creatinine 0.78 Eosinophils # 0.4 Eosinophils % 4.5 Glucose Level 85 Hematocrit 26.9 L Hemoglobin 9.0 L INR International Normalized Ratio 1.23 Lymphocytes # 1.5 Lymphocytes % 16.8 Mean Corpuscular Hemoglobin 29.5 Mean Corpuscular Hemoglobin Concent 33.4 Mean Corpuscular Volume 88.1 Mean Platelet Volume 8.7 Monocytes # 0.6 Monocytes % 6.4 Neutrophils # 6.4 Neutrophils % 69.9 Nucleated Red Blood Cells # 0.0 Nucleated Red Blood Cells % 0.0 Platelet Count 328 Potassium Level 3.9 Prothrombin Time 15.6 H Prothrombin Time Ratio 1.2 Red Blood Count 3.05 L Red Cell Distribution Width 15.9 H Sodium Level 138 White Blood Count 9.2 Medications Medications Current Medications Magnesium Hydroxide (Milk Of Mag) 30 ml DAILY PRN PO CONSTIPATION Last administered on 10/28/16 10:45; Admin Dose 30 ML; Start 10/21/16 at 15:00 Loratadine (Claritin) 10 mg DAILY PO Last administered on 11/09/16 10:02; Admin Dose 10 MG; Start 10/21/16 at 15:00 Bisacodyl (Dulcolax Supp) 10 mg DAILY PRN [place] CONSTIPATION; Start 10/21/16 at 16 :00 Sodium Biphosphate/ Sodium Phosphate (Fleet Enema) 133 ml DAILY PRN [place] CONSTIPATION; Start 10/21/16 at 16:00 Acetaminophen/ Hydrocodone Bitart ([place] (5/325)) 2 tab Q6H PRN PO PAIN LEVEL 6 -10 Last administered on 11/09/16 10:01; Admin Dose 2 TAB; Start 10/26/16 at 23: 30 Morphine Sulfate (morphine) 2 mg Q4H PRN IV PAIN Last administered on 23:23; Admin Dose 2 MG; Start 10/29/16 at 02:00 Polyethylene Glycol (Miralax) 17 gm DAILY PRN PO CONSTIPATION Last administered on 10/29/16 19:41; Admin Dose 17 GM; Start 10/29/16 at 19:30 Pantoprazole 40 mg 40 mg BID@06,18 IV Last administered on 11/09/16 06:05; Admin Dose 40 MG; Start 10/30/16 at 13:00; Status Future hold Sodium Chloride (NS) 1,000 ml @ 100 mls/hr Q10H IV Last administered on 10:02; Admin Dose 100 MLS/HR; Start 10/30/16 at 13:00 Ondansetron HCl (Zofran Inj) 4 mg Q6H PRN IV NAUSEA AND/OR VOMITING Last administered on 10/31/16 11:54; Admin Dose 4 MG; Start 10/31/16 at 12:00 Simethicone (Mylicon) 80 mg Q4 PRN PO GAS PAIN Last administered on 11/07/16 22 :19; Admin Dose 80 MG; Start 10/31/16 at 12:00 Eye Lubricant (Artificial Tears Oph) 2 drop QID BOTH EYES Last administered on 11/09/16 12:14; Admin Dose 2 DROP; Start 11/05/16 at 21:00 Warfarin Sodium (Coumadin) 5 mg DAILY@17 PO Last administered on 11/08/16 17:19 ; Admin Dose 5 MG; Start 11/07/16 at 17:00 Fondaparinux (Arixtra) 10 mg DAILY SC Last administered on 11/08/16 09:34; Admin Dose 10 MG; Start 11/07/16 at 12:00 Benazepril HCl (Lotensin) 20 mg BID PO ; Start 11/09/16 at 21:00 KIM DEJESUS Nov 09, 2016 17:05
[2016-11-09] MEDS: WARFARIN 5 MG TAB PO SCH (17:24)
[2016-11-09] MEDS: BENAZEPRIL 20 MG TAB PO SCH (20:25)
[2016-11-09] MEDS: FONDAPARINUX 2.5 MG SYG SC SCH (20:34)
[2016-11-10] VITALS (14 sets, daily range): BP systolic 147–181; BP diastolic 80–102; PULSE 81–101; RESP 17–21
[2016-11-10] MEDS: SOD CHLORIDE 0.9% 1,000 ML IV SCH ×3 (00:54→21:08)
[2016-11-10] MEDS: ALBUTEROL 0.5% (NEB) 2.5 MG/0.5 ML AMP HHN SCH ×6 (01:47→20:29)
[2016-11-10] MEDS: PANTOPRAZOLE 40 MG INJ IV SCH ×2 (06:04→16:56)
[2016-11-10 07:34] LABS: INR 1.26; PROTIME 15.9 Sec (12.2-14.2); PT RATIO 1.2
[2016-11-10] MEDS: BENAZEPRIL 20 MG TAB PO SCH ×2 (08:30→21:07)
[2016-11-10] MEDS: LORATADINE 10 MG TAB PO SCH (08:30)
[2016-11-10] MEDS: FONDAPARINUX 2.5 MG SYG SC SCH (08:37)
[2016-11-10] MEDS: ARTIFICIAL TEARS 15 ML OPH BOTH EYES SCH ×4 (08:39→21:08)
[2016-11-10 09:26] LABS: RED BLOOD COUNT 3.08 10^6/ul (4.70-6.10); WHITE BLOOD COUNT 8.1 10^3/ul (4.8-10.8)
[2016-11-10 09:27] LABS: HEMATOCRIT 28.2 % (42.0-52.0); MEAN CORPUSCULAR HEMOGLOBIN 29.2 pg (29.0-33.0); MEAN CORPUSCULAR HGB CONC 31.9 g/dl (32.0-37.0); MEAN CORPUSCULAR VOLUME 91.6 fl (82.0-101.0); MEAN PLATELET VOLUME 11.2 fl (7.4-10.4); NEUTROPHILS % 65.6 % (39.0-77.0); PLATELET COUNT 331 10^3/UL (140-440); RED CELL DISTRIBUTION WIDTH 15.1 % (11.5-14.5)
[2016-11-10 09:28] LABS: BASOPHIL # 0.1 10^3/ul (0.0-0.1); BASOPHILS % 0.6 % (0.0-2.0); EOSINOPHILS # 0.5 10^3/ul (0.0-0.5); EOSINOPHILS % 5.9 % (0.0-7.0); LYMPHOCYTES # 1.6 10^3/ul (0.8-2.9); LYMPHOCYTES % 19.4 % (15.0-51.0); MONOCYTE # 0.6 10^3/ul (0.3-0.9); MONOCYTES % 7.5 % (0.0-11.0); NEUTROPHIL # 5.3 10^3/ul (1.6-7.5)
--- NOTE | 2016-11-10 11:54 | PN ---
Date/Time of Note Date/Time of Note DATE: 11/10/16 TIME: 11:53 Assessment/Plan VTE Prophylaxis VTE Prophylaxis Intervention: other Lines/Catheters [facility] Central Line Central line still needed: Yes Urinary Cath still in place: No Assessment/Plan Chief Complaint/Hosp Course - s/p hypovolemic shock 2 to s/p intraabdominal bleeding, resolved. - Acute anemia 2 intraabdominal bleeding ,resolved. - Acute kidney injury 2 to shock, resolved. Dr. Baker is following in nephrology consultation. 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 Discussed with Dr. Greenberg. Continue to monitor PT/INR and CBC. - Incisional hernia status post laparoscopic incisional hernia repair by Dr. Moreira on 10/19. - History of aortic dissection status post repair. - Hypertension. - Hyperlipidemia - Obesity - Esophagitis per EGD, cont Protonix Problems: Subjective 24 Hr Interval Summary Free Text/Dictation Patient notes bleeding from incision site, has pain in area but controlled with pain medication Exam/Review of Systems Vital Signs Vitals Vital Signs Date Time Temp Pulse Resp B/P Pulse Ox O2 Delivery O2 Flow Rate FiO2 11/10/16 08:05 88 11/10/16 07:33 98.5 18 181/92 98 11/10/16 04:56 Nasal Cannula 2.0 11/09/16 19:55 21 Intake and Output 11/09/16 11/09/16 11/10/16 15:00 23:00 07:00 Intake Total 250 ml 2100 ml 1250 ml Output Total 2000 ml 2300 ml Balance 250 ml 100 ml -1050 ml Exam Constitutional: well developed Head: atraumatic, normocephalic Neck: supple Respiratory: clear to auscultation Cardiovascular: regular rate and rhythm Gastrointestinal: non-tender, soft Extremities: normal pulses Results Result Diagram: 11/10/16 0609 11/09/16 0615 Results 24 hrs Laboratory Tests Test 11/10/16 06:09 Basophils # 0.1 Basophils % 0.6 Eosinophils # 0.5 Eosinophils % 5.9 Hematocrit 28.2 L Hemoglobin 9.0 L INR International Normalized Ratio 1.26 Lymphocytes # 1.6 Lymphocytes % 19.4 Mean Corpuscular Hemoglobin 29.2 Mean Corpuscular Hemoglobin Concent 31.9 L Mean Corpuscular Volume 91.6 Mean Platelet Volume 11.2 #H Monocytes # 0.6 Monocytes % 7.5 Neutrophils # 5.3 Neutrophils % 65.6 Nucleated Red Blood Cells # 0.0 Nucleated Red Blood Cells % 0.0 Platelet Count 331 Prothrombin Time 15.9 H Prothrombin Time Ratio 1.2 Red Blood Count 3.08 L Red Cell Distribution Width 15.1 H White Blood Count 8.1 Medications Medications Current Medications Magnesium Hydroxide (Milk Of Mag) 30 ml DAILY PRN PO CONSTIPATION Last administered on 10/28/16 10:45; Admin Dose 30 ML; Start 10/21/16 at 15:00 Loratadine (Claritin) 10 mg DAILY PO Last administered on 11/10/16 08:30; Admin Dose 10 MG; Start 10/21/16 at 15:00 Bisacodyl (Dulcolax Supp) 10 mg DAILY PRN [place] CONSTIPATION; Start 10/21/16 at 16 :00 Sodium Biphosphate/ Sodium Phosphate (Fleet Enema) 133 ml DAILY PRN [place] CONSTIPATION; Start 10/21/16 at 16:00 Acetaminophen/ Hydrocodone Bitart ([place] (5/325)) 2 tab Q6H PRN PO PAIN LEVEL 6 -10 Last administered on 11/09/16 20:25; Admin Dose 2 TAB; Start 10/26/16 at 23: 30 Morphine Sulfate (morphine) 2 mg Q4H PRN IV PAIN Last administered on 23:23; Admin Dose 2 MG; Start 10/29/16 at 02:00 Polyethylene Glycol (Miralax) 17 gm DAILY PRN PO CONSTIPATION Last administered on 10/29/16 19:41; Admin Dose 17 GM; Start 10/29/16 at 19:30 Pantoprazole 40 mg 40 mg BID@06,18 IV Last administered on 11/10/16 06:04; Admin Dose 40 MG; Start 10/30/16 at 13:00; Status Future hold Sodium Chloride (NS) 1,000 ml @ 100 mls/hr Q10H IV Last administered on 10:02; Admin Dose 100 MLS/HR; Start 10/30/16 at 13:00 Ondansetron HCl (Zofran Inj) 4 mg Q6H PRN IV NAUSEA AND/OR VOMITING Last administered on 10/31/16 11:54; Admin Dose 4 MG; Start 10/31/16 at 12:00 Simethicone (Mylicon) 80 mg Q4 PRN PO GAS PAIN Last administered on 11/07/16 22 :19; Admin Dose 80 MG; Start 10/31/16 at 12:00 Eye Lubricant (Artificial Tears Oph) 2 drop QID BOTH EYES Last administered on 11/10/16 08:39; Admin Dose 2 DROP; Start 11/05/16 at 21:00 Warfarin Sodium (Coumadin) 5 mg DAILY@17 PO Last administered on 11/09/16 17:24 ; Admin Dose 5 MG; Start 11/07/16 at 17:00 Fondaparinux (Arixtra) 10 mg DAILY SC Last administered on 11/10/16 08:37; Admin Dose 10 MG; Start 11/07/16 at 12:00 Benazepril HCl (Lotensin) 20 mg BID PO Last administered on 11/10/16 08:30; Admin Dose 20 MG; Start 11/09/16 at 21:00 JOSE DE JESUS LAZARO Nov 10, 2016 11:54
[2016-11-10] MEDS: WARFARIN 5 MG TAB PO SCH (16:56)
[2016-11-10] MEDS: HYDROCODONE/APAP (5/325) TAB PO PRN (17:35)
--- NOTE | 2016-11-10 17:39 | CONS ---
Date/Time of Note Date/Time of Note DATE: 11/10/16 TIME: 17:35 Assessment/Plan Assessment/Plan Additional Assessment/Plan Atypical chest pain with Abnormal electrocardiogram, s/p AVR, Coagulopathy, Anemia, Incarcerated hernia and renal failure Hypertensive Started on Coreg Continue Benazepril Continue Coumadin Echo Consultation Date/Type/Reason Admit Date/Time Oct 21, 2016 at 17:20 Constitutional: improved Eyes: no complaints ENT: no complaints Respiratory: no complaints Cardiovascular: no complaints Gastrointestinal: other (Inscional pain at times. none at present) Genitourinary: no complaints Musculoskeletal: no complaints Skin: no complaints Neurologic: no complaints Endocrine: no complaints Lymphatic: no complaints Psychological: no complaints Immunologic: no complaints Social History Smoking Status: Never smoker Exam/Review of Systems Vital Signs Vitals Vital Signs Date Time Temp Pulse Resp B/P Pulse Ox O2 Delivery O2 Flow Rate FiO2 11/10/16 17:04 90 20 95 2.0 11/10/16 16:00 98.8 172/89 11/10/16 12:58 Nasal Cannula 11/09/16 19:55 21 Intake and Output 11/09/16 11/09/16 11/10/16 15:00 23:00 07:00 Intake Total 250 ml 2100 ml 1250 ml Output Total 2000 ml 2300 ml Balance 250 ml 100 ml -1050 ml Exam Head: atraumatic, normocephalic Respiratory: clear to auscultation Cardiovascular: regular rate and rhythm Gastrointestinal: nl liver, spleen, non-tender, soft Extremities: normal pulses Results Result Diagram: 11/10/16 0609 11/09/16 0615 Results 24 hrs Laboratory Tests Test 11/10/16 06:09 Basophils # 0.1 Basophils % 0.6 Eosinophils # 0.5 Eosinophils % 5.9 Hematocrit 28.2 L Hemoglobin 9.0 L INR International Normalized Ratio 1.26 Lymphocytes # 1.6 Lymphocytes % 19.4 Mean Corpuscular Hemoglobin 29.2 Mean Corpuscular Hemoglobin Concent 31.9 L Mean Corpuscular Volume 91.6 Mean Platelet Volume 11.2 #H Monocytes # 0.6 Monocytes % 7.5 Neutrophils # 5.3 Neutrophils % 65.6 Nucleated Red Blood Cells # 0.0 Nucleated Red Blood Cells % 0.0 Platelet Count 331 Prothrombin Time 15.9 H Prothrombin Time Ratio 1.2 Red Blood Count 3.08 L Red Cell Distribution Width 15.1 H White Blood Count 8.1 Medications Medications Current Medications Magnesium Hydroxide (Milk Of Mag) 30 ml DAILY PRN PO CONSTIPATION Last administered on 10/28/16 10:45; Admin Dose 30 ML; Start 10/21/16 at 15:00 Loratadine (Claritin) 10 mg DAILY PO Last administered on 11/10/16 08:30; Admin Dose 10 MG; Start 10/21/16 at 15:00 Bisacodyl (Dulcolax Supp) 10 mg DAILY PRN [place] CONSTIPATION; Start 10/21/16 at 16 :00 Sodium Biphosphate/ Sodium Phosphate (Fleet Enema) 133 ml DAILY PRN [place] CONSTIPATION; Start 10/21/16 at 16:00 Acetaminophen/ Hydrocodone Bitart ([place] (5/325)) 2 tab Q6H PRN PO PAIN LEVEL 6 -10 Last administered on 11/10/16 17:35; Admin Dose 2 TAB; Start 10/26/16 at 23: 30 Morphine Sulfate (morphine) 2 mg Q4H PRN IV PAIN Last administered on 23:23; Admin Dose 2 MG; Start 10/29/16 at 02:00 Polyethylene Glycol (Miralax) 17 gm DAILY PRN PO CONSTIPATION Last administered on 10/29/16 19:41; Admin Dose 17 GM; Start 10/29/16 at 19:30 Pantoprazole 40 mg 40 mg BID@06,18 IV Last administered on 11/10/16 16:56; Admin Dose 40 MG; Start 10/30/16 at 13:00; Status Future hold Sodium Chloride (NS) 1,000 ml @ 100 mls/hr Q10H IV Last administered on 10:02; Admin Dose 100 MLS/HR; Start 10/30/16 at 13:00 Ondansetron HCl (Zofran Inj) 4 mg Q6H PRN IV NAUSEA AND/OR VOMITING Last administered on 10/31/16 11:54; Admin Dose 4 MG; Start 10/31/16 at 12:00 Simethicone (Mylicon) 80 mg Q4 PRN PO GAS PAIN Last administered on 11/07/16 22 :19; Admin Dose 80 MG; Start 10/31/16 at 12:00 Eye Lubricant (Artificial Tears Oph) 2 drop QID BOTH EYES Last administered on 11/10/16 16:56; Admin Dose 2 DROP; Start 11/05/16 at 21:00 Warfarin Sodium (Coumadin) 5 mg DAILY@17 PO Last administered on 11/10/16 16:56 ; Admin Dose 5 MG; Start 11/07/16 at 17:00 Fondaparinux (Arixtra) 10 mg DAILY SC Last administered on 11/10/16 08:37; Admin Dose 10 MG; Start 11/07/16 at 12:00 Benazepril HCl (Lotensin) 20 mg BID PO Last administered on 11/10/16 08:30; Admin Dose 20 MG; Start 11/09/16 at 21:00 ANGELY LOCKE M.D. Nov 10, 2016 17:39
[2016-11-10] MEDS: hydrALAzine 20 MG INJ IV PRN (18:15)
[2016-11-11] VITALS (14 sets, daily range): BP systolic 136–178; BP diastolic 84–105; PULSE 83–103; RESP 18–21
[2016-11-11] MEDS: ALBUTEROL 0.5% (NEB) 2.5 MG/0.5 ML AMP HHN SCH ×6 (00:21→21:11)
[2016-11-11] MEDS: HYDROCODONE/APAP (5/325) TAB PO PRN ×2 (02:08→21:27)
[2016-11-11] MEDS: PANTOPRAZOLE 40 MG INJ IV SCH ×2 (05:34→17:13)
[2016-11-11] MEDS: SOD CHLORIDE 0.9% 1,000 ML IV SCH ×2 (05:34→15:15)
[2016-11-11 06:55] LABS: INR 1.26; PROTIME 15.9 Sec (12.2-14.2); PT RATIO 1.2
[2016-11-11] MEDS: BENAZEPRIL 20 MG TAB PO SCH ×2 (08:09→20:29)
[2016-11-11] MEDS: ARTIFICIAL TEARS 15 ML OPH BOTH EYES SCH ×4 (08:09→20:29)
[2016-11-11] MEDS: LORATADINE 10 MG TAB PO SCH (08:09)
[2016-11-11] MEDS: FONDAPARINUX 2.5 MG SYG SC SCH (09:38)
--- NOTE | 2016-11-11 11:23 | PN ---
Date/Time of Note Date/Time of Note DATE: 11/11/16 TIME: 11:22 Assessment/Plan VTE Prophylaxis VTE Prophylaxis Intervention: other Lines/Catheters IV Catheter Type (from [facility], [place]): Central Line Central line still needed: Yes Urinary Cath still in place: No Assessment/Plan Chief Complaint/Hosp Course - s/p hypovolemic shock 2 to s/p intraabdominal bleeding, resolved. - Acute anemia 2 intraabdominal bleeding ,resolved. - Acute kidney injury 2 to shock, resolved. Dr. Baker is following in nephrology consultation. 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 Discussed with Dr. Greenberg. Continue to monitor PT/INR and CBC. - Incisional hernia status post laparoscopic incisional hernia repair by Dr. Moreira on 10/19. - History of aortic dissection status post repair. - Hypertension. - Hyperlipidemia - Obesity - Esophagitis per EGD, cont Protonix Problems: Subjective 24 Hr Interval Summary Free Text/Dictation Patient has no complaints Exam/Review of Systems Vital Signs Vitals Vital Signs Date Time Temp Pulse Resp B/P Pulse Ox O2 Delivery O2 Flow Rate FiO2 11/11/16 09:15 90 20 94 Nasal Cannula 2.0 11/11/16 07:25 98.0 178/95 11/09/16 19:55 21 Intake and Output 11/10/16 11/10/16 11/11/16 15:00 23:00 07:00 Intake Total 400 ml 1800 ml 250 ml Output Total 1600 ml 2000 ml Balance 400 ml 200 ml -1750 ml Exam Constitutional: well developed Head: atraumatic, normocephalic Neck: supple Respiratory: clear to auscultation Cardiovascular: regular rate and rhythm Gastrointestinal: non-tender, soft Results Result Diagram: 11/10/16 0609 11/09/16 0615 Results 24 hrs Laboratory Tests Test 11/11/16 05:47 INR International Normalized Ratio 1.26 Prothrombin Time 15.9 H Prothrombin Time Ratio 1.2 Medications Medications Current Medications Magnesium Hydroxide (Milk Of Mag) 30 ml DAILY PRN PO CONSTIPATION Last administered on 10/28/16 10:45; Admin Dose 30 ML; Start 10/21/16 at 15:00 Loratadine (Claritin) 10 mg DAILY PO Last administered on 11/11/16 08:09; Admin Dose 10 MG; Start 10/21/16 at 15:00 Bisacodyl (Dulcolax Supp) 10 mg DAILY PRN [place] CONSTIPATION; Start 10/21/16 at 16 :00 Sodium Biphosphate/ Sodium Phosphate (Fleet Enema) 133 ml DAILY PRN [place] CONSTIPATION; Start 10/21/16 at 16:00 Acetaminophen/ Hydrocodone Bitart ([place] (5/325)) 2 tab Q6H PRN PO PAIN LEVEL 6 -10 Last administered on 11/11/16 02:08; Admin Dose 2 TAB; Start 10/26/16 at 23: 30 Morphine Sulfate (morphine) 2 mg Q4H PRN IV PAIN Last administered on 23:23; Admin Dose 2 MG; Start 10/29/16 at 02:00 Polyethylene Glycol (Miralax) 17 gm DAILY PRN PO CONSTIPATION Last administered on 10/29/16 19:41; Admin Dose 17 GM; Start 10/29/16 at 19:30 Pantoprazole 40 mg 40 mg BID@06,18 IV Last administered on 11/11/16 05:34; Admin Dose 40 MG; Start 10/30/16 at 13:00; Status Future hold Sodium Chloride (NS) 1,000 ml @ 100 mls/hr Q10H IV Last administered on 05:34; Admin Dose 100 MLS/HR; Start 10/30/16 at 13:00 Ondansetron HCl (Zofran Inj) 4 mg Q6H PRN IV NAUSEA AND/OR VOMITING Last administered on 10/31/16 11:54; Admin Dose 4 MG; Start 10/31/16 at 12:00 Simethicone (Mylicon) 80 mg Q4 PRN PO GAS PAIN Last administered on 11/07/16 22 :19; Admin Dose 80 MG; Start 10/31/16 at 12:00 Eye Lubricant (Artificial Tears Oph) 2 drop QID BOTH EYES Last administered on 11/11/16 08:09; Admin Dose 2 DROP; Start 11/05/16 at 21:00 Warfarin Sodium (Coumadin) 5 mg DAILY@17 PO Last administered on 11/10/16 16:56 ; Admin Dose 5 MG; Start 11/07/16 at 17:00 Fondaparinux (Arixtra) 10 mg DAILY SC Last administered on 11/11/16 09:38; Admin Dose 10 MG; Start 11/07/16 at 12:00 Benazepril HCl (Lotensin) 20 mg BID PO Last administered on 11/11/16 08:09; Admin Dose 20 MG; Start 11/09/16 at 21:00 Hydralazine HCl (Apresoline) 50 mg TID PO Last administered on 11/11/16 08:09; Admin Dose 50 MG; Start 11/10/16 at 21:00 Hydralazine HCl (Apresoline) 10 mg Q6H PRN IV sbp >160 Last administered on 11/10 18:15; Admin Dose 10 MG; Start 11/10/16 at 18:30 JOSE DE JESUS LAZARO Nov 11, 2016 11:23
[2016-11-11] MEDS: WARFARIN 5 MG TAB PO SCH (17:12)
[2016-11-11] MEDS: hydrALAzine 20 MG INJ IV PRN (17:51)
--- NOTE | 2016-11-11 18:21 | CONS ---
Date/Time of Note Date/Time of Note DATE: 11/11/16 TIME: 18:12 Assessment/Plan Assessment/Plan Additional Assessment/Plan Atypical chest pain with Abnormal electrocardiogram, s/p AVR, Coagulopathy, Anemia, Incarcerated hernia and renal failure Hypertensive Continue Coreg Continue Benazepril Continue fondaparinux Continue Coumadin Consultation Date/Type/Reason Admit Date/Time Oct 21, 2016 at 17:20 Initial Consult Date Type of Consultation: Cardiology Referring Provider: ELIZABETH STANLEY MD Exam/Review of Systems Vital Signs Vitals Vital Signs Date Time Temp Pulse Resp B/P Pulse Ox O2 Delivery O2 Flow Rate FiO2 11/11/16 17:50 86 167/99 11/11/16 16:02 20 94 Nasal Cannula 2.0 11/11/16 15:18 98.0 11/09/16 19:55 21 Intake and Output 11/10/16 11/10/16 11/11/16 15:00 23:00 07:00 Intake Total 400 ml 1800 ml 250 ml Output Total 1600 ml 2000 ml Balance 400 ml 200 ml -1750 ml Exam Head: atraumatic, normocephalic Respiratory: clear to auscultation Cardiovascular: regular rate and rhythm Gastrointestinal: nl liver, spleen, non-tender, soft Extremities: normal pulses Results Result Diagram: 11/10/16 0609 11/09/16 0615 Results 24 hrs Laboratory Tests Test 11/11/16 05:47 INR International Normalized Ratio 1.26 Prothrombin Time 15.9 H Prothrombin Time Ratio 1.2 Medications Medications Current Medications Magnesium Hydroxide (Milk Of Mag) 30 ml DAILY PRN PO CONSTIPATION Last administered on 10/28/16 10:45; Admin Dose 30 ML; Start 10/21/16 at 15:00 Loratadine (Claritin) 10 mg DAILY PO Last administered on 11/11/16 08:09; Admin Dose 10 MG; Start 10/21/16 at 15:00 Bisacodyl (Dulcolax Supp) 10 mg DAILY PRN [place] CONSTIPATION; Start 10/21/16 at 16 :00 Sodium Biphosphate/ Sodium Phosphate (Fleet Enema) 133 ml DAILY PRN [place] CONSTIPATION; Start 10/21/16 at 16:00 Acetaminophen/ Hydrocodone Bitart ([place] (5/325)) 2 tab Q6H PRN PO PAIN LEVEL 6 -10 Last administered on 11/11/16 02:08; Admin Dose 2 TAB; Start 10/26/16 at 23: 30 Morphine Sulfate (morphine) 2 mg Q4H PRN IV PAIN Last administered on 23:23; Admin Dose 2 MG; Start 10/29/16 at 02:00 Polyethylene Glycol (Miralax) 17 gm DAILY PRN PO CONSTIPATION Last administered on 10/29/16 19:41; Admin Dose 17 GM; Start 10/29/16 at 19:30 Pantoprazole 40 mg 40 mg BID@06,18 IV Last administered on 11/11/16 17:13; Admin Dose 40 MG; Start 10/30/16 at 13:00; Status Future hold Sodium Chloride (NS) 1,000 ml @ 100 mls/hr Q10H IV Last administered on 15:15; Admin Dose 100 MLS/HR; Start 10/30/16 at 13:00 Ondansetron HCl (Zofran Inj) 4 mg Q6H PRN IV NAUSEA AND/OR VOMITING Last administered on 10/31/16 11:54; Admin Dose 4 MG; Start 10/31/16 at 12:00 Simethicone (Mylicon) 80 mg Q4 PRN PO GAS PAIN Last administered on 11/07/16 22 :19; Admin Dose 80 MG; Start 10/31/16 at 12:00 Eye Lubricant (Artificial Tears Oph) 2 drop QID BOTH EYES Last administered on 11/11/16 17:13; Admin Dose 2 DROP; Start 11/05/16 at 21:00 Warfarin Sodium (Coumadin) 5 mg DAILY@17 PO Last administered on 11/11/16 17:12 ; Admin Dose 5 MG; Start 11/07/16 at 17:00 Fondaparinux (Arixtra) 10 mg DAILY SC Last administered on 11/11/16 09:38; Admin Dose 10 MG; Start 11/07/16 at 12:00 Benazepril HCl (Lotensin) 20 mg BID PO Last administered on 11/11/16 08:09; Admin Dose 20 MG; Start 11/09/16 at 21:00 Hydralazine HCl (Apresoline) 50 mg TID PO Last administered on 11/11/16 12:19; Admin Dose 50 MG; Start 11/10/16 at 21:00 Hydralazine HCl (Apresoline) 10 mg Q6H PRN IV sbp >160 Last administered on 11/11t 17:51; Admin Dose 10 MG; Start 11/10/16 at 18:30 ANGELY LOCKE M.D. Nov 11, 2016 18:21
--- NOTE | 2016-11-11 19:15 | RADRPT ---
Echocardiogram Report Patient Name: PABLO ADAMS Gender: Male Date: 1975 Study Date: 11-Nov-2016 Oven Builder: ROBERT Location: I Ref. Physician: TINO LOCKE Quality: Technically Difficult Study Procedures: Transthoracic echocardiogram with 2D, M-Mode, and doppler examination, poor parasternals patient obese. Indications: Chest Pain. 2D/M Mode Doppler Measurement Value Normal Ranges Measurement Value Normal Ranges AoR Diam MM 3.2 cm FERNANDO Vmax 1.2 cm2 LVIDd 2D 4.5 3.5 - 5.6 cm FERNANDO VTI 1.2 cm2 LVIDs 2D 3.0 2.1 - 4.1 cm AV Mean Matt 1.7 m/sec LVPWd 2D 1.5 0.6 - 1.1 cm AV Mean PG 12.2 mmHg IVSd 2D 1.6 0.6 - 1.1 cm AV Peak Matt 2.3 m/sec EDV 2D 92.6 cm3 AV Peak PG 20.3 mmHg ESV 2D 26.9 cm3 AV VTI 45.5 cm LA Dimen 2D 4.5 2.3 - 4.0 cm LVOT Mean Matt 0.6 m/sec LVOT Diam 2.1 cm LVOT Mean PG 1.6 mmHg LVOT Peak Matt 0.8 m/sec LVOT Peak PG 2.6 mmHg LVOT VTI 16.5 cm TR Peak Matt 2.6 m/sec TR Peak PG 26.8 mmHg RVSP 29.8 mmHg Findings Left Ventricle: Normal left ventricular systolic function. Normal left ventricular cavity size. Mild concentric left ventricular hypertrophy. Ejection fraction is visually estimated at 65 %. Tissue Doppler/Mitral Doppler indices are within normal limits. E/E`=11. Right Ventricle: Normal right ventricular size. Normal right ventricular systolic function. Left Atrium: There is mild enlargement of left atrium. Right Atrium: The right atrium is normal in size. Atrial Septum: Normal atrial septum. Mitral Valve: Mild mitral annular calcification. No mitral valve regurgitation is seen. Aortic Valve: Aortic Valve Mechanical Prosthesis. Aortic valve Max velocity 2.30 m/sec. Max PG 20.00 mmHg. Mean PG 12.00 mmHg. Aortic valve area 1.70 cm2. Tricuspid Valve: Normal appearance of the tricuspid valve. Estimated peak PA systolic pressure 30 mmHg. There is trace to mild tricuspid regurgitation. Pulmonic Valve: Pulmonic valve not well visualized. Pericardium: Normal pericardium with no significant pericardial effusion. Aorta: Normal aortic root. IVC: Normal size and normal respiratory collapse consistent with normal right atrial pressure. Pulmonary Artery: Not well visualized. Conclusions 1.Normal left ventricular systolic function. Normal left ventricular cavity size. Mild concentric left ventricular hypertrophy. Ejection fraction is visually estimated at 65 %. Tissue Doppler/Mitral Doppler indices are within normal limits. E/E`=11. 2.Normal right ventricular size. Normal right ventricular systolic function. 3.Mild mitral annular calcification. No mitral valve regurgitation is seen. 4.Aortic Valve Mechanical Prosthesis. Aortic valve Max velocity 2.30 m/sec. Max PG 20.00 mmHg. Mean PG 12.00 mmHg. Aortic valve area 1.70 cm2. 5.Normal appearance of the tricuspid valve. Estimated peak PA systolic pressure 30 mmHg. There is trace to mild tricuspid regurgitation. 6.Normal pericardium with no significant pericardial effusion. Electronically Signed By: Tino Locke 11-Nov-2016 19:14:18 -0800 Patient Name: PABLO ADAMS Study Date: 11-Nov-2016 [id number]
[2016-11-11] MEDS: GUAIFENESIN/CODEINE 5ML CUP PO PRN (20:29)
[2016-11-12] VITALS (12 sets, daily range): BP systolic 159–175; BP diastolic 84–92; PULSE 63–90; RESP 18–20
[2016-11-12] MEDS: hydrALAzine 20 MG INJ IV PRN ×2 (00:22→17:14)
[2016-11-12] MEDS: SOD CHLORIDE 0.9% 1,000 ML IV SCH ×3 (00:22→15:54)
[2016-11-12] MEDS: ALBUTEROL 0.5% (NEB) 2.5 MG/0.5 ML AMP HHN SCH ×6 (01:48→21:14)
[2016-11-12] MEDS: PANTOPRAZOLE (EC) 40 MG TAB PO SCH ×2 (05:06→17:06)
[2016-11-12 07:00] LABS: INR 1.19; PROTIME 15.2 Sec (12.2-14.2); PT RATIO 1.2
[2016-11-12] MEDS: ARTIFICIAL TEARS 15 ML OPH BOTH EYES SCH ×4 (08:58→20:18)
[2016-11-12] MEDS: LORATADINE 10 MG TAB PO SCH (08:59)
[2016-11-12] MEDS: BENAZEPRIL 20 MG TAB PO SCH ×2 (08:59→20:19)
[2016-11-12] MEDS: HYDROCODONE/APAP (5/325) TAB PO PRN (09:01)
[2016-11-12] MEDS: FONDAPARINUX 2.5 MG SYG SC SCH (10:26)
--- NOTE | 2016-11-12 10:45 | CONS ---
Date/Time of Note Date/Time of Note DATE: 11/12/16 TIME: 10:42 Assessment/Plan Assessment/Plan Chief Complaint/Hosp Course IMPRESSION: 1. Abnormal electrocardiogram, assess for acute coronary syndrome. 2. Chest pain, assess for acute coronary syndrome in the setting of severe anemia.-negative troponin x 3/NL EF by echo this admission 3. History of aortic valve replacement-mechanical 4. Coagulopathy-subtherapeutic 5. Severe anemia. 6. Incarcerated hernia, status post repair. 7. Abdominal distention-improved 8. Hyponatremia-resolved 9. Renal failure-improved Recc: -Tele -Continue ACEI with uptitration to improve SBP -Follow hgb closely -Increase coumadin and follow INR -Continue arixtra until INR therapeutic -Dose lasix and follow volume status closely - Problems: Consultation Date/Type/Reason Admit Date/Time Oct 21, 2016 at 17:20 Initial Consult Date 11/05/16 Type of Consultation: Cardiology Reason for Consultation AVR Referring Provider: ELIZABETH STANLEY MD Exam/Review of Systems Vital Signs Vitals Vital Signs Date Time Temp Pulse Resp B/P Pulse Ox O2 Delivery O2 Flow Rate FiO2 11/12/16 09:06 86 18 98 Nasal Cannula 2.0 28 11/12/16 08:03 98.1 175/84 Intake and Output 11/11/16 11/11/16 11/12/16 15:00 23:00 07:00 Intake Total 2120 ml 250 ml Output Total 2000 ml 2000 ml Balance 120 ml -1750 ml Exam Review of Systems: CONSTITUTIONAL: No fevers, chills. PULMONARY: No sob CARDIOVASCULAR: No chest pain/palpitations GASTROINTESTINAL: Mild abd pain GENITOURINARY: No hematuria/dysuria. MUSCULOSKELETAL: No myagias/arthalgias. PSYCHIATRIC: The patient denies depression. NEUROLOGIC: No weakness Constitutional: alert, oriented Psych: no complaints Head: normocephalic ENMT: mucosa pink and moist Respiratory: diminished breath sounds Cardiovascular: regular rate and rhythm Gastrointestinal: soft Musculoskeletal: muscle tone Extremities: edema (none) Neurological: other (No focal deficits) Results Result Diagram: 11/10/16 0609 11/09/16 0615 Results 24 hrs Laboratory Tests Test 11/12/16 06:05 INR International Normalized Ratio 1.19 Prothrombin Time 15.2 H Prothrombin Time Ratio 1.2 Medications Medications Current Medications Magnesium Hydroxide (Milk Of Mag) 30 ml DAILY PRN PO CONSTIPATION Last administered on 10/28/16 10:45; Admin Dose 30 ML; Start 10/21/16 at 15:00 Loratadine (Claritin) 10 mg DAILY PO Last administered on 11/12/16 08:59; Admin Dose 10 MG; Start 10/21/16 at 15:00 Bisacodyl (Dulcolax Supp) 10 mg DAILY PRN [place] CONSTIPATION; Start 10/21/16 at 16 :00 Sodium Biphosphate/ Sodium Phosphate (Fleet Enema) 133 ml DAILY PRN [place] CONSTIPATION; Start 10/21/16 at 16:00 Acetaminophen/ Hydrocodone Bitart ([place] (5/325)) 2 tab Q6H PRN PO PAIN LEVEL 6 -10 Last administered on 11/12/16 09:01; Admin Dose 2 TAB; Start 10/26/16 at 23: 30 Morphine Sulfate (morphine) 2 mg Q4H PRN IV PAIN Last administered on 23:23; Admin Dose 2 MG; Start 10/29/16 at 02:00 Polyethylene Glycol 17 gm 17 gm DAILY PRN PO CONSTIPATION Last administered on 10/29/16 19:41; Admin Dose 17 GM; Start 10/29/16 at 19:30 Sodium Chloride (NS) 1,000 ml @ 100 mls/hr Q10H IV Last administered on 00:22; Admin Dose 100 MLS/HR; Start 10/30/16 at 13:00 Ondansetron HCl (Zofran Inj) 4 mg Q6H PRN IV NAUSEA AND/OR VOMITING Last administered on 10/31/16 11:54; Admin Dose 4 MG; Start 10/31/16 at 12:00 Simethicone (Mylicon) 80 mg Q4 PRN PO GAS PAIN Last administered on 11/07/16 22 :19; Admin Dose 80 MG; Start 10/31/16 at 12:00 Eye Lubricant (Artificial Tears Oph) 2 drop QID BOTH EYES Last administered on 11/12/16 08:58; Admin Dose 2 DROP; Start 11/05/16 at 21:00 Warfarin Sodium (Coumadin) 5 mg DAILY@17 PO Last administered on 11/11/16 17:12 ; Admin Dose 5 MG; Start 11/07/16 at 17:00 Fondaparinux (Arixtra) 10 mg DAILY SC Last administered on 11/12/16 10:26; Admin Dose 10 MG; Start 11/07/16 at 12:00 Benazepril HCl (Lotensin) 20 mg BID PO Last administered on 11/12/16 08:59; Admin Dose 20 MG; Start 11/09/16 at 21:00 Hydralazine HCl (Apresoline) 50 mg TID PO Last administered on 11/12/16 08:59; Admin Dose 50 MG; Start 11/10/16 at 21:00 Hydralazine HCl (Apresoline) 10 mg Q6H PRN IV sbp >160 Last administered on 11/12 00:22; Admin Dose 10 MG; Start 11/10/16 at 18:30 Pantoprazole (Protonix Tab) 40 mg BID@06,18 PO Last administered on 11/12/16 05 :06; Admin Dose 40 MG; Start 11/12/16 at 06:00 Guaifenesin/ Codeine Phosphate (Robitussin Ac Liquid Cup) 5 ml Q6 PRN PO COUGH Last administered on 11/11/16 20:29; Admin Dose 5 ML; Start 11/11/16 at 19:30 ADAM GILMORE Nov 12, 2016 10:45
[2016-11-12] MEDS: ACETAMINOPHEN 325 MG TAB PO PRN (15:53)
--- NOTE | 2016-11-12 16:36 | PN ---
Date/Time of Note Date/Time of Note DATE: 11/12/16 TIME: 16:35 Assessment/Plan VTE Prophylaxis VTE Prophylaxis Intervention: other (Arixtra) Lines/Catheters [facility] Central Line Central line still needed: Yes Urinary Cath still in place: No Assessment/Plan Chief Complaint/Hosp Course ASSESSMENT AND PLAN: - s/p hypovolemic shock 2 to s/p intraabdominal bleeding, resolved. - Acute anemia 2 intraabdominal bleeding ,resolved. - Acute kidney injury 2 to shock, resolved. Dr. Baker is following in nephrology consultation. 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 Discussed with Dr. Greenberg. Continue to monitor PT/INR and CBC. - Incisional hernia status post laparoscopic incisional hernia repair by Dr. Moreira on 10/19. - History of aortic dissection status post repair. - Hypertension. - Hyperlipidemia - Obesity - Esophagitis per EGD, cont Protonix Further recommendations based on clinical course. Plan of care discussed with Dr. Murphy. Problems: Subjective 24 Hr Interval Summary Free Text/Dictation Patient tolerates diet well, had bowel movement, no nausea vomiting, no bleeding from the incision site noted. Exam/Review of Systems Vital Signs Vitals Vital Signs Date Time Temp Pulse Resp B/P Pulse Ox O2 Delivery O2 Flow Rate FiO2 11/12/16 15:28 98.1 82 18 164/87 97 11/12/16 13:26 Nasal Cannula 2.0 28 Intake and Output 11/11/16 11/11/16 11/12/16 14:59 22:59 06:59 Intake Total 2120 ml 250 ml Output Total 2000 ml 2000 ml Balance 120 ml -1750 ml Exam GENERAL: Well-developed, obese gentleman who currently is awake. HEENT: Head is atraumatic, normocephalic. Pupils equal, round, reactive to light and accommodation. Oral mucosa is pink and moist. NECK: Supple, no cervical lymphadenopathy, no thyromegaly. CHEST: Lungs clear bilaterally. There are no rhonchi, wheezes, or rales noted. CARDIOVASCULAR: Normal S1, S2. The patient has mechanical aortic valve click. No murmurs or gallops noted. ABDOMEN: Distended soft , bowel sounds hypoactive, status post surgery. Ecchymotic area around the incision. EXTREMITIES: No edema, clubbing, cyanosis. SKIN: There is no rash or petechiae noted. The patient has a midline surgical healed scar. NEUROLOGIC: The patient is awake, alert, and oriented x3. Results Result Diagram: 11/10/16 0609 11/09/16 0615 Results 24 hrs Laboratory Tests Test 11/12/16 06:05 INR International Normalized Ratio 1.19 Prothrombin Time 15.2 H Prothrombin Time Ratio 1.2 Medications Medications Current Medications Magnesium Hydroxide (Milk Of Mag) 30 ml DAILY PRN PO CONSTIPATION Last administered on 10/28/16 10:45; Admin Dose 30 ML; Start 10/21/16 at 15:00 Loratadine (Claritin) 10 mg DAILY PO Last administered on 11/12/16 08:59; Admin Dose 10 MG; Start 10/21/16 at 15:00 Bisacodyl (Dulcolax Supp) 10 mg DAILY PRN [place] CONSTIPATION; Start 10/21/16 at 16 :00 Sodium Biphosphate/ Sodium Phosphate (Fleet Enema) 133 ml DAILY PRN [place] CONSTIPATION; Start 10/21/16 at 16:00 Acetaminophen/ Hydrocodone Bitart ([place] (5/325)) 2 tab Q6H PRN PO PAIN LEVEL 6 -10 Last administered on 11/12/16 09:01; Admin Dose 2 TAB; Start 10/26/16 at 23: 30 Morphine Sulfate (morphine) 2 mg Q4H PRN IV PAIN Last administered on 23:23; Admin Dose 2 MG; Start 10/29/16 at 02:00 Polyethylene Glycol 17 gm 17 gm DAILY PRN PO CONSTIPATION Last administered on 10/29/16 19:41; Admin Dose 17 GM; Start 10/29/16 at 19:30 Sodium Chloride (NS) 1,000 ml @ 100 mls/hr Q10H IV Last administered on 15:54; Admin Dose 100 MLS/HR; Start 10/30/16 at 13:00 Ondansetron HCl (Zofran Inj) 4 mg Q6H PRN IV NAUSEA AND/OR VOMITING Last administered on 10/31/16 11:54; Admin Dose 4 MG; Start 10/31/16 at 12:00 Simethicone (Mylicon) 80 mg Q4 PRN PO GAS PAIN Last administered on 11/07/16 22 :19; Admin Dose 80 MG; Start 10/31/16 at 12:00 Eye Lubricant (Artificial Tears Oph) 2 drop QID BOTH EYES Last administered on 11/12/16 12:28; Admin Dose 2 DROP; Start 11/05/16 at 21:00 Fondaparinux (Arixtra) 10 mg DAILY SC Last administered on 11/12/16 10:26; Admin Dose 10 MG; Start 11/07/16 at 12:00 Hydralazine HCl (Apresoline) 50 mg TID PO Last administered on 11/12/16 12:29; Admin Dose 50 MG; Start 11/10/16 at 21:00 Hydralazine HCl (Apresoline) 10 mg Q6H PRN IV sbp >160 Last administered on 11/12 00:22; Admin Dose 10 MG; Start 11/10/16 at 18:30 Pantoprazole (Protonix Tab) 40 mg BID@06,18 PO Last administered on 11/12/16 05 :06; Admin Dose 40 MG; Start 11/12/16 at 06:00 Guaifenesin/ Codeine Phosphate (Robitussin Ac Liquid Cup) 5 ml Q6 PRN PO COUGH Last administered on 11/11/16 20:29; Admin Dose 5 ML; Start 11/11/16 at 19:30 Benazepril HCl (Lotensin) 40 mg BID PO ; Start 11/12/16 at 21:00 Warfarin Sodium (Coumadin) 7 mg DAILY@17 PO ; Start 11/12/16 at 17:00 Acetaminophen (Tylenol Tab) 650 mg Q6H PRN PO PAIN AND OR ELEVATED TEMP Last administered on 11/12/16 15:53; Admin Dose 650 MG; Start 11/12/16 at 15:30 KIM DEJESUS Nov 12, 2016 16:36
[2016-11-12] MEDS: WARFARIN 5 MG TAB PO SCH (16:57)
[2016-11-12] MEDS: GUAIFENESIN/CODEINE 5ML CUP PO PRN (20:19)
[2016-11-13] VITALS (12 sets, daily range): BP systolic 130–180; BP diastolic 76–90; PULSE 73–97; RESP 18–20
[2016-11-13] MEDS: SOD CHLORIDE 0.9% 1,000 ML IV SCH ×2 (00:13→11:38)
[2016-11-13] MEDS: ACETAMINOPHEN 325 MG TAB PO PRN ×2 (00:17→08:44)
[2016-11-13] MEDS: ALBUTEROL 0.5% (NEB) 2.5 MG/0.5 ML AMP HHN SCH ×6 (01:19→22:06)
[2016-11-13] MEDS: PANTOPRAZOLE (EC) 40 MG TAB PO SCH ×2 (06:25→17:08)
[2016-11-13 07:42] LABS: INR 1.42; PROTIME 17.4 Sec (12.2-14.2); PT RATIO 1.4
[2016-11-13 07:42] LABS: ALBUMIN 3.6 g/dl (3.3-4.9)
[2016-11-13 07:43] LABS: POTASSIUM 4.4 mmol/L (3.5-5.1)
[2016-11-13 07:45] LABS: ALBUMIN/GLOBULIN RATIO 1.05; BILIRUBIN,INDIRECT 0.5 mg/dl (0-1.1); BILIRUBIN,TOTAL 0.5 mg/dl (0.2-1.3); CREATININE 0.7 mg/dl (0.61-1.24)
[2016-11-13 07:46] LABS: CALCIUM 8.7 mg/dl (8.4-10.2)
[2016-11-13] MEDS: ARTIFICIAL TEARS 15 ML OPH BOTH EYES SCH ×4 (08:42→21:19)
[2016-11-13] MEDS: BENAZEPRIL 20 MG TAB PO SCH ×2 (08:43→21:20)
[2016-11-13] MEDS: LORATADINE 10 MG TAB PO SCH (08:43)
[2016-11-13] MEDS: hydrALAzine 20 MG INJ IV PRN (08:43)
[2016-11-13] MEDS: FONDAPARINUX 2.5 MG SYG SC SCH (08:46)
--- NOTE | 2016-11-13 10:12 | CONS ---
Date/Time of Note Date/Time of Note DATE: 11/13/16 TIME: 10:09 Assessment/Plan Assessment/Plan Additional Assessment/Plan 1. Abnormal electrocardiogram, assess for acute coronary syndrome - no CP now, doubt ischemia. 2. Chest pain, assess for acute coronary syndrome in the setting of severe anemia.-negative troponin x 3/NL EF by echo this admission - no intervention planned. 3. History of aortic valve replacement-mechanical - resume anti-coagulation now. 4. Coagulopathy-subtherapeutic - Rx to [facility]. 5. Severe anemia- primary team follows, better overall. 6. Incarcerated hernia, status post repair. 7. Abdominal distention-improved 8. Hyponatremia-resolved 9. Renal failure-improved- better now, avoid nephrotoxic meds. Consultation Date/Type/Reason Admit Date/Time Oct 21, 2016 at 17:20 Type of Consultation: Cardiology Referring Provider: ELIZABETH STANLEY MD 24 HR Interval Summary Free Text/Dictation NO acute change - con't to recover post op-will monitor clinically. Exam/Review of Systems Vital Signs Vitals Vital Signs Date Time Temp Pulse Resp B/P Pulse Ox O2 Delivery O2 Flow Rate FiO2 11/13/16 09:49 90 18 99 Nasal Cannula 2.0 11/13/16 07:00 98.0 180/86 11/12/16 21:16 28 Intake and Output 11/12/16 11/12/16 11/13/16 15:00 23:00 07:00 Intake Total 800 ml 700 ml 500 ml Output Total 1200 ml 900 ml Balance 800 ml -500 ml -400 ml Exam ROS: No fever, no chills, no nausea, no vomiting, no diarrhea/constipation No recent weight changes No chest pain, no PND, no orthopnea No dizziness, blurred vision No thirst, no heat or cold intolerance General: WN/WD/NAD, AOx 3 HEENT: Unicetric/atraumatic/EOMI (follow commands) NECK: JVD elevated, no thyromegaly Lymph: no lymphadenopathy HEART: regular with no S3, II/ systolic murmur at apex LUNGS: Coarse sounds ABD: soft, NT, ND, +BS,post-op : Intact Neuro: non focal SKIN: chronic changes EXT: trace edema Results Result Diagram: 11/10/16 0609 11/13/16 0608 Results 24 hrs Laboratory Tests Test 11/13/16 06:08 11/13/16 06:48 Alanine Aminotransferase (ALT/SGPT) 55 Albumin 3.6 Albumin/Globulin Ratio 1.05 Alkaline Phosphatase 67 Anion Gap 15 Aspartate Amino Transf (AST/SGOT) 38 Blood Urea Nitrogen 12 Calcium Level 8.7 Carbon Dioxide Level 25 Chloride Level 97 Creatinine 0.70 Direct Bilirubin 0.00 Globulin 3.40 H Glucose Level 88 Indirect Bilirubin 0.5 Potassium Level 4.4 Sodium Level 133 L Total Bilirubin 0.5 Total Protein 7.0 INR International Normalized Ratio 1.42 Prothrombin Time 17.4 H Prothrombin Time Ratio 1.4 Medications Medications Current Medications Magnesium Hydroxide (Milk Of Mag) 30 ml DAILY PRN PO CONSTIPATION Last administered on 10/28/16 10:45; Admin Dose 30 ML; Start 10/21/16 at 15:00 Loratadine (Claritin) 10 mg DAILY PO Last administered on 11/13/16 08:43; Admin Dose 10 MG; Start 10/21/16 at 15:00 Bisacodyl (Dulcolax Supp) 10 mg DAILY PRN [place] CONSTIPATION; Start 10/21/16 at 16 :00 Sodium Biphosphate/ Sodium Phosphate (Fleet Enema) 133 ml DAILY PRN [place] CONSTIPATION; Start 10/21/16 at 16:00 Acetaminophen/ Hydrocodone Bitart ([place] (5/325)) 2 tab Q6H PRN PO PAIN LEVEL 6 -10 Last administered on 11/12/16 09:01; Admin Dose 2 TAB; Start 10/26/16 at 23: 30 Morphine Sulfate (morphine) 2 mg Q4H PRN IV PAIN Last administered on 23:23; Admin Dose 2 MG; Start 10/29/16 at 02:00 Polyethylene Glycol 17 gm 17 gm DAILY PRN PO CONSTIPATION Last administered on 10/29/16 19:41; Admin Dose 17 GM; Start 10/29/16 at 19:30 Sodium Chloride (NS) 1,000 ml @ 100 mls/hr Q10H IV Last administered on 00:13; Admin Dose 100 MLS/HR; Start 10/30/16 at 13:00 Ondansetron HCl (Zofran Inj) 4 mg Q6H PRN IV NAUSEA AND/OR VOMITING Last administered on 10/31/16 11:54; Admin Dose 4 MG; Start 10/31/16 at 12:00 Simethicone (Mylicon) 80 mg Q4 PRN PO GAS PAIN Last administered on 11/07/16 22 :19; Admin Dose 80 MG; Start 10/31/16 at 12:00 Eye Lubricant (Artificial Tears Oph) 2 drop QID BOTH EYES Last administered on 11/13/16 08:42; Admin Dose 2 DROP; Start 11/05/16 at 21:00 Fondaparinux (Arixtra) 10 mg DAILY SC Last administered on 11/13/16 08:46; Admin Dose 10 MG; Start 11/07/16 at 12:00 Hydralazine HCl (Apresoline) 50 mg TID PO Last administered on 11/13/16 08:43; Admin Dose 50 MG; Start 11/10/16 at 21:00 Hydralazine HCl (Apresoline) 10 mg Q6H PRN IV sbp >160 Last administered on 11/13 08:43; Admin Dose 10 MG; Start 11/10/16 at 18:30 Pantoprazole (Protonix Tab) 40 mg BID@06,18 PO Last administered on 11/13/16 06 :25; Admin Dose 40 MG; Start 11/12/16 at 06:00 Guaifenesin/ Codeine Phosphate (Robitussin Ac Liquid Cup) 5 ml Q6 PRN PO COUGH Last administered on 11/12/16 20:19; Admin Dose 5 ML; Start 11/11/16 at 19:30 Benazepril HCl (Lotensin) 40 mg BID PO Last administered on 11/13/16 08:43; Admin Dose 40 MG; Start 11/12/16 at 21:00 Warfarin Sodium (Coumadin) 7 mg DAILY@17 PO Last administered on 11/12/16 16:57 ; Admin Dose 7 MG; Start 11/12/16 at 17:00 Acetaminophen (Tylenol Tab) 650 mg Q6H PRN PO PAIN AND OR ELEVATED TEMP Last administered on 11/13/16 08:44; Admin Dose 650 MG; Start 11/12/16 at 15:30 MOO CACERES MD Nov 13, 2016 10:12
[2016-11-13] MEDS: WARFARIN 5 MG TAB PO SCH (17:09)
--- NOTE | 2016-11-13 17:54 | PN ---
Date/Time of Note Date/Time of Note DATE: 11/13/16 TIME: 17:52 Assessment/Plan VTE Prophylaxis VTE Prophylaxis Intervention: SCD's Lines/Catheters [facility] Central Line Central line still needed: Yes Urinary Cath still in place: No Assessment/Plan Chief Complaint/Hosp Course ASSESSMENT AND PLAN: - s/p hypovolemic shock 2 to s/p intraabdominal bleeding, resolved. - Acute anemia 2 intraabdominal bleeding ,resolved. - Acute kidney injury 2 to shock, resolved. Dr. Baker is following in nephrology consultation. 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 Dr. Greenberg is following and cardiology consultation. Continue to monitor PT/INR and CBC. - Incisional hernia status post laparoscopic incisional hernia repair by Dr. Moreira on 10/19. - History of aortic dissection status post repair. - Hypertension. - Hyperlipidemia - Obesity - Esophagitis per EGD, cont Protonix Further recommendations based on clinical course. Plan of care discussed with Dr. Murphy. Problems: Subjective 24 Hr Interval Summary Free Text/Dictation Patient is comfortable, ambulates with physical therapy and nurse in the hallway , no bleeding from the incision site. Exam/Review of Systems Vital Signs Vitals Vital Signs Date Time Temp Pulse Resp B/P Pulse Ox O2 Delivery O2 Flow Rate FiO2 11/13/16 16:43 77 18 98 Nasal Cannula 2.0 11/13/16 15:46 97.9 140/90 11/13/16 13:12 21 Intake and Output 11/12/16 11/12/16 11/13/16 15:00 23:00 07:00 Intake Total 800 ml 700 ml 500 ml Output Total 1200 ml 900 ml Balance 800 ml -500 ml -400 ml Exam GENERAL: Well-developed, obese gentleman who currently is awake. HEENT: Head is atraumatic, normocephalic. Pupils equal, round, reactive to light and accommodation. Oral mucosa is pink and moist. NECK: Supple, no cervical lymphadenopathy, no thyromegaly. CHEST: Lungs clear bilaterally. There are no rhonchi, wheezes, or rales noted. CARDIOVASCULAR: Normal S1, S2. The patient has mechanical aortic valve click. No murmurs or gallops noted. ABDOMEN: Distended soft , bowel sounds hypoactive, status post surgery. Ecchymotic area around the incision. EXTREMITIES: No edema, clubbing, cyanosis. SKIN: There is no rash or petechiae noted. The patient has a midline surgical healed scar. NEUROLOGIC: The patient is awake, alert, and oriented x3. Results Result Diagram: 11/10/16 0609 11/13/16 0608 Results 24 hrs Laboratory Tests Test 11/13/16 06:08 11/13/16 06:48 Alanine Aminotransferase (ALT/SGPT) 55 Albumin 3.6 Albumin/Globulin Ratio 1.05 Alkaline Phosphatase 67 Anion Gap 15 Aspartate Amino Transf (AST/SGOT) 38 Blood Urea Nitrogen 12 Calcium Level 8.7 Carbon Dioxide Level 25 Chloride Level 97 Creatinine 0.70 Direct Bilirubin 0.00 Globulin 3.40 H Glucose Level 88 Indirect Bilirubin 0.5 Potassium Level 4.4 Sodium Level 133 L Total Bilirubin 0.5 Total Protein 7.0 INR International Normalized Ratio 1.42 Prothrombin Time 17.4 H Prothrombin Time Ratio 1.4 Medications Medications Current Medications Magnesium Hydroxide (Milk Of Mag) 30 ml DAILY PRN PO CONSTIPATION Last administered on 10/28/16 10:45; Admin Dose 30 ML; Start 10/21/16 at 15:00 Loratadine (Claritin) 10 mg DAILY PO Last administered on 11/13/16 08:43; Admin Dose 10 MG; Start 10/21/16 at 15:00 Bisacodyl (Dulcolax Supp) 10 mg DAILY PRN [place] CONSTIPATION; Start 10/21/16 at 16 :00 Sodium Biphosphate/ Sodium Phosphate (Fleet Enema) 133 ml DAILY PRN [place] CONSTIPATION; Start 10/21/16 at 16:00 Acetaminophen/ Hydrocodone Bitart ([place] (5/325)) 2 tab Q6H PRN PO PAIN LEVEL 6 -10 Last administered on 11/12/16 09:01; Admin Dose 2 TAB; Start 10/26/16 at 23: 30 Morphine Sulfate (morphine) 2 mg Q4H PRN IV PAIN Last administered on 23:23; Admin Dose 2 MG; Start 10/29/16 at 02:00 Polyethylene Glycol (Miralax) 17 gm DAILY PRN PO CONSTIPATION Last administered on 10/29/16 19:41; Admin Dose 17 GM; Start 10/29/16 at 19:30 Ondansetron HCl (Zofran Inj) 4 mg Q6H PRN IV NAUSEA AND/OR VOMITING Last administered on 10/31/16 11:54; Admin Dose 4 MG; Start 10/31/16 at 12:00 Simethicone (Mylicon) 80 mg Q4 PRN PO GAS PAIN Last administered on 11/07/16 22 :19; Admin Dose 80 MG; Start 10/31/16 at 12:00 Eye Lubricant (Artificial Tears Oph) 2 drop QID BOTH EYES Last administered on 11/13/16 17:08; Admin Dose 2 DROP; Start 11/05/16 at 21:00 Fondaparinux (Arixtra) 10 mg DAILY SC Last administered on 11/13/16 08:46; Admin Dose 10 MG; Start 11/07/16 at 12:00 Hydralazine HCl (Apresoline) 50 mg TID PO Last administered on 11/13/16 12:37; Admin Dose 50 MG; Start 11/10/16 at 21:00 Hydralazine HCl (Apresoline) 10 mg Q6H PRN IV sbp >160 Last administered on 11/13 08:43; Admin Dose 10 MG; Start 11/10/16 at 18:30 Pantoprazole (Protonix Tab) 40 mg BID@06,18 PO Last administered on 11/13/16 17 :08; Admin Dose 40 MG; Start 11/12/16 at 06:00 Guaifenesin/ Codeine Phosphate (Robitussin Ac Liquid Cup) 5 ml Q6 PRN PO COUGH Last administered on 11/12/16 20:19; Admin Dose 5 ML; Start 11/11/16 at 19:30 Benazepril HCl (Lotensin) 40 mg BID PO Last administered on 11/13/16 08:43; Admin Dose 40 MG; Start 11/12/16 at 21:00 Warfarin Sodium (Coumadin) 7 mg DAILY@17 PO Last administered on 11/13/16 17:09 ; Admin Dose 7 MG; Start 11/12/16 at 17:00 Acetaminophen (Tylenol Tab) 650 mg Q6H PRN PO PAIN AND OR ELEVATED TEMP Last administered on 11/13/16 08:44; Admin Dose 650 MG; Start 11/12/16 at 15:30 KIM DEJESUS Nov 13, 2016 17:54
[2016-11-14] VITALS (13 sets, daily range): BP systolic 128–157; BP diastolic 66–91; PULSE 81–90; RESP 16–20
[2016-11-14] MEDS: ALBUTEROL 0.5% (NEB) 2.5 MG/0.5 ML AMP HHN SCH ×6 (01:00→20:57)
[2016-11-14] MEDS: ACETAMINOPHEN 325 MG TAB PO PRN (01:08)
[2016-11-14] MEDS: GUAIFENESIN/CODEINE 5ML CUP PO PRN ×2 (01:08→20:52)
[2016-11-14] MEDS: PANTOPRAZOLE (EC) 40 MG TAB PO SCH ×2 (05:54→18:18)
[2016-11-14 07:15] LABS: BASOPHIL # 0.1 10^3/ul (0.0-0.1); EOSINOPHILS # 0.3 10^3/ul (0.0-0.5); EOSINOPHILS % 3.6 % (0.0-7.0); HEMATOCRIT 28.9 % (42.0-52.0); HEMOGLOBIN 9.7 g/dl (14.0-18.0); LYMPHOCYTES # 1.9 10^3/ul (0.8-2.9); LYMPHOCYTES % 24.3 % (15.0-51.0); MEAN CORPUSCULAR HEMOGLOBIN 29.2 pg (29.0-33.0); MEAN CORPUSCULAR HGB CONC 33.6 g/dl (32.0-37.0); MEAN PLATELET VOLUME 9.3 fl (7.4-10.4); MONOCYTE # 0.5 10^3/ul (0.3-0.9); MONOCYTES % 5.9 % (0.0-11.0); NEUTROPHILS % 65.2 % (39.0-77.0); PLATELET COUNT 344 10^3/UL (140-440); RED BLOOD COUNT 3.32 10^6/ul (4.70-6.10); UNCORRECTED WBC 7.7 10^3/ul (4.8-10.8); WHITE BLOOD COUNT 7.7 10^3/ul (4.8-10.8)
[2016-11-14 07:20] LABS: CONDITION 1; LH ANALYZER COMMENTS 1
[2016-11-14 07:22] LABS: POTASSIUM 4.3 mmol/L (3.5-5.1)
[2016-11-14 07:25] LABS: CALCIUM 8.4 mg/dl (8.4-10.2); CREATININE 0.83 mg/dl (0.61-1.24)
[2016-11-14 07:57] LABS: INR 1.41; PROTIME 17.3 Sec (12.2-14.2); PT RATIO 1.4
[2016-11-14] MEDS: ARTIFICIAL TEARS 15 ML OPH BOTH EYES SCH ×4 (09:45→20:53)
[2016-11-14] MEDS: LORATADINE 10 MG TAB PO SCH (09:46)
[2016-11-14] MEDS: BENAZEPRIL 20 MG TAB PO SCH ×2 (09:46→20:52)
--- NOTE | 2016-11-14 12:56 | CONS ---
Date/Time of Note Date/Time of Note DATE: 11/14/16 TIME: 12:53 Assessment/Plan Assessment/Plan Chief Complaint/Hosp Course IMPRESSION: 1. Abnormal electrocardiogram, assess for acute coronary syndrome. 2. Chest pain, assess for acute coronary syndrome in the setting of severe anemia.-negative troponin x 3/NL EF by echo this admission 3. History of aortic valve replacement-mechanical 4. Coagulopathy-subtherapeutic 5. Severe anemia. 6. Incarcerated hernia, status post repair. 7. Abdominal distention-improved 8. Hyponatremia-resolved 9. Renal failure-improved 10.HTN-reasonable control somewhat labile Recc: -Tele -Continue ACEI/hydralazine -Follow hgb closely -Increase coumadin and follow INR -Continue arixtra until INR therapeutic -Follow volume status closely - Problems: Consultation Date/Type/Reason Admit Date/Time Oct 21, 2016 at 17:20 Initial Consult Date 11/05/16 Type of Consultation: Cardiology Reason for Consultation AVR Referring Provider: ELIZABETH STANLEY MD Exam/Review of Systems Vital Signs Vitals Vital Signs Date Time Temp Pulse Resp B/P Pulse Ox O2 Delivery O2 Flow Rate FiO2 11/14/16 12:17 81 11/14/16 11:10 97.7 20 157/91 96 11/14/16 09:00 Nasal Cannula 2.0 11/14/16 05:16 21 Intake and Output 11/13/16 11/13/16 11/14/16 15:00 23:00 07:00 Intake Total 2125 ml 500 ml Output Total 1100 ml 1200 ml Balance 1025 ml -700 ml Exam Review of Systems: CONSTITUTIONAL: No fevers, chills. PULMONARY: No sob CARDIOVASCULAR: No chest pain/palpitations GASTROINTESTINAL: Mild abd pain GENITOURINARY: No hematuria/dysuria. MUSCULOSKELETAL: No myagias/arthalgias. PSYCHIATRIC: The patient denies depression. NEUROLOGIC: No weakness Constitutional: alert Psych: no complaints Head: normocephalic ENMT: mucosa pink and moist Neck: jvd (9 cm water), supple Respiratory: diminished breath sounds Cardiovascular: regular rate and rhythm Gastrointestinal: other (midline incision c/d/i), soft Musculoskeletal: muscle tone (normal) Extremities: edema (none) Neurological: other (Nom focal deficits) Results Result Diagram: 11/14/16 0620 11/14/16 0620 Results 24 hrs Laboratory Tests Test 11/14/16 06:20 Anion Gap 14 Basophils # 0.1 Basophils % 1.0 Blood Morphology Comment Blood Urea Nitrogen 15 Calcium Level 8.4 Carbon Dioxide Level 26 Chloride Level 97 Creatinine 0.83 Eosinophils # 0.3 Eosinophils % 3.6 Glucose Level 84 Hematocrit 28.9 L Hemoglobin 9.7 L INR International Normalized Ratio 1.41 Lymphocytes # 1.9 Lymphocytes % 24.3 Mean Corpuscular Hemoglobin 29.2 Mean Corpuscular Hemoglobin Concent 33.6 Mean Corpuscular Volume 87.0 Mean Platelet Volume 9.3 Monocytes # 0.5 Monocytes % 5.9 Neutrophils # 5.0 Neutrophils % 65.2 Nucleated Red Blood Cells # 0.0 Nucleated Red Blood Cells % 0.0 Platelet Count 344 Potassium Level 4.3 Prothrombin Time 17.3 H Prothrombin Time Ratio 1.4 Red Blood Count 3.32 L Red Cell Distribution Width 16.0 H Sodium Level 133 L White Blood Count 7.7 Medications Medications Current Medications Magnesium Hydroxide (Milk Of Mag) 30 ml DAILY PRN PO CONSTIPATION Last administered on 10/28/16 10:45; Admin Dose 30 ML; Start 10/21/16 at 15:00 Loratadine (Claritin) 10 mg DAILY PO Last administered on 11/14/16 09:46; Admin Dose 10 MG; Start 10/21/16 at 15:00 Bisacodyl (Dulcolax Supp) 10 mg DAILY PRN [place] CONSTIPATION; Start 10/21/16 at 16 :00 Sodium Biphosphate/ Sodium Phosphate (Fleet Enema) 133 ml DAILY PRN [place] CONSTIPATION; Start 10/21/16 at 16:00 Acetaminophen/ Hydrocodone Bitart ([place] (5/325)) 2 tab Q6H PRN PO PAIN LEVEL 6 -10 Last administered on 11/12/16 09:01; Admin Dose 2 TAB; Start 10/26/16 at 23: 30 Morphine Sulfate (morphine) 2 mg Q4H PRN IV PAIN Last administered on 23:23; Admin Dose 2 MG; Start 10/29/16 at 02:00 Polyethylene Glycol (Miralax) 17 gm DAILY PRN PO CONSTIPATION Last administered on 10/29/16 19:41; Admin Dose 17 GM; Start 10/29/16 at 19:30 Ondansetron HCl (Zofran Inj) 4 mg Q6H PRN IV NAUSEA AND/OR VOMITING Last administered on 10/31/16 11:54; Admin Dose 4 MG; Start 10/31/16 at 12:00 Simethicone (Mylicon) 80 mg Q4 PRN PO GAS PAIN Last administered on 11/07/16 22 :19; Admin Dose 80 MG; Start 10/31/16 at 12:00 Eye Lubricant (Artificial Tears Oph) 2 drop QID BOTH EYES Last administered on 11/14/16 09:45; Admin Dose 2 DROP; Start 11/05/16 at 21:00 Fondaparinux (Arixtra) 10 mg DAILY SC Last administered on 11/13/16 08:46; Admin Dose 10 MG; Start 11/07/16 at 12:00 Hydralazine HCl (Apresoline) 50 mg TID PO Last administered on 11/14/16 09:47; Admin Dose 50 MG; Start 11/10/16 at 21:00 Hydralazine HCl (Apresoline) 10 mg Q6H PRN IV sbp >160 Last administered on 11/13 08:43; Admin Dose 10 MG; Start 11/10/16 at 18:30 Pantoprazole (Protonix Tab) 40 mg BID@06,18 PO Last administered on 11/14/16 05 :54; Admin Dose 40 MG; Start 11/12/16 at 06:00 Guaifenesin/ Codeine Phosphate (Robitussin Ac Liquid Cup) 5 ml Q6 PRN PO COUGH Last administered on 11/14/16 01:08; Admin Dose 5 ML; Start 11/11/16 at 19:30 Benazepril HCl (Lotensin) 40 mg BID PO Last administered on 11/14/16 09:46; Admin Dose 40 MG; Start 11/12/16 at 21:00 Warfarin Sodium (Coumadin) 7 mg DAILY@17 PO Last administered on 11/13/16 17:09 ; Admin Dose 7 MG; Start 11/12/16 at 17:00 Acetaminophen (Tylenol Tab) 650 mg Q6H PRN PO PAIN AND OR ELEVATED TEMP Last administered on 11/14/16 01:08; Admin Dose 650 MG; Start 11/12/16 at 15:30 ADAM GILMORE 8, 2017 12:56
[2016-11-14] MEDS: FONDAPARINUX 2.5 MG SYG SC SCH (15:07)
[2016-11-14] MEDS ORDERED: WARFARIN 2 MG TAB PO SCH (17:00)
--- NOTE | 2016-11-14 17:02 | PN ---
Date/Time of Note Date/Time of Note DATE: 11/14/16 TIME: 17:00 Assessment/Plan VTE Prophylaxis VTE Prophylaxis Intervention: SCD's Lines/Catheters IV Catheter Type (from [facility]): Central Line Central line still needed: Yes Urinary Cath still in place: No Assessment/Plan Chief Complaint/Hosp Course ASSESSMENT AND PLAN: - Prosthetic aortic valve replacement, restarted on Coumadin and Arixtra due to heparin allergy. Dr. Greenberg is following and cardiology consultation. Continue to monitor PT/INR and CBC. - s/p hypovolemic shock 2 to s/p intraabdominal bleeding, resolved. - Acute anemia 2 intraabdominal bleeding ,resolved. - Acute kidney injury 2 to shock, resolved. Dr. Baker is following in nephrology consultation. - Incisional hernia status post laparoscopic incisional hernia repair by Dr. Moreira on 10/19. - History of aortic dissection status post repair. - Hypertension. - Hyperlipidemia - Obesity - Esophagitis per EGD, cont Protonix Further recommendations based on clinical course. Plan of care discussed with Dr. Murphy. Problems: Subjective 24 Hr Interval Summary Free Text/Dictation No fever nausea vomiting, no bleeding from the incision site, patient continues to work with physical therapy. Exam/Review of Systems Vital Signs Vitals Vital Signs Date Time Temp Pulse Resp B/P Pulse Ox O2 Delivery O2 Flow Rate FiO2 11/14/16 15:48 97.5 89 20 144/90 98 11/14/16 13:36 Nasal Cannula 2.0 11/14/16 05:16 21 Intake and Output 11/13/16 11/13/16 11/14/16 15:00 23:00 07:00 Intake Total 2125 ml 500 ml Output Total 1100 ml 1200 ml Balance 1025 ml -700 ml Exam GENERAL: Well-developed, obese gentleman who currently is awake. HEENT: Head is atraumatic, normocephalic. Pupils equal, round, reactive to light and accommodation. Oral mucosa is pink and moist. NECK: Supple, no cervical lymphadenopathy, no thyromegaly. CHEST: Lungs clear bilaterally. There are no rhonchi, wheezes, or rales noted. CARDIOVASCULAR: Normal S1, S2. The patient has mechanical aortic valve click. No murmurs or gallops noted. ABDOMEN: Distended soft , bowel sounds hypoactive, status post surgery. Ecchymotic area around the incision. EXTREMITIES: No edema, clubbing, cyanosis. SKIN: There is no rash or petechiae noted. The patient has a midline surgical healed scar. NEUROLOGIC: The patient is awake, alert, and oriented x3. Results Result Diagram: 11/14/16 0620 11/14/16 0620 Results 24 hrs Laboratory Tests Test 11/14/16 06:20 Anion Gap 14 Basophils # 0.1 Basophils % 1.0 Blood Morphology Comment Blood Urea Nitrogen 15 Calcium Level 8.4 Carbon Dioxide Level 26 Chloride Level 97 Creatinine 0.83 Eosinophils # 0.3 Eosinophils % 3.6 Glucose Level 84 Hematocrit 28.9 L Hemoglobin 9.7 L INR International Normalized Ratio 1.41 Lymphocytes # 1.9 Lymphocytes % 24.3 Mean Corpuscular Hemoglobin 29.2 Mean Corpuscular Hemoglobin Concent 33.6 Mean Corpuscular Volume 87.0 Mean Platelet Volume 9.3 Monocytes # 0.5 Monocytes % 5.9 Neutrophils # 5.0 Neutrophils % 65.2 Nucleated Red Blood Cells # 0.0 Nucleated Red Blood Cells % 0.0 Platelet Count 344 Potassium Level 4.3 Prothrombin Time 17.3 H Prothrombin Time Ratio 1.4 Red Blood Count 3.32 L Red Cell Distribution Width 16.0 H Sodium Level 133 L White Blood Count 7.7 Medications Medications Current Medications Magnesium Hydroxide (Milk Of Mag) 30 ml DAILY PRN PO CONSTIPATION Last administered on 10/28/16 10:45; Admin Dose 30 ML; Start 10/21/16 at 15:00 Loratadine (Claritin) 10 mg DAILY PO Last administered on 11/14/16 09:46; Admin Dose 10 MG; Start 10/21/16 at 15:00 Bisacodyl (Dulcolax Supp) 10 mg DAILY PRN [place] CONSTIPATION; Start 10/21/16 at 16 :00 Sodium Biphosphate/ Sodium Phosphate (Fleet Enema) 133 ml DAILY PRN [place] CONSTIPATION; Start 10/21/16 at 16:00 Acetaminophen/ Hydrocodone Bitart ([place] (5/325)) 2 tab Q6H PRN PO PAIN LEVEL 6 -10 Last administered on 11/12/16 09:01; Admin Dose 2 TAB; Start 10/26/16 at 23: 30 Morphine Sulfate (morphine) 2 mg Q4H PRN IV PAIN Last administered on 23:23; Admin Dose 2 MG; Start 10/29/16 at 02:00 Polyethylene Glycol (Miralax) 17 gm DAILY PRN PO CONSTIPATION Last administered on 10/29/16 19:41; Admin Dose 17 GM; Start 10/29/16 at 19:30 Ondansetron HCl (Zofran Inj) 4 mg Q6H PRN IV NAUSEA AND/OR VOMITING Last administered on 10/31/16 11:54; Admin Dose 4 MG; Start 10/31/16 at 12:00 Simethicone (Mylicon) 80 mg Q4 PRN PO GAS PAIN Last administered on 11/07/16 22 :19; Admin Dose 80 MG; Start 10/31/16 at 12:00 Eye Lubricant (Artificial Tears Oph) 2 drop QID BOTH EYES Last administered on 11/14/16 14:40; Admin Dose 2 DROP; Start 11/05/16 at 21:00 Fondaparinux (Arixtra) 10 mg DAILY SC Last administered on 11/14/16 15:07; Admin Dose 10 MG; Start 11/07/16 at 12:00 Hydralazine HCl (Apresoline) 50 mg TID PO Last administered on 11/14/16 14:34; Admin Dose 50 MG; Start 11/10/16 at 21:00 Hydralazine HCl (Apresoline) 10 mg Q6H PRN IV sbp >160 Last administered on 11/13 08:43; Admin Dose 10 MG; Start 11/10/16 at 18:30 Pantoprazole (Protonix Tab) 40 mg BID@06,18 PO Last administered on 11/14/16 05 :54; Admin Dose 40 MG; Start 11/12/16 at 06:00 Guaifenesin/ Codeine Phosphate (Robitussin Ac Liquid Cup) 5 ml Q6 PRN PO COUGH Last administered on 11/14/16 01:08; Admin Dose 5 ML; Start 11/11/16 at 19:30 Benazepril HCl (Lotensin) 40 mg BID PO Last administered on 11/14/16 09:46; Admin Dose 40 MG; Start 11/12/16 at 21:00 Acetaminophen (Tylenol Tab) 650 mg Q6H PRN PO PAIN AND OR ELEVATED TEMP Last administered on 2/8/17at 01:08; Admin Dose 650 MG; Start 11/12/16 at 15:30 Warfarin Sodium (Coumadin) 8 mg DAILY@17 PO ; Start 11/14/16 at 17:00 KIM DEJESUS Nov 14, 2016 17:02
[2016-11-14] MEDS: morphine 2 MG INJ IV PRN (18:18)
[2016-11-15] VITALS (11 sets, daily range): BP systolic 140–165; BP diastolic 77–86; PULSE 82–93; RESP 18–20
[2016-11-15] MEDS: ALBUTEROL 0.5% (NEB) 2.5 MG/0.5 ML AMP HHN SCH ×6 (01:04→20:24)
[2016-11-15] MEDS: morphine 2 MG INJ IV PRN (04:11)
[2016-11-15] MEDS: PANTOPRAZOLE (EC) 40 MG TAB PO SCH ×2 (06:02→17:34)
[2016-11-15 06:24] LABS: INR 1.37; PROTIME 16.9 Sec (12.2-14.2); PT RATIO 1.3
[2016-11-15 06:40] LABS: POTASSIUM 4.5 mmol/L (3.5-5.1)
[2016-11-15 06:42] LABS: CREATININE 0.85 mg/dl (0.61-1.24)
[2016-11-15 06:43] LABS: CALCIUM 8.7 mg/dl (8.4-10.2)
[2016-11-15 07:17] LABS: BASOPHILS % 1.5 % (0.0-2.0); EOSINOPHILS % 3.9 % (0.0-7.0); HEMATOCRIT 32.2 % (42.0-52.0); HEMOGLOBIN 10.2 g/dl (14.0-18.0); LYMPHOCYTES # 1.9 10^3/ul (0.8-2.9); LYMPHOCYTES % 27.6 % (15.0-51.0); MEAN CORPUSCULAR HEMOGLOBIN 28.5 pg (29.0-33.0); MEAN CORPUSCULAR HGB CONC 31.7 g/dl (32.0-37.0); MEAN CORPUSCULAR VOLUME 89.9 fl (82.0-101.0); MEAN PLATELET VOLUME 11.2 fl (7.4-10.4); MONOCYTE # 0.5 10^3/ul (0.3-0.9); MONOCYTES % 7.3 % (0.0-11.0); NEUTROPHIL # 4.1 10^3/ul (1.6-7.5); NEUTROPHILS % 59.4 % (39.0-77.0); PLATELET COUNT 393 10^3/UL (140-440); RED BLOOD COUNT 3.58 10^6/ul (4.70-6.10); RED CELL DISTRIBUTION WIDTH 14.9 % (11.5-14.5); WHITE BLOOD COUNT 6.9 10^3/ul (4.8-10.8)
[2016-11-15] MEDS: ARTIFICIAL TEARS 15 ML OPH BOTH EYES SCH ×4 (08:51→20:39)
[2016-11-15] MEDS: LORATADINE 10 MG TAB PO SCH (08:52)
[2016-11-15] MEDS: BENAZEPRIL 20 MG TAB PO SCH ×2 (08:53→20:39)
--- NOTE | 2016-11-15 09:09 | PN ---
Date/Time of Note Date/Time of Note DATE: 11/15/16 TIME: 09:07 Assessment/Plan VTE Prophylaxis VTE Prophylaxis Intervention: other Lines/Catheters IV Catheter Type (from [facility]): Central Line Urinary Cath still in place: No Assessment/Plan Assessment/Plan - Prosthetic aortic valve replacement, restarted on Coumadin and Arixtra due to heparin allergy. Dr. Greenberg is following and cardiology consultation. Continue to monitor PT/INR and CBC. - s/p hypovolemic shock 2 to s/p intraabdominal bleeding, resolved. - Acute anemia 2 intraabdominal bleeding ,resolved. - Acute kidney injury 2 to shock, resolved. Dr. Baker is following in nephrology consultation. - Incisional hernia status post laparoscopic incisional hernia repair by Dr. Moreira on 10/19. - History of aortic dissection status post repair. - Hypertension. - Hyperlipidemia - Obesity - Esophagitis per EGD, cont Protonix Further recommendations based on clinical course. Plan of care discussed with Dr. Murphy. Subjective 24 Hr Interval Summary Constitutional: improved ENT: no complaints Respiratory: no complaints Gastrointestinal: no complaints Genitourinary: no complaints Musculoskeletal: no complaints Skin: other Neurologic: no complaints Endocrine: no complaints Exam/Review of Systems Vital Signs Vitals Vital Signs Date Time Temp Pulse Resp B/P Pulse Ox O2 Delivery O2 Flow Rate FiO2 11/15/16 08:13 89 11/15/16 08:00 Nasal Cannula 2.0 11/15/16 07:30 97.6 20 147/80 98 11/14/16 05:16 21 Intake and Output 11/14/16 11/14/16 11/15/16 15:00 23:00 07:00 Intake Total 800 ml Output Total 2000 ml Balance -1200 ml Exam Constitutional: alert, oriented, well developed Psych: no complaints Head: normocephalic Eyes: EOMI, PERRL ENMT: nl external ears & nose Neck: non-tender Respiratory: clear to auscultation Cardiovascular: nl pulses, other (SP aORTIC VALVE REPLACEMENT) Gastrointestinal: non-tender, other (status post laparoscopic incisional hernia -DDI), soft Results Result Diagram: 11/15/16 0600 11/15/16 0600 Results 24 hrs Laboratory Tests Test 11/15/16 06:00 Anion Gap 17 H Basophils % 1.5 Blood Urea Nitrogen 14 Calcium Level 8.7 Carbon Dioxide Level 26 Chloride Level 97 Creatinine 0.85 Eosinophils % 3.9 Glucose Level 95 Hematocrit 32.2 L Hemoglobin 10.2 L INR International Normalized Ratio 1.37 Lymphocytes # 1.9 Lymphocytes % 27.6 Mean Corpuscular Hemoglobin 28.5 L Mean Corpuscular Hemoglobin Concent 31.7 L Mean Corpuscular Volume 89.9 Mean Platelet Volume 11.2 #H Monocytes # 0.5 Monocytes % 7.3 Neutrophils # 4.1 Neutrophils % 59.4 Platelet Count 393 Potassium Level 4.5 Prothrombin Time 16.9 H Prothrombin Time Ratio 1.3 Red Blood Count 3.58 L Red Cell Distribution Width 14.9 H Sodium Level 135 White Blood Count 6.9 Medications Medications Current Medications Magnesium Hydroxide (Milk Of Mag) 30 ml DAILY PRN PO CONSTIPATION Last administered on 10/28/16 10:45; Admin Dose 30 ML; Start 10/21/16 at 15:00 Loratadine (Claritin) 10 mg DAILY PO Last administered on 11/15/16 08:52; Admin Dose 10 MG; Start 10/21/16 at 15:00 Bisacodyl (Dulcolax Supp) 10 mg DAILY PRN [place] CONSTIPATION; Start 10/21/16 at 16 :00 Sodium Biphosphate/ Sodium Phosphate (Fleet Enema) 133 ml DAILY PRN [place] CONSTIPATION; Start 10/21/16 at 16:00 Acetaminophen/ Hydrocodone Bitart ([place] (5/325)) 2 tab Q6H PRN PO PAIN LEVEL 6 -10 Last administered on 11/12/16 09:01; Admin Dose 2 TAB; Start 10/26/16 at 23: 30 Morphine Sulfate (morphine) 2 mg Q4H PRN IV PAIN Last administered on 11/15/16 04:11; Admin Dose 2 MG; Start 10/29/16 at 02:00 Polyethylene Glycol (Miralax) 17 gm DAILY PRN PO CONSTIPATION Last administered on 10/29/16 19:41; Admin Dose 17 GM; Start 10/29/16 at 19:30 Ondansetron HCl (Zofran Inj) 4 mg Q6H PRN IV NAUSEA AND/OR VOMITING Last administered on 10/31/16 11:54; Admin Dose 4 MG; Start 10/31/16 at 12:00 Simethicone (Mylicon) 80 mg Q4 PRN PO GAS PAIN Last administered on 11/07/16 22 :19; Admin Dose 80 MG; Start 10/31/16 at 12:00 Eye Lubricant (Artificial Tears Oph) 2 drop QID BOTH EYES Last administered on 11/15/16 08:51; Admin Dose 2 DROP; Start 11/05/16 at 21:00 Fondaparinux (Arixtra) 10 mg DAILY SC Last administered on 11/14/16 15:07; Admin Dose 10 MG; Start 11/07/16 at 12:00 Hydralazine HCl (Apresoline) 50 mg TID PO Last administered on 11/15/16 08:53; Admin Dose 50 MG; Start 11/10/16 at 21:00 Hydralazine HCl (Apresoline) 10 mg Q6H PRN IV sbp >160 Last administered on 11/13 08:43; Admin Dose 10 MG; Start 11/10/16 at 18:30 Pantoprazole (Protonix Tab) 40 mg BID@06,18 PO Last administered on 11/15/16 06 :02; Admin Dose 40 MG; Start 11/12/16 at 06:00 Guaifenesin/ Codeine Phosphate (Robitussin Ac Liquid Cup) 5 ml Q6 PRN PO COUGH Last administered on 11/14/16 20:52; Admin Dose 5 ML; Start 11/11/16 at 19:30 Benazepril HCl (Lotensin) 40 mg BID PO Last administered on 11/15/16 08:53; Admin Dose 40 MG; Start 11/12/16 at 21:00 Acetaminophen (Tylenol Tab) 650 mg Q6H PRN PO PAIN AND OR ELEVATED TEMP Last administered on 11/14/16 01:08; Admin Dose 650 MG; Start 11/12/16 at 15:30 Warfarin Sodium (Coumadin) 8 mg DAILY@17 PO Last administered on 11/14/16 18:18 ; Admin Dose 8 MG; Start 11/14/16 at 17:00 NIKO ANSARI Nov 15, 2016 09:09
[2016-11-15] MEDS: FONDAPARINUX 2.5 MG SYG SC SCH (09:11)
--- NOTE | 2016-11-15 11:50 | CONS ---
Date/Time of Note Date/Time of Note DATE: 11/15/16 TIME: 11:48 Assessment/Plan Assessment/Plan Chief Complaint/Hosp Course IMPRESSION: 1. Abnormal electrocardiogram, assess for acute coronary syndrome.-negative tropopnin x 3 2. Chest pain, assess for acute coronary syndrome in the setting of severe anemia.-negative troponin x 3/NL EF by echo this admission 3. History of aortic valve replacement-mechanical 4. Coagulopathy-subtherapeutic 5. Severe anemia. 6. Incarcerated hernia, status post repair. 7. Abdominal distention-improved 8. Hyponatremia-resolved 9. Renal failure-improved 10.HTN-reasonable control somewhat labile Recc: -Tele -Continue ACEI/hydralazine -Follow hgb closely -Continue to increase coumadin and follow INR -Continue arixtra until INR therapeutic -Follow volume status closely - Problems: Consultation Date/Type/Reason Admit Date/Time Oct 21, 2016 at 17:20 Initial Consult Date 11/05/16 Type of Consultation: Cardiology Reason for Consultation AVR Referring Provider: ELIZABETH STANLEY MD Exam/Review of Systems Vital Signs Vitals Vital Signs Date Time Temp Pulse Resp B/P Pulse Ox O2 Delivery O2 Flow Rate FiO2 11/15/16 11:01 98.0 89 19 140/77 96 11/15/16 10:07 Nasal Cannula 2.0 11/14/16 05:16 21 Intake and Output 11/14/16 11/14/16 11/15/16 15:00 23:00 07:00 Intake Total 800 ml Output Total 2000 ml Balance -1200 ml Exam Review of Systems: CONSTITUTIONAL: No fevers, chills. PULMONARY: No sob CARDIOVASCULAR: No chest pain/palpitations GASTROINTESTINAL: No nausea/vomiting. GENITOURINARY: No hematuria/dysuria. MUSCULOSKELETAL: No myagias/arthalgias. PSYCHIATRIC: The patient denies depression. NEUROLOGIC: No weakness Constitutional: alert, oriented Psych: no complaints Head: normocephalic ENMT: mucosa pink and moist Neck: jvd (8-9 cm water), supple Respiratory: diminished breath sounds (at bases/B) Cardiovascular: regular rate and rhythm Gastrointestinal: non-tender, soft, surgical scars (covered by dressing c/d/i) Musculoskeletal: muscle tone (normal) Extremities: edema (trace/B) Neurological: other (No focal deficits) Results Result Diagram: 11/15/16 0600 11/15/16 0600 Results 24 hrs Laboratory Tests Test 11/15/16 06:00 Anion Gap 17 H Basophils % 1.5 Blood Urea Nitrogen 14 Calcium Level 8.7 Carbon Dioxide Level 26 Chloride Level 97 Creatinine 0.85 Eosinophils % 3.9 Glucose Level 95 Hematocrit 32.2 L Hemoglobin 10.2 L INR International Normalized Ratio 1.37 Lymphocytes # 1.9 Lymphocytes % 27.6 Mean Corpuscular Hemoglobin 28.5 L Mean Corpuscular Hemoglobin Concent 31.7 L Mean Corpuscular Volume 89.9 Mean Platelet Volume 11.2 #H Monocytes # 0.5 Monocytes % 7.3 Neutrophils # 4.1 Neutrophils % 59.4 Platelet Count 393 Potassium Level 4.5 Prothrombin Time 16.9 H Prothrombin Time Ratio 1.3 Red Blood Count 3.58 L Red Cell Distribution Width 14.9 H Sodium Level 135 White Blood Count 6.9 Medications Medications Current Medications Magnesium Hydroxide (Milk Of Mag) 30 ml DAILY PRN PO CONSTIPATION Last administered on 10/28/16 10:45; Admin Dose 30 ML; Start 10/21/16 at 15:00 Loratadine (Claritin) 10 mg DAILY PO Last administered on 11/15/16 08:52; Admin Dose 10 MG; Start 10/21/16 at 15:00 Bisacodyl (Dulcolax Supp) 10 mg DAILY PRN [place] CONSTIPATION; Start 10/21/16 at 16 :00 Sodium Biphosphate/ Sodium Phosphate (Fleet Enema) 133 ml DAILY PRN [place] CONSTIPATION; Start 10/21/16 at 16:00 Acetaminophen/ Hydrocodone Bitart ([place] (5/325)) 2 tab Q6H PRN PO PAIN LEVEL 6 -10 Last administered on 11/12/16 09:01; Admin Dose 2 TAB; Start 10/26/16 at 23: 30 Morphine Sulfate (morphine) 2 mg Q4H PRN IV PAIN Last administered on 11/15/16 04:11; Admin Dose 2 MG; Start 10/29/16 at 02:00 Polyethylene Glycol (Miralax) 17 gm DAILY PRN PO CONSTIPATION Last administered on 10/29/16 19:41; Admin Dose 17 GM; Start 10/29/16 at 19:30 Ondansetron HCl (Zofran Inj) 4 mg Q6H PRN IV NAUSEA AND/OR VOMITING Last administered on 10/31/16 11:54; Admin Dose 4 MG; Start 10/31/16 at 12:00 Simethicone (Mylicon) 80 mg Q4 PRN PO GAS PAIN Last administered on 11/07/16 22 :19; Admin Dose 80 MG; Start 10/31/16 at 12:00 Eye Lubricant (Artificial Tears Oph) 2 drop QID BOTH EYES Last administered on 11/15/16 08:51; Admin Dose 2 DROP; Start 11/05/16 at 21:00 Fondaparinux (Arixtra) 10 mg DAILY SC Last administered on 11/15/16 09:11; Admin Dose 10 MG; Start 11/07/16 at 12:00 Hydralazine HCl (Apresoline) 50 mg TID PO Last administered on 11/15/16 08:53; Admin Dose 50 MG; Start 11/10/16 at 21:00 Hydralazine HCl (Apresoline) 10 mg Q6H PRN IV sbp >160 Last administered on 11/13 08:43; Admin Dose 10 MG; Start 11/10/16 at 18:30 Pantoprazole (Protonix Tab) 40 mg BID@06,18 PO Last administered on 11/15/16 06 :02; Admin Dose 40 MG; Start 11/12/16 at 06:00 Guaifenesin/ Codeine Phosphate (Robitussin Ac Liquid Cup) 5 ml Q6 PRN PO COUGH Last administered on 11/14/16 20:52; Admin Dose 5 ML; Start 11/11/16 at 19:30 Benazepril HCl (Lotensin) 40 mg BID PO Last administered on 11/15/16 08:53; Admin Dose 40 MG; Start 11/12/16 at 21:00 Acetaminophen (Tylenol Tab) 650 mg Q6H PRN PO PAIN AND OR ELEVATED TEMP Last administered on 11/14/16 01:08; Admin Dose 650 MG; Start 11/12/16 at 15:30 Warfarin Sodium (Coumadin) 8 mg DAILY@17 PO Last administered on 11/14/16 18:18 ; Admin Dose 8 MG; Start 11/14/16 at 17:00 ADAM GILMORE Nov 15, 2016 11:50
[2016-11-15] MEDS ORDERED: WARFARIN 10 MG TAB PO SCH (17:00)
[2016-11-15] MEDS: WARFARIN 5 MG TAB PO SCH (18:30)
[2016-11-15] MEDS: HYDROCODONE/APAP (5/325) TAB PO PRN (20:39)
[2016-11-16] VITALS (11 sets, daily range): BP systolic 140–166; BP diastolic 79–90; PULSE 70–93; RESP 18–20
[2016-11-16] MEDS: ALBUTEROL 0.5% (NEB) 2.5 MG/0.5 ML AMP HHN SCH ×6 (01:34→20:15)
[2016-11-16] MEDS: PANTOPRAZOLE (EC) 40 MG TAB PO SCH ×2 (05:58→16:48)
[2016-11-16 06:18] LABS: ADD SCAN DIFF NO; BASOPHIL # 0.1 10^3/ul (0.0-0.1); BASOPHILS % 1.5 % (0.0-2.0); EOSINOPHILS # 0.2 10^3/ul (0.0-0.5); EOSINOPHILS % 3.8 % (0.0-7.0); HEMATOCRIT 30.9 % (42.0-52.0); HEMOGLOBIN 9.6 g/dl (14.0-18.0); LYMPHOCYTES # 1.7 10^3/ul (0.8-2.9); MEAN CORPUSCULAR HEMOGLOBIN 27.8 pg (29.0-33.0); MEAN CORPUSCULAR HGB CONC 31.1 g/dl (32.0-37.0); MEAN CORPUSCULAR VOLUME 89.6 fl (82.0-101.0); MEAN PLATELET VOLUME 10.8 fl (7.4-10.4); MONOCYTE # 0.5 10^3/ul (0.3-0.9); MONOCYTES % 7.5 % (0.0-11.0); NEUTROPHIL # 3.5 10^3/ul (1.6-7.5); NEUTROPHILS % 58.7 % (39.0-77.0); PLATELET COUNT 341 10^3/UL (140-415); RED BLOOD COUNT 3.45 10^6/ul (4.70-6.10); RED CELL DISTRIBUTION WIDTH 14.8 % (11.5-14.5)
[2016-11-16 06:27] LABS: INR 1.46; PROTIME 17.8 Sec (12.2-14.2); PT RATIO 1.4
[2016-11-16 06:55] LABS: POTASSIUM 4.4 mmol/L (3.5-5.1)
[2016-11-16 06:58] LABS: CREATININE 0.8 mg/dl (0.61-1.24)
[2016-11-16 06:59] LABS: CALCIUM 8.6 mg/dl (8.4-10.2)
[2016-11-16] MEDS: ARTIFICIAL TEARS 15 ML OPH BOTH EYES SCH ×4 (09:02→20:48)
[2016-11-16] MEDS: LORATADINE 10 MG TAB PO SCH (09:02)
[2016-11-16] MEDS: BENAZEPRIL 20 MG TAB PO SCH ×2 (09:04→20:48)
--- NOTE | 2016-11-16 11:01 | PN ---
Date/Time of Note Date/Time of Note DATE: 11/16/16 TIME: 11:00 Assessment/Plan VTE Prophylaxis VTE Prophylaxis Intervention: SCD's Lines/Catheters [facility] Central Line Central line still needed: Yes Urinary Cath still in place: No Assessment/Plan Chief Complaint/Hosp Course ASSESSMENT AND PLAN: - Prosthetic aortic valve replacement, restarted on Coumadin and Arixtra due to heparin allergy. Dr. Greenberg is following and cardiology consultation. Continue to monitor PT/INR and CBC. - s/p hypovolemic shock 2 to s/p intraabdominal bleeding, resolved. - Acute anemia 2 intraabdominal bleeding ,resolved. - Acute kidney injury 2 to shock, resolved. Dr. Baker is following in nephrology consultation. - Incisional hernia status post laparoscopic incisional hernia repair by Dr. Moreira on 10/19. - History of aortic dissection status post repair. - Hypertension. - Hyperlipidemia - Obesity - Esophagitis per EGD, cont Protonix Further recommendations based on clinical course. Plan of care discussed with Dr. Murphy. Problems: Subjective 24 Hr Interval Summary Free Text/Dictation No acute events overnight, patient looks comfortable. Exam/Review of Systems Vital Signs Vitals Vital Signs Date Time Temp Pulse Resp B/P Pulse Ox O2 Delivery O2 Flow Rate FiO2 11/16/16 09:49 79 18 97 Nasal Cannula 2.0 11/16/16 07:53 98.0 140/87 11/15/16 20:34 21 Intake and Output 11/15/16 11/15/16 11/16/16 15:00 23:00 07:00 Intake Total 1500 ml 500 ml Output Total 950 ml 1200 ml Balance 550 ml -700 ml Exam GENERAL: Well-developed, obese gentleman who currently is awake. HEENT: Head is atraumatic, normocephalic. Pupils equal, round, reactive to light and accommodation. Oral mucosa is pink and moist. NECK: Supple, no cervical lymphadenopathy, no thyromegaly. CHEST: Lungs clear bilaterally. There are no rhonchi, wheezes, or rales noted. CARDIOVASCULAR: Normal S1, S2. The patient has mechanical aortic valve click. No murmurs or gallops noted. ABDOMEN: Distended soft , bowel sounds hypoactive, status post surgery. Ecchymotic area around the incision. EXTREMITIES: No edema, clubbing, cyanosis. SKIN: There is no rash or petechiae noted. The patient has a midline surgical healed scar. NEUROLOGIC: The patient is awake, alert, and oriented x3. Results Result Diagram: 11/16/16 0552 11/16/16 0552 Results 24 hrs Laboratory Tests Test 11/16/16 05:52 Anion Gap 13 Basophils # 0.1 Basophils % 1.5 Blood Urea Nitrogen 16 Calcium Level 8.6 Carbon Dioxide Level 29 Chloride Level 97 Creatinine 0.80 Eosinophils # 0.2 Eosinophils % 3.8 Glucose Level 88 Hematocrit 30.9 L Hemoglobin 9.6 L INR International Normalized Ratio 1.46 Lymphocytes # 1.7 Lymphocytes % 28.0 Mean Corpuscular Hemoglobin 27.8 L Mean Corpuscular Hemoglobin Concent 31.1 L Mean Corpuscular Volume 89.6 Mean Platelet Volume 10.8 H Monocytes # 0.5 Monocytes % 7.5 Neutrophils # 3.5 Neutrophils % 58.7 Nucleated Red Blood Cells # 0.0 Nucleated Red Blood Cells % 0.0 Platelet Count 341 Potassium Level 4.4 Prothrombin Time 17.8 H Prothrombin Time Ratio 1.4 Red Blood Count 3.45 L Red Cell Distribution Width 14.8 H Sodium Level 135 White Blood Count 6.0 Medications Medications Current Medications Magnesium Hydroxide (Milk Of Mag) 30 ml DAILY PRN PO CONSTIPATION Last administered on 10/28/16 10:45; Admin Dose 30 ML; Start 10/21/16 at 15:00 Loratadine (Claritin) 10 mg DAILY PO Last administered on 11/16/16 09:02; Admin Dose 10 MG; Start 10/21/16 at 15:00 Bisacodyl (Dulcolax Supp) 10 mg DAILY PRN [place] CONSTIPATION; Start 10/21/16 at 16 :00 Sodium Biphosphate/ Sodium Phosphate (Fleet Enema) 133 ml DAILY PRN [place] CONSTIPATION; Start 10/21/16 at 16:00 Acetaminophen/ Hydrocodone Bitart ([place] (5/325)) 2 tab Q6H PRN PO PAIN LEVEL 6 -10 Last administered on 11/15/16 20:39; Admin Dose 2 TAB; Start 10/26/16 at 23: 30 Morphine Sulfate (morphine) 2 mg Q4H PRN IV PAIN Last administered on 11/15/16 04:11; Admin Dose 2 MG; Start 10/29/16 at 02:00 Polyethylene Glycol (Miralax) 17 gm DAILY PRN PO CONSTIPATION Last administered on 10/29/16 19:41; Admin Dose 17 GM; Start 10/29/16 at 19:30 Ondansetron HCl (Zofran Inj) 4 mg Q6H PRN IV NAUSEA AND/OR VOMITING Last administered on 10/31/16 11:54; Admin Dose 4 MG; Start 10/31/16 at 12:00 Simethicone (Mylicon) 80 mg Q4 PRN PO GAS PAIN Last administered on 11/07/16 22 :19; Admin Dose 80 MG; Start 10/31/16 at 12:00 Eye Lubricant (Artificial Tears Oph) 2 drop QID BOTH EYES Last administered on 11/16/16 09:02; Admin Dose 2 DROP; Start 11/05/16 at 21:00 Hydralazine HCl (Apresoline) 50 mg TID PO Last administered on 11/16/16 09:03 ; Admin Dose 50 MG; Start 11/10/16 at 21:00 Hydralazine HCl (Apresoline) 10 mg Q6H PRN IV sbp >160 Last administered on 11/13 08:43; Admin Dose 10 MG; Start 11/10/16 at 18:30 Pantoprazole (Protonix Tab) 40 mg BID@06,18 PO Last administered on 11/16/16 05:58; Admin Dose 40 MG; Start 11/12/16 at 06:00 Guaifenesin/ Codeine Phosphate (Robitussin Ac Liquid Cup) 5 ml Q6 PRN PO COUGH Last administered on 11/14/16 20:52; Admin Dose 5 ML; Start 11/11/16 at 19:30 Benazepril HCl (Lotensin) 40 mg BID PO Last administered on 11/16/16 09:04; Admin Dose 40 MG; Start 11/12/16 at 21:00 Acetaminophen (Tylenol Tab) 650 mg Q6H PRN PO PAIN AND OR ELEVATED TEMP Last administered on 11/14/16 01:08; Admin Dose 650 MG; Start 11/12/16 at 15:30 Warfarin Sodium (Coumadin) 10 mg DAILY@17 PO Last administered on 11/15/16 18: 30; Admin Dose 10 MG; Start 11/15/16 at 18:23 Non-Formulary Medication 1 ea DAILY SC ; Start 11/16/16 at 09:00 KIM DEJESUS Nov 16, 2016 11:01
--- NOTE | 2016-11-16 14:13 | CONS ---
Date/Time of Note Date/Time of Note DATE: 11/16/16 TIME: 14:11 Assessment/Plan Assessment/Plan Chief Complaint/Hosp Course IMPRESSION: 1. Abnormal electrocardiogram, assess for acute coronary syndrome.-negative tropopnin x 3 2. Chest pain, assess for acute coronary syndrome in the setting of severe anemia.-negative troponin x 3/NL EF by echo this admission 3. History of aortic valve replacement-mechanical 4. Coagulopathy-subtherapeutic 5. Severe anemia. 6. Incarcerated hernia, status post repair. 7. Abdominal distention-improved 8. Hyponatremia-resolved 9. Renal failure-improved 10.HTN-reasonable control somewhat labile Recc: -Tele -Continue ACEI/hydralazine -Follow hgb closely -Continue current coumadin s/p increase yesterday in dose and follow INR closely -Continue arixtra until INR therapeutic -Follow volume status closely - Problems: Consultation Date/Type/Reason Admit Date/Time Oct 21, 2016 at 17:20 Initial Consult Date 11/05/16 Type of Consultation: Cardiology Reason for Consultation AVR Referring Provider: ELIZABETH STANLEY MD Exam/Review of Systems Vital Signs Vitals Vital Signs Date Time Temp Pulse Resp B/P Pulse Ox O2 Delivery O2 Flow Rate FiO2 11/16/16 13:07 84 20 98 Nasal Cannula 2.0 11/16/16 12:29 98.0 142/79 11/15/16 20:34 21 Intake and Output 11/15/16 11/15/16 11/16/16 15:00 23:00 07:00 Intake Total 1500 ml 500 ml Output Total 950 ml 1200 ml Balance 550 ml -700 ml Exam Review of Systems: CONSTITUTIONAL: No fevers, chills. PULMONARY: No sob CARDIOVASCULAR: No chest pain/palpitations GASTROINTESTINAL: No nausea/vomiting. GENITOURINARY: No hematuria/dysuria. MUSCULOSKELETAL: No myagias/arthalgias. PSYCHIATRIC: The patient denies depression. NEUROLOGIC: No weakness Constitutional: alert, oriented Psych: no complaints Head: normocephalic ENMT: mucosa pink and moist Neck: jvd (9 cm water), supple Respiratory: diminished breath sounds Cardiovascular: regular rate and rhythm Gastrointestinal: distended (mildly), soft, surgical scars (midline c/d/i) Musculoskeletal: muscle tone (normal) Extremities: edema (none) Neurological: other (No focal deficits) Results Result Diagram: 11/16/16 0552 11/16/16 0552 Results 24 hrs Laboratory Tests Test 11/16/16 05:52 Anion Gap 13 Basophils # 0.1 Basophils % 1.5 Blood Urea Nitrogen 16 Calcium Level 8.6 Carbon Dioxide Level 29 Chloride Level 97 Creatinine 0.80 Eosinophils # 0.2 Eosinophils % 3.8 Glucose Level 88 Hematocrit 30.9 L Hemoglobin 9.6 L INR International Normalized Ratio 1.46 Lymphocytes # 1.7 Lymphocytes % 28.0 Mean Corpuscular Hemoglobin 27.8 L Mean Corpuscular Hemoglobin Concent 31.1 L Mean Corpuscular Volume 89.6 Mean Platelet Volume 10.8 H Monocytes # 0.5 Monocytes % 7.5 Neutrophils # 3.5 Neutrophils % 58.7 Nucleated Red Blood Cells # 0.0 Nucleated Red Blood Cells % 0.0 Platelet Count 341 Potassium Level 4.4 Prothrombin Time 17.8 H Prothrombin Time Ratio 1.4 Red Blood Count 3.45 L Red Cell Distribution Width 14.8 H Sodium Level 135 White Blood Count 6.0 Medications Medications Current Medications Magnesium Hydroxide (Milk Of Mag) 30 ml DAILY PRN PO CONSTIPATION Last administered on 10/28/16 10:45; Admin Dose 30 ML; Start 10/21/16 at 15:00 Loratadine (Claritin) 10 mg DAILY PO Last administered on 11/16/16 09:02; Admin Dose 10 MG; Start 10/21/16 at 15:00 Bisacodyl (Dulcolax Supp) 10 mg DAILY PRN [place] CONSTIPATION; Start 10/21/16 at 16 :00 Sodium Biphosphate/ Sodium Phosphate (Fleet Enema) 133 ml DAILY PRN [place] CONSTIPATION; Start 10/21/16 at 16:00 Acetaminophen/ Hydrocodone Bitart ([place] (5/325)) 2 tab Q6H PRN PO PAIN LEVEL 6 -10 Last administered on 11/15/16 20:39; Admin Dose 2 TAB; Start 10/26/16 at 23: 30 Morphine Sulfate (morphine) 2 mg Q4H PRN IV PAIN Last administered on 11/15/16 04:11; Admin Dose 2 MG; Start 10/29/16 at 02:00 Polyethylene Glycol (Miralax) 17 gm DAILY PRN PO CONSTIPATION Last administered on 10/29/16 19:41; Admin Dose 17 GM; Start 10/29/16 at 19:30 Ondansetron HCl (Zofran Inj) 4 mg Q6H PRN IV NAUSEA AND/OR VOMITING Last administered on 10/31/16 11:54; Admin Dose 4 MG; Start 10/31/16 at 12:00 Simethicone (Mylicon) 80 mg Q4 PRN PO GAS PAIN Last administered on 11/07/16 22 :19; Admin Dose 80 MG; Start 10/31/16 at 12:00 Eye Lubricant (Artificial Tears Oph) 2 drop QID BOTH EYES Last administered on 11/16/16 13:52; Admin Dose 2 DROP; Start 11/05/16 at 21:00 Hydralazine HCl (Apresoline) 50 mg TID PO Last administered on 11/16/16 13:51 ; Admin Dose 50 MG; Start 11/10/16 at 21:00 Hydralazine HCl (Apresoline) 10 mg Q6H PRN IV sbp >160 Last administered on 11/13 08:43; Admin Dose 10 MG; Start 11/10/16 at 18:30 Pantoprazole (Protonix Tab) 40 mg BID@06,18 PO Last administered on 11/16/16 05:58; Admin Dose 40 MG; Start 11/12/16 at 06:00 Guaifenesin/ Codeine Phosphate (Robitussin Ac Liquid Cup) 5 ml Q6 PRN PO COUGH Last administered on 11/14/16 20:52; Admin Dose 5 ML; Start 11/11/16 at 19:30 Benazepril HCl (Lotensin) 40 mg BID PO Last administered on 11/16/16 09:04; Admin Dose 40 MG; Start 11/12/16 at 21:00 Acetaminophen (Tylenol Tab) 650 mg Q6H PRN PO PAIN AND OR ELEVATED TEMP Last administered on 11/14/16 01:08; Admin Dose 650 MG; Start 11/12/16 at 15:30 Warfarin Sodium (Coumadin) 10 mg DAILY@17 PO Last administered on 11/15/16 18: 30; Admin Dose 10 MG; Start 11/15/16 at 18:23 Non-Formulary Medication 1 ea DAILY SC ; Start 11/16/16 at 09:00 ADAM GILMORE Nov 16, 2016 14:13
[2016-11-16] MEDS: WARFARIN 5 MG TAB PO SCH (16:48)
[2016-11-16] MEDS: FONDAPARINUX SODIUM SC SCH (16:48)
[2016-11-16] MEDS: ACETAMINOPHEN 325 MG TAB PO PRN (23:56)
[2016-11-17] VITALS (10 sets, daily range): BP systolic 142–168; BP diastolic 77–86; PULSE 74–83; RESP 17–20
[2016-11-17] MEDS: ALBUTEROL 0.5% (NEB) 2.5 MG/0.5 ML AMP HHN SCH ×6 (00:43→21:04)
[2016-11-17] MEDS: PANTOPRAZOLE (EC) 40 MG TAB PO SCH ×2 (04:39→17:49)
[2016-11-17 07:30] LABS: INR 1.67; POTASSIUM 4.2 mmol/L (3.5-5.1); PROTIME 19.8 Sec (12.2-14.2); PT RATIO 1.5
[2016-11-17 07:32] LABS: CREATININE 0.77 mg/dl (0.61-1.24)
[2016-11-17 07:33] LABS: CALCIUM 8.8 mg/dl (8.4-10.2)
[2016-11-17 07:34] LABS: BASOPHIL # 0.1 10^3/ul (0.0-0.1); BASOPHILS % 1.4 % (0.0-2.0); EOSINOPHILS # 0.2 10^3/ul (0.0-0.5); EOSINOPHILS % 3.3 % (0.0-7.0); HEMATOCRIT 31.3 % (42.0-52.0); HEMOGLOBIN 10.5 g/dl (14.0-18.0); LYMPHOCYTES # 1.8 10^3/ul (0.8-2.9); LYMPHOCYTES % 24.7 % (15.0-51.0); MEAN CORPUSCULAR HEMOGLOBIN 29.2 pg (29.0-33.0); MEAN CORPUSCULAR HGB CONC 33.6 g/dl (32.0-37.0); MEAN CORPUSCULAR VOLUME 86.9 fl (82.0-101.0); MEAN PLATELET VOLUME 10.4 fl (7.4-10.4); MONOCYTE # 0.5 10^3/ul (0.3-0.9); MONOCYTES % 6.5 % (0.0-11.0); NEUTROPHIL # 4.6 10^3/ul (1.6-7.5); NEUTROPHILS % 64.1 % (39.0-77.0); PLATELET COUNT 366 10^3/UL (140-440); RED CELL DISTRIBUTION WIDTH 15.6 % (11.5-14.5); UNCORRECTED WBC 7.1 10^3/ul (4.8-10.8); WHITE BLOOD COUNT 7.1 10^3/ul (4.8-10.8)
[2016-11-17 07:57] LABS: CONDITION 1; LH ANALYZER COMMENTS 1
[2016-11-17] MEDS: ARTIFICIAL TEARS 15 ML OPH BOTH EYES SCH ×4 (08:32→21:47)
[2016-11-17] MEDS: BENAZEPRIL 20 MG TAB PO SCH ×2 (08:32→20:23)
[2016-11-17] MEDS: LORATADINE 10 MG TAB PO SCH (08:32)
[2016-11-17] MEDS: FONDAPARINUX SODIUM SC SCH (10:01)
[2016-11-17] MEDS: HYDROCODONE/APAP (5/325) TAB PO PRN (10:03)
--- NOTE | 2016-11-17 10:51 | PN ---
Date/Time of Note Date/Time of Note DATE: 11/17/16 TIME: 10:50 Assessment/Plan VTE Prophylaxis VTE Prophylaxis Intervention: SCD's Lines/Catheters IV Catheter Type (from [facility]): Central Line Urinary Cath still in place: No Assessment/Plan Assessment/Plan - Prosthetic aortic valve replacement, restarted on Coumadin and Arixtra due to heparin allergy. Dr. Greenberg is following and cardiology consultation. Continue to monitor PT/INR and CBC. - s/p hypovolemic shock 2 to s/p intraabdominal bleeding, resolved. - Acute anemia 2 intraabdominal bleeding ,resolved. - Acute kidney injury 2 to shock, resolved. Dr. Baker is following in nephrology consultation. - Incisional hernia status post laparoscopic incisional hernia repair by Dr. Moreira on 10/19. - History of aortic dissection status post repair. - Hypertension. - Hyperlipidemia - Obesity - Esophagitis per EGD, cont Protonix Further recommendations based on clinical course. Plan of care discussed with Dr. Murphy. Subjective 24 Hr Interval Summary Eyes: no complaints ENT: no complaints Respiratory: no complaints Cardiovascular: no complaints Gastrointestinal: no complaints Genitourinary: no complaints Skin: no complaints Neurologic: no complaints Endocrine: no complaints Lymphatic: no complaints Psychological: no complaints Immunologic: no complaints Exam/Review of Systems Vital Signs Vitals Vital Signs Date Time Temp Pulse Resp B/P Pulse Ox O2 Delivery O2 Flow Rate FiO2 11/17/16 08:57 88 18 96 Nasal Cannula 2.0 11/17/16 07:15 98.6 168/85 11/15/16 20:34 21 Intake and Output 11/16/16 11/16/16 11/17/16 15:00 23:00 07:00 Intake Total 720 ml 240 ml Output Total 1250 ml 500 ml Balance -530 ml -260 ml Exam Constitutional: alert, obese, oriented, well developed Psych: nl mood/affect Head: atraumatic Eyes: EOMI, PERRL, nl sclera ENMT: nl external ears & nose Neck: non-tender Respiratory: clear to auscultation Cardiovascular: nl pulses Gastrointestinal: non-tender, soft Neurological: nl mental status, nl speech Lymph: nl lymph nodes, nontender Results Result Diagram: 11/17/16 0555 11/17/16 0555 Results 24 hrs Laboratory Tests Test 11/17/16 05:55 Anion Gap 15 Basophils # 0.1 Basophils % 1.4 Blood Morphology Comment Blood Urea Nitrogen 17 Calcium Level 8.8 Carbon Dioxide Level 28 Chloride Level 96 L Creatinine 0.77 Eosinophils # 0.2 Eosinophils % 3.3 Glucose Level 84 Hematocrit 31.3 L Hemoglobin 10.5 L INR International Normalized Ratio 1.67 Lymphocytes # 1.8 Lymphocytes % 24.7 Mean Corpuscular Hemoglobin 29.2 Mean Corpuscular Hemoglobin Concent 33.6 Mean Corpuscular Volume 86.9 Mean Platelet Volume 10.4 Monocytes # 0.5 Monocytes % 6.5 Neutrophils # 4.6 Neutrophils % 64.1 Nucleated Red Blood Cells # 0.0 Nucleated Red Blood Cells % 0.0 Platelet Count 366 Potassium Level 4.2 Prothrombin Time 19.8 H Prothrombin Time Ratio 1.5 Red Blood Count 3.60 L Red Cell Distribution Width 15.6 H Sodium Level 135 White Blood Count 7.1 Medications Medications Current Medications Magnesium Hydroxide (Milk Of Mag) 30 ml DAILY PRN PO CONSTIPATION Last administered on 10/28/16 10:45; Admin Dose 30 ML; Start 10/21/16 at 15:00 Loratadine (Claritin) 10 mg DAILY PO Last administered on 11/17/16 08:32; Admin Dose 10 MG; Start 10/21/16 at 15:00 Bisacodyl (Dulcolax Supp) 10 mg DAILY PRN MD CONSTIPATION; Start 10/21/16 at 16 :00 Sodium Biphosphate/ Sodium Phosphate (Fleet Enema) 133 ml DAILY PRN MD CONSTIPATION; Start 10/21/16 at 16:00 Acetaminophen/ Hydrocodone Bitart ([place] (5/325)) 2 tab Q6H PRN PO PAIN LEVEL 6 -10 Last administered on 11/17/16 10:03; Admin Dose 2 TAB; Start 10/26/16 at 23 :30 Morphine Sulfate (morphine) 2 mg Q4H PRN IV PAIN Last administered on 11/15/16 04:11; Admin Dose 2 MG; Start 10/29/16 at 02:00 Polyethylene Glycol (Miralax) 17 gm DAILY PRN PO CONSTIPATION Last administered on 10/29/16 19:41; Admin Dose 17 GM; Start 10/29/16 at 19:30 Ondansetron HCl (Zofran Inj) 4 mg Q6H PRN IV NAUSEA AND/OR VOMITING Last administered on 10/31/16 11:54; Admin Dose 4 MG; Start 10/31/16 at 12:00 Simethicone (Mylicon) 80 mg Q4 PRN PO GAS PAIN Last administered on 11/07/16 22 :19; Admin Dose 80 MG; Start 10/31/16 at 12:00 Eye Lubricant (Artificial Tears Oph) 2 drop QID BOTH EYES Last administered on 11/17/16 08:32; Admin Dose 2 DROP; Start 11/05/16 at 21:00 Hydralazine HCl (Apresoline) 50 mg TID PO Last administered on 11/17/16 08:32 ; Admin Dose 50 MG; Start 11/10/16 at 21:00 Hydralazine HCl (Apresoline) 10 mg Q6H PRN IV sbp >160 Last administered on 11/13 08:43; Admin Dose 10 MG; Start 11/10/16 at 18:30 Pantoprazole (Protonix Tab) 40 mg BID@06,18 PO Last administered on 11/16/16 16:48; Admin Dose 40 MG; Start 11/12/16 at 06:00 Guaifenesin/ Codeine Phosphate (Robitussin Ac Liquid Cup) 5 ml Q6 PRN PO COUGH Last administered on 11/14/16 20:52; Admin Dose 5 ML; Start 11/11/16 at 19:30 Benazepril HCl (Lotensin) 40 mg BID PO Last administered on 11/17/16 08:32; Admin Dose 40 MG; Start 11/12/16 at 21:00 Acetaminophen (Tylenol Tab) 650 mg Q6H PRN PO PAIN AND OR ELEVATED TEMP Last administered on 11/16/16 23:56; Admin Dose 650 MG; Start 11/12/16 at 15:30 Warfarin Sodium (Coumadin) 10 mg DAILY@17 PO Last administered on 11/16/16 16: 48; Admin Dose 10 MG; Start 11/15/16 at 18:23 Non-Formulary Medication 1 ea DAILY SC Last administered on 11/17/16 10:01; Admin Dose 1 EA; Start 11/16/16 at 09:00 NIKO ANSARI Nov 17, 2016 10:51
--- NOTE | 2016-11-17 13:44 | CONS ---
Date/Time of Note Date/Time of Note DATE: 11/17/16 TIME: 13:42 Assessment/Plan Assessment/Plan Chief Complaint/Hosp Course IMPRESSION: 1. Abnormal electrocardiogram, assess for acute coronary syndrome.-negative tropopnin x 3 2. Chest pain, assess for acute coronary syndrome in the setting of severe anemia.-negative troponin x 3/NL EF by echo this admission 3. History of aortic valve replacement-mechanical 4. Coagulopathy-subtherapeutic 5. Severe anemia. 6. Incarcerated hernia, status post repair. 7. Abdominal distention-improved 8. Hyponatremia-resolved 9. Renal failure-improved 10.HTN-elevated Recc: -Tele -Continue ACEI, and increase hydralazine to improve BP control -Follow hgb closely -Continue current coumadin and follow slowly increasing INR closely -Continue arixtra until INR therapeutic -Follow volume status closely - Problems: Consultation Date/Type/Reason Admit Date/Time Oct 21, 2016 at 17:20 Initial Consult Date 11/05/16 Type of Consultation: Cardiology Reason for Consultation AVR Referring Provider: ELIZABETH STANLEY MD Exam/Review of Systems Vital Signs Vitals Vital Signs Date Time Temp Pulse Resp B/P Pulse Ox O2 Delivery O2 Flow Rate FiO2 11/17/16 13:17 81 17 98 21 11/17/16 11:27 97.8 168/79 11/17/16 08:57 Nasal Cannula 2.0 Intake and Output 11/16/16 11/16/16 11/17/16 15:00 23:00 07:00 Intake Total 720 ml 240 ml Output Total 1250 ml 500 ml Balance -530 ml -260 ml Exam Review of Systems: CONSTITUTIONAL: No fevers, chills. PULMONARY: No sob CARDIOVASCULAR: No chest pain/palpitations GASTROINTESTINAL: No nausea/vomiting. GENITOURINARY: No hematuria/dysuria. MUSCULOSKELETAL: No myagias/arthalgias. PSYCHIATRIC: The patient denies depression. NEUROLOGIC: No weakness Constitutional: alert, oriented Psych: no complaints Head: normocephalic ENMT: mucosa pink and moist Neck: jvd (9 cm water), supple Respiratory: diminished breath sounds (at bases/B) Cardiovascular: regular rate and rhythm Gastrointestinal: non-tender, soft, surgical scars (c/d/i) Musculoskeletal: muscle tone (normal) Extremities: edema (none) Neurological: other (No focal deficits) Results Result Diagram: 11/17/16 0555 11/17/16 0555 Results 24 hrs Laboratory Tests Test 11/17/16 05:55 Anion Gap 15 Basophils # 0.1 Basophils % 1.4 Blood Morphology Comment Blood Urea Nitrogen 17 Calcium Level 8.8 Carbon Dioxide Level 28 Chloride Level 96 L Creatinine 0.77 Eosinophils # 0.2 Eosinophils % 3.3 Glucose Level 84 Hematocrit 31.3 L Hemoglobin 10.5 L INR International Normalized Ratio 1.67 Lymphocytes # 1.8 Lymphocytes % 24.7 Mean Corpuscular Hemoglobin 29.2 Mean Corpuscular Hemoglobin Concent 33.6 Mean Corpuscular Volume 86.9 Mean Platelet Volume 10.4 Monocytes # 0.5 Monocytes % 6.5 Neutrophils # 4.6 Neutrophils % 64.1 Nucleated Red Blood Cells # 0.0 Nucleated Red Blood Cells % 0.0 Platelet Count 366 Potassium Level 4.2 Prothrombin Time 19.8 H Prothrombin Time Ratio 1.5 Red Blood Count 3.60 L Red Cell Distribution Width 15.6 H Sodium Level 135 White Blood Count 7.1 Medications Medications Current Medications Magnesium Hydroxide (Milk Of Mag) 30 ml DAILY PRN PO CONSTIPATION Last administered on 10/28/16 10:45; Admin Dose 30 ML; Start 10/21/16 at 15:00 Loratadine (Claritin) 10 mg DAILY PO Last administered on 11/17/16 08:32; Admin Dose 10 MG; Start 10/21/16 at 15:00 Bisacodyl (Dulcolax Supp) 10 mg DAILY PRN [place] CONSTIPATION; Start 10/21/16 at 16 :00 Sodium Biphosphate/ Sodium Phosphate (Fleet Enema) 133 ml DAILY PRN AR CONSTIPATION; Start 10/21/16 at 16:00 Acetaminophen/ Hydrocodone Bitart ([place] (5/325)) 2 tab Q6H PRN PO PAIN LEVEL 6 -10 Last administered on 11/17/16 10:03; Admin Dose 2 TAB; Start 10/26/16 at 23 :30 Morphine Sulfate (morphine) 2 mg Q4H PRN IV PAIN Last administered on 11/15/16 04:11; Admin Dose 2 MG; Start 10/29/16 at 02:00 Polyethylene Glycol (Miralax) 17 gm DAILY PRN PO CONSTIPATION Last administered on 10/29/16 19:41; Admin Dose 17 GM; Start 10/29/16 at 19:30 Ondansetron HCl (Zofran Inj) 4 mg Q6H PRN IV NAUSEA AND/OR VOMITING Last administered on 10/31/16 11:54; Admin Dose 4 MG; Start 10/31/16 at 12:00 Simethicone (Mylicon) 80 mg Q4 PRN PO GAS PAIN Last administered on 11/07/16 22 :19; Admin Dose 80 MG; Start 10/31/16 at 12:00 Eye Lubricant (Artificial Tears Oph) 2 drop QID BOTH EYES Last administered on 11/17/16 12:31; Admin Dose 2 DROP; Start 11/05/16 at 21:00 Hydralazine HCl (Apresoline) 50 mg TID PO Last administered on 11/17/16 12:31 ; Admin Dose 50 MG; Start 11/10/16 at 21:00 Hydralazine HCl (Apresoline) 10 mg Q6H PRN IV sbp >160 Last administered on 11/13 08:43; Admin Dose 10 MG; Start 11/10/16 at 18:30 Pantoprazole (Protonix Tab) 40 mg BID@06,18 PO Last administered on 11/16/16 16:48; Admin Dose 40 MG; Start 11/12/16 at 06:00 Guaifenesin/ Codeine Phosphate (Robitussin Ac Liquid Cup) 5 ml Q6 PRN PO COUGH Last administered on 11/14/16 20:52; Admin Dose 5 ML; Start 11/11/16 at 19:30 Benazepril HCl (Lotensin) 40 mg BID PO Last administered on 11/17/16 08:32; Admin Dose 40 MG; Start 11/12/16 at 21:00 Acetaminophen (Tylenol Tab) 650 mg Q6H PRN PO PAIN AND OR ELEVATED TEMP Last administered on 11/16/16 23:56; Admin Dose 650 MG; Start 11/12/16 at 15:30 Warfarin Sodium (Coumadin) 10 mg DAILY@17 PO Last administered on 11/16/16 16: 48; Admin Dose 10 MG; Start 11/15/16 at 18:23 Non-Formulary Medication 1 ea DAILY SC Last administered on 11/17/16 10:01; Admin Dose 1 EA; Start 11/16/16 at 09:00 ADAM GILMORE Nov 17, 2016 13:44
[2016-11-17] MEDS: WARFARIN 5 MG TAB PO SCH (16:49)
[2016-11-18] MEDS: ALBUTEROL 0.5% (NEB) 2.5 MG/0.5 ML AMP HHN SCH ×6 (00:51→20:38)
[2016-11-18] MEDS: PANTOPRAZOLE (EC) 40 MG TAB PO SCH ×2 (05:36→18:18)
[2016-11-18 05:40] LABS: BASOPHIL # 0.1 10^3/ul (0.0-0.1); EOSINOPHILS # 0.2 10^3/ul (0.0-0.5); EOSINOPHILS % 3.6 % (0.0-7.0); HEMATOCRIT 31.8 % (42.0-52.0); HEMOGLOBIN 10.6 g/dl (14.0-18.0); INR 1.8; LYMPHOCYTES # 1.7 10^3/ul (0.8-2.9); LYMPHOCYTES % 26.4 % (15.0-51.0); MEAN CORPUSCULAR HGB CONC 33.5 g/dl (32.0-37.0); MEAN CORPUSCULAR VOLUME 86.8 fl (82.0-101.0); MONOCYTE # 0.5 10^3/ul (0.3-0.9); MONOCYTES % 8.3 % (0.0-11.0); NEUTROPHILS % 60.7 % (39.0-77.0); PLATELET COUNT 385 10^3/UL (140-440); PT RATIO 1.6; RED BLOOD COUNT 3.66 10^6/ul (4.70-6.10); RED CELL DISTRIBUTION WIDTH 16.1 % (11.5-14.5); UNCORRECTED WBC 6.6 10^3/ul (4.8-10.8); WHITE BLOOD COUNT 6.6 10^3/ul (4.8-10.8)
[2016-11-18 05:45] LABS: POTASSIUM 4.3 mmol/L (3.5-5.1)
[2016-11-18 05:48] LABS: CREATININE 0.89 mg/dl (0.61-1.24)
[2016-11-18 05:49] LABS: CALCIUM 8.8 mg/dl (8.4-10.2)
[2016-11-18 06:10] LABS: CONDITION 1; LH ANALYZER COMMENTS 1
[2016-11-18 07:46] VITALS: BP 163/96; RESP 18
[2016-11-18] MEDS ORDERED: ACETAMINOPHEN 325 MG TAB PO PRN (08:00)
[2016-11-18] MEDS: ARTIFICIAL TEARS 15 ML OPH BOTH EYES SCH ×4 (08:33→21:49)
[2016-11-18] MEDS: LORATADINE 10 MG TAB PO SCH (08:35)
[2016-11-18] MEDS: FONDAPARINUX SODIUM SC SCH (08:35)
[2016-11-18] MEDS: BENAZEPRIL 20 MG TAB PO SCH ×2 (08:35→21:48)
--- NOTE | 2016-11-18 13:24 | CONS ---
Date/Time of Note Date/Time of Note DATE: 11/18/16 TIME: 13:21 Assessment/Plan Assessment/Plan Chief Complaint/Hosp Course IMPRESSION: 1. Abnormal electrocardiogram, assess for acute coronary syndrome.-negative tropopnin x 3 2. Chest pain, assess for acute coronary syndrome in the setting of severe anemia.-negative troponin x 3/NL EF by echo this admission 3. History of aortic valve replacement-mechanical 4. Coagulopathy-remains subtherapeutic but slowly increasing 5. Severe anemia- s/p transfusions 6. Incarcerated hernia, status post repair. 7. Abdominal distention-improved 8. Hyponatremia-resolved 9. Renal failure-improved 10.HTN-elevated Recc: -Tele -Continue ACEI, and continue to increase hydralazine to improve BP control -Follow hgb closely -Continue current coumadin and follow slowly increasing INR closely -Continue arixtra until INR therapeutic -Follow volume status closely - Problems: Consultation Date/Type/Reason Admit Date/Time Oct 21, 2016 at 17:20 Initial Consult Date 11/05/16 Type of Consultation: Cardiology Reason for Consultation AVR Referring Provider: ELIZABETH STANLEY MD Exam/Review of Systems Vital Signs Vitals Vital Signs Date Time Temp Pulse Resp B/P Pulse Ox O2 Delivery O2 Flow Rate FiO2 11/18/16 08:41 84 20 95 21 11/18/16 07:46 98.0 163/96 11/17/16 08:57 Nasal Cannula 2.0 Intake and Output 11/17/16 11/17/16 11/18/16 15:00 23:00 07:00 Intake Total 650 ml 960 ml Balance 650 ml 960 ml Exam Review of Systems: CONSTITUTIONAL: No fevers, chills. PULMONARY: No sob CARDIOVASCULAR: No chest pain/palpitations GASTROINTESTINAL: No nausea/vomiting. GENITOURINARY: No hematuria/dysuria. MUSCULOSKELETAL: No myagias/arthalgias. PSYCHIATRIC: The patient denies depression. NEUROLOGIC: No weakness Constitutional: alert, oriented Psych: no complaints Head: normocephalic ENMT: mucosa pink and moist Neck: jvd (8-9 cm water), supple Respiratory: diminished breath sounds (at bases/B) Cardiovascular: regular rate and rhythm Gastrointestinal: non-tender, soft, surgical scars (c/d/i) Musculoskeletal: muscle tone (normal) Extremities: other (none) Results Result Diagram: 11/18/16 0430 11/18/16 0430 Results 24 hrs Laboratory Tests Test 11/18/16 04:30 Anion Gap 16 Basophils # 0.1 Basophils % 1.0 Blood Morphology Comment Blood Urea Nitrogen 17 Calcium Level 8.8 Carbon Dioxide Level 27 Chloride Level 97 Creatinine 0.89 Eosinophils # 0.2 Eosinophils % 3.6 Glucose Level 89 Hematocrit 31.8 L Hemoglobin 10.6 L INR International Normalized Ratio 1.80 Lymphocytes # 1.7 Lymphocytes % 26.4 Mean Corpuscular Hemoglobin 29.0 Mean Corpuscular Hemoglobin Concent 33.5 Mean Corpuscular Volume 86.8 Mean Platelet Volume 10.0 Monocytes # 0.5 Monocytes % 8.3 Neutrophils # 4.0 Neutrophils % 60.7 Nucleated Red Blood Cells # 0.0 Nucleated Red Blood Cells % 0.0 Platelet Count 385 Potassium Level 4.3 Prothrombin Time 21.0 H Prothrombin Time Ratio 1.6 Red Blood Count 3.66 L Red Cell Distribution Width 16.1 H Sodium Level 136 White Blood Count 6.6 Medications Medications Current Medications Magnesium Hydroxide (Milk Of Mag) 30 ml DAILY PRN PO CONSTIPATION Last administered on 10/28/16 10:45; Admin Dose 30 ML; Start 10/21/16 at 15:00 Loratadine (Claritin) 10 mg DAILY PO Last administered on 11/18/16 08:35; Admin Dose 10 MG; Start 10/21/16 at 15:00 Bisacodyl (Dulcolax Supp) 10 mg DAILY PRN [place] CONSTIPATION; Start 10/21/16 at 16 :00 Sodium Biphosphate/ Sodium Phosphate (Fleet Enema) 133 ml DAILY PRN [place] CONSTIPATION; Start 10/21/16 at 16:00 Acetaminophen/ Hydrocodone Bitart ([place] (5/325)) 2 tab Q6H PRN PO PAIN LEVEL 6 -10 Last administered on 11/17/16 10:03; Admin Dose 2 TAB; Start 10/26/16 at 23 :30 Morphine Sulfate (morphine) 2 mg Q4H PRN IV PAIN Last administered on 11/15/16 04:11; Admin Dose 2 MG; Start 10/29/16 at 02:00 Polyethylene Glycol (Miralax) 17 gm DAILY PRN PO CONSTIPATION Last administered on 10/29/16 19:41; Admin Dose 17 GM; Start 10/29/16 at 19:30 Ondansetron HCl (Zofran Inj) 4 mg Q6H PRN IV NAUSEA AND/OR VOMITING Last administered on 10/31/16 11:54; Admin Dose 4 MG; Start 10/31/16 at 12:00 Simethicone (Mylicon) 80 mg Q4 PRN PO GAS PAIN Last administered on 11/07/16 22 :19; Admin Dose 80 MG; Start 10/31/16 at 12:00 Eye Lubricant (Artificial Tears Oph) 2 drop QID BOTH EYES Last administered on 11/18/16 12:23; Admin Dose 2 DROP; Start 11/05/16 at 21:00 Hydralazine HCl (Apresoline) 10 mg Q6H PRN IV sbp >160 Last administered on 11/13 08:43; Admin Dose 10 MG; Start 11/10/16 at 18:30 Pantoprazole (Protonix Tab) 40 mg BID@06,18 PO Last administered on 11/18/16 05:36; Admin Dose 40 MG; Start 11/12/16 at 06:00 Guaifenesin/ Codeine Phosphate (Robitussin Ac Liquid Cup) 5 ml Q6 PRN PO COUGH Last administered on 11/14/16 20:52; Admin Dose 5 ML; Start 11/11/16 at 19:30 Benazepril HCl (Lotensin) 40 mg BID PO Last administered on 11/18/16 08:35; Admin Dose 40 MG; Start 11/12/16 at 21:00 Acetaminophen (Tylenol Tab) 650 mg Q6H PRN PO PAIN AND OR ELEVATED TEMP Last administered on 11/16/16 23:56; Admin Dose 650 MG; Start 11/12/16 at 15:30 Warfarin Sodium (Coumadin) 10 mg DAILY@17 PO Last administered on 11/17/16 16: 49; Admin Dose 10 MG; Start 11/15/16 at 18:23 Non-Formulary Medication 1 ea DAILY SC Last administered on 11/18/16 08:35; Admin Dose 1 EA; Start 11/16/16 at 09:00 Hydralazine HCl (Apresoline) 75 mg TID PO Last administered on 11/18/16 12:25 ; Admin Dose 75 MG; Start 11/17/16 at 21:00 ADAM GILMORE Nov 18, 2016 13:24
[2016-11-18 13:25] VITALS: BP 144/91; PULSE 91; RESP 18
--- NOTE | 2016-11-18 15:23 | PN ---
Date/Time of Note Date/Time of Note DATE: 11/18/16 TIME: 15:02 Assessment/Plan VTE Prophylaxis VTE Prophylaxis Intervention: other Lines/Catheters IV [facility]from [facility] [place] Urinary Cath still in place: No Assessment/Plan Assessment/Plan - Prosthetic aortic valve replacement, restarted on Coumadin and Arixtra due to heparin allergy. Dr. Greenberg is following and cardiology consultation. Continue to monitor PT/INR and CBC. - s/p hypovolemic shock 2 to s/p intraabdominal bleeding, resolved. - Acute anemia 2 intraabdominal bleeding ,resolved. - Acute kidney injury 2 to shock, resolved. Dr. Baker is following in nephrology consultation. - Incisional hernia status post laparoscopic incisional hernia repair by Dr. Moreira on 10/19. - remove river today per dR Moreira - History of aortic dissection status post repair. - Hypertension. - Hyperlipidemia - Obesity - Esophagitis per EGD, cont Protonix Further recommendations based on clinical course. Plan of care discussed with Dr. Murphy. Exam/Review of Systems Vital Signs Vitals Vital Signs Date Time Temp Pulse Resp B/P Pulse Ox O2 Delivery O2 Flow Rate FiO2 11/18/16 14:11 87 18 97 21 11/18/16 13:25 144/91 Room Air 11/18/16 07:46 98.0 11/17/16 08:57 2.0 Intake and Output 11/17/16 11/17/16 11/18/16 15:00 23:00 07:00 Intake Total 650 ml 960 ml Balance 650 ml 960 ml Exam Constitutional: alert, obese, oriented Eyes: nl conjunctiva ENMT: nl external ears & nose Neck: supple Respiratory: clear to auscultation Cardiovascular: nl pulses Gastrointestinal: non-tender, soft Extremities: normal pulses Neurological: nl mental status, nl speech Skin: other Lymph: nontender Results Result Diagram: 11/18/16 0430 11/18/16 0430 Results 24 hrs Laboratory Tests Test 11/18/16 04:30 Anion Gap 16 Basophils # 0.1 Basophils % 1.0 Blood Morphology Comment Blood Urea Nitrogen 17 Calcium Level 8.8 Carbon Dioxide Level 27 Chloride Level 97 Creatinine 0.89 Eosinophils # 0.2 Eosinophils % 3.6 Glucose Level 89 Hematocrit 31.8 L Hemoglobin 10.6 L INR International Normalized Ratio 1.80 Lymphocytes # 1.7 Lymphocytes % 26.4 Mean Corpuscular Hemoglobin 29.0 Mean Corpuscular Hemoglobin Concent 33.5 Mean Corpuscular Volume 86.8 Mean Platelet Volume 10.0 Monocytes # 0.5 Monocytes % 8.3 Neutrophils # 4.0 Neutrophils % 60.7 Nucleated Red Blood Cells # 0.0 Nucleated Red Blood Cells % 0.0 Platelet Count 385 Potassium Level 4.3 Prothrombin Time 21.0 H Prothrombin Time Ratio 1.6 Red Blood Count 3.66 L Red Cell Distribution Width 16.1 H Sodium Level 136 White Blood Count 6.6 Medications Medications Current Medications Magnesium Hydroxide (Milk Of Mag) 30 ml DAILY PRN PO CONSTIPATION Last administered on 10/28/16 10:45; Admin Dose 30 ML; Start 10/21/16 at 15:00 Loratadine (Claritin) 10 mg DAILY PO Last administered on 11/18/16 08:35; Admin Dose 10 MG; Start 10/21/16 at 15:00 Bisacodyl (Dulcolax Supp) 10 mg DAILY PRN MD CONSTIPATION; Start 10/21/16 at 16 :00 Sodium Biphosphate/ Sodium Phosphate (Fleet Enema) 133 ml DAILY PRN MD CONSTIPATION; Start 10/21/16 at 16:00 Acetaminophen/ Hydrocodone Bitart ([place] (5/325)) 2 tab Q6H PRN PO PAIN LEVEL 6 -10 Last administered on 11/17/16 10:03; Admin Dose 2 TAB; Start 10/26/16 at 23 :30 Morphine Sulfate (morphine) 2 mg Q4H PRN IV PAIN Last administered on 11/15/16 04:11; Admin Dose 2 MG; Start 10/29/16 at 02:00 Polyethylene Glycol (Miralax) 17 gm DAILY PRN PO CONSTIPATION Last administered on 10/29/16 19:41; Admin Dose 17 GM; Start 10/29/16 at 19:30 Ondansetron HCl (Zofran Inj) 4 mg Q6H PRN IV NAUSEA AND/OR VOMITING Last administered on 10/31/16 11:54; Admin Dose 4 MG; Start 10/31/16 at 12:00 Simethicone (Mylicon) 80 mg Q4 PRN PO GAS PAIN Last administered on 11/07/16 22 :19; Admin Dose 80 MG; Start 10/31/16 at 12:00 Eye Lubricant (Artificial Tears Oph) 2 drop QID BOTH EYES Last administered on 11/18/16 12:23; Admin Dose 2 DROP; Start 11/05/16 at 21:00 Hydralazine HCl (Apresoline) 10 mg Q6H PRN IV sbp >160 Last administered on 11/13 08:43; Admin Dose 10 MG; Start 11/10/16 at 18:30 Pantoprazole (Protonix Tab) 40 mg BID@06,18 PO Last administered on 11/18/16 05:36; Admin Dose 40 MG; Start 11/12/16 at 06:00 Guaifenesin/ Codeine Phosphate (Robitussin Ac Liquid Cup) 5 ml Q6 PRN PO COUGH Last administered on 11/14/16 20:52; Admin Dose 5 ML; Start 11/11/16 at 19:30 Benazepril HCl (Lotensin) 40 mg BID PO Last administered on 11/18/16 08:35; Admin Dose 40 MG; Start 11/12/16 at 21:00 Acetaminophen (Tylenol Tab) 650 mg Q6H PRN PO PAIN AND OR ELEVATED TEMP Last administered on 11/16/16 23:56; Admin Dose 650 MG; Start 11/12/16 at 15:30 Warfarin Sodium (Coumadin) 10 mg DAILY@17 PO Last administered on 11/17/16 16: 49; Admin Dose 10 MG; Start 11/15/16 at 18:23 Non-Formulary Medication 1 ea DAILY SC Last administered on 11/18/16 08:35; Admin Dose 1 EA; Start 11/16/16 at 09:00 Hydralazine HCl (Apresoline) 100 mg TID PO ; Start 11/18/16 at 21:00 NIKO ANSARI Nov 18, 2016 15:14
[2016-11-18] MEDS: HYDROCODONE/APAP (5/325) TAB PO PRN (16:43)
[2016-11-18] MEDS: WARFARIN 5 MG TAB PO SCH (16:43)
[2016-11-18 19:37] VITALS: BP 162/88; RESP 17
[2016-11-19] MEDS: ALBUTEROL 0.5% (NEB) 2.5 MG/0.5 ML AMP HHN SCH ×6 (00:25→21:19)
[2016-11-19 05:47] LABS: BASOPHIL # 0.1 10^3/ul (0.0-0.1); BASOPHILS % 1.3 % (0.0-2.0); EOSINOPHILS # 0.2 10^3/ul (0.0-0.5); EOSINOPHILS % 3.6 % (0.0-7.0); HEMATOCRIT 31.6 % (42.0-52.0); HEMOGLOBIN 10.6 g/dl (14.0-18.0); LYMPHOCYTES # 1.9 10^3/ul (0.8-2.9); LYMPHOCYTES % 27.8 % (15.0-51.0); MEAN CORPUSCULAR HEMOGLOBIN 29.3 pg (29.0-33.0); MEAN CORPUSCULAR HGB CONC 33.4 g/dl (32.0-37.0); MEAN CORPUSCULAR VOLUME 87.6 fl (82.0-101.0); MEAN PLATELET VOLUME 9.9 fl (7.4-10.4); MONOCYTE # 0.4 10^3/ul (0.3-0.9); MONOCYTES % 6.5 % (0.0-11.0); NEUTROPHIL # 4.1 10^3/ul (1.6-7.5); NEUTROPHILS % 60.8 % (39.0-77.0); PLATELET COUNT 340 10^3/UL (140-440); RED BLOOD COUNT 3.61 10^6/ul (4.70-6.10); UNCORRECTED WBC 6.7 10^3/ul (4.8-10.8); WHITE BLOOD COUNT 6.7 10^3/ul (4.8-10.8)
[2016-11-19 05:53] LABS: INR 1.91; PROTIME 22.1 Sec (12.2-14.2); PT RATIO 1.7
[2016-11-19] MEDS: PANTOPRAZOLE (EC) 40 MG TAB PO SCH ×2 (06:00→17:09)
[2016-11-19 06:12] LABS: CONDITION 1; LH ANALYZER COMMENTS 1
[2016-11-19 06:30] LABS: POTASSIUM 4.3 mmol/L (3.5-5.1)
[2016-11-19 06:32] LABS: CREATININE 0.97 mg/dl (0.61-1.24)
[2016-11-19 06:33] LABS: CALCIUM 8.9 mg/dl (8.4-10.2)
[2016-11-19 07:58] VITALS: BP 153/89; RESP 20
[2016-11-19] MEDS: LORATADINE 10 MG TAB PO SCH (08:32)
[2016-11-19] MEDS: BENAZEPRIL 20 MG TAB PO SCH ×2 (08:32→20:54)
[2016-11-19] MEDS: ARTIFICIAL TEARS 15 ML OPH BOTH EYES SCH ×4 (08:33→20:53)
[2016-11-19] MEDS: FONDAPARINUX SODIUM SC SCH (09:33)
[2016-11-19 12:07] VITALS: BP 162/87; PULSE 89
--- NOTE | 2016-11-19 12:30 | CONS ---
Date/Time of Note Date/Time of Note DATE: 11/19/16 TIME: 12:26 Assessment/Plan Assessment/Plan Chief Complaint/Hosp Course IMPRESSION: 1. Abnormal electrocardiogram, assess for acute coronary syndrome.-negative tropopnin x 3 2. Chest pain, assess for acute coronary syndrome in the setting of severe anemia.-negative troponin x 3/NL EF by echo this admission 3. History of aortic valve replacement-mechanical 4. Coagulopathy-remains subtherapeutic but slowly increasing 5. Severe anemia- s/p transfusions 6. Incarcerated hernia, status post repair. 7. Abdominal distention-improved 8. Hyponatremia-resolved 9. Renal failure-improved 10.HTN-elevated Recc: -Tele -Continue ACEI/hydralazine and will add CCB to improve BP control -Follow hgb closely -Continue current coumadin and follow slowly increasing INR closely -Continue arixtra until INR therapeutic -Follow volume status closely -D/C planning as likely therapeutic tomorrow Problems: Consultation Date/Type/Reason Admit Date/Time Oct 21, 2016 at 17:20 Initial Consult Date 11/05/16 Type of Consultation: Cardiology Reason for Consultation AVR Referring Provider: ELIZABETH STANLEY MD Exam/Review of Systems Vital Signs Vitals Vital Signs Date Time Temp Pulse Resp B/P Pulse Ox O2 Delivery O2 Flow Rate FiO2 11/19/16 12:07 89 162/87 11/19/16 09:12 18 95 21 11/19/16 07:58 98.2 11/18/16 13:25 Room Air 11/17/16 08:57 2.0 Intake and Output 11/18/16 11/18/16 11/19/16 15:00 23:00 07:00 Intake Total 2100 ml 400 ml Output Total 700 ml Balance 2100 ml -300 ml Exam Review of Systems: CONSTITUTIONAL: No fevers, chills. PULMONARY: No sob CARDIOVASCULAR: No chest pain/palpitations GASTROINTESTINAL: No nausea/vomiting. GENITOURINARY: No hematuria/dysuria. MUSCULOSKELETAL: No myagias/arthalgias. PSYCHIATRIC: The patient denies depression. NEUROLOGIC: No weakness Constitutional: alert, oriented Psych: no complaints Head: normocephalic ENMT: mucosa pink and moist Neck: jvd (8-9 cm water), supple Respiratory: diminished breath sounds (at bases/B) Cardiovascular: regular rate and rhythm Gastrointestinal: distended, non-tender, soft, surgical scars (c/d/i) Musculoskeletal: muscle tone (normal) Extremities: edema (none) Neurological: other (No focal deficits) Results Result Diagram: 11/19/168 11/19/16 0438 Results 24 hrs Laboratory Tests Test 11/19/16 04:38 11/19/16 04:58 Anion Gap 14 Basophils # 0.1 Basophils % 1.3 Blood Morphology Comment Blood Urea Nitrogen 19 Calcium Level 8.9 Carbon Dioxide Level 26 Chloride Level 100 Creatinine 0.97 Eosinophils # 0.2 Eosinophils % 3.6 Glucose Level 92 Hematocrit 31.6 L Hemoglobin 10.6 L Lymphocytes # 1.9 Lymphocytes % 27.8 Mean Corpuscular Hemoglobin 29.3 Mean Corpuscular Hemoglobin Concent 33.4 Mean Corpuscular Volume 87.6 Mean Platelet Volume 9.9 Monocytes # 0.4 Monocytes % 6.5 Neutrophils # 4.1 Neutrophils % 60.8 Nucleated Red Blood Cells # 0.0 Nucleated Red Blood Cells % 0.0 Platelet Count 340 Potassium Level 4.3 Red Blood Count 3.61 L Red Cell Distribution Width 16.0 H Sodium Level 136 White Blood Count 6.7 INR International Normalized Ratio 1.91 Prothrombin Time 22.1 H Prothrombin Time Ratio 1.7 Medications Medications Current Medications Magnesium Hydroxide (Milk Of Mag) 30 ml DAILY PRN PO CONSTIPATION Last administered on 10/28/16 10:45; Admin Dose 30 ML; Start 10/21/16 at 15:00 Loratadine (Claritin) 10 mg DAILY PO Last administered on 11/19/16 08:32; Admin Dose 10 MG; Start 10/21/16 at 15:00 Bisacodyl (Dulcolax Supp) 10 mg DAILY PRN [place] CONSTIPATION; Start 10/21/16 at 16 :00 Sodium Biphosphate/ Sodium Phosphate (Fleet Enema) 133 ml DAILY PRN [place] CONSTIPATION; Start 10/21/16 at 16:00 Acetaminophen/ Hydrocodone Bitart ([place] (5/325)) 2 tab Q6H PRN PO PAIN LEVEL 6 -10 Last administered on 11/18/16 16:43; Admin Dose 2 TAB; Start 10/26/16 at 23 :30 Morphine Sulfate (morphine) 2 mg Q4H PRN IV PAIN Last administered on 11/15/16 04:11; Admin Dose 2 MG; Start 10/29/16 at 02:00 Polyethylene Glycol (Miralax) 17 gm DAILY PRN PO CONSTIPATION Last administered on 10/29/16 19:41; Admin Dose 17 GM; Start 10/29/16 at 19:30 Ondansetron HCl (Zofran Inj) 4 mg Q6H PRN IV NAUSEA AND/OR VOMITING Last administered on 10/31/16 11:54; Admin Dose 4 MG; Start 10/31/16 at 12:00 Simethicone (Mylicon) 80 mg Q4 PRN PO GAS PAIN Last administered on 11/07/16 22 :19; Admin Dose 80 MG; Start 10/31/16 at 12:00 Eye Lubricant (Artificial Tears Oph) 2 drop QID BOTH EYES Last administered on 11/19/16 12:07; Admin Dose 2 DROP; Start 11/05/16 at 21:00 Hydralazine HCl (Apresoline) 10 mg Q6H PRN IV sbp >160 Last administered on 11/13 08:43; Admin Dose 10 MG; Start 11/10/16 at 18:30 Pantoprazole (Protonix Tab) 40 mg BID@06,18 PO Last administered on 11/19/16 06:00; Admin Dose 40 MG; Start 11/12/16 at 06:00 Guaifenesin/ Codeine Phosphate (Robitussin Ac Liquid Cup) 5 ml Q6 PRN PO COUGH Last administered on 11/14/16 20:52; Admin Dose 5 ML; Start 11/11/16 at 19:30 Benazepril HCl (Lotensin) 40 mg BID PO Last administered on 11/19/16 08:32; Admin Dose 40 MG; Start 11/12/16 at 21:00 Acetaminophen (Tylenol Tab) 650 mg Q6H PRN PO PAIN AND OR ELEVATED TEMP Last administered on 11/16/16 23:56; Admin Dose 650 MG; Start 11/12/16 at 15:30 Warfarin Sodium (Coumadin) 10 mg DAILY@17 PO Last administered on 11/18/16 16: 43; Admin Dose 10 MG; Start 11/15/16 at 18:23 Non-Formulary Medication 1 ea DAILY SC Last administered on 11/19/16 09:33; Admin Dose 1 EA; Start 11/16/16 at 09:00 Hydralazine HCl (Apresoline) 100 mg TID PO Last administered on 11/19/16t 12:07 ; Admin Dose 100 MG; Start 11/18/16 at 21:00 ADAM GILMORE Nov 19, 2016 12:30
[2016-11-19] MEDS: ACETAMINOPHEN 325 MG TAB PO PRN ×2 (14:26→23:01)
[2016-11-19] MEDS: NIFEdipine (XL) 30 MG TAB PO SCH (14:27)
--- NOTE | 2016-11-19 16:08 | PN ---
Date/Time of Note Date/Time of Note DATE: 11/19/16 TIME: 16:02 Assessment/Plan VTE Prophylaxis VTE Prophylaxis Intervention: SCD's Lines/Catheters [facility] Central Line Central line still needed: Yes Urinary Cath still in place: No Assessment/Plan Chief Complaint/Hosp Course ASSESSMENT AND PLAN: - Prosthetic aortic valve replacement, restarted on Coumadin and Arixtra due to heparin allergy. Dr. Greenberg is following and cardiology consultation. Continue to monitor PT/INR and CBC. - s/p hypovolemic shock 2 to s/p intraabdominal bleeding, resolved. - Acute anemia 2 intraabdominal bleeding ,resolved. - Acute kidney injury 2 to shock, resolved. Dr. Baker is following in nephrology consultation. - Incisional hernia status post laparoscopic incisional hernia repair by Dr. Moreira on 10/19. - History of aortic dissection status post repair. - Hypertension. - Hyperlipidemia - Obesity - Esophagitis per EGD, cont Protonix Anticipate d/c tomorrow if BP is stable and INR >=2. Further recommendations based on clinical course. Plan of care discussed with Dr. Murphy. Problems: Subjective 24 Hr Interval Summary Free Text/Dictation Patient with episode of elevated BP, started on Procardia, no bleeding from incision site. Exam/Review of Systems Vital Signs Vitals Vital Signs Date Time Temp Pulse Resp B/P Pulse Ox O2 Delivery O2 Flow Rate FiO2 11/19/16 12:51 78 20 96 21 11/19/16 12:07 162/87 11/19/16 07:58 98.2 11/18/16 13:25 Room Air 11/17/16 08:57 2.0 Intake and Output 11/18/16 11/18/16 11/19/16 15:00 23:00 07:00 Intake Total 2100 ml 400 ml Output Total 700 ml Balance 2100 ml -300 ml Exam GENERAL: Well-developed, obese gentleman who currently is awake. HEENT: Head is atraumatic, normocephalic. Pupils equal, round, reactive to light and accommodation. Oral mucosa is pink and moist. NECK: Supple, no cervical lymphadenopathy, no thyromegaly. CHEST: Lungs clear bilaterally. There are no rhonchi, wheezes, or rales noted. CARDIOVASCULAR: Normal S1, S2. The patient has mechanical aortic valve click. No murmurs or gallops noted. ABDOMEN: Distended soft , bowel sounds hypoactive, status post surgery. Ecchymotic area around the incision. EXTREMITIES: No edema, clubbing, cyanosis. SKIN: There is no rash or petechiae noted. The patient has a midline surgical healed scar. NEUROLOGIC: The patient is awake, alert, and oriented x3. Results Result Diagram: 11/19/16 0438 11/19/16 0438 Results 24 hrs Laboratory Tests Test 11/19/16 04:38 11/19/16 04:58 Anion Gap 14 Basophils # 0.1 Basophils % 1.3 Blood Morphology Comment Blood Urea Nitrogen 19 Calcium Level 8.9 Carbon Dioxide Level 26 Chloride Level 100 Creatinine 0.97 Eosinophils # 0.2 Eosinophils % 3.6 Glucose Level 92 Hematocrit 31.6 L Hemoglobin 10.6 L Lymphocytes # 1.9 Lymphocytes % 27.8 Mean Corpuscular Hemoglobin 29.3 Mean Corpuscular Hemoglobin Concent 33.4 Mean Corpuscular Volume 87.6 Mean Platelet Volume 9.9 Monocytes # 0.4 Monocytes % 6.5 Neutrophils # 4.1 Neutrophils % 60.8 Nucleated Red Blood Cells # 0.0 Nucleated Red Blood Cells % 0.0 Platelet Count 340 Potassium Level 4.3 Red Blood Count 3.61 L Red Cell Distribution Width 16.0 H Sodium Level 136 White Blood Count 6.7 INR International Normalized Ratio 1.91 Prothrombin Time 22.1 H Prothrombin Time Ratio 1.7 Medications Medications Current Medications Magnesium Hydroxide (Milk Of Mag) 30 ml DAILY PRN PO CONSTIPATION Last administered on 10/28/16 10:45; Admin Dose 30 ML; Start 10/21/16 at 15:00 Loratadine (Claritin) 10 mg DAILY PO Last administered on 11/19/16 08:32; Admin Dose 10 MG; Start 10/21/16 at 15:00 Bisacodyl (Dulcolax Supp) 10 mg DAILY PRN [place] CONSTIPATION; Start 10/21/16 at 16 :00 Sodium Biphosphate/ Sodium Phosphate (Fleet Enema) 133 ml DAILY PRN [place] CONSTIPATION; Start 10/21/16 at 16:00 Acetaminophen/ Hydrocodone Bitart ([place] (5/325)) 2 tab Q6H PRN PO PAIN LEVEL 6 -10 Last administered on 11/18/16 16:43; Admin Dose 2 TAB; Start 10/26/16 at 23 :30 Morphine Sulfate (morphine) 2 mg Q4H PRN IV PAIN Last administered on 11/15/16 04:11; Admin Dose 2 MG; Start 10/29/16 at 02:00 Polyethylene Glycol (Miralax) 17 gm DAILY PRN PO CONSTIPATION Last administered on 10/29/16 19:41; Admin Dose 17 GM; Start 10/29/16 at 19:30 Ondansetron HCl (Zofran Inj) 4 mg Q6H PRN IV NAUSEA AND/OR VOMITING Last administered on 10/31/16 11:54; Admin Dose 4 MG; Start 10/31/16 at 12:00 Simethicone (Mylicon) 80 mg Q4 PRN PO GAS PAIN Last administered on 11/07/16 22 :19; Admin Dose 80 MG; Start 10/31/16 at 12:00 Eye Lubricant (Artificial Tears Oph) 2 drop QID BOTH EYES Last administered on 11/19/16 12:07; Admin Dose 2 DROP; Start 11/05/16 at 21:00 Hydralazine HCl (Apresoline) 10 mg Q6H PRN IV sbp >160 Last administered on 11/13 08:43; Admin Dose 10 MG; Start 11/10/16 at 18:30 Pantoprazole (Protonix Tab) 40 mg BID@06,18 PO Last administered on 11/19/16 06:00; Admin Dose 40 MG; Start 11/12/16 at 06:00 Guaifenesin/ Codeine Phosphate (Robitussin Ac Liquid Cup) 5 ml Q6 PRN PO COUGH Last administered on 11/14/16 20:52; Admin Dose 5 ML; Start 11/11/16 at 19:30 Benazepril HCl (Lotensin) 40 mg BID PO Last administered on 11/19/16 08:32; Admin Dose 40 MG; Start 11/12/16 at 21:00 Acetaminophen (Tylenol Tab) 650 mg Q6H PRN PO PAIN AND OR ELEVATED TEMP Last administered on 11/19/16 14:26; Admin Dose 650 MG; Start 11/12/16 at 15:30 Warfarin Sodium (Coumadin) 10 mg DAILY@17 PO Last administered on 11/18/16 16: 43; Admin Dose 10 MG; Start 11/15/16 at 18:23 Non-Formulary Medication 1 ea DAILY SC Last administered on 11/19/16 09:33; Admin Dose 1 EA; Start 11/16/16 at 09:00 Hydralazine HCl (Apresoline) 100 mg TID PO Last administered on 11/19/16 12:07 ; Admin Dose 100 MG; Start 11/18/16 at 21:00 Nifedipine (Procardia Xl) 30 mg DAILY PO Last administered on 11/19/16 14:27; Admin Dose 30 MG; Start 11/19/16 at 13:37 KIM DEJESUS Nov 19, 2016 16:08
[2016-11-19] MEDS: WARFARIN 5 MG TAB PO SCH (17:09)
[2016-11-19 18:37] VITALS: BP 147/76
[2016-11-19 19:22] VITALS: BP 151/87; RESP 18
[2016-11-20] MEDS: ALBUTEROL 0.5% (NEB) 2.5 MG/0.5 ML AMP HHN SCH ×6 (01:01→21:33)
[2016-11-20] MEDS: HYDROCODONE/APAP (5/325) TAB PO PRN (01:14)
[2016-11-20 05:02] LABS: BASOPHIL # 0.1 10^3/ul (0.0-0.1); EOSINOPHILS # 0.3 10^3/ul (0.0-0.5); EOSINOPHILS % 3.6 % (0.0-7.0); HEMATOCRIT 31.6 % (42.0-52.0); HEMOGLOBIN 10.7 g/dl (14.0-18.0); LYMPHOCYTES # 1.9 10^3/ul (0.8-2.9); LYMPHOCYTES % 21.8 % (15.0-51.0); MEAN CORPUSCULAR HGB CONC 33.8 g/dl (32.0-37.0); MEAN CORPUSCULAR VOLUME 85.9 fl (82.0-101.0); MEAN PLATELET VOLUME 10.2 fl (7.4-10.4); MONOCYTE # 0.5 10^3/ul (0.3-0.9); MONOCYTES % 6.2 % (0.0-11.0); NEUTROPHIL # 5.9 10^3/ul (1.6-7.5); NEUTROPHILS % 67.4 % (39.0-77.0); PLATELET COUNT 330 10^3/UL (140-440); RED BLOOD COUNT 3.68 10^6/ul (4.70-6.10); RED CELL DISTRIBUTION WIDTH 15.9 % (11.5-14.5); UNCORRECTED WBC 8.8 10^3/ul (4.8-10.8); WHITE BLOOD COUNT 8.8 10^3/ul (4.8-10.8)
[2016-11-20 05:05] LABS: CONDITION 1; LH ANALYZER COMMENTS 1
[2016-11-20 05:12] LABS: INR 2.12; PT RATIO 1.9
[2016-11-20 05:33] LABS: POTASSIUM 4.4 mmol/L (3.5-5.1)
[2016-11-20 05:35] LABS: CREATININE 0.85 mg/dl (0.61-1.24)
[2016-11-20 05:36] LABS: CALCIUM 8.8 mg/dl (8.4-10.2)
[2016-11-20] MEDS: PANTOPRAZOLE (EC) 40 MG TAB PO SCH ×2 (06:14→17:10)
[2016-11-20 07:00] VITALS: BP 139/89; RESP 20
[2016-11-20] MEDS: NIFEdipine (XL) 30 MG TAB PO SCH (08:19)
[2016-11-20] MEDS: ARTIFICIAL TEARS 15 ML OPH BOTH EYES SCH ×4 (08:20→21:00)
[2016-11-20] MEDS: BENAZEPRIL 20 MG TAB PO SCH ×2 (08:20→21:00)
[2016-11-20] MEDS: FONDAPARINUX SODIUM SC SCH (08:20)
[2016-11-20] MEDS: LORATADINE 10 MG TAB PO SCH (08:20)
[2016-11-20] MEDS ORDERED: NIFEdipine (XL) 30 MG TAB PO SCH (09:00)
--- NOTE | 2016-11-20 10:29 | CONS ---
Date/Time of Note Date/Time of Note DATE: 11/20/16 TIME: 10:27 Assessment/Plan Assessment/Plan Additional Assessment/Plan 1. Abnormal electrocardiogram, assess for acute coronary syndrome.-negative tropopnin x 3 - no ischemia 2. Chest pain, assess for acute coronary syndrome in the setting of severe anemia.-negative troponin x 3/NL EF by echo this admission 3. History of aortic valve replacement-mechanical - Coumadin now INR 2.2 - better 4. Coagulopathy-remains subtherapeutic but slowly increasing - increased INR now 5. Severe anemia- s/p transfusions - H/H stable now 6. Incarcerated hernia, status post repair - surgical team follows 7. Abdominal distention-improved 8. Hyponatremia-resolved 9. Renal failure-improved 10.HTN-elevated Consultation Date/Type/Reason Admit Date/Time Oct 21, 2016 at 17:20 Type of Consultation: Cardiology Referring Provider: ELIZABETH STANLEY MD 24 HR Interval Summary Free Text/Dictation No acute change. OFF tele now - no CP - no palpitations. Coumadin, now INR 2.2 - better ROS: No fever, no chills, no nausea, no vomiting, no diarrhea/constipation No recent weight changes No chest pain, no PND, no orthopnea No dizziness, blurred vision No thirst, no heat or cold intolerance Exam/Review of Systems Vital Signs Vitals Vital Signs Date Time Temp Pulse Resp B/P Pulse Ox O2 Delivery O2 Flow Rate FiO2 11/20/16 08:56 80 17 98 21 11/20/16 07:00 98.6 139/89 11/18/16 13:25 Room Air 11/17/16 08:57 2.0 Intake and Output 11/19/16 11/19/16 11/20/16 14:59 22:59 06:59 Intake Total 1640 ml 700 ml Output Total 950 ml Balance 690 ml 700 ml Exam General: WN/WD/NAD, AOx 3 HEENT: Unicetric/atraumatic/EOMI (follow commands) NECK: JVD elevated, no thyromegaly Lymph: no lymphadenopathy HEART: regular with no S3, II/ systolic murmur at apex, mech click LUNGS: Coarse sounds ABD: soft, NT, ND, +BS, post op : Intact Neuro: non focal SKIN: chronic changes EXT: trace edema Results Result Diagram: 11/20/16 0423 11/20/16 0423 Results 24 hrs Laboratory Tests Test 11/20/16 04:23 Anion Gap 13 Basophils # 0.1 Basophils % 1.0 Blood Morphology Comment Blood Urea Nitrogen 18 Calcium Level 8.8 Carbon Dioxide Level 26 Chloride Level 97 Creatinine 0.85 Eosinophils # 0.3 Eosinophils % 3.6 Glucose Level 94 Hematocrit 31.6 L Hemoglobin 10.7 L INR International Normalized Ratio 2.12 Lymphocytes # 1.9 Lymphocytes % 21.8 Mean Corpuscular Hemoglobin 29.0 Mean Corpuscular Hemoglobin Concent 33.8 Mean Corpuscular Volume 85.9 Mean Platelet Volume 10.2 Monocytes # 0.5 Monocytes % 6.2 Neutrophils # 5.9 Neutrophils % 67.4 Nucleated Red Blood Cells # 0.0 Nucleated Red Blood Cells % 0.0 Platelet Count 330 Potassium Level 4.4 Prothrombin Time 24.0 H Prothrombin Time Ratio 1.9 Red Blood Count 3.68 L Red Cell Distribution Width 15.9 H Sodium Level 132 L White Blood Count 8.8 # Medications Medications Current Medications Magnesium Hydroxide (Milk Of Mag) 30 ml DAILY PRN PO CONSTIPATION Last administered on 10/28/16 10:45; Admin Dose 30 ML; Start 10/21/16 at 15:00 Loratadine (Claritin) 10 mg DAILY PO Last administered on 11/20/16 08:20; Admin Dose 10 MG; Start 10/21/16 at 15:00 Bisacodyl (Dulcolax Supp) 10 mg DAILY PRN [place] CONSTIPATION; Start 10/21/16 at 16 :00 Sodium Biphosphate/ Sodium Phosphate (Fleet Enema) 133 ml DAILY PRN [place] CONSTIPATION; Start 10/21/16 at 16:00 Acetaminophen/ Hydrocodone Bitart ([place] (5/325)) 2 tab Q6H PRN PO PAIN LEVEL 6 -10 Last administered on 11/20/16 01:14; Admin Dose 2 TAB; Start 10/26/16 at 23 :30 Morphine Sulfate (morphine) 2 mg Q4H PRN IV PAIN Last administered on 11/15/16 04:11; Admin Dose 2 MG; Start 10/29/16 at 02:00 Polyethylene Glycol (Miralax) 17 gm DAILY PRN PO CONSTIPATION Last administered on 10/29/16 19:41; Admin Dose 17 GM; Start 10/29/16 at 19:30 Ondansetron HCl (Zofran Inj) 4 mg Q6H PRN IV NAUSEA AND/OR VOMITING Last administered on 10/31/16 11:54; Admin Dose 4 MG; Start 10/31/16 at 12:00 Simethicone (Mylicon) 80 mg Q4 PRN PO GAS PAIN Last administered on 11/07/16 22 :19; Admin Dose 80 MG; Start 10/31/16 at 12:00 Eye Lubricant (Artificial Tears Oph) 2 drop QID BOTH EYES Last administered on 11/20/16 08:20; Admin Dose 2 DROP; Start 11/05/16 at 21:00 Hydralazine HCl (Apresoline) 10 mg Q6H PRN IV sbp >160 Last administered on 11/13 08:43; Admin Dose 10 MG; Start 11/10/16 at 18:30 Pantoprazole (Protonix Tab) 40 mg BID@,18 PO Last administered on 11/20/16 06:14; Admin Dose 40 MG; Start 11/12/16 at 06:00 Guaifenesin/ Codeine Phosphate (Robitussin Ac Liquid Cup) 5 ml Q6 PRN PO COUGH Last administered on 11/14/16 20:52; Admin Dose 5 ML; Start 11/11/16 at 19:30 Benazepril HCl (Lotensin) 40 mg BID PO Last administered on 11/20/16 08:20; Admin Dose 40 MG; Start 11/12/16 at 21:00 Acetaminophen (Tylenol Tab) 650 mg Q6H PRN PO PAIN AND OR ELEVATED TEMP Last administered on 11/19/16 23:01; Admin Dose 650 MG; Start 11/12/16 at 15:30 Warfarin Sodium (Coumadin) 10 mg DAILY@17 PO Last administered on 11/19/16 17: 09; Admin Dose 10 MG; Start 11/15/16 at 18:23 Hydralazine HCl (Apresoline) 100 mg TID PO Last administered on 11/20/16 08:20 ; Admin Dose 100 MG; Start 11/18/16 at 21:00 Nifedipine (Procardia Xl) 30 mg DAILY PO Last administered on 11/20/16 08:19; Admin Dose 30 MG; Start 11/19/16 at 13:37 LENSKY,MOO MD Nov 20, 2016 10:29
[2016-11-20] MEDS ORDERED: BENA20TA48 PO (15:15)
[2016-11-20] MEDS ORDERED: NIFE30TA2 PO (15:15)
[2016-11-20] MEDS ORDERED: APR50 PO (15:15)
[2016-11-20] MEDS ORDERED: HYDR-3498 PO (15:15)
[2016-11-20] MEDS ORDERED: WARF4TAB PO (15:15)
--- NOTE | 2016-11-20 17:09 | PN ---
Date/Time of Note Date/Time of Note DATE: 11/20/16 TIME: 17:07 Assessment/Plan VTE Prophylaxis VTE Prophylaxis Intervention: other Lines/Catheters [facility] [place] Urinary Cath still in place: No Assessment/Plan Chief Complaint/Hosp Course ASSESSMENT AND PLAN: - Prosthetic aortic valve replacement, restarted on Coumadin and Arixtra due to heparin allergy. Dr. Greenberg is following and cardiology consultation. Continue to monitor PT/INR and CBC. - s/p hypovolemic shock 2 to s/p intraabdominal bleeding, resolved. - Acute anemia 2 intraabdominal bleeding ,resolved. - Acute kidney injury 2 to shock, resolved. Dr. Baker is following in nephrology consultation. - Incisional hernia status post laparoscopic incisional hernia repair by Dr. Moreira on 10/19. - History of aortic dissection status post repair. - Hypertension. - Hyperlipidemia - Obesity - Esophagitis per EGD, cont Protonix Anticipate d/c tomorrow if BP is stable and INR >=2. Further recommendations based on clinical course. Plan of care discussed with Dr. Murphy. Problems: Subjective 24 Hr Interval Summary Free Text/Dictation awaits arrangement for home health PT/INR by case management, d/c upon arrangement with Coumadin clinic or PMD for f/up PT/INR Exam/Review of Systems Vital Signs Vitals Vital Signs Date Time Temp Pulse Resp B/P Pulse Ox O2 Delivery O2 Flow Rate FiO2 11/20/16 16:33 82 18 21 11/20/16 12:02 96 11/20/16 07:00 98.6 139/89 11/18/16 13:25 Room Air 11/17/16 08:57 2.0 Intake and Output 11/19/16 11/19/16 11/20/16 15:00 23:00 07:00 Intake Total 1640 ml 700 ml Output Total 950 ml Balance 690 ml 700 ml Exam GENERAL: Well-developed, obese gentleman who currently is awake. HEENT: Head is atraumatic, normocephalic. Pupils equal, round, reactive to light and accommodation. Oral mucosa is pink and moist. NECK: Supple, no cervical lymphadenopathy, no thyromegaly. CHEST: Lungs clear bilaterally. There are no rhonchi, wheezes, or rales noted. CARDIOVASCULAR: Normal S1, S2. The patient has mechanical aortic valve click. No murmurs or gallops noted. ABDOMEN: Distended soft , bowel sounds present. EXTREMITIES: No edema, clubbing, cyanosis. SKIN: There is no rash or petechiae noted. The patient has a midline surgical healed scar. NEUROLOGIC: The patient is awake, alert, and oriented x3. Results Result Diagram: 11/20/16 0423 11/20/16 0423 Results 24 hrs Laboratory Tests Test 11/20/16 04:23 Anion Gap 13 Basophils # 0.1 Basophils % 1.0 Blood Morphology Comment Blood Urea Nitrogen 18 Calcium Level 8.8 Carbon Dioxide Level 26 Chloride Level 97 Creatinine 0.85 Eosinophils # 0.3 Eosinophils % 3.6 Glucose Level 94 Hematocrit 31.6 L Hemoglobin 10.7 L INR International Normalized Ratio 2.12 Lymphocytes # 1.9 Lymphocytes % 21.8 Mean Corpuscular Hemoglobin 29.0 Mean Corpuscular Hemoglobin Concent 33.8 Mean Corpuscular Volume 85.9 Mean Platelet Volume 10.2 Monocytes # 0.5 Monocytes % 6.2 Neutrophils # 5.9 Neutrophils % 67.4 Nucleated Red Blood Cells # 0.0 Nucleated Red Blood Cells % 0.0 Platelet Count 330 Potassium Level 4.4 Prothrombin Time 24.0 H Prothrombin Time Ratio 1.9 Red Blood Count 3.68 L Red Cell Distribution Width 15.9 H Sodium Level 132 L White Blood Count 8.8 # Medications Medications Current Medications Magnesium Hydroxide (Milk Of Mag) 30 ml DAILY PRN PO CONSTIPATION Last administered on 10/28/16 10:45; Admin Dose 30 ML; Start 10/21/16 at 15:00 Loratadine (Claritin) 10 mg DAILY PO Last administered on 11/20/16 08:20; Admin Dose 10 MG; Start 10/21/16 at 15:00 Bisacodyl (Dulcolax Supp) 10 mg DAILY PRN [place] CONSTIPATION; Start 10/21/16 at 16 :00 Sodium Biphosphate/ Sodium Phosphate (Fleet Enema) 133 ml DAILY PRN [place] CONSTIPATION; Start 10/21/16 at 16:00 Acetaminophen/ Hydrocodone Bitart ([place] (5/325)) 2 tab Q6H PRN PO PAIN LEVEL 6 -10 Last administered on 11/20/16 01:14; Admin Dose 2 TAB; Start 10/26/16 at 23 :30 Morphine Sulfate (morphine) 2 mg Q4H PRN IV PAIN Last administered on 11/15/16 04:11; Admin Dose 2 MG; Start 10/29/16 at 02:00 Polyethylene Glycol (Miralax) 17 gm DAILY PRN PO CONSTIPATION Last administered on 10/29/16 19:41; Admin Dose 17 GM; Start 10/29/16 at 19:30 Ondansetron HCl (Zofran Inj) 4 mg Q6H PRN IV NAUSEA AND/OR VOMITING Last administered on 10/31/16 11:54; Admin Dose 4 MG; Start 10/31/16 at 12:00 Simethicone (Mylicon) 80 mg Q4 PRN PO GAS PAIN Last administered on 11/07/16 22 :19; Admin Dose 80 MG; Start 10/31/16 at 12:00 Eye Lubricant (Artificial Tears Oph) 2 drop QID BOTH EYES Last administered on 11/20/16 14:11; Admin Dose 2 DROP; Start 11/05/16 at 21:00 Hydralazine HCl (Apresoline) 10 mg Q6H PRN IV sbp >160 Last administered on 11/13 08:43; Admin Dose 10 MG; Start 11/10/16 at 18:30 Pantoprazole (Protonix Tab) 40 mg BID@06,18 PO Last administered on 11/20/16 06:14; Admin Dose 40 MG; Start 11/12/16 at 06:00 Guaifenesin/ Codeine Phosphate (Robitussin Ac Liquid Cup) 5 ml Q6 PRN PO COUGH Last administered on 11/14/16 20:52; Admin Dose 5 ML; Start 11/11/16 at 19:30 Benazepril HCl (Lotensin) 40 mg BID PO Last administered on 11/20/16 08:20; Admin Dose 40 MG; Start 11/12/16 at 21:00 Acetaminophen (Tylenol Tab) 650 mg Q6H PRN PO PAIN AND OR ELEVATED TEMP Last administered on 11/19/16 23:01; Admin Dose 650 MG; Start 11/12/16 at 15:30 Warfarin Sodium (Coumadin) 10 mg DAILY@17 PO Last administered on 11/19/16 17: 09; Admin Dose 10 MG; Start 11/15/16 at 18:23 Hydralazine HCl (Apresoline) 100 mg TID PO Last administered on 11/20/16 14:11 ; Admin Dose 100 MG; Start 11/18/16 at 21:00 Nifedipine (Procardia Xl) 30 mg DAILY PO Last administered on 11/20/16 08:19; Admin Dose 30 MG; Start 11/19/16 at 13:37 KIM DEJESUS Nov 20, 2016 17:09
[2016-11-20] MEDS: WARFARIN 5 MG TAB PO SCH (17:10)
[2016-11-20 19:57] VITALS: BP 135/75; RESP 18
[2016-11-21 00:21] VITALS: BP 142/76; RESP 20
[2016-11-21] MEDS: ALBUTEROL 0.5% (NEB) 2.5 MG/0.5 ML AMP HHN SCH ×4 (01:58→13:55)
[2016-11-21 05:43] LABS: INR 2.17; PROTIME 24.4 Sec (12.2-14.2); PT RATIO 1.9
[2016-11-21] MEDS: PANTOPRAZOLE (EC) 40 MG TAB PO SCH (05:54)
[2016-11-21 07:40] VITALS: BP 138/83; RESP 19
[2016-11-21] MEDS: BENAZEPRIL 20 MG TAB PO SCH (08:20)
[2016-11-21] MEDS: LORATADINE 10 MG TAB PO SCH (08:20)
[2016-11-21] MEDS: NIFEdipine (XL) 30 MG TAB PO SCH (08:21)
[2016-11-21] MEDS: ARTIFICIAL TEARS 15 ML OPH BOTH EYES SCH ×2 (08:21→13:00)
--- NOTE | 2016-11-21 15:09 | CONS ---
Date/Time of Note Date/Time of Note DATE: 11/21/16 TIME: 15:07 Assessment/Plan Assessment/Plan Chief Complaint/Hosp Course IMPRESSION: 1. Abnormal electrocardiogram, assess for acute coronary syndrome.-negative tropopnin x 3 2. Chest pain, assess for acute coronary syndrome in the setting of severe anemia.-negative troponin x 3/NL EF by echo this admission 3. History of aortic valve replacement-mechanical 4. Coagulopathy-remains subtherapeutic but slowly increasing 5. Severe anemia- s/p transfusions 6. Incarcerated hernia, status post repair. 7. Abdominal distention-improved 8. Hyponatremia-resolved 9. Renal failure-improved 10.HTN-elevated Recc: -Tele -Continue ACEI/hydralazine/CCB -Follow hgb closely -Continue current coumadin and follow INR closely -Follow volume status closely -D/C planning as now therapeutic Problems: Consultation Date/Type/Reason Admit Date/Time Oct 21, 2016 at 17:20 Initial Consult Date 11/05/16 Type of Consultation: Cardiology Reason for Consultation AVR Referring Provider: ELIZABETH STANLEY MD Exam/Review of Systems Vital Signs Vitals Vital Signs Date Time Temp Pulse Resp B/P Pulse Ox O2 Delivery O2 Flow Rate FiO2 11/21/16 13:55 77 17 97 21 11/21/16 07:40 98.0 138/83 11/18/16 13:25 Room Air 11/17/16 08:57 2.0 Intake and Output 11/20/16 11/20/16 11/21/16 15:00 23:00 07:00 Intake Total 980 ml 600 ml Balance 980 ml 600 ml Exam Review of Systems: CONSTITUTIONAL: No fevers, chills. PULMONARY: No sob CARDIOVASCULAR: No chest pain/palpitations GASTROINTESTINAL: No nausea/vomiting. GENITOURINARY: No hematuria/dysuria. MUSCULOSKELETAL: No myagias/arthalgias. PSYCHIATRIC: The patient denies depression. NEUROLOGIC: No weakness Constitutional: alert, oriented Psych: no complaints Head: normocephalic ENMT: mucosa pink and moist Neck: jvd (9 cm water), supple Respiratory: diminished breath sounds (at bases/B) Cardiovascular: regular rate and rhythm Gastrointestinal: non-tender, soft Musculoskeletal: muscle tone (normal) Extremities: edema (none) Neurological: other (No focal deficits) Results Result Diagram: 2/14/17 0423 11/20/16 0423 Results 24 hrs Laboratory Tests Test 11/21/16 04:20 INR International Normalized Ratio 2.17 Prothrombin Time 24.4 H Prothrombin Time Ratio 1.9 Medications Medications Current Medications Magnesium Hydroxide (Milk Of Mag) 30 ml DAILY PRN PO CONSTIPATION Last administered on 10/28/16 10:45; Admin Dose 30 ML; Start 10/21/16 at 15:00 Loratadine (Claritin) 10 mg DAILY PO Last administered on 11/21/16 08:20; Admin Dose 10 MG; Start 10/21/16 at 15:00 Bisacodyl (Dulcolax Supp) 10 mg DAILY PRN CO CONSTIPATION; Start 10/21/16 at 16 :00 Sodium Biphosphate/ Sodium Phosphate (Fleet Enema) 133 ml DAILY PRN CO CONSTIPATION; Start 10/21/16 at 16:00 Acetaminophen/ Hydrocodone Bitart ([place] (5/325)) 2 tab Q6H PRN PO PAIN LEVEL 6 -10 Last administered on 11/20/16 01:14; Admin Dose 2 TAB; Start 10/26/16 at 23 :30 Morphine Sulfate (morphine) 2 mg Q4H PRN IV PAIN Last administered on 11/15/16 04:11; Admin Dose 2 MG; Start 10/29/16 at 02:00 Polyethylene Glycol (Miralax) 17 gm DAILY PRN PO CONSTIPATION Last administered on 10/29/16 19:41; Admin Dose 17 GM; Start 10/29/16 at 19:30 Ondansetron HCl (Zofran Inj) 4 mg Q6H PRN IV NAUSEA AND/OR VOMITING Last administered on 10/31/16 11:54; Admin Dose 4 MG; Start 10/31/16 at 12:00 Simethicone (Mylicon) 80 mg Q4 PRN PO GAS PAIN Last administered on 11/07/16 22 :19; Admin Dose 80 MG; Start 10/31/16 at 12:00 Eye Lubricant (Artificial Tears Oph) 2 drop QID BOTH EYES Last administered on 11/21/16 08:21; Admin Dose 2 DROP; Start 11/05/16 at 21:00 Hydralazine HCl (Apresoline) 10 mg Q6H PRN IV sbp >160 Last administered on 11/13 08:43; Admin Dose 10 MG; Start 11/10/16 at 18:30 Pantoprazole (Protonix Tab) 40 mg BID@06,18 PO Last administered on 11/21/16 05:54; Admin Dose 40 MG; Start 11/12/16 at 06:00 Guaifenesin/ Codeine Phosphate (Robitussin Ac Liquid Cup) 5 ml Q6 PRN PO COUGH Last administered on 11/14/16 20:52; Admin Dose 5 ML; Start 11/11/16 at 19:30 Benazepril HCl (Lotensin) 40 mg BID PO Last administered on 11/21/16 08:20; Admin Dose 40 MG; Start 11/12/16 at 21:00 Acetaminophen (Tylenol Tab) 650 mg Q6H PRN PO PAIN AND OR ELEVATED TEMP Last administered on 11/19/16 23:01; Admin Dose 650 MG; Start 11/12/16 at 15:30 Warfarin Sodium (Coumadin) 10 mg DAILY@17 PO Last administered on 11/20/16 17: 10; Admin Dose 10 MG; Start 11/15/16 at 18:23 Hydralazine HCl (Apresoline) 100 mg TID PO Last administered on 11/21/16 13:40 ; Admin Dose 100 MG; Start 11/18/16 at 21:00 Nifedipine (Procardia Xl) 30 mg DAILY PO Last administered on 11/21/16 08:21; Admin Dose 30 MG; Start 11/19/16 at 13:37 ADAM GILMORE Nov 21, 2016 15:09
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
== END 2016-11-21 16:50 | disposition home or self-care (01) | DRG 335 ==
LOC: SDS 07:57 → MS1 11:42 → OBSVTOIN 10-21 17:20 → MS1 10-26 12:59 → ICU 10-30 10:30 → TEL 11-01 20:15 → MS1 11-17 16:40
PROVIDERS: ADMIT Internal Medicine; ATTEND Surgery
PROC: 0DNW4ZZ Release Peritoneum, Percutaneous Endoscopic Approach (ICD-10-PCS; 2016-10-19)
PROC: 0WJF4ZZ Inspection of Abdominal Wall, Percutaneous Endoscopic Approach (ICD-10-PCS; 2016-10-19)
PROC: 0WUF0JZ Supplement Abdominal Wall with Synthetic Substitute, Open Approach (ICD-10-PCS; principal; 2016-10-19 11:30)
PROC: 05HN33Z Insertion of Infusion Device into Left Internal Jugular Vein, Percutaneous Approach (ICD-10-PCS; 2016-10-30)
PROC: B544ZZA Ultrasonography of Left Jugular Veins, Guidance (ICD-10-PCS; 2016-10-30)
PROC: 30243N1 Transfusion of Nonautologous Red Blood Cells into Central Vein, Percutaneous Approach (ICD-10-PCS; 2016-10-30)
PROC: 0DB58ZX Excision of Esophagus, Via Natural or Artificial Opening Endoscopic, Diagnostic (ICD-10-PCS; 2016-10-31)
DX: K43.0 Incisional hernia with obstruction, without gangrene (principal); R57.1 Hypovolemic shock; N17.9 Acute kidney failure, unspecified; K22.11 Ulcer of esophagus with bleeding; K29.71 Gastritis, unspecified, with bleeding; D68.32 Hemorrhagic disorder due to extrinsic circulating anticoagulants; E87.1 Hypo-osmolality and hyponatremia; D62 Acute posthemorrhagic anemia; K91.871 Postprocedural hematoma of a digestive system organ or structure following other procedure; E87.5 Hyperkalemia; I10 Essential (primary) hypertension; G89.18 Other acute postprocedural pain; K66.0 Peritoneal adhesions (postprocedural) (postinfection); E78.5 Hyperlipidemia, unspecified; E66.01 Morbid (severe) obesity due to excess calories; Z68.37 Body mass index [BMI] 37.0-37.9, adult; R06.00 Dyspnea, unspecified; R07.9 Chest pain, unspecified; D72.829 Elevated white blood cell count, unspecified; R94.31 Abnormal electrocardiogram [ECG] [EKG]; R14.0 Abdominal distension (gaseous); T45.515A Adverse effect of anticoagulants, initial encounter; Y92.230 Patient room in hospital as the place of occurrence of the external cause; Z95.2 Presence of prosthetic heart valve; Z79.01 Long term (current) use of anticoagulants; Z95.1 Presence of aortocoronary bypass graft; Z59.0 Homelessness; Z86.79 Personal history of other diseases of the circulatory system; Z88.8 Allergy status to other drugs, medicaments and biological substances
CPT/HCPCS: 36430; 36600; 71010; 71250; 74000; 74176; 80048; 80053; 81003; 82533; 82550; 82553; 82803; 82962; 83051; 83605; 83735; 83935; 84155; 84235; 84300; 84443; 84484; 85025; 85049; 85362; 85378; 85384; 85610; 85670; 85730; 86850; 86900; 86901; 86920; 87040; 87081; 87086; 88305; 88312; 93005; 93306; 94640; 94660; 94664; 94760; 97110; 97116; 97162; 97530; J1940; C1751; C1781; C9113; G0378; J0131; J0295; J0330; J0360; J0690; J1100; J1170; J1650; J1815; J1885; J1956; J2175; J2250; J2270; J2310; J2370; J2405; J2543; J2710; J2765; J3010; J3480; J7030; J7070; P9016